=== PATIENT | male | born 1935 | race Caucasian/White ===

== ENCOUNTER → 2017-02-02 | Day surgery (SDC) | payer OTHER ==
[2017-01-12 09:24] VITALS: Ht 167.6 cm; Wt 84.1 kg
[~2017-02-02] VITALS: Ht 167.6 cm; Wt 84.1 kg
[~2017-02-02] MED LIST: 500ML BSS 0.3ML EPI 1:1000PF IRRIG ONE; ACETAMINOPHEN 325 MG TAB PO PRN; AMVISC PLUS 0.8ML SYRINGE INT OCU ONE; ARTISOL8 OP; ATROPINE SULFATE 0.1 MG/ML 5ML SYR IV PRN; ATV1 PO; BROM0.07 OPL; BSS FLUSH ONE; CARV3.122 PO; CHOL1TAB PO; CLB100 PO; CRS/10 PO; DULO-24 PO; EpHEDrine SULFATE INJ 50 MG/ML AMP IV PRN; EpINEphrine INJ 1MG/ML AMP 1 MG/ML AMP ONE; FOLI800T PO; HYDR-5688 PO; HYT/2 PO; LACTATED RINGER'S 1000ML 500 ML IV SCH; LIDOCAINE 3.5% OPH GEL PER APPLICATION CHARGE ONE; LIDOCAINE HCL 1% MPF 2 ML VIAL ONE; MIDAZOLAM HCL 1 MG/ML 2ML VIAL ONE; OCUCOAT 1 ML SOLN IO ONE; ONDANSETRON INJ 2 MG/ML 2 ML VIAL IV PRN; PHENYLEPHRINE HCL 10% OP SOLN PER DROP CHARGE OPL SCH; POVIDONE-IODINE OP SOLN 30 ML BTL ONE; PRED-301 PO; PRED1SUS3 OPL; PROPARACAINE 0.5% OP SOLN PER DROP CHARGE OPL SCH; SENN-104 PO; THIA50CA PO; TOBRAMYCIN/DEXAMETHASONE OPH OINT PER APPLN CHARGE ONE
[2017-02-02] MEDS: PHENYLEPHRINE HCL 2.5% OP SOLN PER DROP CHARGE OPL SCH ×2 (07:57→08:03)
[2017-02-02] MEDS: TROPICAMIDE 1% OP SOLN PER DROP CHARGE OPL SCH ×2 (07:58→08:04)
[2017-02-02] MEDS: CYCLOPENTOLATE HCL 1% OP SOLN PER DROP CHARGE OPL SCH ×2 (07:59→08:05)
[2017-02-02] MEDS: KETOROLAC 0.5% OP SOLN PER DROP CHARGE OPL SCH ×2 (08:00→08:06)
[2017-02-02] MEDS: GATIFLOXACIN OP SOLN PER DROP CHARGE OPL SCH ×2 (08:01→08:10)
--- NOTE | 2017-02-02 08:33 | History & Physical Bridge - [place] ---
H&P Re-Evaluation Bridge Note: I have examined the patient, reviewed the History & Physical and in the interval since the performance of the History & Physical I have noted the following changes of clinical significance: No changes noted
[2017-02-02 09:26] VITALS: TEMP 36.4
--- NOTE | 2017-02-02 09:26 | Discharge Instructions-SurgCtr ---
Discharge Instructions Date of Service Feb 02, 2017. Visit Reason for Visit: Cataract Left Eye Discharge Discharge Diagnosis / Problem: cataract Discharge Goals Goal(s): Improve function Activity Recommendations Activity Limitations: per Instructions/Follow-up section Anesthesia . Post Anesthesia Instructions: If you have had General Anesthesia or IV Sedation: * Do not drive today. * Resume driving when surgeon permits. * Do not make important decisions or sign legal documents today. * Call surgeon for: 1. Temperature elevations greater than 101 degrees F. 2. Uncontrollable pain. 3. Excessive bleeding. 4. Persistent nausea and vomiting. 5. Medication intolerance (nausea, vomiting or rash). * For nausea and vomiting use only clear liquids such as: tea, soda, bouillon until nausea subsides, then gradually increase diet as tolerated. * If you have any concerns or questions, call your surgeon's office. If physician is unavailable and it is an emergency, call 911 or go to the nearest emergency room. . Instructions / Follow-Up Instructions / Follow-Up ACTIVITY RECOMMENDATIONS: * No strenuous lifting, jogging or running for 4 days * No swimming or yard work for 1 week. * Limited bending is permitted, such as putting on shoes. RETURN TO SCHOOL/WORK: No work until seen by physician in office. MEDICATIONS: Resume previous medications unless instructed otherwise by your surgeon. This includes eye drops for glaucoma. Zymaxid/Gatifloxacin (rudolph cap) - one drop every 2 hours until bedtime Nevanac/Ilevro/Prolensa/Ketorolac (mera cap) - one drop every 4 hours until bedtime Prednisolone (white/pink cap, SHAKE WELL) - one drop every 2 hours until bedtime Starting tomorrow - all 3 drops every 4 hours until seen in the office Optive drops - as needed for discomfort SPECIAL CARE INSTRUCTIONS: * Wear eyeshield when sleeping, for four nights. * You may wear your own glasses or sunglasses while awake. * You may read or watch TV * You may shower and wash your face, but be gentle around the eye and pat dry. * Blurry vision and mild irritation are normal. * Call office if pain is more severe or vision becomes dark at . FOLLOW UP VISIT: Follow-up with Dr Giang tomorrow. Diet Recommendations Home Diet: resume previous diet Procedures Procedures Performed: Left Cataract Phacoemulsification With Intraocular Lens Implant Pending Studies Studies pending at discharge: no Medical Emergencies . Who to Call and When: Medical Emergencies: If at any time you feel your situation is an emergency, please call 911 immediately. . Non-Emergent Contact Non-Emergency issues call your: Acquisitions Analyst . . "Provider Documentation" section prepared by Tomasz Giang.
--- NOTE | 2017-02-02 09:27 | [facility] Operative Report ---
Operative Report Date of Service Feb 02, 2017. Operative Report 1. PREOPERATIVE DIAGNOSIS: Cataract of the left eye. 2. POSTOPERATIVE DIAGNOSIS: Same. 3. PROCEDURE: Phacoemulsification with intraocular lens implantation of the left eye. SURGEON: Dr. Tomasz Giang. ANESTHESIA: Topical Lidocaine gel, 1% Non- Preserved intracameral Lidocaine, and monitored intravenous sedation. INDICATIONS FOR THE PROCEDURE: The patient is a 81 - year-old male with a history of cataract of the left eye causing significant visual impairment. The details of the proposed procedure were explained to the patient who asked appropriate questions and following discussion of all risks, benefits and alternatives agreed to have the procedure done. 4. OPERATION AND FINDINGS: DESCRIPTION OF PROCEDURE: After informed consent was obtained, the patient was brought to the Operating Room at the [facility]. The patient was placed in a supine position and then the left eye was prepped and draped in the usual sterile fashion for intraocular surgery. A drop of topical Lidocaine gel was placed in the operative eye. A wire lid speculum was then placed in the fornices. A corneal paracentesis was then created temporally. The Non-Preserved Lidocaine was then instilled into the anterior chamber. The anterior chamber was then pressurized with viscoelastic. A 2.0 mm clear corneal incision was then created temporally. A cystotome was inserted into the anterior chamber and used to create a tear in the anterior lens capsule. This capsular tear was then used to create a small flap and the flap was dragged in a counterclockwise direction in order to create a continuous curvilinear capsulorrhexis. Hydrodissection was accomplished with balanced salt solution. Phacoemulsification of the lens nucleus was then performed in a standard [id number] technique. The phaco time was 23 seconds with an average power of 10 %. The remaining cortical material was removed using irrigation aspiration. The capsular bag was then filled with viscoelastic. A Bausch & Lomb MI60L +22.5 diopters lens was then loaded into the injector and injected into the capsular bag. The remaining viscoelastic was removed with the irrigation aspiration handpiece. The wound was hydrated and then checked and found to be watertight. The intraocular pressure was checked and found to be adequate. The wire lid speculum was removed and the patient's face was cleaned and dried. TobraDex ointment was placed in the inferior fornix. The patient was discharged to the Recovery Room having tolerated the procedure well. There were no complications. The patient will be seen tomorrow in the office for follow-up. I attest to the content of the Intraoperative Record and any orders documented therein. Any exceptions are noted below.
[2017-02-02 09:53] VITALS: BP 167/66; PULSE 66; O2SAT 94
--- NOTE | 2017-02-02 10:28 | Anesthesia Progress Nt - [facility] ---
Anesthesia Post Op Note Date & Time Feb 02, 2017 at 10:27 Vital Signs Pain Intensity: 0 Vital Signs Past 12 Hours Date Time Temp Pulse Resp B/P Pulse Ox O2 Delivery O2 Flow Rate FiO2 02/02/17 09:53 66 16 167/66 94 Room Air 02/02/17 09:26 36.4 61 14 152/86 94 Room Air 02/02/17 07:55 36.5 65 18 164/99 95 Room Air Notes Mental Status: alert / awake / arousable, participated in evaluation Pt Amnestic to Procedure: Yes Nausea / Vomiting: adequately controlled Pain: adequately controlled Airway Patency, RR, SpO2: stable & adequate BP & HR: stable & adequate Hydration State: stable & adequate Anesthetic Complications: no major complications apparent
== END | disposition home or self-care (01) ==
LOC: X.SURG 07:34
PROVIDERS: ATTEND Ophthalmology
DX: H26.9 Unspecified cataract (principal); I10 Essential (primary) hypertension; Z68.30 Body mass index [BMI] 30.0-30.9, adult; Z96.653 Presence of artificial knee joint, bilateral; Z90.89 Acquired absence of other organs

== ENCOUNTER → 2017-02-23 | Day surgery (SDC) | payer OTHER ==
[2017-02-16 09:05] VITALS: Ht 167.6 cm; Wt 84.1 kg
[~2017-02-23] VITALS: Ht 167.6 cm; Wt 84.1 kg
[~2017-02-23] MED LIST changes: -ONDANSETRON INJ 2 MG/ML 2 ML VIAL IV PRN; -PHENYLEPHRINE HCL 10% OP SOLN PER DROP CHARGE OPL SCH; +PHENYLEPHRINE HCL 10% OP SOLN PER DROP CHARGE OPR SCH; -PROPARACAINE 0.5% OP SOLN PER DROP CHARGE OPL SCH; +PROPARACAINE 0.5% OP SOLN PER DROP CHARGE OPR SCH
[2017-02-23] MEDS: PHENYLEPHRINE HCL 2.5% OP SOLN PER DROP CHARGE OPR SCH ×2 (09:51→09:56)
[2017-02-23] MEDS: TROPICAMIDE 1% OP SOLN PER DROP CHARGE OPR SCH ×2 (09:52→09:57)
[2017-02-23] MEDS: CYCLOPENTOLATE HCL 1% OP SOLN PER DROP CHARGE OPR SCH ×2 (09:53→09:58)
[2017-02-23] MEDS: KETOROLAC 0.5% OP SOLN PER DROP CHARGE OPR SCH ×2 (09:54→09:59)
[2017-02-23] MEDS: GATIFLOXACIN OP SOLN PER DROP CHARGE OPR SCH ×2 (09:55→10:02)
[2017-02-23 11:14] VITALS: TEMP 36.5
--- NOTE | 2017-02-23 11:14 | Discharge Instructions-SurgCtr ---
Discharge Instructions Date of Service February 23, 2017. Visit Reason for Visit: Cataract Right Eye Discharge Discharge Diagnosis / Problem: cataract Discharge Goals Goal(s): Improve function Activity Recommendations Activity Limitations: per Instructions/Follow-up section Anesthesia . Post Anesthesia Instructions: If you have had General Anesthesia or IV Sedation: * Do not drive today. * Resume driving when surgeon permits. * Do not make important decisions or sign legal documents today. * Call surgeon for: 1. Temperature elevations greater than 101 degrees F. 2. Uncontrollable pain. 3. Excessive bleeding. 4. Persistent nausea and vomiting. 5. Medication intolerance (nausea, vomiting or rash). * For nausea and vomiting use only clear liquids such as: tea, soda, bouillon until nausea subsides, then gradually increase diet as tolerated. * If you have any concerns or questions, call your surgeon's office. If physician is unavailable and it is an emergency, call 911 or go to the nearest emergency room. . Instructions / Follow-Up Instructions / Follow-Up ACTIVITY RECOMMENDATIONS: * No strenuous lifting, jogging or running for 4 days * No swimming or yard work for 1 week. * Limited bending is permitted, such as putting on shoes. RETURN TO SCHOOL/WORK: No work until seen by physician in office. MEDICATIONS: Resume previous medications unless instructed otherwise by your surgeon. This includes eye drops for glaucoma. Zymaxid/Gatifloxacin (rudolph cap) - one drop every 2 hours until bedtime Nevanac/Ilevro/Prolensa/Ketorolac (mera cap) - one drop every 4 hours until bedtime Prednisolone (white/pink cap, SHAKE WELL) - one drop every 2 hours until bedtime Starting tomorrow - all 3 drops every 4 hours until seen in the office Optive drops - as needed for discomfort SPECIAL CARE INSTRUCTIONS: * Wear eyeshield when sleeping, for four nights. * You may wear your own glasses or sunglasses while awake. * You may read or watch TV * You may shower and wash your face, but be gentle around the eye and pat dry. * Blurry vision and mild irritation are normal. * Call office if pain is more severe or vision becomes dark at . FOLLOW UP VISIT: Follow-up with Dr Giang tomorrow. Diet Recommendations Home Diet: resume previous diet Procedures Procedures Performed: Right Eye Cataract Phacoemuslification With Intraocular Lens Implant Pending Studies Studies pending at discharge: no Medical Emergencies . Who to Call and When: Medical Emergencies: If at any time you feel your situation is an emergency, please call 911 immediately. . Non-Emergent Contact Non-Emergency issues call your: Sponge Buffer . . "Provider Documentation" section prepared by Tomasz Giang. .
--- NOTE | 2017-02-23 11:15 | [facility] Operative Report ---
Operative Report Date of Service February 23, 2017. Operative Report 1. PREOPERATIVE DIAGNOSIS: Cataract of the right eye. 2. POSTOPERATIVE DIAGNOSIS: Same. 3. PROCEDURE: Phacoemulsification with intraocular lens implantation of the right eye. SURGEON: Dr. Tomasz Giang. ANESTHESIA: Topical Lidocaine gel, 1% Non- Preserved intracameral Lidocaine, and monitored intravenous sedation. INDICATIONS FOR THE PROCEDURE: The patient is a 81 - year-old male with a history of cataract of the right eye causing significant visual impairment. The details of the proposed procedure were explained to the patient who asked appropriate questions and following discussion of all risks, benefits and alternatives agreed to have the procedure done. 4. OPERATION AND FINDINGS: DESCRIPTION OF PROCEDURE: After informed consent was obtained, the patient was brought to the Operating Room at the [facility]. The patient was placed in a supine position and then the right eye was prepped and draped in the usual sterile fashion for intraocular surgery. A drop of topical Lidocaine gel was placed in the operative eye. A wire lid speculum was then placed in the fornices. A corneal paracentesis was then created temporally. The Non-Preserved Lidocaine was then instilled into the anterior chamber. The anterior chamber was then pressurized with viscoelastic. A 2.0 mm clear corneal incision was then created temporally. A cystotome was inserted into the anterior chamber and used to create a tear in the anterior lens capsule. This capsular tear was then used to create a small flap and the flap was dragged in a counterclockwise direction in order to create a continuous curvilinear capsulorrhexis. Hydrodissection was accomplished with balanced salt solution. Phacoemulsification of the lens nucleus was then performed in a standard [id number]-[id number] technique. The phaco time was 25 seconds with an average power of 10 %. The remaining cortical material was removed using irrigation aspiration. The capsular bag was then filled with viscoelastic. A Bausch & Lomb MI60L +22.5 diopters lens was then loaded into the injector and injected into the capsular bag. The remaining viscoelastic was removed with the irrigation aspiration handpiece. The wound was hydrated and then checked and found to be watertight. The intraocular pressure was checked and found to be adequate. The wire lid speculum was removed and the patient's face was cleaned and dried. TobraDex ointment was placed in the inferior fornix. The patient was discharged to the Recovery Room having tolerated the procedure well. There were no complications. The patient will be seen tomorrow in the office for follow-up. I attest to the content of the Intraoperative Record and any orders documented therein. Any exceptions are noted below.
[2017-02-23 11:37] VITALS: BP 134/82; PULSE 59; O2SAT 95
--- NOTE | 2017-02-23 11:39 | Anesthesia Progress Nt - [facility] ---
Anesthesia Post Op Note Date & Time February 23, 2017 at 11:38 Vital Signs Pain Intensity: 0 Vital Signs Past 12 Hours Date Time Temp Pulse Resp B/P Pulse Ox O2 Delivery O2 Flow Rate FiO2 02/23/17 11:14 36.5 64 16 125/82 95 Room Air 02/23/17 09:50 36.6 66 20 167/100 95 Room Air Notes Mental Status: alert / awake / arousable, participated in evaluation Pt Amnestic to Procedure: Yes Nausea / Vomiting: adequately controlled Pain: adequately controlled Airway Patency, RR, SpO2: stable & adequate BP & HR: stable & adequate Hydration State: stable & adequate Anesthetic Complications: no major complications apparent
== END | disposition home or self-care (01) ==
LOC: X.SURG 09:21
PROVIDERS: ATTEND Ophthalmology
DX: H26.9 Unspecified cataract (principal)

== ENCOUNTER 2018-01-04 11:50 | Emergency (ER) | payer OTHER ==
[~2018-01-04] VITALS: Ht 170.2 cm; Wt 88.2 kg
[~2018-01-04 11:50] MED LIST changes: -500ML BSS 0.3ML EPI 1:1000PF IRRIG ONE; -ACETAMINOPHEN 325 MG TAB PO PRN; -AMVISC PLUS 0.8ML SYRINGE INT OCU ONE; -ATROPINE SULFATE 0.1 MG/ML 5ML SYR IV PRN; -BSS FLUSH ONE; -EpHEDrine SULFATE INJ 50 MG/ML AMP IV PRN; -EpINEphrine INJ 1MG/ML AMP 1 MG/ML AMP ONE; -LACTATED RINGER'S 1000ML 500 ML IV SCH; -LIDOCAINE 3.5% OPH GEL PER APPLICATION CHARGE ONE; -LIDOCAINE HCL 1% MPF 2 ML VIAL ONE; -MIDAZOLAM HCL 1 MG/ML 2ML VIAL ONE; -OCUCOAT 1 ML SOLN IO ONE; -PHENYLEPHRINE HCL 10% OP SOLN PER DROP CHARGE OPR SCH; -POVIDONE-IODINE OP SOLN 30 ML BTL ONE; -PROPARACAINE 0.5% OP SOLN PER DROP CHARGE OPR SCH; -TOBRAMYCIN/DEXAMETHASONE OPH OINT PER APPLN CHARGE ONE
[2018-01-04 12:01] VITALS: TEMP 36.3; Ht 170.2 cm; Wt 88.2 kg
--- NOTE | 2018-01-04 13:01 | EMERGENCY ROOM VISIT NOTE ---
ED Visit Note First contact with patient: 12:25 I have seen and examined this patient with Janice Mcgee and generally agree with the treatment plan as discussed. Problem List Medical Problems: (1) Aortic stenosis Status: Chronic (2) Chronic back pain Status: Chronic (3) CKD (chronic kidney disease), stage III Status: Chronic (4) History of steroid therapy Status: Chronic (5) Hyperlipidemia Status: Chronic (6) Hypertension Status: Chronic (7) Osteoarthritis Status: Chronic (8) Pericarditis Status: Resolved (9) Systemic lupus erythematosus Status: Chronic Surgical Problems: (1) History of back surgery Status: Chronic (2) S/P appendectomy Status: Chronic (3) S/p total knee replacement, bilateral Status: Chronic Current/Historical Medications Scheduled Bromfenac Sodium (Ophth) (Prolensa), 1 DROP OPL DAILY Carvedilol (Coreg), 3.125 MG PO BID Cholecalciferol (Vitamin D-3), 400 MG PO QAM Duloxetine HCl (Cymbalta), 1 CAP PO HS Folic Acid (Folic Acid), 400 MCG PO QAM Prednisolone Acetate (Ophth) (Pred Forte 1% Oph), 1 DROPS OPL TID Prednisone (Prednisone), 2 TAB PO QAM Rosuvastatin Calcium (Crestor), 20 MG PO HS Sennosides-Docusate Sodium (Senna-S), 3 TABS PO QPM Terazosin Hcl (Hytrin), 2 MG PO HS Scheduled PRN Artificial Tears (Artificial Tears), 1 DROPS OP QID PRN Celecoxib (Celebrex), 1 CAP PO QAM PRN for Pain Hydrocodone/Acetaminophen 5MG/325MG ([place] 5MG/325MG), 1-2 TAB PO Q4 PRN for Pain Lorazepam (Lorazepam), 1 MG PO Q6H PRN for Anxiety Thiamine Hcl (Vitamin B-1), 50 MG PO QAM PRN for PRN Allergies Coded Allergies: Oxycodone (Verified Allergy, Unknown, ITCHY, Per pt-can take Vicodin, ) Piroxicam (Verified Adverse Reaction, Intermediate, CAUSED ULCER, 02/23/17) Vital Signs Date Time Temp Pulse Resp B/P (MAP) Pulse Ox O2 Delivery O2 Flow Rate FiO2 01/04/18 12:01 36.3 80 20 128/71 93 Room Air Departure Information Referrals No Doctor, Assigned (PCP) Patient Instructions [facility]
--- NOTE | 2018-01-04 14:20 | DIAGNOSTIC IMAGING REPORT ---
L-SPINE MIN 4 VIEWS ROUTINE, THORACIC SPINE 3 VIEWS ROUTINE HISTORY: 82 years-old Male fall, eval hardware acute back pain status post fall. History of prior thoracic and lumbar spine fusion COMPARISON: Lumbar spine radiographs 06/20/2015 TECHNIQUE: 5 views of the lumbar spine and 3 views of the thoracic spine FINDINGS: THORACIC: 12 thoracic type rib-bearing vertebral segments are present. Fusion hardware extends from T11-L5. Severe intervertebral disc space narrowing at T8-T9. Multilevel intervertebral disc space narrowing and endplate spurring throughout the imaged cervical and thoracic spine. No acute fracture or subluxation. The imaged hardware appears intact. Heart appears enlarged. Mild right hemidiaphragm elevation. Atherosclerosis of the aorta. LUMBAR: Posterior saman screw fusion hardware extends from T11-L5. Discectomy changes are noted at L2-L3, L3-L4 and L5-S1. There is 8 mm anterolisthesis L5 on S1 which appears unchanged from fluoroscopic images 06/20/2015. Alignment is otherwise satisfactory. No acute fracture or subluxation is identified. The fusion hardware appears intact. Multilevel endplate spurring and facet arthrosis. Indeterminate round 10 mm calcification projects over the left upper abdomen. Moderate stool volume throughout the colon. Atherosclerosis and tortuosity of the aorta. IMPRESSION: 1. No acute fracture or subluxation of the thoracic or lumbar spine. 2. Posterior saman and screw fusion hardware of the thoracolumbar spine with unchanged alignment. No evidence of hardware complication. The above report was generated using voice recognition software. It may contain grammatical, syntax or spelling errors. Electronically signed by: Scooby Askew M.D. 01/04/2018 2:19 PM Dictated Date/Time: 01/04/2018 2:13 PM
[2018-01-04 14:30] VITALS: BP 121/88; PULSE 77; O2SAT 99
[2018-01-04] MEDS ORDERED: MTH25 PO (15:09)
--- NOTE | 2018-01-04 15:09 | EMERGENCY ROOM VISIT NOTE ---
ED Visit Note First contact with patient: 12:25 CHIEF COMPLAINT: Low back pain HISTORY OF PRESENT ILLNESS: This 82-year-old male patient presents to the emergency department by private vehicle complaining of pain in the low back which began approximately 10 days ago after a fall. The patient states that he slipped on some ice and fell straight back onto his lower back. He denies hitting his head and did not have loss of consciousness, denies any other injuries associated with the fall. The pain has been gradual in onset, is now constant and worse with movement. The patient states his pain became more severe last night, stating he woke up in the middle of the night having bad muscle spasms causing his pain. The patient notes the pain as throbbing and spasm-like and a 5/10 currently. The patient has taken Rolla with good relief of the pain, he states he has this for chronic pain. The patient denies any loss of control of their bowel or bladder functions. There has been no leg numbness or weakness, and no change in sensation. No nausea or vomiting or abdominal pain. No chest pain or shortness of breath. The patient has had multiple prior back surgeries, with lumbar and thoracic fusions. No dysuria or increased urinary frequency. REVIEW OF SYSTEMS: A review of systems was performed with positives and pertinent negatives listed in the history of present illness. All other systems were reviewed and are negative. ALLERGIES: Reviewed in chart MEDICATIONS: Reviewed in chart PMH: Reviewed in chart SOCIAL HISTORY: Lives at home. Denies tobacco use, alcohol or recreational drug use. PHYSICAL EXAM: VITALS: Vitals are noted on the nurse's note and reviewed by myself. Vital signs stable. GENERAL: Pleasant and cooperative, in no acute distress but does appear in some pain, non-diaphoretic, well-developed well-nourished. SKIN: The skin was without rashes, erythema, edema, or bruising. Capillary refill less than 2 seconds. NECK: Supple without nuchal rigidity. No cervical spine tenderness. No paraspinous muscle tenderness. HEART: Regular rate and rhythm without murmurs gallops or rubs. LUNGS: Clear to auscultation bilaterally without wheezes, rales or rhonchi. ABDOMEN: Positive bowel sounds x 4. Normal tympanic percussion. Soft, nontender, without masses or organomegaly. Ricks sign negative. MUSCULOSKELETAL: No muscle atrophy, erythema, or edema noted of the back. There is no tenderness over the lumbar spinous processes. There is mild tenderness over the paraspinous muscles bilaterally. There is no tenderness over the thoracic spine, but mild tenderness of the drastic paraspinous muscles. There are some muscle spasms present. The patient is slow to move around with maximum tenderness with bending and twisting the back. Negative straight leg raise test Bilaterally. NEURO: Patient was alert and oriented to person place and time. Normal sensation to light and sharp touch. Deep tendon reflexes 2+ in the lower extremities. Dorsalis pedis pulse 2+ bilaterally. Strength 5/5 and equal in the bilateral lower extremities. EMERGENCY DEPARTMENT COURSE: I examined the patient. Differential diagnosis includes lumbar sprain/strain, contusion, vertebral fracture, subluxation, disruption of surgical hardware, among others. X-rays of the thoracic and lumbar spine were obtained, these were reviewed by myself and radiologist and show no acute abnormalities and intact surgical hardware. The patient declined anything for pain, stating he will continue taking his Rolla at home as needed. He was encouraged to follow-up with his orthopedic spine surgeon for further management of his back pain. He was also given strict return precautions should his symptoms worsen, he verbalized understanding. Patient was discharged home in stable condition and ambulatory. Patient was discussed with Dr. Carter, who also evaluated the patient and agrees with my assessment and plan. Problem List Medical Problems: (1) Aortic stenosis Status: Chronic (2) Chronic back pain Status: Chronic (3) CKD (chronic kidney disease), stage III Status: Chronic (4) History of steroid therapy Status: Chronic (5) Hyperlipidemia Status: Chronic (6) Hypertension Status: Chronic (7) Osteoarthritis Status: Chronic (8) Pericarditis Status: Resolved (9) Systemic lupus erythematosus Status: Chronic Surgical Problems: (1) History of back surgery Status: Chronic (2) S/P appendectomy Status: Chronic (3) S/p total knee replacement, bilateral Status: Chronic Current/Historical Medications Scheduled Carvedilol (Coreg), 3.125 MG PO BID Cholecalciferol (Vitamin D-3), 400 MG PO QAM Duloxetine HCl (Cymbalta), 20 MG PO HS Folic Acid (Folic Acid), 400 MCG PO QAM Methotrexate (Methotrexate), 7.5 MG PO WK Prednisolone Acetate (Ophth) (Pred Forte 1% Oph), 1 DROPS OPL TID Prednisone (Prednisone), 5 MG PO QAM Rosuvastatin Calcium (Crestor), 20 MG PO HS Sennosides-Docusate Sodium (Senna-S), 3 TABS PO QPM Terazosin Hcl (Hytrin), 2 MG PO HS Scheduled PRN Lorazepam (Lorazepam), 1 MG PO Q6H PRN for Anxiety Thiamine Hcl (Vitamin B-1), 50 MG PO QAM PRN for PRN Allergies Coded Allergies: Oxycodone (Verified Allergy, Unknown, ITCHY, Per pt-can take Vicodin, 01/04) Piroxicam (Verified Adverse Reaction, Intermediate, CAUSED ULCER, 01/04/18) Vital Signs Date Time Temp Pulse Resp B/P (MAP) Pulse Ox O2 Delivery O2 Flow Rate FiO2 01/04/18 14:30 77 18 121/88 99 Room Air 01/04/18 12:01 36.3 80 20 128/71 93 Room Air Departure Information Impression Primary Impression: Back injury Dispostion Home / Self-Care Condition GOOD Referrals No Doctor, Assigned (PCP) Patient Instructions ED Back Care Tips, ED Low Back Pain Injury, [facility] Additional Instructions Take it easy for the next few days, no strenuous activity, heavy lifting, or bending/twisting motions, to allow your back to rest. Alternate heat and ice for comfort. After heat, you may do gentle stretching and massage to the low back. Take your own prescribed pain medication as directed as needed for pain. You may also take extra strength Tylenol (500 mg tablets) 1-2 tablets every 8 hours as needed for pain, not more than 6 tablets in 24 hours. Follow up with your orthopedic spine surgeon in the next few days for further management. Please return to the ER if any problems with bowel or bladder function, numbness in your groin, high fevers, severe abdominal pain or worsening back pain, or if loss of feeling/movement of legs. Problem Qualifiers Primary Impression: Back injury Encounter type: initial encounter Qualified Codes: S39.92XA - Unspecified injury of lower back, initial encounter
== END 2018-01-04 15:31 | disposition home or self-care (01) ==
LOC: C.EDB 11:51 → C.EDD 15:31
DX: S39.92XA Unspecified injury of lower back, initial encounter (principal); W00.0XXA Fall on same level due to ice and snow, initial encounter; Y92.9 Unspecified place or not applicable; I35.0 Nonrheumatic aortic (valve) stenosis; G89.29 Other chronic pain; N18.3 Chronic kidney disease, stage 3 (moderate); E78.5 Hyperlipidemia, unspecified; I12.9 Hypertensive chronic kidney disease with stage 1 through stage 4 chronic kidney disease, or unspecified chronic kidney disease; M19.90 Unspecified osteoarthritis, unspecified site; M32.9 Systemic lupus erythematosus, unspecified; Z96.653 Presence of artificial knee joint, bilateral; Z79.52 Long term (current) use of systemic steroids; Z79.899 Other long term (current) drug therapy; Z88.5 Allergy status to narcotic agent; Z88.8 Allergy status to other drugs, medicaments and biological substances

== ENCOUNTER 2020-02-02 06:40 | Inpatient (IN) ==
[2020-02-02] MEDS ORDERED: STAT IV Infusion **Titration per Protocol STA ×3 (06:49→20:51)
[2020-02-02] MEDS ORDERED: dilTIAZem HCl 5 MG/ML 5 ML VIAL IV STA (06:49)
[2020-02-02] MEDS ORDERED: dilTIAZem HCL 125 MG in DEXTROSE 5% 100 ML IV SCH (07:00)
--- NOTE | 2020-02-02 07:13 | Emergency Department Note ---
Impression & Plan Acute hypoxemic respiratory failure, Non-ST elevation ND (NSTEMI), Acute dyspnea, Anaplasmosis ED Provider Note Provider: Isaac Mills MD DATE OF SERVICE: 02/02/2020 CHIEF COMPLAINT: Shortness of breath HISTORY OF PRESENT ILLNESS: Patient is a 84-year-old gentleman with a past medical history including aortic stenosis, lupus, hypertension, hyperlipidemia, chronic kidney disease presenting today via ambulance due to respiratory distress. EMS states that the patient called and was found to be hypoxic 80% on room air. Increased work of breathing. Patient denied for them any pain. Mi nimal improvement with albuterol and DuoNeb prior to arrival as well as supplemental oxygen and was placed on CPAP. Difficulty tolerating this and received 1 mg of IV Versed. Patient then became somewhat somnolent but tolerated BiPAP with improved oxygenation. Reports last several days the patien t's had nonspecific flulike symptoms and a fever several days ago. Patient noted to be tachycardic and irregular heart rate prior to arrival. Patient taken to b8 interval precautions upon arrival. Patient states his name but his eyes are closed and will not answer significant questions upon evalu ation. Did call and discuss with the patient's friend who he lives with via the telephone, she states that again he is been on the way last several days. 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 Took additional prednisone 50 mg yesterday. No real cough but fever yesterday of 100.9 Fahrenheit. Significantly declined and short of breath this morning prompting EMS evaluation and transport to the hospital. She states that the patient's been isolated for approximately the last month but has not had contact with anyone but her and her sister who are asymptomatic. REVIEW OF SYSTEMS: Limited secondary to mental status PAST MEDICAL HISTORY: As noted above MEDICATIONS: Per review of the medical record appears the patient is maintained on Coreg, aspirin, and methotrexate. SOCIAL HISTORY: lives at home with friend. Former smoker. PHYSICAL EXAM: GENERAL: With noninvasive mask in place eyes closed, alert to painful and loud verbal stimuli Head: normocephalic and atraumatic EYES: No injection, discharge or icterus. PERRL NECK: Trachea midline. Supple. ENT: Mucous membranes pink and moist. LUNGS: Airway patent. Increased work of breathing. Breath sounds diffusely wheezy with rhonchi at the bases HEART: Tachycardic and irregular rate and rhythm. No chest wall tenderness ABDOMEN: Soft and non-tender, without guarding or rebound. SKIN: Acyanotic, warm, dry, without rashes EXTREMITIES: Without swelling, tenderness or deformity NEUROLOGICAL: Withdraws to pain in all 4 extremities. Will state his name. EKG: Sinus tachycardia of 133 bpm. CONTINUOUS CARDIAC MONITORING: was ordered and showed a heart rate of 108 bpm in sinus tachycardia Patient's hypertension was referred to the hospitalist HOSPITAL COURSE: 0640 Patient was first seen and H&P performed. 0758 Patient reassessed and updated. Patient was more awake. Taken off BiPAP for 20 minutes. With some wheeze and mild increased work of breathing but oxygenating 100% on 4 L nasal cannula. [address] Dotson who will discussion and evaluate which team the patient should be admitted to. 1000 Dr. Dotson will admit. 1101 Dr. Dotson aware of troponin of 2.9 Patient's laboratory studies and imaging reviewed. Differential includes Reactive airway disease, pneumonia, pneumothorax, COPD, CHF, infections, cardiac ischemia, pulmonary embolism, musculoskeletal, gastrointestinal, as well as other pathologies. IMPRESSION/MEDICAL DECISION MAKING: Patient presents with several days of flulike symptoms fever several days ago no reported travel found to be in respiratory distress requiring noninvasive positive pressure ventilation prior to arrival by EMS. Patient received Versed prior to arrival and is somnolent upon arrival here. Patient's tachycardic initially seemed to be likely in A. fib based on monitor but a twelve-lead EKG reviewed normal sinus rhythm. Patient did not receive any rate control medications although they were initially ordered. Broad differential was entertained chest x-ray, ABG, lactate, blood cultures, flu study, and basic labs were obtained. EKG shows sinus tachycardia. No significant evidence of fluid overload on exam. Not febrile here. ABG shows no significant hypercarbia. pH of 7.34. Discussio n with friends, reports patient is been self isolated for a month without symptomatic exposure for novel coronavirus. Patient without significant leukocytosis or anemia. Patient is noted to have worsened renal function and an elevated lactate of 2.8. Given IV fluids. Troponin is elevated although I do not see acute ischemic change in the EKG will anticoagulate at this time. Given his poor renal function not a candidate for CT of the chest to exclude PE, but will heparinize in any event. Again I have a lower suspicion at this time this represents a bacterial infection. Chest x-ray without evidence of lobar pneumonia. No evidence pneumothorax. No large effusion. Question reactive air way disease versus viral bronchiolitis versus may be mild congestive changes. Patient's proBNP is significantly elevated. Given this constellation have concerns this could represent again acute PE. Patient is being anticoagulated. Given a DuoNeb to see if this would help with his respiratory symptoms. Will gently hydrate at this time. Influenza testing was negative. Patient was reassessed and having improvement. On pressured questioning, he does admit to maybe some slight chest pain. Again denies any leg swelling edema or tenderness. Has been fairly active. Given his wheezing discussed with respiratory utilizing and nebulized treatment via the BiPAP. Discussed with the labs the CBC differential was still pending, they are reviewing the slides but raise possible concern for anaplasmosis. Discussed with the hospitalist for admission. Given the possible findings of the anaplasmosis will treat with doxycycline empirically at this time. Biofire test ordered and does not show any significant positives. D dimer grossly elevated. Repeat lactate and BMp without real change. Lymphopenia noted. Patient later stated he felt a bit anxious and wheezy and requested something to help with this. As he got fairly sedate with IV Versed given a small amount of oral Ativan now. Still without signifigant chest pain. An additional DuoNeb was ordered. Patient still satting okay on nasal cannula without significant work of breathing. Dr. Dotson discussed with pulm and he recommended sending lyme and COVID testing at this time. Keeping the patient on airborne isolation at this time. Will admit. DIAGNOSIS: Hypoxemic respiratory failure, NSTEMI, SOB, Anaplasmosis DISPOSITION: Admission Critical Care I have personally spent 75 minutes of critical care time in the direct management of this patient. This includes bedside care, interpretation of manuelito gnostic studies, and testing, discussion with consultants, patient, and family members, and other required patient management activities. These 75 minutes is in excess of all separately billable procedures. Past Med/Surg History Medical History Aortic stenosis (Chronic) CKD (chronic kidney disease), stage III (Chronic) History of steroid therapy (Chronic) HTN (hypertension) Hyperlipidemia Hypertension (Chronic) Lumbar stenosis with neurogenic claudication (Acute) Pericarditis (Resolved) Systemic lupus erythematosus (Chronic) Surgical History History of back surgery (Chronic) S/P appendectomy (Chronic) S/p total knee replacement, bilateral (Chronic) Family History Unknown No problems noted. Other Family history non-contributory Social History Preferred Language: Georgian Communication Ability: Effective Prepleater Required: No Beliefs That Will Affect Care: None Current Living Situation: Significant Other Other Information That Helps Us Care for You: No Feels Safe at Home: Yes Safety Concerns: Feels Safe At This Time Smoking Status: Former smoker Tobacco Type: cigarettes ; Do You Dip or Chew Tobacco: No ; Second Hand Exposure: No ; Tobacco Cessation Education Requested by Patient: No Hx Alcohol Use: No Hx Substance Use: No Allergies Allergies Allergy/AdvReac Type Severity Reaction Status Date / Time oxycodone Allergy Unknown ITCHY, Per Verified 02/02/20 07:38 pt-can take Vicodin piroxicam AdvReac Intermediate CAUSED Verified 02/02/20 07:38 ULCER Home Meds Home Medications Medication Instructions Recorded Confirmed aspirin [Aspir-81] 81 mg PO Q OTHER DAY 08/01/19 02/02/20 cyanocobalamin (vitamin B-12) 500 mcg PO DAILY 08/01/19 02/02/20 duloxetine 30 mg PO DAILY 08/01/19 02/02/20 folic acid 1 mg PO DAILY 08/01/19 02/02/20 hydroxychloroquine [Plaquenil] 400 mg PO HS 08/01/19 02/02/20 methotrexate sodium 7.5 mg PO FR 08/01/19 02/02/20 multivitamin 1 tab PO DAILY 08/01/19 02/02/20 prednisone 5 mg PO DAILY 08/01/19 02/02/20 vitamin B complex 1 tab PO DAILY 08/01/19 02/02/20 vitamins A,C,[id number] 1 tab PO BID 08/01/19 02/02/20 [PreserVision AREDS] carvedilol [Coreg] 3.125 mg PO BID 02/02/20 02/02/20 hydrocodone-acetaminophen 1 tab PO Q8H PRN 02/02/20 02/02/20 prednisone 10 mg PO UD 02/02/20 02/02/20 Results & Data (ED) Vital Signs Vital Signs - 24 hr 02/02/20 06:47 02/02/20 06:59 02/02/20 07:00 Temperature 37.4 C Temperature Source Axillary Pulse Rate 132 H 130 H 130 H Pulse Rate [Right Apical] Pulse Rate from SpO2 Sensor 131 H 130 H 129 H Respiratory Rate 29 H 33 H 26 H Respiratory Effort / Characteristics Accessory Muscle Use Labored Respiratory Depth Respiratory Pattern Blood Pressure 139/99 130/90 Blood Pressure Mean 107 105 Pulse Oximetry 95 95 96 Oxygen Delivery Method BiPAP BiPAP BiPAP Oxygen Flow Rate Fraction of Inspired Oxygen Sepsis Recent Fever Within 48 Hours Yes Sepsis Action Taken by Nursing Physician Notified 02/02/20 07:01 02/02/20 07:09 02/02/20 07:10 Temperature Temperature Source Pulse Rate 128 H 119 H 123 H Pulse Rate [Right Apical] Pulse Rate from SpO2 Sensor 128 H 122 H Respiratory Rate 28 H 28 H 30 H Respiratory Effort / Characteristics Spontaneous Accessory Muscle Use Respiratory Depth Normal Respiratory Pattern Regular Blood Pressure 122/78 Blood Pressure Mean 88 Pulse Oximetry 96 96 97 Oxygen Delivery Method BiPAP BiPAP Oxygen Flow Rate Fraction of Inspired Oxygen 50 Sepsis Recent Fever Within 48 Hours Sepsis Action Taken by Nursing 02/02/20 07:15 02/02/20 07:16 02/02/20 07:18 Temperature Temperature Source Pulse Rate 118 H 118 H Pulse Rate [Right Apical] Pulse Rate from SpO2 Sensor 118 H Respiratory Rate 25 H 29 H Respiratory Effort / Characteristics Respiratory Depth Respiratory Pattern Blood Pressure 120/80 Blood Pressure Mean 89 Pulse Oximetry 95 95 Oxygen Delivery Method BiPAP BiPAP Oxygen Flow Rate Fraction of Inspired Oxygen Sepsis Recent Fever Within 48 Hours Sepsis Action Taken by Nursing 02/02/20 07:30 02/02/20 07:31 02/02/20 07:45 Temperature Temperature Source Pulse Rate 110 H 108 H 102 H Pulse Rate [Right Apical] Pulse Rate from SpO2 Sensor 110 H 107 H 104 H Respiratory Rate 28 H 26 H 28 H Respiratory Effort / Characteristics Respiratory Depth Respiratory Pattern Blood Pressure 114/70 114/69 Blood Pressure Mean 75 74 Pulse Oximetry 96 96 95 Oxygen Delivery Method BiPAP BiPAP BiPAP Oxygen Flow Rate Fraction of Inspired Oxygen Sepsis Recent Fever Within 48 Hours Sepsis Action Taken by Nursing 02/02/20 07:46 02/02/20 08:00 02/02/20 08:01 Temperature Temperature Source Pulse Rate 103 H 108 H 108 H Pulse Rate [Right Apical] Pulse Rate from SpO2 Sensor 103 H 103 H 108 H Respiratory Rate 28 H 31 H 20 Respiratory Effort / Characteristics Respiratory Depth Respiratory Pattern Blood Pressure 120/69 Blood Pressure Mean 91 Pulse Oximetry 95 95 98 Oxygen Delivery Method BiPAP BiPAP BiPAP Oxygen Flow Rate Fraction of Inspired Oxygen Sepsis Recent Fever Within 48 Hours Sepsis Action Taken by Nursing 02/02/20 08:04 02/02/20 08:15 02/02/20 08:16 Temperature Temperature Source Pulse Rate 108 H 110 H 109 H Pulse Rate [Right Apical] Pulse Rate from SpO2 Sensor 108 H 106 H 110 H Respiratory Rate 39 H 34 H 39 H Respiratory Effort / Characteristics Respiratory Depth Respiratory Pattern Blood Pressure 121/77 141/85 H Blood Pressure Mean 88 97 Pulse Oximetry 92 100 100 Oxygen Delivery Method BiPAP Nasal Cannula Nasal Cannula Oxygen Flow Rate 4 4 Fraction of Inspired Oxygen Sepsis Recent Fever Within 48 Hours Sepsis Action Taken by Nursing 02/02/20 08:30 02/02/20 08:31 02/02/20 08:45 Temperature Temperature Source Pulse Rate 113 H 116 H 109 H Pulse Rate [Right Apical] 115 H Pulse Rate from SpO2 Sensor 115 H 110 H Respiratory Rate 35 H 36 H 36 H Respiratory Effort / Characteristics Spontaneous Respiratory Depth Respiratory Pattern Blood Pressure 146/88 H Blood Pressure Mean 100 Pulse Oximetry 93 95 90 Oxygen Delivery Method BiPAP BiPAP Nasal Cannula Oxygen Flow Rate 4 Fraction of Inspired Oxygen 50 Sepsis Recent Fever Within 48 Hours Sepsis Action Taken by Nursing 02/02/20 08:47 02/02/20 09:00 02/02/20 09:01 Temperature Temperature Source Pulse Rate 110 H 104 H 104 H Pulse Rate [Right Apical] Pulse Rate from SpO2 Sensor 111 H 104 H 104 H Respiratory Rate 38 H 37 H 35 H Respiratory Effort / Characteristics Respiratory Depth Respiratory Pattern Blood Pressure 110/82 105/73 Blood Pressure Mean 89 87 Pulse Oximetry 93 93 94 Oxygen Delivery Method Nasal Cannula Nasal Cannula Nasal Cannula Oxygen Flow Rate 4 4 4 Fraction of Inspired Oxygen Sepsis Recent Fever Within 48 Hours Sepsis Action Taken by Nursing 02/02/20 09:15 02/02/20 09:16 02/02/20 09:30 Temperature Temperature Source Pulse Rate 104 H 103 H 103 H Pulse Rate [Right Apical] Pulse Rate from SpO2 Sensor 104 H 103 H 103 H Respiratory Rate 33 H 33 H 35 H Respiratory Effort / Characteristics Respiratory Depth Respiratory Pattern Blood Pressure 96/62 L 108/68 Blood Pressure Mean 75 74 Pulse Oximetry 93 93 93 Oxygen Delivery Method Nasal Cannula Nasal Cannula Nasal Cannula Oxygen Flow Rate 4 4 4 Fraction of Inspired Oxygen Sepsis Recent Fever Within 48 Hours Sepsis Action Taken by Nursing 02/02/20 09:45 02/02/20 09:46 02/02/20 10:00 Temperature Temperature Source Pulse Rate 105 H 104 H 107 H Pulse Rate [Right Apical] Pulse Rate from SpO2 Sensor 105 H 104 H 107 H Respiratory Rate 38 H 34 H 36 H Respiratory Effort / Characteristics Respiratory Depth Respiratory Pattern Blood Pressure 112/68 106/75 Blood Pressure Mean 74 80 Pulse Oximetry 94 95 94 Oxygen Delivery Method Nasal Cannula Nasal Cannula Nasal Cannula Oxygen Flow Rate 4 4 4 Fraction of Inspired Oxygen Sepsis Recent Fever Within 48 Hours Sepsis Action Taken by Nursing 02/02/20 10:01 02/02/20 10:15 02/02/20 10:16 Temperature Temperature Source Pulse Rate 106 H 107 H 108 H Pulse Rate [Right Apical] Pulse Rate from SpO2 Sensor 106 H 107 H 109 H Respiratory Rate 36 H 36 H 33 H Respiratory Effort / Characteristics Respiratory Depth Respiratory Pattern Blood Pressure 100/77 Blood Pressure Mean 80 Pulse Oximetry 94 94 94 Oxygen Delivery Method Nasal Cannula Nasal Cannula Nasal Cannula Oxygen Flow Rate 4 4 4 Fraction of Inspired Oxygen Sepsis Recent Fever Within 48 Hours Sepsis Action Taken by Nursing 02/02/20 10:17 02/02/20 10:29 02/02/20 10:30 Temperature Temperature Source Pulse Rate 107 H 106 H Pulse Rate [Right Apical] 107 H Pulse Rate from SpO2 Sensor 107 H 106 H Respiratory Rate 29 H 18 37 H Respiratory Effort / Characteristics Non-Labored Spontaneous Respiratory Depth Respiratory Pattern Blood Pressure 114/76 Blood Pressure Mean 91 Pulse Oximetry 95 95 99 Oxygen Delivery Method Nasal Cannula BiPAP Nasal Cannula Oxygen Flow Rate 4 4 Fraction of Inspired Oxygen 50 Sepsis Recent Fever Within 48 Hours Sepsis Action Taken by Nursing 02/02/20 10:31 02/02/20 10:45 02/02/20 10:46 Temperature Temperature Source Pulse Rate 105 H 111 H 110 H Pulse Rate [Right Apical] Pulse Rate from SpO2 Sensor 105 H 110 H 110 H Respiratory Rate 37 H 38 H 38 H Respiratory Effort / Characteristics Respiratory Depth Respiratory Pattern Blood Pressure 118/72 Blood Pressure Mean 80 Pulse Oximetry 100 90 95 Oxygen Delivery Method Nasal Cannula Nasal Cannula Nasal Cannula Oxygen Flow Rate 4 4 4 Fraction of Inspired Oxygen Sepsis Recent Fever Within 48 Hours Sepsis Action Taken by Nursing 02/02/20 11:00 02/02/20 11:01 02/02/20 11:02 Temperature Temperature Source Pulse Rate 112 H 110 H 110 H Pulse Rate [Right Apical] Pulse Rate from SpO2 Sensor 110 H 110 H 110 H Respiratory Rate 41 H 39 H 39 H Respiratory Effort / Characteristics Respiratory Depth Respiratory Pattern Blood Pressure 114/74 Blood Pressure Mean 83 Pulse Oximetry 95 97 96 Oxygen Delivery Method Nasal Cannula Nasal Cannula Nasal Cannula Oxygen Flow Rate 4 4 4 Fraction of Inspired Oxygen Sepsis Recent Fever Within 48 Hours Sepsis Action Taken by Nursing 02/02/20 11:15 02/02/20 11:16 Temperature Temperature Source Pulse Rate 107 H 106 H Pulse Rate [Right Apical] Pulse Rate from SpO2 Sensor 107 H 108 H Respiratory Rate 39 H 39 H Respiratory Effort / Characteristics Respiratory Depth Respiratory Pattern Blood Pressure 101/70 Blood Pressure Mean 75 Pulse Oximetry 96 97 Oxygen Delivery Method Nasal Cannula Nasal Cannula Oxygen Flow Rate 4 4 Fraction of Inspired Oxygen Sepsis Recent Fever Within 48 Hours Sepsis Action Taken by Nursing Laboratory Data Result diagrams: 02/02/20 07:07 02/02/20 09:58 Lab Results 02/02/20 02/02/20 02/02/20 Range/Units 07:07 07:07 07:07 WBC 7.56 (4.8-10.8) K/uL RBC 4.67 L (4.7-6.1) M/uL Hgb 16.3 (14.0-18.0) g/dL POC Hgb (14.0-18.0) g/dl Hct 48.2 (42-52) % POC Hct (42-52) % MCV 103.2 H (80-100) fL MCH 34.9 H (25-34) pg MCHC 33.8 (32-36) g/dL RDW Std Deviation 53.1 H (36.4-46.3) fL RDW Coeff of Patti 14.1 (11.5-14.5) % Plt Count 104 L (130-400) K/uL MPV 11.8 H (7.4-10.4) fL Immature Gran % (Auto) 0.3 % Neut % (Auto) 92.3 % Lymph % (Auto) 3.6 % [place] % (Auto) 3.8 % Eos % (Auto) 0.0 % Baso % (Auto) 0.0 % Immature Gran # (Auto) 0.02 (0.00-0.02) K/uL Neut # (Auto) 6.98 H (1.4-6.5) K/uL Lymph # (Auto) 0.27 L (1.2-3.4) K/uL [place] # (Auto) 0.29 (0.11-0.59) K/uL Eos # (Auto) 0.00 (0-0.5) K/uL Baso # (Auto) 0.00 (0-0.2) K/uL Peripher Smr Path Cons PT 11.4 (9.0-12.0) Seconds INR 1.1 (0.9-1.1) APTT 23.8 (21.0-31.0) Seconds PTT Ratio 0.9 D-Dimer (0-500) ug/L FEU POC pH (7.35-7.45) POC pCO2 (35-46) mmHg POC pO2 (80-95) mmHg POC HCO3 (19-24) ishmael/L POC Total CO2 (24-31) mmol/L POC Base Excess (-9-1.8) ishmael/L POC ABG O2 Sat (90-95) % POC Sodium (135-144) mmol/L Sodium 134 L (136-145) mmol/L POC Potassium (3.3-5.0) mmol/L Potassium 4.1 (3.5-5.1) mmol/L Chloride 102 (98-107) mmol/L Carbon Dioxide 19 L (21-32) mmol/L Anion Gap 13.0 H (3-11) BUN 30 H (7-18) mg/dl Creatinine 2.02 H (0.6-1.4) mg/dl Est Cr Clr Drug Dosing 28.2 ml/min Est GFR ( Amer) 34.6 Est GFR (Non-Af Amer) 29.8 BUN/Creatinine Ratio 14.8 (10-20) Glucose 207 H (70-99) mg/dl Lactate (0.4-2.0) mmol/L Calcium 9.1 (8.5-10.1) mg/dl Magnesium 2.2 (1.8-2.4) mg/dl Total Bilirubin 0.7 (0.2-1) mg/dl AST 82 H (15-37) U/L ALT 53 (12-78) U/L Alkaline Phosphatase 56 (45-117) U/L Troponin I 0.991 H* (0-0.045) ng/ml NT-Pro-B Natriuret Pep 17675 H (0-1800) pg/ml Total Protein 8.2 (6.4-8.2) gm/dl Albumin 3.7 (3.4-5.0) gm/dl Globulin 4.5 H (2.5-4.0) gm/dl Albumin/Globulin Ratio 0.8 L (0.9-2) Urine Color Urine Appearance (Clear) Urine pH (4.5-7.5) Ur Specific [place] (1.000-1.030) Urine Protein (Negative) Urine Glucose (UA) (Negative) Urine Ketones (Negative) Urine Blood (Negative) Urine Nitrite (Negative) Urine Bilirubin (Negative) Urine Urobilinogen (Negative) Ur Leukocyte Esterase (Negative) Urine WBC (Auto) (0-5) /hpf Urine RBC (Auto) (0-4) /hpf U Hyaline Cast (Auto) (0-5) /lpf U Epithel Cells (Auto) (0-5) /lpf Urine Bacteria (Auto) (Negative) Amorphous Sediment (None Prsent) Granular Casts (0) /lpf Urine Mucus (None Prsent) Urine Yeast Adenovirus (PCR) (NotDetected) Anaplasma Smear See Comment A A. phagocytophilum DNA Anaplasma Comment Pos for Anaplasma B. pertussis DNA (PCR) (NotDetected) B.parapertussis DNA PCR (NotDetected) Lyme Disease IgG Ab (Negative) Lyme Disease IgM Ab (Negative) C. pneumoniae DNA (PCR) (NotDetected) Coronavirus OC43 (PCR) (NotDetected) Coronavirus HKU1 (PCR) (NotDetected) Coronavirus 229E (PCR) (NotDetected) Coronavirus NL63 (PCR) (NotDetected) Human Metapneumovir PCR (NotDetected) Influenza Type A (PCR) (Neg) Influenza Type B (PCR) (Neg) M. pneumoniae (PCR) (NotDetected) Parainfluenza 1 (PCR) (NotDetected) Parainfluenza 2 (PCR) (NotDetected) Parainfluenza 3 (PCR) (NotDetected) Parainfluenza 4 (PCR) (NotDetected) RSV (PCR) (NotDetected) Entero/Rhino (PCR) (NotDetected) 02/02/20 02/02/20 02/02/20 Range/Units 07:07 07:07 07:07 WBC (4.8-10.8) K/uL RBC (4.7-6.1) M/uL Hgb (14.0-18.0) g/dL POC Hgb (14.0-18.0) g/dl Hct (42-52) % POC Hct (42-52) % MCV (80-100) fL MCH (25-34) pg MCHC (32-36) g/dL RDW Std Deviation (36.4-46.3) fL RDW Coeff of Patti (11.5-14.5) % Plt Count (130-400) K/uL MPV (7.4-10.4) fL Immature Gran % (Auto) % Neut % (Auto) % Lymph % (Auto) % [place] % (Auto) % Eos % (Auto) % Baso % (Auto) % Immature Gran # (Auto) (0.00-0.02) K/uL Neut # (Auto) (1.4-6.5) K/uL Lymph # (Auto) (1.2-3.4) K/uL [place] # (Auto) (0.11-0.59) K/uL Eos # (Auto) (0-0.5) K/uL Baso # (Auto) (0-0.2) K/uL Peripher Smr Path Cons PT (9.0-12.0) Seconds INR (0.9-1.1) APTT (21.0-31.0) Seconds PTT Ratio D-Dimer 69777 H* (0-500) ug/L FEU POC pH (7.35-7.45) POC pCO2 (35-46) mmHg POC pO2 (80-95) mmHg POC HCO3 (19-24) ishmael/L POC Total CO2 (24-31) mmol/L POC Base Excess (-9-1.8) ishmael/L POC ABG O2 Sat (90-95) % POC Sodium (135-144) mmol/L Sodium (136-145) mmol/L POC Potassium (3.3-5.0) mmol/L Potassium (3.5-5.1) mmol/L Chloride (98-107) mmol/L Carbon Dioxide (21-32) mmol/L Anion Gap (3-11) BUN (7-18) mg/dl Creatinine (0.6-1.4) mg/dl Est Cr Clr Drug Dosing ml/min Est GFR ( Amer) Est GFR (Non-Af Amer) BUN/Creatinine Ratio (10-20) Glucose (70-99) mg/dl Lactate 2.8 H* (0.4-2.0) mmol/L Calcium (8.5-10.1) mg/dl Magnesium (1.8-2.4) mg/dl Total Bilirubin (0.2-1) mg/dl AST (15-37) U/L ALT (12-78) U/L Alkaline Phosphatase (45-117) U/L Troponin I (0-0.045) ng/ml NT-Pro-B Natriuret Pep (0-1800) pg/ml Total Protein (6.4-8.2) gm/dl Albumin (3.4-5.0) gm/dl Globulin (2.5-4.0) gm/dl Albumin/Globulin Ratio (0.9-2) Urine Color Urine Appearance (Clear) Urine pH (4.5-7.5) Ur Specific [place] (1.000-1.030) Urine Protein (Negative) Urine Glucose (UA) (Negative) Urine Ketones (Negative) Urine Blood (Negative) Urine Nitrite (Negative) Urine Bilirubin (Negative) Urine Urobilinogen (Negative) Ur Leukocyte Esterase (Negative) Urine WBC (Auto) (0-5) /hpf Urine RBC (Auto) (0-4) /hpf U Hyaline Cast (Auto) (0-5) /lpf U Epithel Cells (Auto) (0-5) /lpf Urine Bacteria (Auto) (Negative) Amorphous Sediment (None Prsent) Granular Casts (0) /lpf Urine Mucus (None Prsent) Urine Yeast Adenovirus (PCR) (NotDetected) Anaplasma Smear A. phagocytophilum DNA Anaplasma Comment B. pertussis DNA (PCR) (NotDetected) B.parapertussis DNA PCR (NotDetected) Lyme Disease IgG Ab Negative (Negative) Lyme Disease IgM Ab Negative (Negative) C. pneumoniae DNA (PCR) (NotDetected) Coronavirus OC43 (PCR) (NotDetected) Coronavirus HKU1 (PCR) (NotDetected) Coronavirus 229E (PCR) (NotDetected) Coronavirus NL63 (PCR) (NotDetected) Human Metapneumovir PCR (NotDetected) Influenza Type A (PCR) (Neg) Influenza Type B (PCR) (Neg) M. pneumoniae (PCR) (NotDetected) Parainfluenza 1 (PCR) (NotDetected) Parainfluenza 2 (PCR) (NotDetected) Parainfluenza 3 (PCR) (NotDetected) Parainfluenza 4 (PCR) (NotDetected) RSV (PCR) (NotDetected) Entero/Rhino (PCR) (NotDetected) 02/02/20 02/02/20 02/02/20 Range/Units 07:07 07:10 07:10 WBC (4.8-10.8) K/uL RBC (4.7-6.1) M/uL Hgb (14.0-18.0) g/dL POC Hgb (14.0-18.0) g/dl Hct (42-52) % POC Hct (42-52) % MCV (80-100) fL MCH (25-34) pg MCHC (32-36) g/dL RDW Std Deviation (36.4-46.3) fL RDW Coeff of Patti (11.5-14.5) % Plt Count (130-400) K/uL MPV (7.4-10.4) fL Immature Gran % (Auto) % Neut % (Auto) % Lymph % (Auto) % [place] % (Auto) % Eos % (Auto) % Baso % (Auto) % Immature Gran # (Auto) (0.00-0.02) K/uL Neut # (Auto) (1.4-6.5) K/uL Lymph # (Auto) (1.2-3.4) K/uL [place] # (Auto) (0.11-0.59) K/uL Eos # (Auto) (0-0.5) K/uL Baso # (Auto) (0-0.2) K/uL Peripher Smr Path Cons PT (9.0-12.0) Seconds INR (0.9-1.1) APTT (21.0-31.0) Seconds PTT Ratio D-Dimer (0-500) ug/L FEU POC pH (7.35-7.45) POC pCO2 (35-46) mmHg POC pO2 (80-95) mmHg POC HCO3 (19-24) ishmael/L POC Total CO2 (24-31) mmol/L POC Base Excess (-9-1.8) ishmael/L POC ABG O2 Sat (90-95) % POC Sodium (135-144) mmol/L Sodium (136-145) mmol/L POC Potassium (3.3-5.0) mmol/L Potassium (3.5-5.1) mmol/L Chloride (98-107) mmol/L Carbon Dioxide (21-32) mmol/L Anion Gap (3-11) BUN (7-18) mg/dl Creatinine (0.6-1.4) mg/dl Est Cr Clr Drug Dosing ml/min Est GFR ( Amer) Est GFR (Non-Af Amer) BUN/Creatinine Ratio (10-20) Glucose (70-99) mg/dl Lactate (0.4-2.0) mmol/L Calcium (8.5-10.1) mg/dl Magnesium (1.8-2.4) mg/dl Total Bilirubin (0.2-1) mg/dl AST (15-37) U/L ALT (12-78) U/L Alkaline Phosphatase (45-117) U/L Troponin I (0-0.045) ng/ml NT-Pro-B Natriuret Pep (0-1800) pg/ml Total Protein (6.4-8.2) gm/dl Albumin (3.4-5.0) gm/dl Globulin (2.5-4.0) gm/dl Albumin/Globulin Ratio (0.9-2) Urine Color Urine Appearance (Clear) Urine pH (4.5-7.5) Ur Specific [place] (1.000-1.030) Urine Protein (Negative) Urine Glucose (UA) (Negative) Urine Ketones (Negative) Urine Blood (Negative) Urine Nitrite (Negative) Urine Bilirubin (Negative) Urine Urobilinogen (Negative) Ur Leukocyte Esterase (Negative) Urine WBC (Auto) (0-5) /hpf Urine RBC (Auto) (0-4) /hpf U Hyaline Cast (Auto) (0-5) /lpf U Epithel Cells (Auto) (0-5) /lpf Urine Bacteria (Auto) (Negative) Amorphous Sediment (None Prsent) Granular Casts (0) /lpf Urine Mucus (None Prsent) Urine Yeast Adenovirus (PCR) Not Detected (NotDetected) Anaplasma Smear A. phagocytophilum DNA Cancelled Anaplasma Comment B. pertussis DNA (PCR) Not Detected (NotDetected) B.parapertussis DNA PCR Not Detected (NotDetected) Lyme Disease IgG Ab (Negative) Lyme Disease IgM Ab (Negative) C. pneumoniae DNA (PCR) Not Detected (NotDetected) Coronavirus OC43 (PCR) Not Detected (NotDetected) Coronavirus HKU1 (PCR) Not Detected (NotDetected) Coronavirus 229E (PCR) Not Detected (NotDetected) Coronavirus NL63 (PCR) Not Detected (NotDetected) Human Metapneumovir PCR Not Detected (NotDetected) Influenza Type A (PCR) Neg for Influ A Not Detected (Neg) Influenza Type B (PCR) Neg for Influ B Not Detected (Neg) M. pneumoniae (PCR) Not Detected (NotDetected) Parainfluenza 1 (PCR) Not Detected (NotDetected) Parainfluenza 2 (PCR) Not Detected (NotDetected) Parainfluenza 3 (PCR) Not Detected (NotDetected) Parainfluenza 4 (PCR) Not Detected (NotDetected) RSV (PCR) Not Detected (NotDetected) Entero/Rhino (PCR) Not Detected (NotDetected) 02/02/20 02/02/20 02/02/20 Range/Units 07:16 09:21 09:58 WBC (4.8-10.8) K/uL RBC (4.7-6.1) M/uL Hgb (14.0-18.0) g/dL POC Hgb 16.3 (14.0-18.0) g/dl Hct (42-52) % POC Hct 48 (42-52) % MCV (80-100) fL MCH (25-34) pg MCHC (32-36) g/dL RDW Std Deviation (36.4-46.3) fL RDW Coeff of Patti (11.5-14.5) % Plt Count (130-400) K/uL MPV (7.4-10.4) fL Immature Gran % (Auto) % Neut % (Auto) % Lymph % (Auto) % [place] % (Auto) % Eos % (Auto) % Baso % (Auto) % Immature Gran # (Auto) (0.00-0.02) K/uL Neut # (Auto) (1.4-6.5) K/uL Lymph # (Auto) (1.2-3.4) K/uL [place] # (Auto) (0.11-0.59) K/uL Eos # (Auto) (0-0.5) K/uL Baso # (Auto) (0-0.2) K/uL Peripher Smr Path Cons PT (9.0-12.0) Seconds INR (0.9-1.1) APTT (21.0-31.0) Seconds PTT Ratio D-Dimer (0-500) ug/L FEU POC pH 7.34 L (7.35-7.45) POC pCO2 33 L (35-46) mmHg POC pO2 86 (80-95) mmHg POC HCO3 18 L (19-24) ishmael/L POC Total CO2 19 L (24-31) mmol/L POC Base Excess -8.0 (-9-1.8) ishmael/L POC ABG O2 Sat 96.0 H (90-95) % POC Sodium 133 L (135-144) mmol/L Sodium 135 L (136-145) mmol/L POC Potassium 4.2 (3.3-5.0) mmol/L Potassium 3.7 (3.5-5.1) mmol/L Chloride 105 (98-107) mmol/L Carbon Dioxide 23 (21-32) mmol/L Anion Gap 7.0 (3-11) BUN 31 H (7-18) mg/dl Creatinine 1.98 H (0.6-1.4) mg/dl Est Cr Clr Drug Dosing 28.8 ml/min Est GFR ( Amer) 35.4 Est GFR (Non-Af Amer) 30.6 BUN/Creatinine Ratio 15.5 (10-20) Glucose 131 H (70-99) mg/dl Lactate 2.7 H* (0.4-2.0) mmol/L Calcium 8.7 (8.5-10.1) mg/dl Magnesium (1.8-2.4) mg/dl Total Bilirubin (0.2-1) mg/dl AST (15-37) U/L ALT (12-78) U/L Alkaline Phosphatase (45-117) U/L Troponin I 2.980 H* (0-0.045) ng/ml NT-Pro-B Natriuret Pep (0-1800) pg/ml Total Protein (6.4-8.2) gm/dl Albumin (3.4-5.0) gm/dl Globulin (2.5-4.0) gm/dl Albumin/Globulin Ratio (0.9-2) Urine Color Urine Appearance (Clear) Urine pH (4.5-7.5) Ur Specific [place] (1.000-1.030) Urine Protein (Negative) Urine Glucose (UA) (Negative) Urine Ketones (Negative) Urine Blood (Negative) Urine Nitrite (Negative) Urine Bilirubin (Negative) Urine Urobilinogen (Negative) Ur Leukocyte Esterase (Negative) Urine WBC (Auto) (0-5) /hpf Urine RBC (Auto) (0-4) /hpf U Hyaline Cast (Auto) (0-5) /lpf U Epithel Cells (Auto) (0-5) /lpf Urine Bacteria (Auto) (Negative) Amorphous Sediment (None Prsent) Granular Casts (0) /lpf Urine Mucus (None Prsent) Urine Yeast Adenovirus (PCR) (NotDetected) Anaplasma Smear A. phagocytophilum DNA Anaplasma Comment B. pertussis DNA (PCR) (NotDetected) B.parapertussis DNA PCR (NotDetected) Lyme Disease IgG Ab (Negative) Lyme Disease IgM Ab (Negative) C. pneumoniae DNA (PCR) (NotDetected) Coronavirus OC43 (PCR) (NotDetected) Coronavirus HKU1 (PCR) (NotDetected) Coronavirus 229E (PCR) (NotDetected) Coronavirus NL63 (PCR) (NotDetected) Human Metapneumovir PCR (NotDetected) Influenza Type A (PCR) (Neg) Influenza Type B (PCR) (Neg) M. pneumoniae (PCR) (NotDetected) Parainfluenza 1 (PCR) (NotDetected) Parainfluenza 2 (PCR) (NotDetected) Parainfluenza 3 (PCR) (NotDetected) Parainfluenza 4 (PCR) (NotDetected) RSV (PCR) (NotDetected) Entero/Rhino (PCR) (NotDetected) 02/02/20 Range/Units 11:01 WBC (4.8-10.8) K/uL RBC (4.7-6.1) M/uL Hgb (14.0-18.0) g/dL POC Hgb (14.0-18.0) g/dl Hct (42-52) % POC Hct (42-52) % MCV (80-100) fL MCH (25-34) pg MCHC (32-36) g/dL RDW Std Deviation (36.4-46.3) fL RDW Coeff of Patti (11.5-14.5) % Plt Count (130-400) K/uL MPV (7.4-10.4) fL Immature Gran % (Auto) % Neut % (Auto) % Lymph % (Auto) % [place] % (Auto) % Eos % (Auto) % Baso % (Auto) % Immature Gran # (Auto) (0.00-0.02) K/uL Neut # (Auto) (1.4-6.5) K/uL Lymph # (Auto) (1.2-3.4) K/uL [place] # (Auto) (0.11-0.59) K/uL Eos # (Auto) (0-0.5) K/uL Baso # (Auto) (0-0.2) K/uL Peripher Smr Path Cons PT (9.0-12.0) Seconds INR (0.9-1.1) APTT (21.0-31.0) Seconds PTT Ratio D-Dimer (0-500) ug/L FEU POC pH (7.35-7.45) POC pCO2 (35-46) mmHg POC pO2 (80-95) mmHg POC HCO3 (19-24) ishmael/L POC Total CO2 (24-31) mmol/L POC Base Excess (-9-1.8) ishmael/L POC ABG O2 Sat (90-95) % POC Sodium (135-144) mmol/L Sodium (136-145) mmol/L POC Potassium (3.3-5.0) mmol/L Potassium (3.5-5.1) mmol/L Chloride (98-107) mmol/L Carbon Dioxide (21-32) mmol/L Anion Gap (3-11) BUN (7-18) mg/dl Creatinine (0.6-1.4) mg/dl Est Cr Clr Drug Dosing ml/min Est GFR ( Amer) Est GFR (Non-Af Amer) BUN/Creatinine Ratio (10-20) Glucose (70-99) mg/dl Lactate (0.4-2.0) mmol/L Calcium (8.5-10.1) mg/dl Magnesium (1.8-2.4) mg/dl Total Bilirubin (0.2-1) mg/dl AST (15-37) U/L ALT (12-78) U/L Alkaline Phosphatase (45-117) U/L Troponin I (0-0.045) ng/ml NT-Pro-B Natriuret Pep (0-1800) pg/ml Total Protein (6.4-8.2) gm/dl Albumin (3.4-5.0) gm/dl Globulin (2.5-4.0) gm/dl Albumin/Globulin Ratio (0.9-2) Urine Color Dark Yellow Urine Appearance Cloudy A (Clear) Urine pH 5.0 (4.5-7.5) Ur Specific [place] 1.024 (1.000-1.030) Urine Protein 2+ H (Negative) Urine Glucose (UA) Negative (Negative) Urine Ketones Trace H (Negative) Urine Blood Trace H (Negative) Urine Nitrite Negative (Negative) Urine Bilirubin Negative (Negative) Urine Urobilinogen Negative (Negative) Ur Leukocyte Esterase Negative (Negative) Urine WBC (Auto) 1-5 (0-5) /hpf Urine RBC (Auto) 0-4 (0-4) /hpf U Hyaline Cast (Auto) 1-5 (0-5) /lpf U Epithel Cells (Auto) 20-30 H (0-5) /lpf Urine Bacteria (Auto) 1+ H (Negative) Amorphous Sediment Present A (None Prsent) Granular Casts 10-20 H (0) /lpf Urine Mucus Present A (None Prsent) Urine Yeast Not Reportable Adenovirus (PCR) (NotDetected) Anaplasma Smear A. phagocytophilum DNA Anaplasma Comment B. pertussis DNA (PCR) (NotDetected) B.parapertussis DNA PCR (NotDetected) Lyme Disease IgG Ab (Negative) Lyme Disease IgM Ab (Negative) C. pneumoniae DNA (PCR) (NotDetected) Coronavirus OC43 (PCR) (NotDetected) Coronavirus HKU1 (PCR) (NotDetected) Coronavirus 229E (PCR) (NotDetected) Coronavirus NL63 (PCR) (NotDetected) Human Metapneumovir PCR (NotDetected) Influenza Type A (PCR) (Neg) Influenza Type B (PCR) (Neg) M. pneumoniae (PCR) (NotDetected) Parainfluenza 1 (PCR) (NotDetected) Parainfluenza 2 (PCR) (NotDetected) Parainfluenza 3 (PCR) (NotDetected) Parainfluenza 4 (PCR) (NotDetected) RSV (PCR) (NotDetected) Entero/Rhino (PCR) (NotDetected) Administered Medications Heparin Sodium/Dextrose (Heparin Sodium/Dextrose) 25,000 units in 500 mls @ 27 mls/hr IV .[id number] [facility]; Protocol Stop: 03/03/20 07:59 Last Titration: 02/02/20 12:10 Dose: 1,350 units/hr, 27 mls/hr Documented by: [id number] Cosigned by: [id number] Admin: 02/02/20 08:15 Dose: 1,350 units/hr, 27 mls/hr Documented by: [id number] Cosigned by: [id number] Discontinued Medications Albuterol (Duoneb) 3 ml NEB NOW STA Stop: 02/02/20 08:16 Last Admin: 02/02/20 08:27 Dose: 3 ml Documented by: [id number] Albuterol (Duoneb) 3 ml NEB NOW STA Stop: 02/02/20 10:14 Last Admin: 02/02/20 10:27 Dose: 3 ml Documented by: [id number] Diltiazem HCl (Cardizem) 10 mg IV NOW STA Stop: 02/02/20 06:50 Last Admin: 02/02/20 07:24 Dose: Not Given Documented by: [id number] Doxycycline Hyclate (Vibramycin) 100 mg PO NOW STA Stop: 02/02/20 08:39 Last Admin: 02/02/20 09:20 Dose: 100 mg Documented by: [id number] Heparin Sodium (Porcine) (Heparin Iv Bolus) Confirm Administered Dose 10,000 units .ROUTE .STK-MED ONE Stop: 02/02/20 08:01 Last Admin: 02/02/20 08:15 Dose: 4,000 units Documented by: [id number] Cosigned by: [id number] Heparin Sodium/Dextrose () 1 ea IV NOW STA; Protocol Stop: 02/02/20 07:56 Last Admin: 02/02/20 08:09 Dose: Not Given Documented by: [id number] Diltiazem HCl 125 mg/ Dextrose 125 mls @ 5 mls/hr IV .Q24H [facility]; Protocol Stop: 03/03/20 06:59 Last Admin: 02/02/20 07:24 Dose: Not Given Documented by: [id number] Lactated Ringer's (Lr) 1,000 mls @ 999 mls/hr IV .Q1H1M ONE Stop: 02/02/20 08:53 Last Infusion: 02/02/20 09:10 Dose: 0 mls/hr Documented by: [id number] Admin: 02/02/20 08:09 Dose: 999 mls/hr Documented by: [id number] Furosemide 40 mg/ Syringe 4 mls @ 4 mls/min IV ONE ONE Stop: 02/02/20 14:46 Last Admin: 02/02/20 14:48 Dose: 4 mls/min Documented by: [id number] Lorazepam (Ativan) 0.5 mg PO NOW STA Stop: 02/02/20 10:13 Last Admin: 02/02/20 10:15 Dose: 0.5 mg Documented by: [id number] Miscellaneous () 1 ea N/A NOW STA Stop: 02/02/20 06:50 Last Admin: 02/02/20 07:23 Dose: Not Given Documented by: [id number] Perflutren Lipid Microsphere (Definity) 2 ml IV ONCE ONE Stop: 02/02/20 14:10 Last Admin: 02/02/20 14:10 Dose: 2 ml Documented by: [id number] Discharge Plan Visit Data *Final* Discharge Date/Time: 02/02/20 11:44 Chief Complaint: Shortness of Breath/Dyspnea Stated Complaint: SHORT OF BREATH ED Provider: [place] Discharge Problem: Acute hypoxemic respiratory failure, Non-ST elevation ND (NSTEMI), Acute dyspnea, Anaplasmosis Patient Disposition: Being Evaluated by Hospitalist Discharge Instructions Interventions: ED Discharge Assessment Last Done: 02/02/20 11:44
[2020-02-02 07:33] LABS: iSTAT Arterial Blood Gas HCO3 18 meg/L (19-24); iSTAT Arterial Blood Gas pCO2 33 mmHg (35-46); iSTAT Arterial Blood Gas pH 7.34 (7.35-7.45); iSTAT Arterial Blood Gas pO2 86 mmHg (80-95); iSTAT Carbon Dioxide 19 mmol/L (24-31); iSTAT Hematocrit 48 % (42-52); iSTAT Hemoglobin 16.3 g/dl (14.0-18.0); iSTAT Potassium 4.2 mmol/L (3.3-5.0); iSTAT Sodium 133 mmol/L (135-144)
[2020-02-02 07:41] LABS: Hematocrit (blood only) 48.2 % (42-52); Hemoglobin 16.3 g/dL (14.0-18.0); Mean Corpuscular Hemoglobin 34.9 pg (25-34); Mean Corpuscular Hgb Conc 33.8 g/dL (32-36); Mean Corpuscular Volume 103.2 fL (80-100); Mean Platelet Volume 11.8 fL (7.4-10.4); Platelet Count 104 K/uL (130-400); RDW Coefficient of Variation 14.1 % (11.5-14.5); RDW Standard Deviation 53.1 fL (36.4-46.3); Red Blood Count 4.67 M/uL (4.7-6.1); White Blood Count 7.56 K/uL (4.8-10.8)
[2020-02-02 07:45] LABS: INR 1.1 (0.9-1.1); Partial Thromboplastin Ratio 0.9; Partial Thromboplastin Time 23.8 Seconds (21.0-31.0); Prothrombin Time 11.4 Seconds (9.0-12.0)
[2020-02-02 07:48] LABS: Albumin Level 3.7 gm/dl (3.4-5.0); BUN Creatinine Ratio 14.8 (10-20); Calcium 9.1 mg/dl (8.5-10.1); Creatinine Clr Calc Pharmacy 28.2 ml/min; Est GFR (African American) 34.6; Est GFR (Non-African American) 29.8; Magnesium 2.2 mg/dl (1.8-2.4); Potassium 4.1 mmol/L (3.5-5.1)
[2020-02-02] MEDS ORDERED: LACTATED RINGER'S 1,000 ML IV ONE (07:53)
[2020-02-02 07:54] LABS: Albumin Globulin Ratio 0.8 (0.9-2); Bilirubin,Total 0.7 mg/dl (0.2-1); Globulin 4.5 gm/dl (2.5-4.0); Total Protein 8.2 gm/dl (6.4-8.2); Troponin I 0.991 ng/ml (0-0.045)
[2020-02-02] MEDS ORDERED: HEPARIN SOD (PORCINE) 1000 UNIT/ML 10 ML VIAL ONE (08:00)
--- NOTE | 2020-02-02 08:01 | XRay Report ---
XR chest 1V portable CLINICAL HISTORY: 84 years-old Male presenting with shortness of breath. TECHNIQUE: Portable upright AP view of the chest was obtained. COMPARISON: 10/13/2008. FINDINGS: Atherosclerosis of the aortic arch. Cardiac silhouette normal in size. Bilateral hilar prominence wit h perihilar added density. Interstitial prominence. Irregular linear opacities at the lung bases to a mild degree. No large effusion or pneumothorax. No focal opacity. No large effusion or pneumothorax. Thoracolumbar fusion hardware. Degenerative changes of the glenohumeral joints. Osseous structures n ormal. Upper abdomen normal. IMPRESSION: Findings could suggest developing venolymphatic congestive change, reactive airways disease or viral bronchiolitis. Given the severity, follow-up is advised. ACT 112: Negative or not required by law. Electronically signed by: Jose Enrique Esposito M.D. 02/02/2020 8:00 AM
[2020-02-02 08:08] LABS: Influenza A virus by PCR Neg for Influ A (Neg); Influenza B virus by PCR Neg for Influ B (Neg)
[2020-02-02] MEDS ORDERED: ALBUT/IPRATROP 3MG/0.5MG NEB 3 ML VIAL NEB STA ×2 (08:15→10:13)
[2020-02-02] MEDS: HEPARIN SODIUM/DEXTROSE 25,000 UNITS/500 ML BAG IV SCH (08:15)
[2020-02-02] MEDS ORDERED: DOXYCYCLINE HYCLATE 100 MG CAP PO STA (08:38)
[2020-02-02 08:42] LABS: Immature Granulocytes # (auto) 0.02 K/uL (0.00-0.02); Immature Granulocytes % (auto) 0.3 %; Lymphocytes # (auto) 0.27 K/uL (1.2-3.4); Lymphocytes % (auto) 3.6 %; Monocytes # (auto) 0.29 K/uL (0.11-0.59); Monocytes % (auto) 3.8 %; Neutrophils # (auto) 6.98 K/uL (1.4-6.5); Neutrophils % (auto) 92.3 %
[2020-02-02 09:01] LABS: Anaplasmosis Smear(Rpt to DOH) Pos for Anaplasma
[2020-02-02 09:02] LABS: D Dimer 22480 ug/L FEU (0-500)
[2020-02-02 10:01] LABS: Adenovirus PCR Not Detected (NotDetected); Bordetella parapertussis PCR Not Detected (NotDetected); Bordetella pertussis PCR Not Detected (NotDetected); Chlamydia pneumoniae PCR Not Detected (NotDetected); Coronavirus 229E PCR Not Detected (NotDetected); Coronavirus HKU1 PCR Not Detected (NotDetected); Coronavirus NL63 PCR Not Detected (NotDetected); Coronavirus OC43PCR Not Detected (NotDetected); Human Metapneumovirus PCR Not Detected (NotDetected); Influenza A PCR Not Detected (NotDetected); Influenza B PCR Not Detected (NotDetected); Mycoplasma pneumoniae PCR Not Detected (NotDetected); Parainfluenza Virus 1 PCR Not Detected (NotDetected); Parainfluenza Virus 2 PCR Not Detected (NotDetected); Parainfluenza Virus 3 PCR Not Detected (NotDetected); Parainfluenza Virus 4 PCR Not Detected (NotDetected); Rhinovirus/Enterovirus PCR Not Detected (NotDetected)
[2020-02-02] MEDS ORDERED: LORazepam 0.5 MG TAB PO STA (10:12)
[2020-02-02 10:40] LABS: BUN Creatinine Ratio 15.5 (10-20); Calcium 8.7 mg/dl (8.5-10.1); Creatinine Clr Calc Pharmacy 28.8 ml/min; Est GFR (African American) 35.4; Est GFR (Non-African American) 30.6; Potassium 3.7 mmol/L (3.5-5.1)
[2020-02-02 10:49] LABS: Troponin I 2.98 ng/ml (0-0.045)
[2020-02-02 11:14] LABS: Appearance Urine Cloudy (Clear); Blood Urine Trace (Negative); Color Urine Dark Yellow; Epithelial Cell Urine Auto 20-30 /lpf (0-5); Glucose Urine UA Negative (Negative); Ketones Urine Trace (Negative); Leukocyte Esterase Urine Negative (Negative); Nitrite Urine Negative (Negative); Protein Urine 2+ (Negative); RBC Urine Automated 0-4 /hpf (0-4); Specific Gravity Urine 1.024 (1.000-1.030); Urobilinogen Urine Negative (Negative)
[2020-02-02 11:15] LABS: Respiratory Syncytial VirusPCR Not Detected (NotDetected)
[2020-02-02 11:23] LABS: Lyme Ab IgG w/WB Rflx Negative (Negative); Lyme Ab IgM w/WB Rflx Negative (Negative)
[2020-02-02 11:29] LABS: Bilirubin Urine Negative (Negative); Ictotest Urine Negative (Negative)
[2020-02-02 11:31] LABS: Mucus Urine Present (None Prsent)
[2020-02-02 11:32] LABS: Amorphous Sediment Urine Present (None Prsent)
[2020-02-02 11:33] LABS: Bacteria Urine Automated 1+ (Negative)
--- NOTE | 2020-02-02 11:34 | History & Physical Report ---
Date of Service February 02, 2020 Assessment & Plan (1) Acute hypoxemic respiratory failure: Acute respiratory failure with hypoxia Unclear Etiology: DD: Acute PE/STACEY Exacerbation/Myocarditis/NSTEMI/SLE flare/R/O COVID No known history of COPD/CHF Possible Sepsis: Meets SIRS criteria CXR:Findings could suggest developing venolymphatic congestive change, reactive airways disease or viral bronchiolitis. Given the severity, follow-up is advised. Could not obtain CTA to R/O PE due to renal Insufficiency Influenza, Biofire Negative Elevated BNP SARS-CoV-2:Pending Procalcitonin:pending Received IV fluids,Nebs in ED blood/Urine Cx:pending Started on IV heparin ECHO requested Trend Troponin, Lactate levels Respiratory Support with BiPAP as needed Cardiology/Pulmonology Consulted Will give a dose of lasix given congestive chest Continue Aspirin as able Continue Isolation precautions Elevated D-dimer CTA could not be obtained due to renal insufficiency No significant leg swelling Consider Venous doppler as able Obtain V/Q scan once COVID testing negative Anaplasmosis H/O Tick Bite 2 weeks ago Peripheral smear showed neutrophilic inclusions consistent with anaplasmosis Started on Rocephin and Doxycycline ID consulted Abnormal UA R/O UTI Urine Cx:pending On Rocephin empirically Acute Kidney Injury on CKD III Baseline Cr:1.3 Cr:2.0 Monitor renal function Avoid Nephrotoxic agents as able Thrombocytopenia Monitor Platelets while on IV Heparin No acute bleeding issues SLE On Methotrexate, Plaquenil, Prednisone Follows with Rheumatology Hold Methotrexate Continue Plaquenil recommends to continue prednisone 5mg daily DVT Px: On IV Heparin Code Status Full Code Disposition: Monitor in PCU History of Present Illness Chief Complaint: Shortness of Breath Primary Care Provider: NO PCP Patient is an 84-year-old male with history of SLE, CKD III, lumbar stenosis, pericarditis, hypertension, aortic stenosis as per records and other medical problems presents with history of worsening shortness of breath. Patient reported worsening joint pains associated with back pain since 2 days duration. 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 House who recommended to start on a prednisone taper. Patient also states having fever 100.9 F yesterday, generalized weakness, poor appetite and wheezing on exertion since yesterday. This morning patient noticed to develop significant shortness of breath which prompted him to come to ED. He admits to having tick bite 2 weeks ago but was not treated for the same. He denies any history of travel, sick contact/COVID exposure. He took 50 mg of prednisone yesterday which improved his joint pain. He also states having mild headache for 2 days duration which improved. Denies any history of chest pain, orthopnea, PND, dizziness, pedal edema, cough, hemoptysis, fall, change in vision, nausea, vomiting, abdominal pain, diarrhea, dysuria, recent change in medications. He was found to be hypoxic while in ED and was placed on BiPAP. He is also noted to be tachycardic, Tachypneic, has elevated d-dimer, ALEXIS, lactate elevated 2.8, BNP 24,192, elevated troponin and blood smear suggestive of anaplasmosis. Patient could not get CTA due to ALEXIS. He started o IV heparin while in ED. Allergies Allergy/AdvReac Type Severity Reaction Status Date / Time oxycodone Allergy Unknown ITCHY, Per Verified 02/02/20 07:38 pt-can take Vicodin piroxicam AdvReac Intermediate CAUSED Verified 02/02/20 07:38 ULCER Home Medications Home Medications Medication Instructions Recorded Confirmed Type aspirin [Aspir-81] 81 mg PO Q OTHER DAY 08/01/19 02/02/20 History cyanocobalamin (vitamin B-12) 500 mcg PO DAILY 08/01/19 02/02/20 History duloxetine 30 mg PO DAILY 08/01/19 02/02/20 History folic acid 1 mg PO DAILY 08/01/19 02/02/20 History hydroxychloroquine [Plaquenil] 400 mg PO HS 08/01/19 02/02/20 History methotrexate sodium 7.5 mg PO FR 08/01/19 02/02/20 History multivitamin 1 tab PO DAILY 08/01/19 02/02/20 History prednisone 5 mg PO DAILY 08/01/19 02/02/20 History vitamin B complex 1 tab PO DAILY 08/01/19 02/02/20 History vitamins A,C,Q-[id number]-[id number] 1 tab PO BID 08/01/19 02/02/20 History [PreserVision AREDS] carvedilol [Coreg] 3.125 mg PO BID 02/02/20 02/02/20 History hydrocodone-acetaminophen 1 tab PO Q8H PRN 02/02/20 02/02/20 History prednisone 10 mg PO UD 02/02/20 02/02/20 History Past Med/Surg History Medical History Aortic stenosis (Chronic) CKD (chronic kidney disease), stage III (Chronic) History of steroid therapy (Chronic) HTN (hypertension) Hyperlipidemia Hypertension (Chronic) Lumbar stenosis with neurogenic claudication (Acute) Pericarditis (Resolved) Systemic lupus erythematosus (Chronic) Surgical History History of back surgery (Chronic) S/P appendectomy (Chronic) S/p total knee replacement, bilateral (Chronic) Family History Unknown No problems noted. Other Family history non-contributory Social History Preferred Language: Niuean Communication Ability: Effective Neighborhood Aide Required: No Beliefs That Will Affect Care: None Current Living Situation: Significant Other Other Information That Helps Us Care for You: No Feels Safe at Home: Yes Safety Concerns: Feels Safe At This Time Smoking Status: Former smoker Tobacco Type: cigarettes ; Do You Dip or Chew Tobacco: No ; Second Hand Exposure: No ; Tobacco Cessation Education Requested by Patient: No Hx Alcohol Use: No Hx Substance Use: No Review of Systems Review of Systems: All systems reviewed & are unremarkable except as noted in HPI & below Physical Exam Physical Exam: Physical Exam: Vitals signs as noted above General Appearance:Moderately built and nourished, mild respiratory distress Head: normocephalic, Atraumatic Eyes: normal inspection, EOMI Neck: supple, Trachea midline Respiratory/Chest: Decreased breath sounds, basal crackles, + accessory muscle use Cardiovascular: S1, S2, Tachycardia, No murmur Abdomen/GI:Soft, Non tender, Bowel sounds present Extremities/Musculoskelatal:normal inspection, no edema Neurologic/Psych:AAOX3, grossly no focal neurological deficits Skin: normal color, warm Results & Data Results & Data ([facility]) Vital Signs (Past 12 Hours) Vital Signs Temp Pulse Pulse Resp BP Pulse Ox 02/02/20 11:01 110 H 39 H 114/74 97 02/02/20 11:00 112 H 41 H 95 02/02/20 10:46 110 H 38 H 95 02/02/20 10:45 111 H 38 H 118/72 90 02/02/20 10:31 105 H 37 H 100 02/02/20 10:30 106 H 37 H 114/76 99 02/02/20 10:29 107 H 18 95 02/02/20 10:17 107 H 29 H 95 02/02/20 10:16 108 H 33 H 100/77 94 02/02/20 10:15 107 H 36 H 94 02/02/20 10:01 106 H 36 H 94 02/02/20 10:00 107 H 36 H 106/75 94 02/02/20 09:46 104 H 34 H 95 02/02/20 09:45 105 H 38 H 112/68 94 02/02/20 09:30 103 H 35 H 108/68 93 02/02/20 09:16 103 H 33 H 93 02/02/20 09:15 104 H 33 H 96/62 L 93 02/02/20 09:01 104 H 35 H 94 02/02/20 09:00 104 H 37 H 105/73 93 02/02/20 08:47 110 H 38 H 110/82 93 02/02/20 08:45 109 H 36 H 90 02/02/20 08:31 116 H 115 H 36 H 02/02/20 08:30 113 H 35 H 146/88 H 93 02/02/20 08:16 109 H 39 H 100 02/02/20 08:15 110 H 34 H 141/85 H 100 02/02/20 08:04 108 H 39 H 121/77 92 02/02/20 08:01 108 H 20 98 02/02/20 08:00 108 H 31 H 120/69 95 02/02/20 07:46 103 H 28 H 95 02/02/20 07:45 102 H 28 H 114/69 95 02/02/20 07:31 108 H 26 H 96 02/02/20 07:30 110 H 28 H 114/70 96 02/02/20 07:18 95 02/02/20 07:16 118 H 29 H 95 02/02/20 07:15 118 H 25 H 120/80 02/02/20 07:10 123 H 30 H 122/78 97 02/02/20 07:09 119 H 28 H 96 02/02/20 07:01 128 H 28 H 96 02/02/20 07:00 130 H 26 H 130/90 96 02/02/20 06:59 130 H 33 H 95 02/02/20 06:47 37.4 C 132 H 29 H 139/99 95 Laboratory Results Short CBC 02/02/20 Range/Units 07:07 WBC 7.56 (4.8-10.8) K/uL Hgb 16.3 (14.0-18.0) g/dL Hct 48.2 (42-52) % Plt Count 104 L (130-400) K/uL BMP 02/02/20 02/02/20 07:07 09:58 Sodium 134 L 135 L Potassium 4.1 3.7 Chloride 102 105 Carbon Dioxide 19 L 23 BUN 30 H 31 H Creatinine 2.02 H 1.98 H Glucose 207 H 131 H Calcium 9.1 8.7 Cardiac Enzymes 02/02/20 02/02/20 Range/Units 07:07 09:58 Troponin I 0.991 H* 2.980 H* (0-0.045) ng/ml Liver Function 02/02/20 Range/Units 07:07 Total Bilirubin 0.7 (0.2-1) mg/dl AST 82 H (15-37) U/L ALT 53 (12-78) U/L Alkaline Phosphatase 56 (45-117) U/L Albumin 3.7 (3.4-5.0) gm/dl Urine 02/02/20 Range/Units 11:01 Urine Color Dark Yellow Urine Appearance Cloudy A (Clear) Urine pH 5.0 (4.5-7.5) Ur Specific [place] 1.024 (1.000-1.030) Urine Protein 2+ H (Negative) Urine Glucose (UA) Negative (Negative) Diagnostic Findings CXR: Findings could suggest developing venolymphatic congestive change, reactive airways disease or viral bronchiolitis. Given the severity, follow-up is advised . ECG Additional Comments: EKG: Sinus Tachycardia, LAD, T wave inversion in lateral leads (Also noted on prior EKG) Code Status & VTE Plan VTE Prophylaxis Plan VTE Prophylaxis will be ordered: Yes
[2020-02-02] MEDS ORDERED: ASPIRIN 81 MG ECTAB PO SCH (11:50)
[2020-02-02] MEDS ORDERED: HYDROCODONE/ACETAMINOPHEN 7.5/325MG TAB PO PRN (12:23)
[2020-02-02] MEDS ORDERED: NITROGLYCERIN SL 0.4 MG/TAB TAB SL PRN (13:48)
[2020-02-02] MEDS ORDERED: POLYETHYLENE (MIRALAX) 17 GM PACK PO PRN (13:48)
[2020-02-02] MEDS ORDERED: Heparin IV Standard *NO* Bolus IV ONE (13:48)
[2020-02-02] MEDS ORDERED: ACETAMINOPHEN 325 MG TAB PO PRN ×2 (13:48→18:14)
[2020-02-02] MEDS ORDERED: HEPARIN SODIUM/DEXTROSE 25,000 UNITS/500 ML BAG IV SCH (13:48)
[2020-02-02] MEDS ORDERED: PERFLUTREN LIPID MICROSPHERE (DEFINITY) IV ONE (14:09)
[2020-02-02] MEDS ORDERED: FUROSEMIDE 40 MG in SYRINGE 0 ML IV ONE (14:45)
[2020-02-02] MEDS ORDERED: PNEUMOCOCCAL Polysaccharide Vaccine 25mcg/0.5mL vial/Syr IM ONE (14:45)
[2020-02-02] MEDS: predniSONE 5 MG TAB PO SCH (15:15)
[2020-02-02] MEDS: FOLIC ACID 1 MG TAB PO SCH (15:15)
[2020-02-02] MEDS: ASPIRIN 81 MG ECTAB PO SCH (15:15)
[2020-02-02 15:25] LABS: Base Excess ABG -4.5 mEq/L (-9-1.8); HCO3 ABG 19 mmol/L (19-24); PCO2 ABG 29 mmHg (35-46); PO2 ABG 71 mmHg (80-95); pH ABG 7.42 (7.35-7.45)
--- NOTE | 2020-02-02 15:26 | Infectious Disease Consult ---
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 continue supportive care History of Present Illness Attending Physician: Keith Dotson MD pt admitted due to weakness, joint pain and sob. has lupus, on steroids, no improvement. had tick removed 2 weeks ago. wbc normal, perph smear done, + for Anaplasma, lyme negative. afebrile, temp 100.9 at home yesterday. on doxy and rocephin. CXR negative, UA negative, urine and blood cultures pending. creat 1.9 d dimer and tropinin +. [facility]. ID consulted for anasplasma Allergies Allergy/AdvReac Type Severity Reaction Status Date / Time oxycodone Allergy Unknown ITCHY, Per Verified 02/02/20 07:38 pt-can take Vicodin piroxicam AdvReac Intermediate CAUSED Verified 02/02/20 07:38 ULCER Home Medications Home Medications Medication Instructions Recorded Confirmed Type aspirin [Aspir-81] 81 mg PO Q OTHER DAY 08/01/19 02/02/20 History cyanocobalamin (vitamin B-12) 500 mcg PO DAILY 08/01/19 02/02/20 History duloxetine 30 mg PO DAILY 08/01/19 02/02/20 History folic acid 1 mg PO DAILY 08/01/19 02/02/20 History hydroxychloroquine [Plaquenil] 400 mg PO HS 08/01/19 02/02/20 History methotrexate sodium 7.5 mg PO FR 08/01/19 02/02/20 History multivitamin 1 tab PO DAILY 08/01/19 02/02/20 History prednisone 5 mg PO DAILY 08/01/19 02/02/20 History vitamin B complex 1 tab PO DAILY 08/01/19 02/02/20 History vitamins A,C,P-ufke-oylgfm 1 tab PO BID 08/01/19 02/02/20 History [PreserVision AREDS] carvedilol [Coreg] 3.125 mg PO BID 02/02/20 02/02/20 History hydrocodone-acetaminophen 1 tab PO Q8H PRN 02/02/20 02/02/20 History prednisone 10 mg PO UD 02/02/20 02/02/20 History Patient History Medical History Acute hypoxemic respiratory failure (Acute) Aortic stenosis (Chronic) CKD (chronic kidney disease), stage III (Chronic) History of steroid therapy (Chronic) HTN (hypertension) Hyperlipidemia Hypertension (Chronic) Lumbar stenosis with neurogenic claudication (Acute) Pericarditis (Resolved) Systemic lupus erythematosus (Chronic) Surgical History History of back surgery (Chronic) S/P appendectomy (Chronic) S/p total knee replacement, bilateral (Chronic) Family History Unknown No problems noted. 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 Required: No Beliefs That Will Affect Care: None Current Living Situation: Significant Other Other Information That Helps Us Care for You: No Feels Safe at Home: Yes Safety Concerns: Feels Safe At This Time Smoking Status: Former smoker Tobacco Type: cigarettes ; Do You Dip or Chew Tobacco: No ; Second Hand Exposure: No ; Tobacco Cessation Education Requested by Patient: No Hx Alcohol Use: No Hx Substance Use: No Review of Systems Review of Systems: per H&P Results & Data ([facility]) Vital Signs (Past 12 Hours) Vital Signs Temp Pulse Pulse Resp BP BP Pulse Ox 02/02/20 13:00 118 H 38 H 97 02/02/20 12:30 36.7 C 115 H 34 H 125/86 98 02/02/20 11:46 103 H 38 H 96 02/02/20 11:45 104 H 38 H 100/69 95 02/02/20 11:31 104 H 38 H 95 02/02/20 11:30 105 H 38 H 107/70 96 02/02/20 11:16 106 H 39 H 97 02/02/20 11:15 107 H 39 H 101/70 96 02/02/20 11:02 110 H 39 H 96 02/02/20 11:01 110 H 39 H 114/74 97 02/02/20 11:00 112 H 41 H 95 02/02/20 10:46 110 H 38 H 95 02/02/20 10:45 111 H 38 H 118/72 90 02/02/20 10:31 105 H 37 H 100 02/02/20 10:30 106 H 37 H 114/76 99 02/02/20 10:29 107 H 18 95 02/02/20 10:17 107 H 29 H 95 02/02/20 10:16 108 H 33 H 100/77 94 02/02/20 10:15 107 H 36 H 94 02/02/20 10:01 106 H 36 H 94 02/02/20 10:00 107 H 36 H 106/75 94 02/02/20 09:46 104 H 34 H 95 02/02/20 09:45 105 H 38 H 112/68 94 02/02/20 09:30 103 H 35 H 108/68 93 02/02/20 09:16 103 H 33 H 93 02/02/20 09:15 104 H 33 H 96/62 L 93 02/02/20 09:01 104 H 35 H 94 02/02/20 09:00 104 H 37 H 105/73 93 02/02/20 08:47 110 H 38 H 110/82 93 02/02/20 08:45 109 H 36 H 90 02/02/20 08:31 116 H 115 H 36 H 95 02/02/20 08:30 113 H 35 H 146/88 H 93 02/02/20 08:16 109 H 39 H 100 02/02/20 08:15 110 H 34 H 141/85 H 100 02/02/20 08:04 108 H 39 H 121/77 92 02/02/20 08:01 108 H 20 98 02/02/20 08:00 108 H 31 H 120/69 95 02/02/20 07:46 103 H 28 H 95 02/02/20 07:45 102 H 28 H 114/69 95 02/02/20 07:31 108 H 26 H 96 02/02/20 07:30 110 H 28 H 114/70 96 02/02/20 07:18 95 02/02/20 07:16 118 H 29 H 95 02/02/20 07:15 118 H 25 H 120/80 02/02/20 07:10 123 H 30 H 122/78 97 02/02/20 07:09 119 H 28 H 96 04/10/20 07:01 128 H 28 H 96 04/10/20 07:00 130 H 26 H 130/90 96 02/02/20 06:59 130 H 33 H 95 02/02/20 06:47 37.4 C 132 H 29 H 139/99 95 PG Care Time/CCT Total # of Minutes Spent Total Time Spent with Patient: Total time spent is greater than 50% in coordination of care (as documented) at patient's floor/unit and/or counseling patient: Coding Level of Care Code 54301 Inpt Consult Level 2 Diagnoses Anaplasmosis A77.49
[2020-02-02 15:27] LABS: Allen Test POS (Pos)
--- NOTE | 2020-02-02 15:44 | Electrocardiogram Report ---
Test Reason : Blood Pressure : / mmHG Vent. Rate : 133 BPM Atrial Rate : 133 BPM P-R Int : 132 ms QRS Dur : 118 ms QT Int : 350 ms P-R-T Axes : 051 -40 092 degrees QTc Int : 520 ms Sinus tachycardia Possible Left atrial enlargement Left axis deviation Septal infarct , age undetermined Abnormal ECG When compared with ECG of 01-AUG-2019 15:30, HR has increased QRS duration has increased Left atrial enlargement is now Present Confirmed by Quincy Mata ([id number]) on 02/02/2020 3:44:47 PM Referred By: REFERRED SELF Confirmed By:Quincy Mata
[2020-02-02] MEDS: cefTRIAXone SODIUM 2,000 MG in DEXTROSE 5% 50 ML IV SCH (15:51)
[2020-02-02] MEDS ORDERED: ACETAMINOPHEN 1,000 MG/100 ML VIAL IV STA (16:16)
--- NOTE | 2020-02-02 16:53 | Cardiology Consultation ---
Date of Consultation February 02, 2020 Assessment & Plan (1) Acute hypoxemic respiratory failure: Does not examine as significantly volume overloaded. Chest x-ray personally reviewed again, does not appear to be significantly volume overloaded. Currently on BiPAP. Suspicious for possible COVID-19 infection, been ruled out To be transferred to the intensive care unit at this time. I discussed with the patient his CODE STATUS and if you would wish to be intubated and placed on a ventilator. He states that he is not sure and there is never thought about it before. He does not have a medical POA but states that he would like his long-term girlfriend Jasmyn to make any medical decisions for him should he not be able to. I attempted to call her at the number listed in the chart no answer and no voicemail set up (2) Non-ST elevation AR (NSTEMI): I do not believe this represents acute ischemia. His EKG does not show any significant ischemia. His renal function is significantly elevated which likely could contribute to the elevated troponin level. Given the clinical presentation this may represent myocardial strain in the setting of acute hypoxic respiratory failure with underlying severe aortic stenosis and cardiomyopathy. IV heparin has been started and would continue at this time. Would start low-dose oral metoprolol tartrate if his blood pressure would allow. Obviously, there is no indication for emergent cardiac catheterization at this time. (3) Aortic stenosis, severe: Echocardiogram from 2014 showed likely severe aortic stenosis now with low flow aortic stenosis given severely reduced LV systolic function (4) Cardiomyopathy: Newly discovered. Severe global hypokinesis which I suspect at this time is likely due to his aortic stenosis. Again, no indication for emergent cardiac catheterization. He does not examine his volume overloaded and given his aortic stenosis, severely reduced LV systolic function and reduced RV systolic function I would expect to see some volume overload on exam so I suspect that he is volume depleted at this time. He received IV Lasix in the ED but I will give him 500 mL's of normal saline at this time and his volume status should be followed closely (5) Anaplasmosis: On antibiotics (6) Acute on chronic renal failure: Will follow History of Present Illness Reason for Consultation: NSTEMI Requesting Physician: Dr. Dotson Attending Physician: Keith Dotson MD History of Present Illness It was my pleasure to see Mr. Parsons in consultation today February 02, 2020. He is a very pleasant 84-year-old gentleman who was last seen by her cardiology clinic approximately 5 years ago. He presents to [facility] emergency department on 02/02/2020 with complaints of shortness of breath and fever. He states that his shortness of breath started approximately 3 days ago. He states he woke up that day and noticed that he is having difficulty breathing. Around the same time he came down with a fever but denies any cough. He has been weak overall with a decreasing appetite and reported wheezing. He also had some chest discomfort which he described as a substernal pressure sensation that is waxed and waned over the last several days. He states he was having some chest discomfort upon presentation the emergency room but it is now resolved. Upon presentation emergency department he was found to be hypoxic and with a fever. He was placed on BiPAP. He was also found to meet Sirs criteria and to be in acute renal failure. Initial troponin came back unremarkable however second troponin was elevated. EKG without acute ischemia. He is also being treated for anaplasmosis that occurred recently after tick bite approximately 2 weeks ago. He is currently on a prednisone taper as well as recommended by his white sugar syrup operator for possible SLE flare. He was previously on chronic methotrexate but I cannot tell through review of records if he is on it currently. He is also on chronic steroids. He denies any sick contacts or cough. His last echocardiogram was performed in 2014 and showed likely severe aortic stenosis with preserved LV systolic function, unfortunately, he has not followed up since that time. Allergies Allergy/AdvReac Type Severity Reaction Status Date / Time oxycodone Allergy Unknown ITCHY, Per Verified 02/02/20 07:38 pt-can take Vicodin piroxicam AdvReac Intermediate CAUSED Verified 02/02/20 07:38 ULCER Home Medications Home Medications Medication Instructions Recorded Confirmed Type aspirin [Aspir-81] 81 mg PO Q OTHER DAY 08/01/19 02/02/20 History cyanocobalamin (vitamin B-12) 500 mcg PO DAILY 08/01/19 02/02/20 History duloxetine 30 mg PO DAILY 08/01/19 02/02/20 History folic acid 1 mg PO DAILY 08/01/19 02/02/20 History hydroxychloroquine [Plaquenil] 400 mg PO HS 08/01/19 02/02/20 History methotrexate sodium 7.5 mg PO FR 08/01/19 02/02/20 History multivitamin 1 tab PO DAILY 08/01/19 02/02/20 History prednisone 5 mg PO DAILY 08/01/19 02/02/20 History vitamin B complex 1 tab PO DAILY 08/01/19 02/02/20 History vitamins A,C,F-ddok-mcfnky 1 tab PO BID 08/01/19 02/02/20 History [PreserVision AREDS] carvedilol [Coreg] 3.125 mg PO BID 02/02/20 02/02/20 History hydrocodone-acetaminophen 1 tab PO Q8H PRN 02/02/20 02/02/20 History prednisone 10 mg PO UD 02/02/20 02/02/20 History Patient History Medical History Acute hypoxemic respiratory failure (Acute) Aortic stenosis (Chronic) CKD (chronic kidney disease), stage III (Chronic) History of steroid therapy (Chronic) HTN (hypertension) Hyperlipidemia Hypertension (Chronic) Lumbar stenosis with neurogenic claudication (Acute) Pericarditis (Resolved) Systemic lupus erythematosus (Chronic) Surgical History History of back surgery (Chronic) S/P appendectomy (Chronic) S/p total knee replacement, bilateral (Chronic) Family History Unknown No problems noted. Other Family history non-contributory Social History Preferred Language: Tamazight Communication Ability: Effective Visual Merchandising Director Required: No Beliefs That Will Affect Care: None Current Living Situation: Significant Other Other Information That Helps Us Care for You: No Feels Safe at Home: Yes Safety Concerns: Feels Safe At This Time Smoking Status: Former smoker Tobacco Type: cigarettes ; Do You Dip or Chew To bacco: No ; Second Hand Exposure: No ; Tobacco Cessation Education Requested by Patient: No Hx Alcohol Use: No Hx Substance Use: No Physical Exam Physical Exam: General: Awake, alert and oriented x 3. Mild respiratory distress while on BiPAP. Ashen in appearance HEENT: Normocephalic, atraumatic. Pupils equal, round and reactive to light and accommodation. Extraocular muscles are intact. Anicteric sclera. Moist mucous membranes. Neck: No JVD. No bruit. Cardiovascular: Regular. Positive S-4. Normal S-1. S-2 is not present.. No S-3. 3/6 mid to late systolic ejection murmur, greatest at the right sternal border, second intercostal space with radiation to the bilateral carotids. No rubs. Pulmonary: Poor air movement diffusely with scattered wheezing and rhonchi. No rales Abdomen: Bowel sounds x 4, soft. No rebound, guarding or tenderness. No organomegaly. Extremities: No clubbing, cyanosis or edema. +2 pedal pulses bilaterally. Skin: Warm and dry. Results & Data ([facility]) Vital Signs (Past 12 Hours) Vital Signs Temp Pulse Pulse Resp BP BP Pulse Ox 02/02/20 15:58 38.6 C H 106 H 36 H 111/76 100 02/02/20 15:48 105 H 34 H 98 02/02/20 13:00 118 H 38 H 97 02/02/20 12:30 36.7 C 115 H 34 H 125/86 98 02/02/20 11:46 103 H 38 H 96 02/02/20 11:45 104 H 38 H 100/69 95 02/02/20 11:31 104 H 38 H 95 02/02/20 11:30 105 H 38 H 107/70 96 02/02/20 11:16 106 H 39 H 97 02/02/20 11:15 107 H 39 H 101/70 96 02/02/20 11:02 110 H 39 H 96 02/02/20 11:01 110 H 39 H 114/74 97 02/02/20 11:00 112 H 41 H 95 02/02/20 10:46 110 H 38 H 95 02/02/20 10:45 111 H 38 H 118/72 90 02/02/20 10:31 105 H 37 H 100 02/02/20 10:30 106 H 37 H 114/76 99 02/02/20 10:29 107 H 18 95 02/02/20 10:17 107 H 29 H 95 02/02/20 10:16 108 H 33 H 100/77 94 02/02/20 10:15 107 H 36 H 94 02/02/20 10:01 106 H 36 H 94 02/02/20 10:00 107 H 36 H 106/75 94 02/02/20 09:46 104 H 34 H 95 02/02/20 09:45 105 H 38 H 112/68 94 02/02/20 09:30 103 H 35 H 108/68 93 02/02/20 09:16 103 H 33 H 93 02/02/20 09:15 104 H 33 H 96/62 L 93 02/02/20 09:01 104 H 35 H 94 02/02/20 09:00 104 H 37 H 105/73 93 02/02/20 08:47 110 H 38 H 110/82 93 02/02/20 08:45 109 H 36 H 90 02/02/20 08:31 116 H 115 H 36 H 95 02/02/20 08:30 113 H 35 H 146/88 H 93 02/02/20 08:16 109 H 39 H 100 02/02/20 08:15 110 H 34 H 141/85 H 100 02/02/20 08:04 108 H 39 H 121/77 92 02/02/20 08:01 108 H 20 98 02/02/20 08:00 108 H 31 H 120/69 95 02/02/20 07:46 103 H 28 H 95 02/02/20 07:45 102 H 28 H 114/69 95 02/02/20 07:31 108 H 26 H 96 02/02/20 07:30 110 H 28 H 114/70 96 02/02/20 07:18 95 02/02/20 07:16 118 H 29 H 95 02/02/20 07:15 118 H 25 H 120/80 02/02/20 07:10 123 H 30 H 122/78 97 02/02/20 07:09 119 H 28 H 96 02/02/20 07:01 128 H 28 H 96 02/02/20 07:00 130 H 26 H 130/90 96 02/02/20 06:59 130 H 33 H 95 02/02/20 06:47 37.4 C 132 H 29 H 139/99 95
[2020-02-02] MEDS: SODIUM CHLORIDE 0.9% 500 ML IV SCH ×2 (17:32→20:10)
--- NOTE | 2020-02-02 17:45 | Critical Care Consultation ---
Date of Consultation February 02, 2020 Assessment & Plan (1) Acute hypoxemic respiratory failure: (2) Acute on chronic renal failure: --VDRF secondary to Acute hypoxic respiratory failure with Fever etiology unclear could be secondary to PE given elevated D-Dimer. CTA cannot be done as patient in ALEXIS. Would continue with Heparin drip for the time being. F/u doppler b/l LE new onset CHF, BNP: 35164, EKG doesn't show any ST-T wave changes. Start Inotropes with pressors. Will get mixed venous gas prior to it. strict in's and out's Infectious etiology in an immunocompromised patient present. ESR: 15, CRP: 12.1, PCT: 2.73, LDH: 468 Peripheral smear showing Inclusion bodies in neutrophils with Anaplasma bodies positive. -- > treat with Doxycycline. 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 C/w rocephin as well Patient was admitted with PUI to rule out Covid: Lymphopenia, Elevated D-Dimer, Elevated CRP, Fever, Elevated AST. Given that now we have anaplasma antibodies bodies. The likely alvarez of Covid-19 is low. Yuan wait for test to come back. Patient takes Plaquenal at home Chest x-ray personally reviewed: Portable film. Increased hilar markings. BNP greater than 22,000 Echo 02/02/2020: Ejection fraction < 15% EKG: Sinus tachycardia left axis deviation no ST-T wave changes appreciated. QTC: 520 -- ALEXIS on CKD likely sec to sepsis. f/u Urine lytes Monitor BUN/Cr -- NSTEMI demand ischemia possibility with New onset systolic CHF cardiology on board -- Lymphopenia with Thrombocytopenia could be from Anaplasmosis c/w Doxycycline PE could be thrombocytopenia --> C/w Heparin drip MTX can give pancytopenia -- Hx of SLE on MTX, HCQ and Prednisone Hold MTX. would continue with HCQ and monitor QTc Will get Methotrexate level as well given patient has ALEXIS -- Lactic acidosis likely from sepsis monitor -- Prophylaxis Protonix, Heparin drip Lines: Right IJ 02/02/20, Left radial 02/02/20, OGT (3) Anaplasmosis: (4) Non-ST elevation NV (NSTEMI): (5) CKD (chronic kidney disease), stage III: History of Present Illness Attending Physician: Keith Dotson MD History of Present Illness 84-year-old male with past medical history of lupus, CKD 3, aortic stenosis, hypertension came to the hospital with complaints of worsening shortness of breath and subjective fever along with generalized malaise and joint pains. Patient believed that he had a flare from his lupus and he was recommended to start a prednisone taper. Had a fever of 100.9 Fahrenheit yesterday. Patient was febrile in the ED. He denies any travel history sick contact or Covid-19 exposure. He did take 50 mg of prednisone yesterday. In the ED patient was found to be hypoxic and started on BiPAP. Covid-19 test was sent from the ED. ICU was consulted patient was tachycardic and tachypneic even on BiPAP. I recommended patient to be intubated given RR in the high 30s and tachycardia in the 120s. And put in a negative pressure room till we have ruled out Covid-19. Patient's blood smear showed anaplasmosis. Patient does have elevated d-dimer, lymphopenia, shortness of breath. This could be symptoms of anaplasmosis in an immunocompromised patient. History obtained from previous chart. Allergies Allergy/AdvReac Type Severity Reaction Status Date / Time oxycodone Allergy Unknown ITCHY, Per Verified 02/02/20 07:38 pt-can take Vicodin piroxicam AdvReac Intermediate CAUSED Verified 02/02/20 07:38 ULCER Home Medications Home Medications Medication Instructions Recorded Confirmed Type aspirin [Aspir-81] 81 mg PO Q OTHER DAY 08/01/19 02/02/20 History cyanocobalamin (vitamin B-12) 500 mcg PO DAILY 08/01/19 02/02/20 History duloxetine 30 mg PO DAILY 08/01/19 02/02/20 History folic acid 1 mg PO DAILY 08/01/19 02/02/20 History hydroxychloroquine [Plaquenil] 400 mg PO HS 08/01/19 02/02/20 History methotrexate sodium 7.5 mg PO FR 08/01/19 02/02/20 History multivitamin 1 tab PO DAILY 08/01/19 02/02/20 History prednisone 5 mg PO DAILY 08/01/19 02/02/20 History vitamin B complex 1 tab PO DAILY 08/01/19 02/02/20 History vitamins A,C,E-scyf-guohvv 1 tab PO BID 08/01/19 02/02/20 History [PreserVision AREDS] carvedilol [Coreg] 3.125 mg PO BID 02/02/20 02/02/20 History hydrocodone-acetaminophen 1 tab PO Q8H PRN 02/02/20 02/02/20 History prednisone 10 mg PO UD 02/02/20 02/02/20 History Patient History Medical History Acute hypoxemic respiratory failure (Acute) Aortic stenosis (Chronic) CKD (chronic kidney disease), stage III (Chronic) History of steroid therapy (Chronic) HTN (hypertension) Hyperlipidemia Hypertension (Chronic) Lumbar stenosis with neurogenic claudication (Acute) Pericarditis (Resolved) Systemic lupus erythematosus (Chronic) Surgical History History of back surgery (Chronic) S/P appendectomy (Chronic) S/p total knee replacement, bilateral (Chronic) Family History Unknown No problems noted. Other Family history non-contributory Social History Preferred Language: Khmer Communication Ability: Effective Golf Cart Repairer Required: No Beliefs That Will Affect Care: None Current Living Situation: Significant Other Feels Safe at Home: Yes Smoking Status: Former smoker Tobacco Type: cigarettes ; Second Hand Exposure: No ; Hx Alcohol Use: No Hx Substance Use: No Review of Systems Review of Systems: Unobtainable due to cognitive status and Unobtainable due to endotracheal tube Physical Exam Physical Exam: Constitutional: No acute distress HEENT: PERRLA, Malar rash appreciated on the face Respiratory system: Decreased air entry bilaterally, No wheeze, no rhonchi, + crackles b/l CVS: S1-S2 positive, no murmurs or gallops Abdomen: Soft, nontender, nondistended, positive bowel sounds x4 Extremities: +2 pulses bilaterally radialis/ dorsalis pedis, no cyanosis, no edema Neuro: Paralysed at the time of examination Psych: Unable to assess G/U: Positive Lopez Skin: no rashes, warm and dry Lymphatic: no cervical or axillary lymphadenopathy Results & Data Results & Data ([facility]) Vital Signs (Past 12 Hours) Vital Signs Temp Pulse Pulse Resp BP BP Pulse Ox 02/02/20 17:12 115 H 02/02/20 15:58 38.6 C H 106 H 36 H 111/76 100 02/02/20 15:48 105 H 34 H 98 02/02/20 13:00 118 H 38 H 97 02/02/20 12:30 36.7 C 115 H 34 H 125/86 98 02/02/20 11:46 103 H 38 H 96 02/02/20 11:45 104 H 38 H 100/69 95 02/02/20 11:31 104 H 38 H 95 02/02/20 11:30 105 H 38 H 107/70 96 02/02/20 11:16 106 H 39 H 97 02/02/20 11:15 107 H 39 H 101/70 96 02/02/20 11:02 110 H 39 H 96 02/02/20 11:01 110 H 39 H 114/74 97 02/02/20 11:00 112 H 41 H 95 02/02/20 10:46 110 H 38 H 95 02/02/20 10:45 111 H 38 H 118/72 90 02/02/20 10:31 105 H 37 H 100 02/02/20 10:30 106 H 37 H 114/76 99 02/02/20 10:29 107 H 18 95 02/02/20 10:17 107 H 29 H 95 02/02/20 10:16 108 H 33 H 100/77 94 02/02/20 10:15 107 H 36 H 94 02/02/20 10:01 106 H 36 H 94 02/02/20 10:00 107 H 36 H 106/75 94 02/02/20 09:46 104 H 34 H 95 02/02/20 09:45 105 H 38 H 112/68 94 02/02/20 09:30 103 H 35 H 108/68 93 02/02/20 09:16 103 H 33 H 93 02/02/20 09:15 104 H 33 H 96/62 L 93 02/02/20 09:01 104 H 35 H 94 02/02/20 09:00 104 H 37 H 105/73 93 02/02/20 08:47 110 H 38 H 110/82 93 02/02/20 08:45 109 H 36 H 90 02/02/20 08:31 116 H 115 H 36 H 95 02/02/20 08:30 113 H 35 H 146/88 H 93 02/02/20 08:16 109 H 39 H 100 02/02/20 08:15 110 H 34 H 141/85 H 100 02/02/20 08:04 108 H 39 H 121/77 92 02/02/20 08:01 108 H 20 98 02/02/20 08:00 108 H 31 H 120/69 95 02/02/20 07:46 103 H 28 H 95 02/02/20 07:45 102 H 28 H 114/69 95 02/02/20 07:31 108 H 26 H 96 02/02/20 07:30 110 H 28 H 114/70 96 02/02/20 07:18 95 02/02/20 07:16 118 H 29 H 95 02/02/20 07:15 118 H 25 H 120/80 02/02/20 07:10 123 H 30 H 122/78 97 02/02/20 07:09 119 H 28 H 96 02/02/20 07:01 128 H 28 H 96 02/02/20 07:00 130 H 26 H 130/90 96 02/02/20 06:59 130 H 33 H 95 02/02/20 06:47 37.4 C 132 H 29 H 139/99 95 02/02/20 07:07 02/02/20 09:58 02/02/20 15:07 ABG pH 7.42 ABG pCO2 29 L ABG pO2 71 L ABG HCO3 19 ABG O2 Saturation 95.0 ABG Base Excess -4.5 Laboratory Tests 02/02/20 02/02/20 02/02/20 07:07 07:07 07:07 Lymph # (Auto) 0.27 L ESR D-Dimer 86990 H* AST 82 H C-Reactive Protein NT-Pro-B Natriuret Pep 87850 H Procalcitonin Amorphous Sediment 02/02/20 02/02/20 02/02/20 07:07 11:01 15:07 Lymph # (Auto) ESR 15 H D-Dimer AST C-Reactive Protein NT-Pro-B Natriuret Pep Procalcitonin 2.73 H Amorphous Sediment Present A 02/02/20 15:07 Lymph # (Auto) ESR D-Dimer AST C-Reactive Protein 12.10 H NT-Pro-B Natriuret Pep Procalcitonin Amorphous Sediment Coding Level of Care Code Critical Care 1st 30-74 mins Diagnoses Acute hypoxemic respiratory failure J96.01 Acute on chronic renal failure N17.9; N18.9 Anaplasmosis A77.49 Non-ST elevation NV (NSTEMI) I21.4 CKD (chronic kidney disease), stage III N18.3 Time Spent (min) 71
[2020-02-02] MEDS ORDERED: PROPOFOL BOLUS FROM BAG IV PRN (18:14)
[2020-02-02] MEDS ORDERED: FENTANYL BOLUS FROM BAG IV PRN (18:14)
[2020-02-02] MEDS: propofoL 1,000 MG/100 ML VIAL IV SCH (18:15)
[2020-02-02] MEDS ORDERED: PROPOFOL IV EMULSION 10 MG/ML 100 ML VIAL IV ONE (18:16)
[2020-02-02] MEDS ORDERED: PROPOFOL IV EMULSION 10 MG/ML 20 ML VIAL IV ONE (19:28)
[2020-02-02] MEDS ORDERED: MIDAZOLAM HCL 1 MG/ML 2ML VIAL ONE (19:28)
[2020-02-02] MEDS ORDERED: ETOMIDATE 2 MG/ML 20 ML VIAL IV ONE (19:32)
[2020-02-02] MEDS ORDERED: ROCURONIUM BROMID 50MG/5ML SYR ONE (19:32)
[2020-02-02] MEDS ORDERED: ePHEDrine sulfate 50 MG/ML SYR ONE (19:33)
[2020-02-02] MEDS ORDERED: PHENYLEPHRINE 100MCG/ML 5ML SYR ONE (19:33)
[2020-02-02] MEDS ORDERED: SUCCINYLCHOLINE 100MG/5ML SYR ONE (19:33)
[2020-02-02] MEDS ORDERED: ACETAMINOPHEN 1,000 MG/100 ML VIAL IV PRN (19:49)
[2020-02-02] MEDS: DOXYCYCLINE HYCLATE 100 MG in DEXTROSE 5% 100 ML IV SCH (20:07)
--- NOTE | 2020-02-02 20:34 | Anesthesia Procedure Note ---
Anesthesia Procedure Note Intubation Note Vital Signs: Patient medical history, medication, allergies and vitals reviewed. verbal consent was obtained for intubation, amor and central line witnessed by félix simon crna. pt presently on bipap Date of procedure: 02/02/20 Indication for intubation: Respiratory distress Consent: Risk / Benefits Reviewed With: PT / POA / Parent / Guardian, Accepts Plan, Informed Consent Obtained (verbal) and All Questions Answered Monitors attached: Blood Pressure, CO2, EKG and Pulse Oximetry Time out completed: Yes Premedication: Midazolam (mg) (2) and Etomidate (mg) (10) Paralytic medication: Succinylcholine (mg) (100) Intubation technique: Adequate preoxygenation and RSI Equipment: Glidescope (4) View: Grade 1 Endotracheal tube: Oral (8.0 tube and22 cm at lips) Attempts: 1 (atraumatic) Tube placement confirmation: auscultation and Positive CO2 detection Post-procedure: Pt hemodynamically stable, Pt tolerates well, No complication and Post placement CXR ordered
--- NOTE | 2020-02-02 20:34 | Anesthesia Procedure Note ---
Anesthesia Procedure Note Arterial Line Note Patient medical history, medications, allergies and vitals reviewed. Consent: Risk / Benefits Reviewed With: PT / POA / Parent / Guardian, Accepts Plan, Informed Consent Obtained and All Questions Answered Monitors attached: Blood Pressure, CO2, EKG and Pulse Oximetry Time out completed: Yes Hand hygeine: Soap and water and Alcohol based hand rub Equipment/Supplies: Cap, Mask, Sterile gown, Sterile gloves, Sterile drapes and Sterile procedures used Procedure Summary: 20 gauge angiocath advanced until return of bright red blood. Catheter threaded using seldinger technique with return of pulsatile, bright red blood. Catheter secured with tape and covered with occlusive dressing. Waveform consistent with correct arterial placement. After placement, normal perfusion was observed distal to the site of catheter placement. Post-Procedure: Pt hemodynamically stable, Pt tolerates well and No complication
--- NOTE | 2020-02-02 20:36 | Anesthesia Procedure Note ---
Anesthesia Procedure Note Central Line Note Last set of vitals: Patient medical history, medications, allergies and vitals reviewed. Indication: Central intravenous access Consent: Risk / Benefits Reviewed With: PT / POA / Parent / Guardian, Accepts Plan, Informed Consent Obtained and All Questions Answered Monitors attached: Blood Pressure, CO2, EKG and Pulse Oximetry Time out completed: Yes Premedication: Midazolam (mg) (4) and Propofol (mg) (80) Laterality: Right Location: Internal Jugular Surgical Prep: Hand hygeine: Soap and water and Alcohol based hand rub Equipment/Supplies: Cap, Mask, Sterile gown, Sterile gloves, Sterile drapes and Sterile procedures used Skin prep: Chloraprep Ultrasound Guidance: Ultrasound used: Yes US equipment and supplies: Sterile Gel and Sterile Probe Cover Central line lumen: Triple Catheter sutured at: CM Attempts: 1 Procedure Summary: Patient was positioned with cannulated vein in dependent position. Good return of dark, nonpulsatile blood after needle placement. Guidewire threaded easily and was verified in the vein by ultrasound. Accessed vessel was transduced prior to dilation. After dilation, the catheter advanced easily over the guide wire. Guide wire was removed and the catheter was sutured in place. Antibiotic disc placed and site covered with occlusive dressing. All ports aspirated and flushed Post-Procedure: Pt hemodynamically stable, Pt tolerates well, No complication and Post placement CXR ordered
--- NOTE | 2020-02-02 20:38 | XRay Report ---
SINGLE VIEW CHEST CLINICAL HISTORY: Central venous catheter placement. FINDINGS: An AP, portable, upright chest radiograph is compared to study performed earlier the same d ay 02/02/2020. The examination is degraded by portable technique and patient rotation. An endotracheal tube has been placed. The tip projects approximately 6 cm above the lorenzo. An enteric tube has been placed. This extends below the diaphragm the tip is not visualized. A right internal jugular central venous catheter is in place. The tip projects over the SVC. The heart is enlarged noting atheroscler otic calcification of the thoracic aorta. There is pulmonary vascular congestion. There are small ple ural effusions with bibasilar consolidation. No pneumothorax is seen. The skeletal structures are ost eopenic. The bony thorax is grossly intact. Fusion hardware is noted at the thoracolumbar junction. A dvanced degenerative change is noted in the shoulders with large calcified joint bodies on the left IMPRESSION: 1. And endotracheal tube, an enteric tube, and a central venous catheter have been placed as above. 2. No pneumothorax is seen post procedure. 3. Cardiomegaly with evidence of congestive failure. 4. There are small pleural effusions with bibasilar consolidation. This likely represents atelectasis . Clinical correlation will be required. ACT 112: Negative or not required by law. Electronically signed by: Lavon De León M.D. 02/02/2020 8:36 PM
[2020-02-02] MEDS ORDERED: carvediloL 3.125 MG TAB PO SCH (21:00)
[2020-02-02] MEDS ORDERED: DOXYCYCLINE HYCLATE 100 MG CAP PO SCH (21:00)
[2020-02-02 21:02] LABS: iSTAT Art Bld Gas pCO2 Correct 55 mmHg (35-46); iSTAT Art Bld Gas pH Corrected 7.227 (7.35-7.45); iSTAT Arterial Blood Gas HCO3 23 meg/L (19-24); iSTAT Arterial Blood Gas pCO2 54 mmHg (35-46); iSTAT Arterial Blood Gas pH 7.24 (7.35-7.45); iSTAT Arterial Blood Gas pO2 335 mmHg (80-95); iSTAT Arterial Blood Gas pO2 C 338; iSTAT Carbon Dioxide 24 mmol/L (24-31); iSTAT FiO2 100 %; iSTAT Hematocrit 42 % (42-52); iSTAT Hemoglobin 14.3 g/dl (14.0-18.0); iSTAT Potassium 4.4 mmol/L (3.3-5.0); iSTAT Site L Radial; iSTAT Sodium 134 mmol/L (135-144)
[2020-02-02] MEDS: NOREPINEPHRINE BIT INJ 8 MG in DEXTROSE 5% 500 ML IV SCH (21:37)
[2020-02-02 21:51] LABS: BUN Creatinine Ratio 16.1 (10-20); Calcium 7.7 mg/dl (8.5-10.1); Creatinine Clr Calc Pharmacy 21.9 ml/min; Est GFR (African American) 26.5; Est GFR (Non-African American) 22.8; Magnesium 2.2 mg/dl (1.8-2.4); Phosphorus 5.9 mg/dl (2.5-4.9); Potassium 4.5 mmol/L (3.5-5.1)
[2020-02-02 21:52] LABS: Appearance Urine Cloudy (Clear); Bilirubin Urine Negative (Negative); Blood Urine 3+ (Negative); Color Urine Yellow; Epithelial Cell Urine Auto >30 /lpf (0-5); Glucose Urine UA Negative (Negative); Ketones Urine Negative (Negative); Leukocyte Esterase Urine Negative (Negative); Nitrite Urine Negative (Negative); Protein Urine 1+ (Negative); Specific Gravity Urine 1.014 (1.000-1.030); Urobilinogen Urine Negative (Negative)
[2020-02-02 21:58] LABS: Troponin I 9.57 ng/ml (0-0.045)
[2020-02-02 22:01] LABS: Bacteria Urine Automated 1+ (Negative)
[2020-02-02 22:14] LABS: Creatinine Urine Random 46.1 mg/dl; Potassium Random Urine 38.6 mmol/L
[2020-02-03] MEDS: propofoL 1,000 MG/100 ML VIAL IV SCH ×3 (00:43→17:08)
[2020-02-03] MEDS: HEPARIN SODIUM/DEXTROSE 25,000 UNITS/500 ML BAG IV SCH ×2 (00:43→14:10)
[2020-02-03 01:43] LABS: Hematocrit (blood only) 40.5 % (42-52); Hemoglobin 13.9 g/dL (14.0-18.0); Mean Corpuscular Hemoglobin 34.8 pg (25-34); Mean Corpuscular Hgb Conc 34.3 g/dL (32-36); Mean Corpuscular Volume 101.3 fL (80-100); RDW Standard Deviation 51.9 fL (36.4-46.3); White Blood Count 6.51 K/uL (4.8-10.8)
[2020-02-03 02:03] LABS: Alanine Aminotransferase 85 U/L (12-78); Albumin Level 2.6 gm/dl (3.4-5.0); Aspartate Aminotransferase 139 U/L (15-37); BUN Creatinine Ratio 16.5 (10-20); Blood Urea Nitrogen 43 mg/dl (7-18); Calcium 7.9 mg/dl (8.5-10.1); Carbon Dioxide 18 mmol/L (21-32); Chloride 106 mmol/L (98-107); Creatinine Clr Calc Pharmacy 21.4 ml/min; Est GFR (African American) 25.7; Est GFR (Non-African American) 22.2; Glucose 137 mg/dl (70-99); Magnesium 2.2 mg/dl (1.8-2.4); Sodium 134 mmol/L (136-145)
[2020-02-03 02:07] LABS: Partial Thromboplastin Ratio > 5.0
[2020-02-03 02:11] LABS: Albumin Globulin Ratio 0.7 (0.9-2); Alkaline Phosphatase 40 U/L (45-117); Bilirubin,Total 0.7 mg/dl (0.2-1); Globulin 3.6 gm/dl (2.5-4.0); Mean Platelet Volume 11.3 fL (7.4-10.4); NT Pro B Type Natriuretic Pept > 35000 pg/ml (0-1800); Platelet Count 77 K/uL (130-400); Platelet Estimate Decreased (Normal); Total Protein 6.2 gm/dl (6.4-8.2)
[2020-02-03 02:34] LABS: Partial Thromboplastin Time > 139.0 Seconds (21.0-31.0)
[2020-02-03 03:27] LABS: Hematocrit (blood only) 40.1 % (42-52); Hemoglobin 13.9 g/dL (14.0-18.0); Mean Corpuscular Hgb Conc 34.7 g/dL (32-36); RDW Standard Deviation 51.6 fL (36.4-46.3); Red Blood Count 3.97 M/uL (4.7-6.1); White Blood Count 6.49 K/uL (4.8-10.8)
[2020-02-03 03:39] LABS: Mean Platelet Volume 11.7 fL (7.4-10.4); Platelet Count 78 K/uL (130-400)
[2020-02-03 03:46] LABS: Partial Thromboplastin Ratio 4.6
[2020-02-03 03:55] LABS: Basophils # (auto) 0.01 K/uL (0-0.2); Basophils % (auto) 0.2 %; Eosinophils # (auto) 0.01 K/uL (0-0.5); Eosinophils % (auto) 0.2 %; Immature Granulocytes # (auto) 0.02 K/uL (0.00-0.02); Immature Granulocytes % (auto) 0.3 %; Lymphocytes # (auto) 0.29 K/uL (1.2-3.4); Lymphocytes % (auto) 4.5 %; Monocytes # (auto) 0.56 K/uL (0.11-0.59); Monocytes % (auto) 8.6 %; Neutrophils % (auto) 86.2 %; Toxic Vacuolation 1+
[2020-02-03 04:05] LABS: INR 1.2 (0.9-1.1); Prothrombin Time 12.2 Seconds (9.0-12.0)
[2020-02-03 04:07] LABS: iSTAT Art Bld Gas pCO2 Correct 29 mmHg (35-46); iSTAT Art Bld Gas pH Corrected 7.407 (7.35-7.45); iSTAT Arterial Blood Gas HCO3 18 meg/L (19-24); iSTAT Arterial Blood Gas pCO2 27 mmHg (35-46); iSTAT Arterial Blood Gas pH 7.43 (7.35-7.45); iSTAT Arterial Blood Gas pO2 188 mmHg (80-95); iSTAT Arterial Blood Gas pO2 C 195; iSTAT Carbon Dioxide 19 mmol/L (24-31); iSTAT FiO2 60 %; iSTAT Hematocrit 39 % (42-52); iSTAT Hemoglobin 13.3 g/dl (14.0-18.0); iSTAT Potassium 3.6 mmol/L (3.3-5.0); iSTAT Site Art Line; iSTAT Sodium 133 mmol/L (135-144)
[2020-02-03 04:14] LABS: Troponin I 9.4 ng/ml (0-0.045)
[2020-02-03 04:14] LABS: COVID-19 Patient Symptomatic? YES; PAN-SARS Coronavirus RNA NEGATIVE (NEGATIVE); SARS CoV2 RNA (COVID-19) NEGATIVE (NEGATIVE); SARS Coronavirus RNA Source NASOPHARYNGEAL
[2020-02-03 06:20] LABS: Partial Thromboplastin Ratio 2.3
[2020-02-03 06:21] LABS: Partial Thromboplastin Time 64.6 Seconds (21.0-31.0)
[2020-02-03] MEDS: DOXYCYCLINE HYCLATE 100 MG in DEXTROSE 5% 100 ML IV SCH ×2 (08:52→20:56)
[2020-02-03] MEDS: FOLIC ACID 1 MG TAB PO SCH (08:53)
[2020-02-03] MEDS: DULOXETINE HCL 30 MG CAP PO SCH (08:53)
[2020-02-03] MEDS: PANTOprazole 40 MG in SYRINGE 0 ML IV SCH (08:53)
[2020-02-03] MEDS: CYANOCOBALAMIN 500 MCG TABLET (VITAMIN B-12) PO SCH (08:53)
[2020-02-03] MEDS: ASPIRIN 81 MG ECTAB PO SCH (08:53)
[2020-02-03] MEDS: predniSONE 5 MG TAB PO SCH (08:53)
--- NOTE | 2020-02-03 09:29 | Cardiology Progress Note ---
Date of Service February 03, 2020 Assessment & Plan (1) Aortic stenosis, severe: (2) Cardiomyopathy: (3) Anaplasmosis: (4) Non-ST elevation [place] (NSTEMI): (5) Acute hypoxemic respiratory failure: This patient's respiratory failure is probably multifactorial including anaplasmosis infection and a history of severe aortic stenosis along with a non- STEMI and a cardiomyopathy with severe LV dysfunction. The patient is most likely in heart failure however, his CVP pressure is 5 and he is most likely intravascular volume depleted. Currently is comfortable on the ventilator. He is on inotropic support including norepinephrine. A mixed venous saturation is pending with consideration of starting dobutamine if it is low. Currently agree with management. Subjective The patient is sedated and on a ventilator. Review of Systems Review of Systems: Unobtainable due to endotracheal tube Physical Exam Physical Exam: General: no acute distress and stated age Head: normocephalic, no masses, lesions, tenderness or abnormalities Eyes: conjunctiva are pink and non-injected, sclera clear Neck: supple, no adenopathy, no bruits, normal jugular venous pulse, no hepatojugular reflux Chest: normal shape and normal respiratory effort Lungs: clear to auscultation and percussion Cardiac Exam: - regular rate & rhythm, no murmurs gallops or rubs - normal S1, normal S2 Pulses: 2(+) throughout Abdomen: abdomen soft, non-tender, no abnormal masses and no hepatosplenomegaly Musculoskeletal: no gait disturbance, no joint inflammation, no deforming arthritis Extremities: no edema and no cyanosis Neuro: grossly normal exam Results & Data Vital Signs (Past 12 Hours) Vital Signs Temp Pulse Pulse Resp BP BP BP 02/03/20 07:00 76 22 02/03/20 06:13 79 87/59 L 02/03/20 05:43 78 94/63 L 02/03/20 05:13 79 95/62 L 02/03/20 04:43 79 95/68 L 02/03/20 04:13 78 92/59 L 02/03/20 03:55 80 24 02/03/20 03:43 77 111/70 02/03/20 03:13 78 95/60 L 02/03/20 02:43 76 80/59 L 02/03/20 02:13 78 89/63 L 02/03/20 01:43 76 92/62 L 02/03/20 01:13 74 96/71 L 02/03/20 00:43 72 95/59 L 02/03/20 00:13 73 115/82 02/02/20 23:55 89 24 02/02/20 23:48 72 102/69 02/02/20 23:15 71 20 117/76 97/69 L 02/02/20 23:00 70 20 118/70 97/66 L 02/02/20 22:15 73 20 122/79 103/73 02/02/20 22:00 37.3 C 74 20 123/79 104/75 02/02/20 21:45 37.3 C 76 20 128/75 105/78 Pulse Ox 02/03/20 07:00 100 02/03/20 06:13 100 02/03/20 05:43 100 02/03/20 05:13 100 02/03/20 04:43 100 02/03/20 04:13 99 02/03/20 03:55 100 02/03/20 03:43 100 02/03/20 03:13 100 02/03/20 02:43 100 02/03/20 02:13 100 02/03/20 01:43 100 02/03/20 01:13 100 02/03/20 00:43 100 02/03/20 00:13 100 02/02/20 23:55 100 02/02/20 23:48 100 02/02/20 23:15 100 02/02/20 23:00 100 02/02/20 22:15 100 02/02/20 22:00 100 02/02/20 21:45 100 Laboratory Results Laboratory Results - last 24 hr 02/02/20 02/02/20 02/02/20 07:07 07:07 07:07 WBC RBC Hgb POC Hgb Hct POC Hct MCV MCH MCHC RDW Std Deviation RDW Coeff of Patti Plt Count MPV Immature Gran % (Auto) Neut % (Auto) Lymph % (Auto) [place] % (Auto) Eos % (Auto) Baso % (Auto) Immature Gran # (Auto) Neut # (Auto) Lymph # (Auto) [place] # (Auto) Eos # (Auto) Baso # (Auto) Toxic Vacuolation Platelet Estimate ESR PT INR APTT PTT Ratio Sample Site POC pH POC pCO2 POC pO2 POC HCO3 POC Total CO2 POC Base Excess ABG pH ABG pH (Temp Correct) ABG pCO2 ABG pCO2 (Temp Corrct ABG pO2 POC ABG pO2 at Pt Temp ABG HCO3 POC ABG O2 Sat ABG O2 Saturation ABG Base Excess Stevie Test Barometric Pressure Oxygen Given O2 Delivery Device POC O2 Rate Minute Ventilation POC FiO2 Tidal Volume PEEP POC Sodium Sodium POC Potassium Potassium Chloride Carbon Dioxide Anion Gap BUN Creatinine Est Cr Clr Drug Dosing Est GFR ( Amer) Est GFR (Non-Af Amer) BUN/Creatinine Ratio Glucose POC Glucose (other) Lactate Calcium Phosphorus Magnesium Total Bilirubin AST ALT Alkaline Phosphatase Lactate Dehydrogenase Troponin I C-Reactive Protein NT-Pro-B Natriuret Pep Total Protein Albumin Globulin Albumin/Globulin Ratio Procalcitonin 2.73 H Urine Color Urine Appearance Urine pH Ur Specific [place] Urine Protein Urine Glucose (UA) Urine Ketones Urine Blood Urine Nitrite Urine Bilirubin Urine Urobilinogen Ur Leukocyte Esterase Urine WBC (Auto) Urine RBC (Auto) U Hyaline Cast (Auto) U Epithel Cells (Auto) Urine Bacteria (Auto) Amorphous Sediment Granular Casts Urine Mucus Urine Yeast Urine Osmolality Ur Random Creatinine Ur Random Sodium Ur Random Potassium Ur Random Chloride Ur Random Uric Acid Adenovirus (PCR) A. phagocytophilum DNA Cancelled B. pertussis DNA (PCR) B.parapertussis DNA PCR Lyme Disease IgG Ab Negative Lyme Disease IgM Ab Negative Tick Lyme Diseas (PCR) C. pneumoniae DNA (PCR) Coronavirus (PCR) Coronavirus OC43 (PCR) Coronavirus HKU1 (PCR) Coronavirus 229E (PCR) COVID-19 Pt Symptomatic COVID-19 Source Coronavirus NL63 (PCR) E. chaffeensis IgG Ab E. chaffeensis IgM Ab E. chaffeensis Interp E. chaffeensis Comment Human Metapneumovir PCR Influenza Type A (PCR) Influenza Type B (PCR) M. pneumoniae (PCR) Parainfluenza 1 (PCR) Parainfluenza 2 (PCR) Parainfluenza 3 (PCR) Parainfluenza 4 (PCR) RSV (PCR) Entero/Rhino (PCR) SARS Virus RNA (PCR) SARS-CoV-2 RNA (RT-PCR) Miscellaneous Test 02/02/20 02/02/20 02/02/20 07:10 07:10 09:21 WBC RBC Hgb POC Hgb Hct POC Hct MCV MCH MCHC RDW Std Deviation RDW Coeff of Patti Plt Count MPV Immature Gran % (Auto) Neut % (Auto) Lymph % (Auto) [place] % (Auto) Eos % (Auto) Baso % (Auto) Immature Gran # (Auto) Neut # (Auto) Lymph # (Auto) [place] # (Auto) Eos # (Auto) Baso # (Auto) Toxic Vacuolation Platelet Estimate ESR PT INR APTT PTT Ratio Sample Site POC pH POC pCO2 POC pO2 POC HCO3 POC Total CO2 POC Base Excess ABG pH ABG pH (Temp Correct) ABG pCO2 ABG pCO2 (Temp Corrct ABG pO2 POC ABG pO2 at Pt Temp ABG HCO3 POC ABG O2 Sat ABG O2 Saturation ABG Base Excess Stevie Test Barometric Pressure Oxygen Given O2 Delivery Device POC O2 Rate Minute Ventilation POC FiO2 Tidal Volume PEEP POC Sodium Sodium POC Potassium Potassium Chloride Carbon Dioxide Anion Gap BUN Creatinine Est Cr Clr Drug Dosing Est GFR ( Amer) Est GFR (Non-Af Amer) BUN/Creatinine Ratio Glucose POC Glucose (other) Lactate 2.7 H* Calcium Phosphorus Magnesium Total Bilirubin AST ALT Alkaline Phosphatase Lactate Dehydrogenase Troponin I C-Reactive Protein NT-Pro-B Natriuret Pep Total Protein Albumin Globulin Albumin/Globulin Ratio Procalcitonin Urine Color Urine Appearance Urine pH Ur Specific [place] Urine Protein Urine Glucose (UA) Urine Ketones Urine Blood Urine Nitrite Urine Bilirubin Urine Urobilinogen Ur Leukocyte Esterase Urine WBC (Auto) Urine RBC (Auto) U Hyaline Cast (Auto) U Epithel Cells (Auto) Urine Bacteria (Auto) Amorphous Sediment Granular Casts Urine Mucus Urine Yeast Urine Osmolality Ur Random Creatinine Ur Random Sodium Ur Random Potassium Ur Random Chloride Ur Random Uric Acid Adenovirus (PCR) Not Detected A. phagocytophilum DNA B. pertussis DNA (PCR) Not Detected B.parapertussis DNA PCR Not Detected Lyme Disease IgG Ab Lyme Disease IgM Ab Tick Lyme Diseas (PCR) C. pneumoniae DNA (PCR) Not Detected Coronavirus (PCR) NOT DETECTED Coronavirus OC43 (PCR) Not Detected Coronavirus HKU1 (PCR) Not Detected Coronavirus 229E (PCR) Not Detected COVID-19 Pt Symptomatic YES COVID-19 Source NASOPHARYNGEAL Coronavirus NL63 (PCR) Not Detected E. chaffeensis IgG Ab E. chaffeensis IgM Ab E. chaffeensis Interp E. chaffeensis Comment Human Metapneumovir PCR Not Detected Influenza Type A (PCR) Not Detected Influenza Type B (PCR) Not Detected M. pneumoniae (PCR) Not Detected Parainfluenza 1 (PCR) Not Detected Parainfluenza 2 (PCR) Not Detected Parainfluenza 3 (PCR) Not Detected Parainfluenza 4 (PCR) Not Detected RSV (PCR) Not Detected Entero/Rhino (PCR) Not Detected SARS Virus RNA (PCR) NEGATIVE SARS-CoV-2 RNA (RT-PCR) NEGATIVE Miscellaneous Test 02/02/20 02/02/20 02/02/20 09:58 11:01 15:07 WBC RBC Hgb POC Hgb Hct POC Hct MCV MCH MCHC RDW Std Deviation RDW Coeff of Patti Plt Count MPV Immature Gran % (Auto) Neut % (Auto) Lymph % (Auto) [place] % (Auto) Eos % (Auto) Baso % (Auto) Immature Gran # (Auto) Neut # (Auto) Lymph # (Auto) [place] # (Auto) Eos # (Auto) Baso # (Auto) Toxic Vacuolation Platelet Estimate ESR PT INR APTT PTT Ratio Sample Site POC pH POC pCO2 POC pO2 POC HCO3 POC Total CO2 POC Base Excess ABG pH ABG pH (Temp Correct) ABG pCO2 ABG pCO2 (Temp Corrct ABG pO2 POC ABG pO2 at Pt Temp ABG HCO3 POC ABG O2 Sat ABG O2 Saturation ABG Base Excess Stevie Test Barometric Pressure Oxygen Given O2 Delivery Device POC O2 Rate Minute Ventilation POC FiO2 Tidal Volume PEEP POC Sodium Sodium 135 L POC Potassium Potassium 3.7 Chloride 105 Carbon Dioxide 23 Anion Gap 7.0 BUN 31 H Creatinine 1.98 H Est Cr Clr Drug Dosing 28.8 Est GFR ( Amer) 35.4 Est GFR (Non-Af Amer) 30.6 BUN/Creatinine Ratio 15.5 Glucose 131 H POC Glucose (other) Lactate 3.7 H* Calcium 8.7 Phosphorus Magnesium Total Bilirubin AST ALT Alkaline Phosphatase Lactate Dehydrogenase Troponin I 2.980 H* C-Reactive Protein NT-Pro-B Natriuret Pep Total Protein Albumin Globulin Albumin/Globulin Ratio Procalcitonin Urine Color Dark Yellow Urine Appearance Cloudy A Urine pH 5.0 Ur Specific [place] 1.024 Urine Protein 2+ H Urine Glucose (UA) Negative Urine Ketones Trace H Urine Blood Trace H Urine Nitrite Negative Urine Bilirubin Negative Urine Urobilinogen Negative Ur Leukocyte Esterase Negative Urine WBC (Auto) 1-5 Urine RBC (Auto) 0-4 U Hyaline Cast (Auto) 1-5 U Epithel Cells (Auto) 20-30 H Urine Bacteria (Auto) 1+ H Amorphous Sediment Present A Granular Casts 10-20 H Urine Mucus Present A Urine Yeast Not Reportable Urine Osmolality Ur Random Creatinine Ur Random Sodium Ur Random Potassium Ur Random Chloride Ur Random Uric Acid Adenovirus (PCR) A. phagocytophilum DNA B. pertussis DNA (PCR) B.parapertussis DNA PCR Lyme Disease IgG Ab Lyme Disease IgM Ab Tick Lyme Diseas (PCR) C. pneumoniae DNA (PCR) Coronavirus (PCR) Coronavirus OC43 (PCR) Coronavirus HKU1 (PCR) Coronavirus 229E (PCR) COVID-19 Pt Symptomatic COVID-19 Source Coronavirus NL63 (PCR) E. chaffeensis IgG Ab E. chaffeensis IgM Ab E. chaffeensis Interp E. chaffeensis Comment Human Metapneumovir PCR Influenza Type A (PCR) Influenza Type B (PCR) M. pneumoniae (PCR) Parainfluenza 1 (PCR) Parainfluenza 2 (PCR) Parainfluenza 3 (PCR) Parainfluenza 4 (PCR) RSV (PCR) Entero/Rhino (PCR) SARS Virus RNA (PCR) SARS-CoV-2 RNA (RT-PCR) Miscellaneous Test 02/02/20 02/02/20 02/02/20 15:07 15:07 15:07 WBC RBC Hgb POC Hgb Hct POC Hct MCV MCH MCHC RDW Std Deviation RDW Coeff of Patti Plt Count MPV Immature Gran % (Auto) Neut % (Auto) Lymph % (Auto) [place] % (Auto) Eos % (Auto) Baso % (Auto) Immature Gran # (Auto) Neut # (Auto) Lymph # (Auto) [place] # (Auto) Eos # (Auto) Baso # (Auto) Toxic Vacuolation Platelet Estimate ESR 15 H PT INR APTT PTT Ratio Sample Site POC pH POC pCO2 POC pO2 POC HCO3 POC Total CO2 POC Base Excess ABG pH ABG pH (Temp Correct) ABG pCO2 ABG pCO2 (Temp Corrct ABG pO2 POC ABG pO2 at Pt Temp ABG HCO3 POC ABG O2 Sat ABG O2 Saturation ABG Base Excess Stevie Test Barometric Pressure Oxygen Given O2 Delivery Device POC O2 Rate Minute Ventilation POC FiO2 Tidal Volume PEEP POC Sodium Sodium POC Potassium Potassium Chloride Carbon Dioxide Anion Gap BUN Creatinine Est Cr Clr Drug Dosing Est GFR ( Amer) Est GFR (Non-Af Amer) BUN/Creatinine Ratio Glucose POC Glucose (other) Lactate Calcium Phosphorus Magnesium Total Bilirubin AST ALT Alkaline Phosphatase Lactate Dehydrogenase Troponin I C-Reactive Protein 12.10 H NT-Pro-B Natriuret Pep Total Protein Albumin Globulin Albumin/Globulin Ratio Procalcitonin Urine Color Urine Appearance Urine pH Ur Specific [place] Urine Protein Urine Glucose (UA) Urine Ketones Urine Blood Urine Nitrite Urine Bilirubin Urine Urobilinogen Ur Leukocyte Esterase Urine WBC (Auto) Urine RBC (Auto) U Hyaline Cast (Auto) U Epithel Cells (Auto) Urine Bacteria (Auto) Amorphous Sediment Granular Casts Urine Mucus Urine Yeast Urine Osmolality Ur Random Creatinine Ur Random Sodium Ur Random Potassium Ur Random Chloride Ur Random Uric Acid Adenovirus (PCR) A. phagocytophilum DNA B. pertussis DNA (PCR) B.parapertussis DNA PCR Lyme Disease IgG Ab Lyme Disease IgM Ab Tick Lyme Diseas (PCR) Cancelled C. pneumoniae DNA (PCR) Coronavirus (PCR) Coronavirus OC43 (PCR) Coronavirus HKU1 (PCR) Coronavirus 229E (PCR) COVID-19 Pt Symptomatic COVID-19 Source Coronavirus NL63 (PCR) E. chaffeensis IgG Ab Pending E. chaffeensis IgM Ab Pending E. chaffeensis Interp Pending E. chaffeensis Comment Pending Human Metapneumovir PCR Influenza Type A (PCR) Influenza Type B (PCR) M. pneumoniae (PCR) Parainfluenza 1 (PCR) Parainfluenza 2 (PCR) Parainfluenza 3 (PCR) Parainfluenza 4 (PCR) RSV (PCR) Entero/Rhino (PCR) SARS Virus RNA (PCR) SARS-CoV-2 RNA (RT-PCR) Miscellaneous Test 02/02/20 02/02/20 02/02/20 15:07 15:07 15:07 WBC RBC Hgb POC Hgb Hct POC Hct MCV MCH MCHC RDW Std Deviation RDW Coeff of Patti Plt Count MPV Immature Gran % (Auto) Neut % (Auto) Lymph % (Auto) [place] % (Auto) Eos % (Auto) Baso % (Auto) Immature Gran # (Auto) Neut # (Auto) Lymph # (Auto) [place] # (Auto) Eos # (Auto) Baso # (Auto) Toxic Vacuolation Platelet Estimate ESR PT INR APTT PTT Ratio Sample Site POC pH POC pCO2 POC pO2 POC HCO3 POC Total CO2 POC Base Excess ABG pH 7.42 ABG pH (Temp Correct) ABG pCO2 29 L ABG pCO2 (Temp Corrct ABG pO2 71 L POC ABG pO2 at Pt Temp ABG HCO3 19 POC ABG O2 Sat ABG O2 Saturation 95.0 ABG Base Excess -4.5 Stevie Test POS Barometric Pressure 724.2 Oxygen Given 8 O2 Delivery Device POC O2 Rate Minute Ventilation POC FiO2 Tidal Volume PEEP POC Sodium Sodium POC Potassium Potassium Chloride Carbon Dioxide Anion Gap BUN Creatinine Est Cr Clr Drug Dosing Est GFR ( Amer) Est GFR (Non-Af Amer) BUN/Creatinine Ratio Glucose POC Glucose (other) Lactate Calcium Phosphorus Magnesium Total Bilirubin AST ALT Alkaline Phosphatase Lactate Dehydrogenase 468 H Troponin I 6.130 H* C-Reactive Protein NT-Pro-B Natriuret Pep Total Protein Albumin Globulin Albumin/Globulin Ratio Procalcitonin Urine Color Urine Appearance Urine pH Ur Specific [place] Urine Protein Urine Glucose (UA) Urine Ketones Urine Blood Urine Nitrite Urine Bilirubin Urine Urobilinogen Ur Leukocyte Esterase Urine WBC (Auto) Urine RBC (Auto) U Hyaline Cast (Auto) U Epithel Cells (Auto) Urine Bacteria (Auto) Amorphous Sediment Granular Casts Urine Mucus Urine Yeast Urine Osmolality Ur Random Creatinine Ur Random Sodium Ur Random Potassium Ur Random Chloride Ur Random Uric Acid Adenovirus (PCR) A. phagocytophilum DNA B. pertussis DNA (PCR) B.parapertussis DNA PCR Lyme Disease IgG Ab Lyme Disease IgM Ab Tick Lyme Diseas (PCR) C. pneumoniae DNA (PCR) Coronavirus (PCR) Coronavirus OC43 (PCR) Coronavirus HKU1 (PCR) Coronavirus 229E (PCR) COVID-19 Pt Symptomatic COVID-19 Source Coronavirus NL63 (PCR) E. chaffeensis IgG Ab E. chaffeensis IgM Ab E. chaffeensis Interp E. chaffeensis Comment Human Metapneumovir PCR Influenza Type A (PCR) Influenza Type B (PCR) M. pneumoniae (PCR) Parainfluenza 1 (PCR) Parainfluenza 2 (PCR) Parainfluenza 3 (PCR) Parainfluenza 4 (PCR) RSV (PCR) Entero/Rhino (PCR) SARS Virus RNA (PCR) SARS-CoV-2 RNA (RT-PCR) Miscellaneous Test 02/02/20 02/02/20 02/02/20 16:58 20:31 21:03 WBC RBC Hgb POC Hgb 14.3 Hct POC Hct 42 MCV MCH MCHC RDW Std Deviation RDW Coeff of Patti Plt Count MPV Immature Gran % (Auto) Neut % (Auto) Lymph % (Auto) [place] % (Auto) Eos % (Auto) Baso % (Auto) Immature Gran # (Auto) Neut # (Auto) Lymph # (Auto) [place] # (Auto) Eos # (Auto) Baso # (Auto) Toxic Vacuolation Platelet Estimate ESR PT INR APTT PTT Ratio Sample Site L Radial POC pH 7.24 L POC pCO2 54 H POC pO2 335 H POC HCO3 23 POC Total CO2 24 POC Base Excess -5.0 ABG pH ABG pH (Temp Correct) 7.227 L ABG pCO2 ABG pCO2 (Temp Corrct 55 H ABG pO2 POC ABG pO2 at Pt Temp 338 ABG HCO3 POC ABG O2 Sat 100.0 H ABG O2 Saturation ABG Base Excess Stevie Test NA Barometric Pressure Oxygen Given O2 Delivery Device Ventilator POC O2 Rate 20 Minute Ventilation POC FiO2 100 Tidal Volume 480 PEEP 10 POC Sodium 134 L Sodium POC Potassium 4.4 Potassium Chloride Carbon Dioxide Anion Gap BUN Creatinine Est Cr Clr Drug Dosing Est GFR ( Amer) Est GFR (Non-Af Amer) BUN/Creatinine Ratio Glucose POC Glucose (other) Lactate 2.2 H* Calcium Phosphorus Magnesium Total Bilirubin AST ALT Alkaline Phosphatase Lactate Dehydrogenase Troponin I C-Reactive Protein NT-Pro-B Natriuret Pep Total Protein Albumin Globulin Albumin/Globulin Ratio Procalcitonin Urine Color Urine Appearance Urine pH Ur Specific [place] Urine Protein Urine Glucose (UA) Urine Ketones Urine Blood Urine Nitrite Urine Bilirubin Urine Urobilinogen Ur Leukocyte Esterase Urine WBC (Auto) Urine RBC (Auto) U Hyaline Cast (Auto) U Epithel Cells (Auto) Urine Bacteria (Auto) Amorphous Sediment Granular Casts Urine Mucus Urine Yeast Urine Osmolality 340 L Ur Random Creatinine Ur Random Sodium Ur Random Potassium Ur Random Chloride Ur Random Uric Acid Adenovirus (PCR) A. phagocytophilum DNA B. pertussis DNA (PCR) B.parapertussis DNA PCR Lyme Disease IgG Ab Lyme Disease IgM Ab Tick Lyme Diseas (PCR) C. pneumoniae DNA (PCR) Coronavirus (PCR) Coronavirus OC43 (PCR) Coronavirus HKU1 (PCR) Coronavirus 229E (PCR) COVID-19 Pt Symptomatic COVID-19 Source Coronavirus NL63 (PCR) E. chaffeensis IgG Ab E. chaffeensis IgM Ab E. chaffeensis Interp E. chaffeensis Comment Human Metapneumovir PCR Influenza Type A (PCR) Influenza Type B (PCR) M. pneumoniae (PCR) Parainfluenza 1 (PCR) Parainfluenza 2 (PCR) Parainfluenza 3 (PCR) Parainfluenza 4 (PCR) RSV (PCR) Entero/Rhino (PCR) SARS Virus RNA (PCR) SARS-CoV-2 RNA (RT-PCR) Miscellaneous Test 02/02/20 02/02/20 02/02/20 21:03 21:03 21:03 WBC RBC Hgb POC Hgb Hct POC Hct MCV MCH MCHC RDW Std Deviation RDW Coeff of Patti Plt Count MPV Immature Gran % (Auto) Neut % (Auto) Lymph % (Auto) [place] % (Auto) Eos % (Auto) Baso % (Auto) Immature Gran # (Auto) Neut # (Auto) Lymph # (Auto) [place] # (Auto) Eos # (Auto) Baso # (Auto) Toxic Vacuolation Platelet Estimate ESR PT INR APTT PTT Ratio Sample Site POC pH POC pCO2 POC pO2 POC HCO3 POC Total CO2 POC Base Excess ABG pH ABG pH (Temp Correct) ABG pCO2 ABG pCO2 (Temp Corrct ABG pO2 POC ABG pO2 at Pt Temp ABG HCO3 POC ABG O2 Sat ABG O2 Saturation ABG Base Excess Stevie Test Barometric Pressure Oxygen Given O2 Delivery Device POC O2 Rate Minute Ventilation POC FiO2 Tidal Volume PEEP POC Sodium Sodium POC Potassium Potassium Chloride Carbon Dioxide Anion Gap BUN Creatinine Est Cr Clr Drug Dosing Est GFR ( Amer) Est GFR (Non-Af Amer) BUN/Creatinine Ratio Glucose POC Glucose (other) Lactate Calcium Phosphorus Magnesium Total Bilirubin AST ALT Alkaline Phosphatase Lactate Dehydrogenase Troponin I C-Reactive Protein NT-Pro-B Natriuret Pep Total Protein Albumin Globulin Albumin/Globulin Ratio Procalcitonin Urine Color Yellow Urine Appearance Cloudy A Urine pH 5.0 Ur Specific [place] 1.014 Urine Protein 1+ H Urine Glucose (UA) Negative Urine Ketones Negative Urine Blood 3+ H Urine Nitrite Negative Urine Bilirubin Negative Urine Urobilinogen Negative Ur Leukocyte Esterase Negative Urine WBC (Auto) 1-5 Urine RBC (Auto) 5-10 H U Hyaline Cast (Auto) U Epithel Cells (Auto) >30 H Urine Bacteria (Auto) 1+ H Amorphous Sediment Granular Casts 10-20 H Urine Mucus Urine Yeast Not Reportable Urine Osmolality Ur Random Creatinine Cancelled Ur Random Sodium Ur Random Potassium Cancelled Ur Random Chloride Cancelled Ur Random Uric Acid Adenovirus (PCR) A. phagocytophilum DNA B. pertussis DNA (PCR) B.parapertussis DNA PCR Lyme Disease IgG Ab Lyme Disease IgM Ab Tick Lyme Diseas (PCR) C. pneumoniae DNA (PCR) Coronavirus (PCR) Coronavirus OC43 (PCR) Coronavirus HKU1 (PCR) Coronavirus 229E (PCR) COVID-19 Pt Symptomatic COVID-19 Source Coronavirus NL63 (PCR) E. chaffeensis IgG Ab E. chaffeensis IgM Ab E. chaffeensis Interp E. chaffeensis Comment Human Metapneumovir PCR Influenza Type A (PCR) Influenza Type B (PCR) M. pneumoniae (PCR) Parainfluenza 1 (PCR) Parainfluenza 2 (PCR) Parainfluenza 3 (PCR) Parainfluenza 4 (PCR) RSV (PCR) Entero/Rhino (PCR) SARS Virus RNA (PCR) SARS-CoV-2 RNA (RT-PCR) Miscellaneous Test 02/02/20 02/02/20 02/02/20 21:03 21:15 21:15 WBC RBC Hgb POC Hgb Hct POC Hct MCV MCH MCHC RDW Std Deviation RDW Coeff of Patti Plt Count MPV Immature Gran % (Auto) Neut % (Auto) Lymph % (Auto) [place] % (Auto) Eos % (Auto) Baso % (Auto) Immature Gran # (Auto) Neut # (Auto) Lymph # (Auto) [place] # (Auto) Eos # (Auto) Baso # (Auto) Toxic Vacuolation Platelet Estimate ESR PT INR APTT PTT Ratio Sample Site POC pH POC pCO2 POC pO2 POC HCO3 POC Total CO2 POC Base Excess ABG pH ABG pH (Temp Correct) ABG pCO2 ABG pCO2 (Temp Corrct ABG pO2 POC ABG pO2 at Pt Temp ABG HCO3 POC ABG O2 Sat ABG O2 Saturation ABG Base Excess Stevie Test Barometric Pressure Oxygen Given O2 Delivery Device POC O2 Rate Minute Ventilation POC FiO2 Tidal Volume PEEP POC Sodium Sodium 135 L POC Potassium Potassium 4.5 D Chloride 105 Carbon Dioxide 20 L Anion Gap 10.0 BUN 41 H Creatinine 2.52 H D Est Cr Clr Drug Dosing 21.9 Est GFR ( Amer) 26.5 Est GFR (Non-Af Amer) 22.8 BUN/Creatinine Ratio 16.1 Glucose 159 H POC Glucose (other) Lactate 1.3 Calcium 7.7 L Phosphorus 5.9 H Magnesium 2.2 Total Bilirubin AST ALT Alkaline Phosphatase Lactate Dehydrogenase Troponin I 9.570 H* C-Reactive Protein NT-Pro-B Natriuret Pep Total Protein Albumin Globulin Albumin/Globulin Ratio Procalcitonin Urine Color Urine Appearance Urine pH Ur Specific [place] Urine Protein Urine Glucose (UA) Urine Ketones Urine Blood Urine Nitrite Urine Bilirubin Urine Urobilinogen Ur Leukocyte Esterase Urine WBC (Auto) Urine RBC (Auto) U Hyaline Cast (Auto) U Epithel Cells (Auto) Urine Bacteria (Auto) Amorphous Sediment Granular Casts Urine Mucus Urine Yeast Urine Osmolality Ur Random Creatinine 46.1 Ur Random Sodium 98 Ur Random Potassium 38.6 Ur Random Chloride 119 Ur Random Uric Acid 11.0 Adenovirus (PCR) A. phagocytophilum DNA B. pertussis DNA (PCR) B.parapertussis DNA PCR Lyme Disease IgG Ab Lyme Disease IgM Ab Tick Lyme Diseas (PCR) C. pneumoniae DNA (PCR) Coronavirus (PCR) Coronavirus OC43 (PCR) Coronavirus HKU1 (PCR) Coronavirus 229E (PCR) COVID-19 Pt Symptomatic COVID-19 Source Coronavirus NL63 (PCR) E. chaffeensis IgG Ab E. chaffeensis IgM Ab E. chaffeensis Interp E. chaffeensis Comment Human Metapneumovir PCR Influenza Type A (PCR) Influenza Type B (PCR) M. pneumoniae (PCR) Parainfluenza 1 (PCR) Parainfluenza 2 (PCR) Parainfluenza 3 (PCR) Parainfluenza 4 (PCR) RSV (PCR) Entero/Rhino (PCR) SARS Virus RNA (PCR) SARS-CoV-2 RNA (RT-PCR) Miscellaneous Test 02/03/20 02/03/20 02/03/20 01:33 01:33 01:33 WBC 6.51 RBC 4.00 L Hgb 13.9 L POC Hgb Hct 40.5 L POC Hct MCV 101.3 H MCH 34.8 H MCHC 34.3 RDW Std Deviation 51.9 H RDW Coeff of Patti 14.0 Plt Count 77 L MPV 11.3 H Immature Gran % (Auto) Neut % (Auto) Lymph % (Auto) [place] % (Auto) Eos % (Auto) Baso % (Auto) Immature Gran # (Auto) Neut # (Auto) Lymph # (Auto) [place] # (Auto) Eos # (Auto) Baso # (Auto) Toxic Vacuolation Platelet Estimate Decreased L ESR PT INR APTT PTT Ratio Sample Site POC pH POC pCO2 POC pO2 POC HCO3 POC Total CO2 POC Base Excess ABG pH ABG pH (Temp Correct) ABG pCO2 ABG pCO2 (Temp Corrct ABG pO2 POC ABG pO2 at Pt Temp ABG HCO3 POC ABG O2 Sat ABG O2 Saturation ABG Base Excess Stevie Test Barometric Pressure Oxygen Given O2 Delivery Device POC O2 Rate Minute Ventilation POC FiO2 Tidal Volume PEEP POC Sodium Sodium 134 L POC Potassium Potassium 4.0 Chloride 106 Carbon Dioxide 18 L Anion Gap 10.0 BUN 43 H Creatinine 2.58 H Est Cr Clr Drug Dosing 21.4 Est GFR ( Amer) 25.7 Est GFR (Non-Af Amer) 22.2 BUN/Creatinine Ratio 16.5 Glucose 137 H POC Glucose (other) Lactate Calcium 7.9 L Phosphorus Magnesium 2.2 Total Bilirubin 0.7 AST 139 H ALT 85 H Alkaline Phosphatase 40 L Lactate Dehydrogenase Troponin I C-Reactive Protein 15.80 H NT-Pro-B Natriuret Pep > 17868 H Total Protein 6.2 L D Albumin 2.6 L Globulin 3.6 Albumin/Globulin Ratio 0.7 L Procalcitonin Urine Color Urine Appearance Urine pH Ur Specific [place] Urine Protein Urine Glucose (UA) Urine Ketones Urine Blood Urine Nitrite Urine Bilirubin Urine Urobilinogen Ur Leukocyte Esterase Urine WBC (Auto) Urine RBC (Auto) U Hyaline Cast (Auto) U Epithel Cells (Auto) Urine Bacteria (Auto) Amorphous Sediment Granular Casts Urine Mucus Urine Yeast Urine Osmolality Ur Random Creatinine Ur Random Sodium Ur Random Potassium Ur Random Chloride Ur Random Uric Acid Adenovirus (PCR) A. phagocytophilum DNA B. pertussis DNA (PCR) B.parapertussis DNA PCR Lyme Disease IgG Ab Lyme Disease IgM Ab Tick Lyme Diseas (PCR) C. pneumoniae DNA (PCR) Coronavirus (PCR) Coronavirus OC43 (PCR) Coronavirus HKU1 (PCR) Coronavirus 229E (PCR) COVID-19 Pt Symptomatic COVID-19 Source Coronavirus NL63 (PCR) E. chaffeensis IgG Ab E. chaffeensis IgM Ab E. chaffeensis Interp E. chaffeensis Comment Human Metapneumovir PCR Influenza Type A (PCR) Influenza Type B (PCR) M. pneumoniae (PCR) Parainfluenza 1 (PCR) Parainfluenza 2 (PCR) Parainfluenza 3 (PCR) Parainfluenza 4 (PCR) RSV (PCR) Entero/Rhino (PCR) SARS Virus RNA (PCR) SARS-CoV-2 RNA (RT-PCR) Miscellaneous Test Pending 02/03/20 02/03/20 02/03/20 01:33 01:33 01:33 WBC RBC Hgb POC Hgb Hct POC Hct MCV MCH MCHC RDW Std Deviation RDW Coeff of Patti Plt Count MPV Immature Gran % (Auto) Neut % (Auto) Lymph % (Auto) [place] % (Auto) Eos % (Auto) Baso % (Auto) Immature Gran # (Auto) Neut # (Auto) Lymph # (Auto) [place] # (Auto) Eos # (Auto) Baso # (Auto) Toxic Vacuolation Platelet Estimate ESR PT INR APTT > 139.0 H* PTT Ratio > 5.0 Sample Site POC pH POC pCO2 POC pO2 POC HCO3 POC Total CO2 POC Base Excess ABG pH ABG pH (Temp Correct) ABG pCO2 ABG pCO2 (Temp Corrct ABG pO2 POC ABG pO2 at Pt Temp ABG HCO3 POC ABG O2 Sat ABG O2 Saturation ABG Base Excess Stevie Test Barometric Pressure Oxygen Given O2 Delivery Device POC O2 Rate Minute Ventilation POC FiO2 Tidal Volume PEEP POC Sodium Sodium POC Potassium Potassium Chloride Carbon Dioxide Anion Gap BUN Creatinine Est Cr Clr Drug Dosing Est GFR ( Amer) Est GFR (Non-Af Amer) BUN/Creatinine Ratio Glucose POC Glucose (other) Lactate Calcium Phosphorus Magnesium Total Bilirubin AST ALT Alkaline Phosphatase Lactate Dehydrogenase 443 H Troponin I C-Reactive Protein NT-Pro-B Natriuret Pep Total Protein Albumin Globulin Albumin/Globulin Ratio Procalcitonin 70.75 H Urine Color Urine Appearance Urine pH Ur Specific [place] Urine Protein Urine Glucose (UA) Urine Ketones Urine Blood Urine Nitrite Urine Bilirubin Urine Urobilinogen Ur Leukocyte Esterase Urine WBC (Auto) Urine RBC (Auto) U Hyaline Cast (Auto) U Epithel Cells (Auto) Urine Bacteria (Auto) Amorphous Sediment Granular Casts Urine Mucus Urine Yeast Urine Osmolality Ur Random Creatinine Ur Random Sodium Ur Random Potassium Ur Random Chloride Ur Random Uric Acid Adenovirus (PCR) A. phagocytophilum DNA B. pertussis DNA (PCR) B.parapertussis DNA PCR Lyme Disease IgG Ab Lyme Disease IgM Ab Tick Lyme Diseas (PCR) C. pneumoniae DNA (PCR) Coronavirus (PCR) Coronavirus OC43 (PCR) Coronavirus HKU1 (PCR) Coronavirus 229E (PCR) COVID-19 Pt Symptomatic COVID-19 Source Coronavirus NL63 (PCR) E. chaffeensis IgG Ab E. chaffeensis IgM Ab E. chaffeensis Interp E. chaffeensis Comment Human Metapneumovir PCR Influenza Type A (PCR) Influenza Type B (PCR) M. pneumoniae (PCR) Parainfluenza 1 (PCR) Parainfluenza 2 (PCR) Parainfluenza 3 (PCR) Parainfluenza 4 (PCR) RSV (PCR) Entero/Rhino (PCR) SARS Virus RNA (PCR) SARS-CoV-2 RNA (RT-PCR) Miscellaneous Test 02/03/20 02/03/20 02/03/20 01:39 03:14 03:14 WBC 6.49 RBC 3.97 L Hgb 13.9 L POC Hgb Hct 40.1 L POC Hct MCV 101.0 H MCH 35.0 H MCHC 34.7 RDW Std Deviation 51.6 H RDW Coeff of Patti 14.0 Plt Count 78 L MPV 11.7 H Immature Gran % (Auto) 0.3 Neut % (Auto) 86.2 Lymph % (Auto) 4.5 [place] % (Auto) 8.6 Eos % (Auto) 0.2 Baso % (Auto) 0.2 Immature Gran # (Auto) 0.02 Neut # (Auto) 5.60 Lymph # (Auto) 0.29 L [place] # (Auto) 0.56 Eos # (Auto) 0.01 Baso # (Auto) 0.01 Toxic Vacuolation 1+ Platelet Estimate ESR PT 12.2 H INR 1.2 H APTT PTT Ratio Sample Site POC pH POC pCO2 POC pO2 POC HCO3 POC Total CO2 POC Base Excess ABG pH ABG pH (Temp Correct) ABG pCO2 ABG pCO2 (Temp Corrct ABG pO2 POC ABG pO2 at Pt Temp ABG HCO3 POC ABG O2 Sat ABG O2 Saturation ABG Base Excess Stevie Test Barometric Pressure Oxygen Given O2 Delivery Device POC O2 Rate Minute Ventilation POC FiO2 Tidal Volume PEEP POC Sodium Sodium POC Potassium Potassium Chloride Carbon Dioxide Anion Gap BUN Creatinine Est Cr Clr Drug Dosing Est GFR ( Amer) Est GFR (Non-Af Amer) BUN/Creatinine Ratio Glucose POC Glucose (other) 133 H Lactate Calcium Phosphorus Magnesium Total Bilirubin AST ALT Alkaline Phosphatase Lactate Dehydrogenase Troponin I C-Reactive Protein NT-Pro-B Natriuret Pep Total Protein Albumin Globulin Albumin/Globulin Ratio Procalcitonin Urine Color Urine Appearance Urine pH Ur Specific [place] Urine Protein Urine Glucose (UA) Urine Ketones Urine Blood Urine Nitrite Urine Bilirubin Urine Urobilinogen Ur Leukocyte Esterase Urine WBC (Auto) Urine RBC (Auto) U Hyaline Cast (Auto) U Epithel Cells (Auto) Urine Bacteria (Auto) Amorphous Sediment Granular Casts Urine Mucus Urine Yeast Urine Osmolality Ur Random Creatinine Ur Random Sodium Ur Random Potassium Ur Random Chloride Ur Random Uric Acid Adenovirus (PCR) A. phagocytophilum DNA B. pertussis DNA (PCR) B.parapertussis DNA PCR Lyme Disease IgG Ab Lyme Disease IgM Ab Tick Lyme Diseas (PCR) C. pneumoniae DNA (PCR) Coronavirus (PCR) Coronavirus OC43 (PCR) Coronavirus HKU1 (PCR) Coronavirus 229E (PCR) COVID-19 Pt Symptomatic COVID-19 Source Coronavirus NL63 (PCR) E. chaffeensis IgG Ab E. chaffeensis IgM Ab E. chaffeensis Interp E. chaffeensis Comment Human Metapneumovir PCR Influenza Type A (PCR) Influenza Type B (PCR) M. pneumoniae (PCR) Parainfluenza 1 (PCR) Parainfluenza 2 (PCR) Parainfluenza 3 (PCR) Parainfluenza 4 (PCR) RSV (PCR) Entero/Rhino (PCR) SARS Virus RNA (PCR) SARS-CoV-2 RNA (RT-PCR) Miscellaneous Test 02/03/20 02/03/20 02/03/20 03:14 03:14 03:51 WBC RBC Hgb POC Hgb 13.3 L Hct POC Hct 39 L MCV MCH MCHC RDW Std Deviation RDW Coeff of Patti Plt Count MPV Immature Gran % (Auto) Neut % (Auto) Lymph % (Auto) [place] % (Auto) Eos % (Auto) Baso % (Auto) Immature Gran # (Auto) Neut # (Auto) Lymph # (Auto) [place] # (Auto) Eos # (Auto) Baso # (Auto) Toxic Vacuolation Platelet Estimate ESR PT INR APTT 128.0 H* PTT Ratio 4.6 Sample Site Art Line POC pH 7.43 POC pCO2 27 L POC pO2 188 H POC HCO3 18 L POC Total CO2 19 L POC Base Excess -7.0 ABG pH ABG pH (Temp Correct) 7.407 ABG pCO2 ABG pCO2 (Temp Corrct 29 L ABG pO2 POC ABG pO2 at Pt Temp 195 ABG HCO3 POC ABG O2 Sat 100.0 H ABG O2 Saturation ABG Base Excess Stevie Test NA Barometric Pressure Oxygen Given O2 Delivery Device Ventilator POC O2 Rate 24 Minute Ventilation 13 POC FiO2 60 Tidal Volume 480 PEEP 8 POC Sodium 133 L Sodium POC Potassium 3.6 Potassium Chloride Carbon Dioxide Anion Gap BUN Creatinine Est Cr Clr Drug Dosing Est GFR ( Amer) Est GFR (Non-Af Amer) BUN/Creatinine Ratio Glucose POC Glucose (other) Lactate Calcium Phosphorus 5.0 H Magnesium Total Bilirubin AST ALT Alkaline Phosphatase Lactate Dehydrogenase Troponin I 9.400 H* C-Reactive Protein NT-Pro-B Natriuret Pep Total Protein Albumin Globulin Albumin/Globulin Ratio Procalcitonin Urine Color Urine Appearance Urine pH Ur Specific [place] Urine Protein Urine Glucose (UA) Urine Ketones Urine Blood Urine Nitrite Urine Bilirubin Urine Urobilinogen Ur Leukocyte Esterase Urine WBC (Auto) Urine RBC (Auto) U Hyaline Cast (Auto) U Epithel Cells (Auto) Urine Bacteria (Auto) Amorphous Sediment Granular Casts Urine Mucus Urine Yeast Urine Osmolality Ur Random Creatinine Ur Random Sodium Ur Random Potassium Ur Random Chloride Ur Random Uric Acid Adenovirus (PCR) A. phagocytophilum DNA B. pertussis DNA (PCR) B.parapertussis DNA PCR Lyme Disease IgG Ab Lyme Disease IgM Ab Tick Lyme Diseas (PCR) C. pneumoniae DNA (PCR) Coronavirus (PCR) Coronavirus OC43 (PCR) Coronavirus HKU1 (PCR) Coronavirus 229E (PCR) COVID-19 Pt Symptomatic COVID-19 Source Coronavirus NL63 (PCR) E. chaffeensis IgG Ab E. chaffeensis IgM Ab E. chaffeensis Interp E. chaffeensis Comment Human Metapneumovir PCR Influenza Type A (PCR) Influenza Type B (PCR) M. pneumoniae (PCR) Parainfluenza 1 (PCR) Parainfluenza 2 (PCR) Parainfluenza 3 (PCR) Parainfluenza 4 (PCR) RSV (PCR) Entero/Rhino (PCR) SARS Virus RNA (PCR) SARS-CoV-2 RNA (RT-PCR) Miscellaneous Test 02/03/20 02/03/20 05:32 05:37 WBC RBC Hgb POC Hgb Hct POC Hct MCV MCH MCHC RDW Std Deviation RDW Coeff of Patti Plt Count MPV Immature Gran % (Auto) Neut % (Auto) Lymph % (Auto) [place] % (Auto) Eos % (Auto) Baso % (Auto) Immature Gran # (Auto) Neut # (Auto) Lymph # (Auto) [place] # (Auto) Eos # (Auto) Baso # (Auto) Toxic Vacuolation Platelet Estimate ESR PT INR APTT 64.6 H* PTT Ratio 2.3 Sample Site POC pH POC pCO2 POC pO2 POC HCO3 POC Total CO2 POC Base Excess ABG pH ABG pH (Temp Correct) ABG pCO2 ABG pCO2 (Temp Corrct ABG pO2 POC ABG pO2 at Pt Temp ABG HCO3 POC ABG O2 Sat ABG O2 Saturation ABG Base Excess Stevie Test Barometric Pressure Oxygen Given O2 Delivery Device POC O2 Rate Minute Ventilation POC FiO2 Tidal Volume PEEP POC Sodium Sodium POC Potassium Potassium Chloride Carbon Dioxide Anion Gap BUN Creatinine Est Cr Clr Drug Dosing Est GFR ( Amer) Est GFR (Non-Af Amer) BUN/Creatinine Ratio Glucose POC Glucose (other) 108 H Lactate Calcium Phosphorus Magnesium Total Bilirubin AST ALT Alkaline Phosphatase Lactate Dehydrogenase Troponin I C-Reactive Protein NT-Pro-B Natriuret Pep Total Protein Albumin Globulin Albumin/Globulin Ratio Procalcitonin Urine Color Urine Appearance Urine pH Ur Specific [place] Urine Protein Urine Glucose (UA) Urine Ketones Urine Blood Urine Nitrite Urine Bilirubin Urine Urobilinogen Ur Leukocyte Esterase Urine WBC (Auto) Urine RBC (Auto) U Hyaline Cast (Auto) U Epithel Cells (Auto) Urine Bacteria (Auto) Amorphous Sediment Granular Casts Urine Mucus Urine Yeast Urine Osmolality Ur Random Creatinine Ur Random Sodium Ur Random Potassium Ur Random Chloride Ur Random Uric Acid Adenovirus (PCR) A. phagocytophilum DNA B. pertussis DNA (PCR) B.parapertussis DNA PCR Lyme Disease IgG Ab Lyme Disease IgM Ab Tick Lyme Diseas (PCR) C. pneumoniae DNA (PCR) Coronavirus (PCR) Coronavirus OC43 (PCR) Coronavirus HKU1 (PCR) Coronavirus 229E (PCR) COVID-19 Pt Symptomatic COVID-19 Source Coronavirus NL63 (PCR) E. chaffeensis IgG Ab E. chaffeensis IgM Ab E. chaffeensis Interp E. chaffeensis Comment Human Metapneumovir PCR Influenza Type A (PCR) Influenza Type B (PCR) M. pneumoniae (PCR) Parainfluenza 1 (PCR) Parainfluenza 2 (PCR) Parainfluenza 3 (PCR) Parainfluenza 4 (PCR) RSV (PCR) Entero/Rhino (PCR) SARS Virus RNA (PCR) SARS-CoV-2 RNA (RT-PCR) Miscellaneous Test Medications Administered Current Inpatient Medications Acetaminophen (Tylenol) 650 mg PO Q4H PRN PRN Reason: Fever/Mild Pain (Pain 1,2,3) Stop: 03/03/20 18:13 Hydrocodone Bitart/Acetaminophen ([place] 7.5/325mg) 1 tab PO BID PRN PRN Reason: Pain Stop: 02/16/20 12:22 Aspirin (Ecotrin Ectab) 81 mg PO DAILY [facility] Stop: 03/03/20 12:14 Last Admin: 02/03/20 08:53 Dose: 81 mg Documented by: Carvedilol (Coreg) 3.125 mg PO BID [facility] Stop: 03/03/20 20:59 Last Admin: 02/02/20 21:53 Dose: Not Given Documented by: Cyanocobalamin (Vitamin B-12) 500 mcg PO DAILY [facility] [place] Stop: 03/04/20 08:59 Last Admin: 02/03/20 08:53 Dose: 500 mcg Documented by: Duloxetine HCl (Cymbalta) 30 mg PO DAILY [facility] Stop: 03/04/20 08:59 Last Admin: 02/03/20 08:53 Dose: 30 mg Documented by: Fentanyl Citrate (Fentanyl Bolus From Bag) 50 mcg IV Q60M PRN PRN Reason: Pain or Agitation Stop: 02/16/20 18:13 Folic Acid (Folvite) 1 mg PO DAILY [facility] [place] Stop: 03/03/20 11:59 Last Admin: 02/03/20 08:53 Dose: 1 mg Documented by: Heparin Sodium (Beef Lung) (Heparin Sod 10 Unit/Ml Flush) 5 ml FLUSH PRN PRN PRN Reason: Flush Stop: 03/04/20 00:09 Heparin Sodium/Dextrose (Heparin Sodium/Dextrose) 25,000 units in 500 mls @ 22 mls/hr IV .[id number] THOR; Protocol Stop: 03/03/20 07:59 Last Titration: 02/03/20 06:57 Dose: 1,100 units/hr, 22 mls/hr Documented by: Ceftriaxone Sodium 2,000 mg/ (Dextrose) 70 mls @ 100 mls/hr IV Q24H THOR; Protocol Stop: 02/16/20 14:59 Last Infusion: 02/02/20 16:51 Dose: Infused Documented by: Fentanyl Citrate (Fentanyl Drip) 1,250 mcg in 250 mls @ 5 mls/hr IV .Q24H THOR; Protocol Stop: 02/16/20 18:14 Propofol (Diprivan) 1,000 mg in 100 mls @ 14.207 mls/hr IV .Q7H3M THOR; Protocol Stop: 02/05/20 18:14 Last Admin: 02/03/20 08:53 Dose: 30 mcg/kg/min, 14.2 mls/hr Documented by: Doxycycline Hyclate 100 mg/ (Dextrose) 110 mls @ 55 mls/hr IV Q12@0800,2000 [facility] Stop: 02/15/20 21:59 Last Admin: 02/03/20 08:52 Dose: 55 mls/hr Documented by: Acetaminophen (Ofirmev) 1,000 mg in 100 mls @ 400 mls/hr IV Q8H PRN PRN Reason: Fever Stop: 02/05/20 19:48 Norepinephrine Bitartrate 8 mg (/ Dextrose) 508 mls @ 15.035 mls/hr IV .Q24H THOR; Protocol Stop: 03/03/20 20:59 Last Titration: 02/03/20 08:54 Dose: 0.05 mcg/kg/min, 15 mls/hr Documented by: Dobutamine HCl/Dextrose (Dobutamine / D5w) 500 mg in 250 mls @ 5.919 mls/hr IV .Q24H [facility]; Protocol Stop: 03/03/20 20:59 Pantoprazole Sodium 40 mg/ (Syringe) 10 mls @ 5 mls/min IV DAILY [facility] Stop: 03/04/20 08:59 Last Admin: 02/03/20 08:53 Dose: 5 mls/min Documented by: Miscellaneous (Order Awaiting Action) 1 ea N/A QS [facility] Stop: 03/03/20 21:14 Last Admin: 02/03/20 02:59 Dose: Not Given Documented by: Nitroglycerin (Nitrostat) 0.4 mg SL UD PRN PRN Reason: Chest Pain Stop: 03/03/20 13:47 Polyethylene Glycol (Miralax Powder Packet) 17 gm PO DAILY PRN PRN Reason: Constipation Stop: 03/03/20 13:47 Prednisone (Prednisone) 5 mg PO DAILY [facility] [place] Stop: 03/03/20 13:47 Last Admin: 02/03/20 08:53 Dose: 5 mg Documented by: Propofol (Diprivan Bolus From Bag) 20 mg IV Q5M PRN PRN Reason: Sedation Stop: 02/05/20 18:13
[2020-02-03 10:07] LABS: Mixed Venous Blood Gas Base Excess -3.8 mEq/L (-7.7-1.9); Mixed Venous Blood Gas O2 Sat 69.6 % (68); Mixed Venous Blood Gas pH 7.39 (7.35-7.45)
--- NOTE | 2020-02-03 10:22 | Critical Care Progress Note ---
Date of Service February 03, 2020 Assessment & Plan (1) Acute hypoxemic respiratory failure: (2) Acute on chronic renal failure: --VDRF secondary to Acute hypoxic respiratory failure with Fever etiology unclear could be secondary to PE given elevated D-Dimer. CTA cannot be done as patient in ALEXIS. Would continue with Heparin drip for the time being. F/u doppler b/l LE new onset CHF, BNP: 16565, EKG doesn't show any ST-T wave changes. strict in's and out's Infectious etiology in an immunocompromised patient ESR: 15, CRP: 12.1 --> 15.8, PCT: 2.73 --> 70.75, LDH: 468 Peripheral smear showing Inclusion bodies in neutrophils with Anaplasma bodies positive. -- > treat with Doxycycline. 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 C/w rocephin as well Lymphopenia, Elevated D-Dimer, Elevated CRP, Fever, Elevated AST. All likely secondary to anaplasmosis Patient takes Plaquenal at home Covid-19 tests: Negative BNP greater than 22,000 Echo 02/02/2020: Ejection fraction < 15% --Shock Likely cardiogenic given ejection fraction less than 15% on top of sepsis with anaplasmosis Continue with treatment -- ALEXIS on CKD likely sec to sepsis. FeNa: 4%. Going to was intrinsic kidney disease Patient has underlying SLE as well. Monitor BUN/Cr -- NSTEMI demand ischemia possibility with New onset systolic CHF cardiology on board, follow recommendations --Prolonged QTC Avoid QT prolonging medication Keep potassium greater than 4, magnesium greater than 2, phosphorus greater than 3 -- Lymphopenia with Thrombocytopenia could be from Anaplasmosis c/w Doxycycline PE could be thrombocytopenia --> C/w Heparin drip MTX can give pancytopenia --Elevated LFTs Could be secondary to hypotension on top of anaplasmosis which can affect liver as well Monitor -- Hx of SLE on MTX, HCQ and Prednisone Hold MTX. would continue with HCQ and monitor QTc Will get Methotrexate level as well given patient has ALEXIS --Status post lactic acidosis likely from sepsis monitor -- Prophylaxis Protonix, Heparin drip Lines: Right IJ 02/02/20, Left radial 02/02/20, OGT Plan: AB. 7 on PEEP of 8 and 60% FiO2. Went down to PEEP 5, down to 50% FiO2. Decrease respiratory to 18 Get mixed venous to see if the patient will benefit from inotrope. Given the patient has cold extremities this goes with cardiogenic shock on top of anaplasmosis. Turn down sedation to see if the patient is responding. Cortisol level will be low as the patient took prednisone prior to coming to the hospital. We will start the patient on 60 mg of Solu-Medrol as patient is in stress right now. I have personally spent 51 minutes of critical care time in the direct ma nagement of this patient. This is a life/limb threatening event. This includes time spent evaluating patient, direct bedside care, chart review, placing orders, interpretation of diagnostic studies, discussion with consultants, patient, and family members, as well as other required patient management activities. This time is exclusive of all separately billable procedures, and teaching time and separate from and in addition to any other critical care service time. Please note the above document was generated using voice recognition software. It may contain grammatical, syntax or spelling errors. (3) Anaplasmosis: (4) Non-ST elevation UT (NSTEMI): (5) CKD (chronic kidney disease), stage III: Admission and Anticipated Discharge Date Admission Date: February 02, 2020 Subjective Patient seen and examined at bedside. No acute distress, no adverse events overnight. Patient is on propofol 30 and Levophed 0.05 Patient was not breathing over the vent. RASS -2. Will gradually titrate down sedation. Review of Systems Review of Systems: Unobtainable due to cognitive status and Unobtainable due to endotracheal tube Physical Exam Physical Exam: Constitutional: No acute distress HEENT: PERRLA, Malar rash appreciated on the face Respiratory system: Decreased air entry bilaterally, No wheeze, no rhonchi, + minimal crackles b/l CVS: S1-S2 positive, distant heart sounds, positive 2 out of 6 murmur appreciated at the aorta Abdomen: Soft, nontender, nondistended, positive bowel sounds x4 Extremities: + 1 pulses bilaterally radialis/ dorsalis pedis, no cyanosis, no edema, cold extremities bilaterally Neuro: Positive corneal, positive gag, not breathing over the vent. Psych: Unable to assess G/U: Positive Lopez Skin: no rashes, warm and dry Lymphatic: no cervical or axillary lymphadenopathy Results & Data Results & Data ([facility]) Vital Signs (Past 12 Hours) Vital Signs Pulse Pulse Resp BP BP BP Pulse Ox 02/03/20 08:00 69 98/54 L 02/03/20 07:00 76 22 100 02/03/20 06:13 79 87/59 L 100 02/03/20 05:43 78 94/63 L 100 02/03/20 05:13 79 95/62 L 100 02/03/20 04:43 79 95/68 L 100 02/03/20 04:13 78 92/59 L 99 02/03/20 03:55 80 24 100 02/03/20 03:43 77 111/70 100 02/03/20 03:13 78 95/60 L 100 02/03/20 02:43 76 80/59 L 100 02/03/20 02:13 78 89/63 L 100 02/03/20 01:43 76 92/62 L 100 02/03/20 01:13 74 96/71 L 100 02/03/20 00:43 72 95/59 L 100 02/03/20 00:13 73 115/82 100 02/02/20 23:55 89 24 100 02/02/20 23:48 72 102/69 100 02/02/20 23:15 71 20 117/76 97/69 L 100 02/02/20 23:00 70 20 118/70 97/66 L 100 02/02/20 22:15 73 20 122/79 103/73 100 Laboratory Tests 02/02/20 02/02/20 02/02/20 07:07 07:07 07:07 Lymph # (Auto) 0.27 L ESR D-Dimer 36174 H* AST 82 H C-Reactive Protein NT-Pro-B Natriuret Pep 33158 H Procalcitonin Amorphous Sediment 02/02/20 02/02/20 02/02/20 07:07 11:01 15:07 Lymph # (Auto) ESR 15 H D-Dimer AST C-Reactive Protein NT-Pro-B Natriuret Pep Procalcitonin 2.73 H Amorphous Sediment Present A 02/02/20 15:07 Lymph # (Auto) ESR D-Dimer AST C-Reactive Protein 12.10 H NT-Pro-B Natriuret Pep Procalcitonin Amorphous Sediment 02/03/20 03:14 02/03/20 01:33 Coding Level of Care Code Critical Care 1st 30-74 mins Diagnoses Acute hypoxemic respiratory failure J96.01 Acute on chronic renal failure N17.9; N18.9 Anaplasmosis A77.49 Non-ST elevation UT (NSTEMI) I21.4 CKD (chronic kidney disease), stage III N18.3 Time Spent (min) 51
[2020-02-03] MEDS: methylPREDNISolone 60 MG in SYRINGE 0 ML IV SCH (10:31)
[2020-02-03] MEDS: DOBUTamine / D5W 500 MG/250 ML BAG IV SCH ×2 (10:36→12:16)
[2020-02-03] MEDS: fentaNYL DRIP 1,250 MCG/250 ML BAG IV SCH ×2 (10:36→17:09)
--- NOTE | 2020-02-03 11:43 | Ultrasound Report ---
BILATERAL LOWER EXTREMITY VENOUS DOPPLER HISTORY: Acute pain and swelling of the bilateral lower extremities r/o DVT, B/l COMPARISON STUDY: None. FINDINGS: There is normal compressibility, flow, and augmentation within the bilateral lower extremit y deep venous systems. IMPRESSION: No DVT within the right or left lower extremity. ACT 112: Negative or not required by law. Electronically signed by: Scooby Askew M.D. 02/03/2020 11:42 AM
[2020-02-03 12:51] LABS: Partial Thromboplastin Ratio 3.3
--- NOTE | 2020-02-03 12:52 | Hospitalist Progress Note ---
Date of Service February 03, 2020 Assessment & Plan (1) Acute hypoxemic respiratory failure: Acute respiratory failure with hypoxia Unclear Etiology: DD: Acute PE/Cardiogenic Shock/NSTEMI/Anaplasmosis Shock: Cardiogenic/Septic ? Ischemic Cardiomyopathy Lactic acidosis --CXR:Findings could suggest developing venolymphatic congestive change, reactive airways disease or viral bronchiolitis. Given the severity, follow-up is advised. --ECHO: Mildly dilated LV chamber size with normal wall thickness. Severely reduced LV systolic function with severe global hypokinesis, EF less than 15%. The right ventricular cavity size is normal. Reduced right ventricle systolic function. There is severe calcific aortic valve stenosis. Gradients likely falsely lowered due to low output state. Moderate mitral regurgitation. Moderate left atrial enlargement. --Venous Doppler:No DVT within the right or left lower extremity. --Could not obtain CTA to R/O PE due to renal Insufficiency --Influenza, Biofire Negative --Elevated BNP --Elevated Procalcitonin --SARS-CoV-2:Negative --Intubated on 02/02/20 --Blood/Urine Cx:Negative to date --Continue IV heparin for now --Respiratory Support--On Vent --Appreciate Critical Care/Cardiology Input --Continue Rocephin and Doxycycline Day #2 Elevated D-dimer CTA could not be obtained due to renal insufficiency Venous Doppler:No DVT within the right or left lower extremity. 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 Serological testing pending Thrombocytopenia, mild elevated LFTs Continue Rocephin and Doxycycline Day #2 ID on board Acute Kidney Injury on CKD III Could be ATN Baseline Cr:1.3 Cr:2.5 Monitor renal function Avoid Nephrotoxic agents as able Thrombocytopenia Monitor Platelets while on IV Heparin No acute bleeding issues SLE On Methotrexate, Plaquenil, Prednisone Follows with Rheumatology Hold Methotrexate Continue Plaquenil recommends to continue prednisone 5mg daily On IV Solumedrol 60mg daily DVT Px: On IV Heparin Code Status Full Code Disposition: Monitor in ICU Admission and Anticipated Discharge Date Admission Date: February 02, 2020 Subjective Patient is seen and examined at bedside Currently he is sedated and Intubated On Levophed, Propofol Also on IV heparin Venous Doppler negative for DVT No distress on exam COVID-19 screen is negative Review of Systems Review of Systems: Unobtainable due to endotracheal tube Physical Exam Physical Exam: Physical Exam: Vitals signs as noted above General Appearance:Moderately built and nourished, No distress, Intubated Head: normocephalic, Atraumatic Eyes: normal inspection Neck: supple, Trachea midline Respiratory/Chest: Decreased breath sounds, basal crackles Cardiovascular: S1, S2, + murmur Abdomen/GI:Soft, Non tender, Bowel sounds present Extremities/Musculoskelatal:normal inspection, no edema Neurologic/Psych:, grossly no focal neurological deficits Skin: normal color, warm Results & Data Results & Data ([facility]) Vital Signs (Past 12 Hours) Vital Signs Pulse Resp BP Pulse Ox 02/03/20 12:00 72 88/54 L 02/03/20 08:00 69 98/54 L 02/03/20 07:00 76 22 100 02/03/20 06:13 79 87/59 L 100 02/03/20 05:43 78 94/63 L 100 02/03/20 05:13 79 95/62 L 100 02/03/20 04:43 79 95/68 L 100 02/03/20 04:13 78 92/59 L 99 02/03/20 03:55 80 24 100 02/03/20 03:43 77 111/70 100 02/03/20 03:13 78 95/60 L 100 02/03/20 02:43 76 80/59 L 100 02/03/20 02:13 78 89/63 L 100 02/03/20 01:43 76 92/62 L 100 02/03/20 01:13 74 96/71 L 100 Laboratory Results Short CBC 02/03/20 02/03/20 Range/Units 01:33 03:14 WBC 6.51 6.49 (4.8-10.8) K/uL Hgb 13.9 L 13.9 L (14.0-18.0) g/dL Hct 40.5 L 40.1 L (42-52) % Plt Count 77 L 78 L (130-400) K/uL BMP 02/02/20 02/03/20 21:15 01:33 Sodium 135 L 134 L Potassium 4.5 D 4.0 Chloride 105 106 Carbon Dioxide 20 L 18 L BUN 41 H 43 H Creatinine 2.52 H D 2.58 H Glucose 159 H 137 H Calcium 7.7 L 7.9 L Cardiac Enzymes 02/02/20 02/02/20 02/03/20 Range/Units 15:07 21:15 03:14 Troponin I 6.130 H* 9.570 H* 9.400 H* (0-0.045) ng/ml 02/03/20 Range/Units 09:50 Troponin I 7.390 H* (0-0.045) ng/ml Liver Function 02/03/20 Range/Units 01:33 Total Bilirubin 0.7 (0.2-1) mg/dl AST 139 H (15-37) U/L ALT 85 H (12-78) U/L Alkaline Phosphatase 40 L (45-117) U/L Albumin 2.6 L (3.4-5.0) gm/dl Urine 02/02/20 Range/Units 21:03 Urine Color Yellow Urine Appearance Cloudy A (Clear) Urine pH 5.0 (4.5-7.5) Ur Specific [place] 1.014 (1.000-1.030) Urine Protein 1+ H (Negative) Urine Glucose (UA) Negative (Negative)
[2020-02-03 12:54] LABS: Partial Thromboplastin Time 92.1 Seconds (21.0-31.0)
--- NOTE | 2020-02-03 13:47 | Electrocardiogram Report ---
Test Reason : Blood Pressure : / mmHG Vent. Rate : 068 BPM Atrial Rate : 068 BPM P-R Int : 190 ms QRS Dur : 114 ms QT Int : 468 ms P-R-T Axes : 032 -29 -39 degrees QTc Int : 497 ms Sinus rhythm with Premature supraventricular complexes and with occasional Premature ventricular comp lexes Possible Septal infarct , age undetermined T-wave inversion in Anterior leads , consider ischemia Abnormal ECG When compared with ECG of 02-FEB-2020 06:53, Premature ventricular complexes are now Present Premature supraventricular complexes are now Present Vent. rate has decreased BY 65 BPM T-wave inversion in Anterior leads now present Confirmed by Robert Marcos ([id number]) on 02/03/2020 1:46:59 PM Referred By: REFERRED SELF Confirmed By:Robert Marcos
[2020-02-03] MEDS: cefTRIAXone SODIUM 2,000 MG in DEXTROSE 5% 50 ML IV SCH (14:10)
[2020-02-03 19:48] LABS: Partial Thromboplastin Ratio 3.5
[2020-02-03 20:14] LABS: Partial Thromboplastin Time 97.5 Seconds (21.0-31.0)
[2020-02-03] MEDS: NOREPINEPHRINE BIT INJ 8 MG in DEXTROSE 5% 500 ML IV SCH (20:56)
[2020-02-03 21:15] LABS: BUN Creatinine Ratio 17.8 (10-20); Calcium 8.3 mg/dl (8.5-10.1); Creatinine Clr Calc Pharmacy 20.1 ml/min; Est GFR (African American) 23.9; Est GFR (Non-African American) 20.6
[2020-02-03] MEDS ORDERED: SODIUM CHLORIDE 0.9% 1000ML 250 ML IV ONE (22:24)
[2020-02-04] MEDS: propofoL 1,000 MG/100 ML VIAL IV SCH ×3 (00:57→09:26)
[2020-02-04 03:46] LABS: Hematocrit (blood only) 36.9 % (42-52); Hemoglobin 12.8 g/dL (14.0-18.0); Mean Corpuscular Hemoglobin 34.4 pg (25-34); Mean Corpuscular Hgb Conc 34.7 g/dL (32-36); Mean Corpuscular Volume 99.2 fL (80-100); Red Blood Count 3.72 M/uL (4.7-6.1); White Blood Count 6.74 K/uL (4.8-10.8)
[2020-02-04 03:51] LABS: Mean Platelet Volume 11.8 fL (7.4-10.4); Platelet Count 81 K/uL (130-400)
[2020-02-04 04:04] LABS: Albumin Level 2.4 gm/dl (3.4-5.0); BUN Creatinine Ratio 19.2 (10-20); Calcium 8.1 mg/dl (8.5-10.1); Creatinine Clr Calc Pharmacy 21.3 ml/min; Est GFR (African American) 25.6; Est GFR (Non-African American) 22.1; Potassium 3.7 mmol/L (3.5-5.1)
[2020-02-04 04:07] LABS: Partial Thromboplastin Ratio 2.5
[2020-02-04 04:13] LABS: Albumin Globulin Ratio 0.7 (0.9-2); Bilirubin,Total 0.7 mg/dl (0.2-1); Globulin 3.4 gm/dl (2.5-4.0); Total Protein 5.8 gm/dl (6.4-8.2)
[2020-02-04 04:14] LABS: Partial Thromboplastin Time 70.1 Seconds (21.0-31.0)
[2020-02-04 05:34] LABS: iSTAT Allen Test Pass; iSTAT Arterial Blood Gas HCO3 20 meg/L (19-24); iSTAT Arterial Blood Gas pCO2 32 mmHg (35-46); iSTAT Arterial Blood Gas pH 7.39 (7.35-7.45); iSTAT Arterial Blood Gas pO2 98 mmHg (80-95); iSTAT Carbon Dioxide 20 mmol/L (24-31); iSTAT FiO2 30 %; iSTAT Site R Radial
[2020-02-04] MEDS: DOXYCYCLINE HYCLATE 100 MG in DEXTROSE 5% 100 ML IV SCH ×2 (07:23→20:22)
[2020-02-04] MEDS: predniSONE 5 MG TAB PO SCH (07:23)
[2020-02-04] MEDS: FOLIC ACID 1 MG TAB PO SCH (07:23)
[2020-02-04] MEDS: CYANOCOBALAMIN 500 MCG TABLET (VITAMIN B-12) PO SCH (07:23)
[2020-02-04] MEDS: ASPIRIN 81 MG ECTAB PO SCH (07:23)
[2020-02-04] MEDS: PANTOprazole 40 MG in SYRINGE 0 ML IV SCH (07:49)
[2020-02-04] MEDS: methylPREDNISolone 60 MG in SYRINGE 0 ML IV SCH (07:49)
--- NOTE | 2020-02-04 08:14 | Critical Care Progress Note ---
Date of Service February 04, 2020 Assessment & Plan (1) Acute hypoxemic respiratory failure: (2) Acute on chronic renal failure: --VDRF secondary to Acute hypoxic respiratory failure with Fever etiology unclear could be secondary to PE given elevated D-Dimer. CTA cannot be done as patient in ALEXIS. Would continue with Heparin drip for the time being. Doppler lower extreme negative for DVT new onset CHF, BNP: 45931, EKG doesn't show any ST-T wave changes. strict in's and out's Infectious etiology in an immunocompromised patient ESR: 15, CRP: 12.1 --> 15.8, PCT: 2.73 --> 70.75 --> 39.34, LDH: 468 Peripheral smear showing Inclusion bodies in neutrophils with Anaplasma bodies positive. -- > treat with Doxycycline. 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 Lymphopenia, Elevated D-Dimer, Elevated CRP, Fever, Elevated AST. All likely secondary to anaplasmosis Patient takes Plaquenal at home Covid-19 tests: Negative BNP greater than 22,000 Echo 02/02/2020: Ejection fraction < 15% --Status post shock I think this is cardiogenic shock secondary to anaplasmosis in an immunosuppressed patient Likely cardiogenic given ejection fraction less than 15% on top of sepsis with anaplasmosis Continue with treatment -- ALEXIS on CKD likely sec to sepsis. Nonoliguric FeNa: 4%. Going to was intrinsic kidney disease Patient has underlying SLE as well. Monitor BUN/Cr -- NSTEMI demand ischemia possibility with New onset systolic CHF cardiology on board, follow recommendations --Prolonged QTC Avoid QT prolonging medication Keep potassium greater than 4, magnesium greater than 2, phosphorus greater than 3 -- Lymphopenia with Thrombocytopenia could be from Anaplasmosis c/w Doxycycline PE could be thrombocytopenia --> C/w Heparin drip MTX can give pancytopenia --Elevated LFTs Could be secondary to hypotension on top of anaplasmosis which can affect liver as well Monitor -- Hx of SLE on MTX, HCQ and Prednisone Hold MTX. would continue with HCQ and monitor QTc Will get Methotrexate level as well given patient has ALEXIS -- Prophylaxis Protonix, Heparin drip Lines: Right IJ 02/02/20, OGT Plan: Patient doing good on pressure support. We will extubate the patient to nasal cannula. With BiPAP bedside. We will discontinue Rocephin as Lyme antibody is negative. Procalcitonin trending down. Continue with doxycycline for total of 10 days. Continue with heparin drip for the time being. If the patient is hemodynamically stable could consider VQ scan tomorrow to rule out PE. The lik elihood of PE is low given that DVT is negative. I have personally spent 53 minutes of critical care time in the direct management of this patient. This is a life/limb threatening event. This includes time spent evaluating patient, direct bedside care, chart review, placing orders, interpretation of diagnostic studies, discussion with consultants, patient, and family members, as well as other required patient management activities. This time is exclusive of all separately billable procedures, and teaching time and separate from and in addition to any other critical care service time. Please note the above document was generated using voice recognition software. It may contain grammatical, syntax or spelling errors. (3) Anaplasmosis: (4) Non-ST elevation [place] (NSTEMI): (5) CKD (chronic kidney disease), stage III: Admission and Anticipated Discharge Date Admission Date: February 02, 2020 Subjective Patient seen and examined at bedside. No acute distress. Off vasopressors. Overnight patient did have 1 run of arrhythmia likely a flutter while he was on dobutamine. Dobutamine was discontinued after that. Patient is making good amount of urine. Made 1500 mL of urine in the last 24 hours. RASS -1. Patient following commands. Denies any chest pain, no headache. Maximum inspiratory pressure -29 Review of Systems Review of Systems: All systems reviewed & are unremarkable except as noted in HPI & below Physical Exam Physical Exam: Constitutional: No acute distress HEENT: PERRLA, Malar rash appreciated on the face Respiratory system: Decreased air entry bilaterally, No wheeze, no rhonchi, + minimal crackles b/l CVS: S1-S2 positive, distant heart sounds, positive 2 out of 6 murmur appreciated at the aorta Abdomen: Soft, nontender, nondistended, positive bowel sounds x4 Extremities: + 1 pulses bilaterally radialis/ dorsalis pedis, no cyanosis, no edema, cold extremities bilaterally Neuro: RASS -1, positive corneal, positive gag, following commands Psych: Unable to assess G/U: Positive Lopez Skin: no rashes, warm and dry Lymphatic: no cervical or axillary lymphadenopathy Results & Data Results & Data ([facility]) Vital Signs (Past 12 Hours) Vital Signs Pulse Resp BP Pulse Ox 02/04/20 07:55 66 139/86 02/04/20 05:26 62 16 99 02/04/20 03:48 62 98/60 L 99 02/04/20 03:45 61 99 02/04/20 03:33 63 108/65 99 02/04/20 03:30 64 100 02/04/20 03:18 66 105/65 99 02/04/20 03:15 60 99 02/04/20 03:03 64 106/63 99 02/04/20 03:00 62 99 02/04/20 02:48 60 106/62 99 02/04/20 02:45 61 99 02/04/20 02:33 61 108/59 L 99 02/04/20 02:30 61 99 02/04/20 02:18 61 108/65 99 02/04/20 02:15 61 99 02/04/20 02:03 62 115/65 100 02/04/20 02:00 64 100 02/04/20 01:48 59 L 104/63 99 02/04/20 01:45 60 99 02/04/20 01:44 59 L 16 98 02/04/20 01:33 61 100/63 99 02/04/20 01:30 60 99 02/04/20 01:18 58 L 110/64 99 02/04/20 01:15 61 98 02/04/20 01:03 59 L 121/74 100 02/04/20 01:00 61 99 02/04/20 00:48 61 103/64 99 02/04/20 00:45 60 98 02/04/20 00:33 62 102/61 99 02/04/20 00:30 62 99 02/04/20 00:18 61 104/63 99 02/04/20 00:15 62 99 02/04/20 00:03 61 108/63 99 02/04/20 00:00 60 99 02/03/20 23:48 61 110/61 99 02/03/20 23:45 62 99 02/03/20 23:33 62 100/62 99 02/03/20 23:30 60 99 02/03/20 23:18 63 98/61 L 99 02/03/20 23:15 63 99 04/11/20 23:03 63 100/61 99 02/03/20 23:00 62 99 02/03/20 22:48 64 93/63 L 98 02/03/20 22:45 63 99 02/03/20 22:33 65 99/59 L 98 02/03/20 22:30 66 98 02/03/20 22:18 64 95/59 L 98 02/03/20 22:15 65 98 02/03/20 22:03 66 16 99/61 L 98 02/03/20 22:00 66 98 02/03/20 21:48 67 101/62 98 02/03/20 21:45 67 99 02/03/20 21:33 71 117/60 99 02/03/20 21:30 67 100 02/03/20 21:18 72 118/74 100 02/03/20 21:15 70 100 02/03/20 21:03 82 120/89 100 02/03/20 21:00 73 100 02/03/20 20:48 71 85/58 L 100 02/03/20 20:45 69 100 02/03/20 20:33 71 98/63 L 100 02/03/20 20:30 70 100 02/03/20 20:18 70 86/55 L 100 02/03/20 20:15 70 100 02/04/20 03:35 02/04/20 03:35 Coding Level of Care Code Critical Care 1st 30-74 mins Diagnoses Acute hypoxemic respiratory failure J96.01 Acute on chronic renal failure N17.9; N18.9 Anaplasmosis A77.49 Non-ST elevation [place] (NSTEMI) I21.4 CKD (chronic kidney disease), stage III N18.3 Time Spent (min) 53
--- NOTE | 2020-02-04 08:54 | Cardiology Progress Note ---
Date of Service February 04, 2020 Assessment & Plan (1) Acute on chronic renal failure: (2) Cardiomyopathy: (3) Aortic stenosis, severe: (4) Anaplasmosis: (5) Acute hypoxemic respiratory failure: The patient was extubated this morning and remained stable. He is off of pressors. He is being treated for sepsis from anaplasmosis. The patient informs me today that approximately 2 to 3 weeks ago he had a tick bite on his left forearm. We will allow the patient to recover today since he is stable. If things continue to go well we will increase his carvedilol and add perhaps an DIANDRA inhibitor for his cardiomyopathy. The hope is that at least some of his myocardial function will improve once his sepsis has been treated. Subjective The patient was extubated this morning. He is lethargic but alert and oriented. Review of Systems Review of Systems: Unobtainable due to cognitive status Physical Exam Physical Exam: General: no acute distress and stated age Head: normocephalic, no masses, lesions, tenderness or abnormalities Eyes: conjunctiva are pink and non-injected, sclera clear Neck: supple, no adenopathy, no bruits, normal jugular venous pulse, no hepatojugular reflux Chest: normal shape and normal respiratory effort Lungs: clear to auscultation and percussion Cardiac Exam: - regular rate & rhythm, no murmurs gallops or rubs - normal S1, normal S2 Pulses: 2(+) throughout Abdomen: abdomen soft, non-tender, no abnormal masses and no hepatosplenomegaly Musculoskeletal: no gait disturbance, no joint inflammation, no deforming arthritis Extremities: no edema and no cyanosis Neuro: grossly normal exam Results & Data Vital Signs (Past 12 Hours) Vital Signs Pulse Resp BP Pulse Ox 02/04/20 08:45 73 14 99 02/04/20 08:34 77 128/72 98 02/04/20 08:30 74 97 02/04/20 08:19 71 141/90 H 100 02/04/20 08:15 70 100 02/04/20 08:03 72 139/86 100 02/04/20 08:00 69 100 02/04/20 07:55 66 139/86 02/04/20 07:48 64 139/86 100 02/04/20 07:45 64 99 02/04/20 07:33 61 116/79 100 02/04/20 07:30 68 100 02/04/20 07:18 59 L 130/72 100 02/04/20 07:15 69 100 02/04/20 07:03 61 124/77 100 02/04/20 07:00 61 100 02/04/20 06:48 63 117/72 99 02/04/20 06:45 59 L 99 02/04/20 05:26 62 16 99 02/04/20 03:48 62 98/60 L 99 02/04/20 03:45 61 99 02/04/20 03:33 63 108/65 99 02/04/20 03:30 64 100 02/04/20 03:18 66 105/65 99 02/04/20 03:15 60 99 02/04/20 03:03 64 106/63 99 02/04/20 03:00 62 99 02/04/20 02:48 60 106/62 99 02/04/20 02:45 61 99 02/04/20 02:33 61 108/59 L 99 02/04/20 02:30 61 99 02/04/20 02:18 61 108/65 99 02/04/20 02:15 61 99 02/04/20 02:03 62 115/65 100 02/04/20 02:00 64 100 02/04/20 01:48 59 L 104/63 99 02/04/20 01:45 60 99 02/04/20 01:44 59 L 16 98 02/04/20 01:33 61 100/63 99 02/04/20 01:30 60 99 02/04/20 01:18 58 L 110/64 99 02/04/20 01:15 61 98 02/04/20 01:03 59 L 121/74 100 02/04/20 01:00 61 99 02/04/20 00:48 61 103/64 99 02/04/20 00:45 60 98 02/04/20 00:33 62 102/61 99 02/04/20 00:30 62 99 02/04/20 00:18 61 104/63 99 02/04/20 00:15 62 99 02/04/20 00:03 61 108/63 99 02/04/20 00:00 60 99 02/03/20 23:48 61 110/61 99 02/03/20 23:45 62 99 02/03/20 23:33 62 100/62 99 02/03/20 23:30 60 99 02/03/20 23:18 63 98/61 L 99 02/03/20 23:15 63 99 02/03/20 23:03 63 100/61 99 02/03/20 23:00 62 99 02/03/20 22:48 64 93/63 L 98 02/03/20 22:45 63 99 02/03/20 22:33 65 99/59 L 98 02/03/20 22:30 66 98 02/03/20 22:18 64 95/59 L 98 02/03/20 22:15 65 98 02/03/20 22:03 66 16 99/61 L 98 02/03/20 22:00 66 98 02/03/20 21:48 67 101/62 98 02/03/20 21:45 67 99 02/03/20 21:33 71 117/60 99 02/03/20 21:30 67 100 02/03/20 21:18 72 118/74 100 02/03/20 21:15 70 100 02/03/20 21:03 82 120/89 100 02/03/20 21:00 73 100 Laboratory Results Laboratory Results - last 24 hr 02/03/20 02/03/20 02/03/20 09:50 09:50 12:02 WBC RBC Hgb Hct MCV MCH MCHC RDW Std Deviation RDW Coeff of Patti Plt Count MPV APTT 92.1 H* PTT Ratio 3.3 Sample Site POC pH POC pCO2 POC pO2 POC HCO3 POC Total CO2 POC Base Excess POC ABG O2 Sat Stevie Test Mixed VBG pH 7.39 Mixed VBG pCO2 34 L Mixed VBG pO2 38 L Mixed VBG HCO3 20 Mixed VBG Base Excess -3.8 Mixed VBG O2 Saturation 69.6 H Barometric Pressure 731.1 O2 Delivery Device POC O2 Rate Minute Ventilation POC FiO2 Tidal Volume PEEP Sodium Potassium Chloride Carbon Dioxide Anion Gap BUN Creatinine Est Cr Clr Drug Dosing Est GFR ( Amer) Est GFR (Non-Af Amer) BUN/Creatinine Ratio Glucose Calcium Phosphorus Total Bilirubin AST ALT Alkaline Phosphatase Lactate Dehydrogenase Troponin I 7.390 H* Total Protein Albumin Globulin Albumin/Globulin Ratio Procalcitonin Specimen Hemolysis 02/03/20 02/03/20 02/03/20 19:14 20:46 21:23 WBC RBC Hgb Hct MCV MCH MCHC RDW Std Deviation RDW Coeff of Patti Plt Count MPV APTT 97.5 H* PTT Ratio 3.5 Sample Site POC pH POC pCO2 POC pO2 POC HCO3 POC Total CO2 POC Base Excess POC ABG O2 Sat Stevie Test Mixed VBG pH Mixed VBG pCO2 Mixed VBG pO2 Mixed VBG HCO3 Mixed VBG Base Excess Mixed VBG O2 Saturation Barometric Pressure O2 Delivery Device POC O2 Rate Minute Ventilation POC FiO2 Tidal Volume PEEP Sodium 135 L Potassium 3.7 Chloride 104 Carbon Dioxide 23 Anion Gap 8.0 BUN 49 H Creatinine 2.74 H Est Cr Clr Drug Dosing 20.1 Est GFR ( Amer) 23.9 Est GFR (Non-Af Amer) 20.6 BUN/Creatinine Ratio 17.8 Glucose 144 H Calcium 8.3 L Phosphorus Total Bilirubin AST ALT Alkaline Phosphatase Lactate Dehydrogenase Troponin I Total Protein Albumin Globulin Albumin/Globulin Ratio Procalcitonin Specimen Hemolysis 02/04/20 02/04/20 02/04/20 03:35 03:35 03:35 WBC 6.74 RBC 3.72 L Hgb 12.8 L Hct 36.9 L MCV 99.2 MCH 34.4 H MCHC 34.7 RDW Std Deviation 50.0 H RDW Coeff of Patti 14.0 Plt Count 81 L MPV 11.8 H APTT 70.1 H* PTT Ratio 2.5 Sample Site POC pH POC pCO2 POC pO2 POC HCO3 POC Total CO2 POC Base Excess POC ABG O2 Sat Stevie Test Mixed VBG pH Mixed VBG pCO2 Mixed VBG pO2 Mixed VBG HCO3 Mixed VBG Base Excess Mixed VBG O2 Saturation Barometric Pressure O2 Delivery Device POC O2 Rate Minute Ventilation POC FiO2 Tidal Volume PEEP Sodium 133 L Potassium 3.7 Chloride 105 Carbon Dioxide 22 Anion Gap 6.0 BUN 50 H Creatinine 2.59 H Est Cr Clr Drug Dosing 21.3 Est GFR ( Amer) 25.6 Est GFR (Non-Af Amer) 22.1 BUN/Creatinine Ratio 19.2 Glucose 148 H Calcium 8.1 L Phosphorus 5.0 H Total Bilirubin 0.7 AST 144 H ALT 153 H Alkaline Phosphatase 39 L Lactate Dehydrogenase Troponin I Total Protein 5.8 L Albumin 2.4 L Globulin 3.4 Albumin/Globulin Ratio 0.7 L Procalcitonin Specimen Hemolysis 02/04/20 02/04/20 02/04/20 03:35 03:35 04:30 WBC RBC Hgb Hct MCV MCH MCHC RDW Std Deviation RDW Coeff of Patti Plt Count MPV APTT PTT Ratio Sample Site POC pH POC pCO2 POC pO2 POC HCO3 POC Total CO2 POC Base Excess POC ABG O2 Sat Stevie Test Mixed VBG pH Mixed VBG pCO2 Mixed VBG pO2 Mixed VBG HCO3 Mixed VBG Base Excess Mixed VBG O2 Saturation Barometric Pressure O2 Delivery Device POC O2 Rate Minute Ventilation POC FiO2 Tidal Volume PEEP Sodium Potassium Chloride Carbon Dioxide Anion Gap BUN Creatinine Est Cr Clr Drug Dosing Est GFR ( Amer) Est GFR (Non-Af Amer) BUN/Creatinine Ratio Glucose Calcium Phosphorus Total Bilirubin AST ALT Alkaline Phosphatase Lactate Dehydrogenase Cancelled 386 H Troponin I Total Protein Albumin Globulin Albumin/Globulin Ratio Procalcitonin 39.34 H Specimen Hemolysis 02/04/20 05:18 WBC RBC Hgb Hct MCV MCH MCHC RDW Std Deviation RDW Coeff of Patti Plt Count MPV APTT PTT Ratio Sample Site R Radial POC pH 7.39 POC pCO2 32 L POC pO2 98 H POC HCO3 20 POC Total CO2 20 L POC Base Excess -5.0 POC ABG O2 Sat 98.0 H Stevie Test Pass Mixed VBG pH Mixed VBG pCO2 Mixed VBG pO2 Mixed VBG HCO3 Mixed VBG Base Excess Mixed VBG O2 Saturation Barometric Pressure O2 Delivery Device Ventilator POC O2 Rate 16 Minute Ventilation 8.5 POC FiO2 30 Tidal Volume 480 PEEP 5 Sodium Potassium Chloride Carbon Dioxide Anion Gap BUN Creatinine Est Cr Clr Drug Dosing Est GFR ( Amer) Est GFR (Non-Af Amer) BUN/Creatinine Ratio Glucose Calcium Phosphorus Total Bilirubin AST ALT Alkaline Phosphatase Lactate Dehydrogenase Troponin I Total Protein Albumin Globulin Albumin/Globulin Ratio Procalcitonin Specimen Hemolysis Medications Administered Current Inpatient Medications Acetaminophen (Tylenol) 650 mg PO Q4H PRN PRN Reason: Fever/Mild Pain (Pain 1,2,3) Stop: 03/03/20 18:13 Hydrocodone Bitart/Acetaminophen ([place] 7.5/325mg) 1 tab PO BID PRN PRN Reason: Pain Stop: 02/16/20 12:22 Aspirin (Ecotrin Ectab) 81 mg PO DAILY [facility] Stop: 03/03/20 12:14 Last Admin: 02/04/20 07:23 Dose: 81 mg Documented by: Carvedilol (Coreg) 3.125 mg PO BID [facility] Stop: 03/03/20 20:59 Last Admin: 02/02/20 21:53 Dose: Not Given Documented by: Cyanocobalamin (Vitamin B-12) 500 mcg PO DAILY [facility] Stop: 03/04/20 08:59 Last Admin: 02/04/20 07:23 Dose: 500 mcg Documented by: Duloxetine HCl (Cymbalta) 30 mg PO DAILY [facility] Stop: 03/04/20 08:59 Last Admin: 02/03/20 08:53 Dose: 30 mg Documented by: Fentanyl Citrate (Fentanyl Bolus From Bag) 50 mcg IV Q60M PRN PRN Reason: Pain or Agitation Stop: 02/16/20 18:13 Folic Acid (Folvite) 1 mg PO DAILY [facility] Stop: 03/03/20 11:59 Last Admin: 02/04/20 07:23 Dose: 1 mg Documented by: Heparin Sodium (Beef Lung) (Heparin Sod 10 Unit/Ml Flush) 5 ml FLUSH PRN PRN PRN Reason: Flush Stop: 03/04/20 00:09 Heparin Sodium/Dextrose (Heparin Sodium/Dextrose) 25,000 units in 500 mls @ 14 mls/hr IV .Q24H [facility]; Protocol Stop: 03/03/20 07:59 Last Titration: 02/04/20 07:05 Dose: 700 units/hr, 14 mls/hr Documented by: Ceftriaxone Sodium 2,000 mg/ (Dextrose) 70 mls @ 100 mls/hr IV Q24H [facility]; Protocol Stop: 02/16/20 14:59 Last Infusion: 02/03/20 15:43 Dose: Infused Documented by: Fentanyl Citrate (Fentanyl Drip) 1,250 mcg in 250 mls @ 5 mls/hr IV .Q24H [facility]; Protocol Stop: 02/16/20 18:14 Last Admin: 02/03/20 17:09 Dose: Not Given Documented by: Propofol (Diprivan) 1,000 mg in 100 mls @ 16.574 mls/hr IV .Q6H3M [facility]; Protocol Stop: 02/05/20 18:14 Last Titration: 02/04/20 08:44 Dose: Infused Documented by: Doxycycline Hyclate 100 mg/ (Dextrose) 110 mls @ 55 mls/hr IV Q12@0800,2000 [facility] Stop: 02/15/20 21:59 Last Admin: 02/04/20 07:23 Dose: 55 mls/hr Documented by: Acetaminophen (Ofirmev) 1,000 mg in 100 mls @ 400 mls/hr IV Q8H PRN PRN Reason: Fever Stop: 02/05/20 19:48 Pantoprazole Sodium 40 mg/ (Syringe) 10 mls @ 5 mls/min IV DAILY [facility] Stop: 03/04/20 08:59 Last Admin: 02/04/20 07:49 Dose: 5 mls/min Documented by: Methylprednisolone 40 mg/ (Syringe) 0.64 mls @ 1.5 mls/min IV DAILY [facility] Stop: 03/05/20 08:59 Miscellaneous (Order Awaiting Action) 1 ea N/A QS [facility] Stop: 03/03/20 21:14 Last Admin: 02/04/20 07:23 Dose: Not Given Documented by: Nitroglycerin (Nitrostat) 0.4 mg SL UD PRN PRN Reason: Chest Pain Stop: 03/03/20 13:47 Polyethylene Glycol (Miralax Powder Packet) 17 gm PO DAILY PRN PRN Reason: Constipation Stop: 03/03/20 13:47 Prednisone (Prednisone) 5 mg PO DAILY [facility] Stop: 03/03/20 13:47 Last Admin: 02/04/20 07:23 Dose: 5 mg Documented by: Propofol (Diprivan Bolus From Bag) 20 mg IV Q5M PRN PRN Reason: Sedation Stop: 02/05/20 18:13 Last Admin: 02/03/20 14:11 Dose: 20 mg Documented by:
[2020-02-04] MEDS: HEPARIN SODIUM/DEXTROSE 25,000 UNITS/500 ML BAG IV SCH (09:26)
--- NOTE | 2020-02-04 10:01 | Hospitalist Progress Note ---
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 ? Ischemic/Myocarditis Lactic acidosis --CXR:Findings could suggest developing venolymphatic congestive change, reactive airways disease or viral bronchiolitis. Given the severity, follow-up is advised. --ECHO: Mildly dilated LV chamber size with normal wall thickness. Severely reduced LV systolic function with severe global hypokinesis, EF less than 15%. The right ventricular cavity size is normal. Reduced right ventricle systolic function. There is severe calcific aortic valve stenosis. Gradients likely falsely lowered due to low output state. Moderate mitral regurgitation. Moderate left atrial enlargement. --Venous Doppler:No DVT within the right or left lower extremity. --Could not obtain CTA to R/O PE due to renal Insufficiency --Influenza, Biofire Negative --Elevated BNP --Elevated Procalcitonin --SARS-CoV-2:Negative --Intubated on 02/02/20; Extubated on 02/04/20 --Blood/Urine Cx:Negative to date --Continue IV heparin --Respiratory Support--with supplemental oxygen as needed --Appreciate Critical Care/Cardiology Input --IV Rocephin to be discontinued --Continue Doxycycline Day #3 --Plan to resume beta cara and add DIANDRA when BP more stable Elevated D-dimer CTA could not be obtained due to renal insufficiency Venous Doppler:No DVT within the right or left lower extremity. 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 Serological tests: pending Lymphopenia, Thrombocytopenia, mild elevated LFTs Continue Doxycycline Day #3 ID on board Acute Kidney Injury on CKD III Could be ATN Baseline Cr:1.3 Cr:2.5 Monitor renal function Avoid Nephrotoxic agents as able Thrombocytopenia Monitor Platelets while on IV Heparin No acute bleeding issues SLE On Methotrexate, Plaquenil, Prednisone Follows with Rheumatology Hold Methotrexate Continue Plaquenil recommends to continue prednisone 5mg daily On IV Solumedrol 60mg daily DVT Px: On IV Heparin Code Status Full Code Disposition: PT/OT prior to discharge Admission and Anticipated Discharge Date Admission Date: February 02, 2020 Subjective Patient is seen and examined at bedside Extubated today Off pressors Patient had a brief episode of arrhythmia and dobutamine was discontinued On IV heparin-- No bleeding issues Patient denies any chest pain, SOB, dizziness, nausea, abd pain. Still slightly lethargic this morning Review of Systems Review of Systems: All systems reviewed & are unremarkable except as noted in HPI & below Physical Exam Physical Exam: Physical Exam: Vitals signs as noted above General Appearance:Moderately built and nourished, No distress Head: normocephalic, Atraumatic Eyes: normal inspection Neck: supple, Trachea midline Respiratory/Chest: Decreased breath sounds, CTA Cardiovascular: S1, S2, + murmur Abdomen/GI:Soft, Non tender, Bowel sounds present Extremities/Musculoskelatal:normal inspection, no edema Neurologic/Psych:, grossly no focal neurological deficits Skin: normal color, warm Results & Data Results & Data ([facility]) Vital Signs (Past 12 Hours) Vital Signs Pulse Resp BP Pulse Ox 02/04/20 09:32 68 12 104/66 99 02/04/20 09:30 72 20 98 02/04/20 09:17 75 20 101/69 99 02/04/20 09:15 74 17 97 02/04/20 09:02 71 22 112/63 97 02/04/20 09:00 72 6 L 98 02/04/20 08:45 73 14 99 02/04/20 08:34 77 128/72 98 02/04/20 08:30 74 97 02/04/20 08:19 71 141/90 H 100 02/04/20 08:15 70 100 02/04/20 08:03 72 139/86 100 02/04/20 08:00 69 100 02/04/20 07:55 66 139/86 02/04/20 07:48 64 139/86 100 02/04/20 07:45 64 99 02/04/20 07:33 61 116/79 100 02/04/20 07:30 68 100 02/04/20 07:18 59 L 130/72 100 02/04/20 07:15 69 100 02/04/20 07:03 61 124/77 100 02/04/20 07:00 61 100 02/04/20 06:48 63 117/72 99 02/04/20 06:45 59 L 99 02/04/20 05:26 62 16 99 02/04/20 03:48 62 98/60 L 99 02/04/20 03:45 61 99 02/04/20 03:33 63 108/65 99 02/04/20 03:30 64 100 02/04/20 03:18 66 105/65 99 02/04/20 03:15 60 99 02/04/20 03:03 64 106/63 99 02/04/20 03:00 62 99 02/04/20 02:48 60 106/62 99 02/04/20 02:45 61 99 02/04/20 02:33 61 108/59 L 99 02/04/20 02:30 61 99 02/04/20 02:18 61 108/65 99 02/04/20 02:15 61 99 02/04/20 02:03 62 115/65 100 02/04/20 02:00 64 100 02/04/20 01:48 59 L 104/63 99 02/04/20 01:45 60 99 02/04/20 01:44 59 L 16 98 02/04/20 01:33 61 100/63 99 02/04/20 01:30 60 99 02/04/20 01:18 58 L 110/64 99 02/04/20 01:15 61 98 02/04/20 01:03 59 L 121/74 100 02/04/20 01:00 61 99 02/04/20 00:48 61 103/64 99 02/04/20 00:45 60 98 02/04/20 00:33 62 102/61 99 02/04/20 00:30 62 99 02/04/20 00:18 61 104/63 99 02/04/20 00:15 62 99 02/04/20 00:03 61 108/63 99 02/04/20 00:00 60 99 02/03/20 23:48 61 110/61 99 02/03/20 23:45 62 99 02/03/20 23:33 62 100/62 99 02/03/20 23:30 60 99 02/03/20 23:18 63 98/61 L 99 02/03/20 23:15 63 99 02/03/20 23:03 63 100/61 99 02/03/20 23:00 62 99 02/03/20 22:48 64 93/63 L 98 04/11/20 22:45 63 99 02/03/20 22:33 65 99/59 L 98 02/03/20 22:30 66 98 02/03/20 22:18 64 95/59 L 98 02/03/20 22:15 65 98 02/03/20 22:03 66 16 99/61 L 98 02/03/20 22:00 66 98 Laboratory Results Short CBC 02/04/20 Range/Units 03:35 WBC 6.74 (4.8-10.8) K/uL Hgb 12.8 L (14.0-18.0) g/dL Hct 36.9 L (42-52) % Plt Count 81 L (130-400) K/uL BMP 02/03/20 02/03/20 02/04/20 20:46 21:23 03:35 Sodium 135 L 133 L Potassium 3.7 3.7 Chloride 104 105 Carbon Dioxide 23 22 BUN 49 H 50 H Creatinine 2.74 H 2.59 H Glucose 144 H 148 H Calcium 8.3 L 8.1 L Cardiac Enzymes 02/03/20 Range/Units 09:50 Troponin I 7.390 H* (0-0.045) ng/ml Liver Function 02/04/20 Range/Units 03:35 Total Bilirubin 0.7 (0.2-1) mg/dl AST 144 H (15-37) U/L ALT 153 H (12-78) U/L Alkaline Phosphatase 39 L (45-117) U/L Albumin 2.4 L (3.4-5.0) gm/dl
[2020-02-04 11:05] LABS: Partial Thromboplastin Time 55.5 Seconds (21.0-31.0)
[2020-02-05] MEDS: HEPARIN SODIUM/DEXTROSE 25,000 UNITS/500 ML BAG IV SCH (00:39)
[2020-02-05 04:38] LABS: Hemoglobin 12.4 g/dL (14.0-18.0); Mean Corpuscular Hgb Conc 34.4 g/dL (32-36); Mean Corpuscular Volume 98.6 fL (80-100); Mean Platelet Volume 12.1 fL (7.4-10.4); Platelet Count 92 K/uL (130-400); RDW Standard Deviation 49.9 fL (36.4-46.3); Red Blood Count 3.65 M/uL (4.7-6.1); White Blood Count 9.72 K/uL (4.8-10.8)
[2020-02-05 04:39] LABS: Albumin Level 2.6 gm/dl (3.4-5.0); Calcium 8.8 mg/dl (8.5-10.1); Creatinine Clr Calc Pharmacy 24.4 ml/min; Est GFR (African American) 30.2; Magnesium 2.4 mg/dl (1.8-2.4); Potassium 3.6 mmol/L (3.5-5.1)
[2020-02-05 04:45] LABS: Albumin Globulin Ratio 0.8 (0.9-2); Bilirubin,Total 0.6 mg/dl (0.2-1); Globulin 3.4 gm/dl (2.5-4.0); Phosphorus 3.8 mg/dl (2.5-4.9)
[2020-02-05] MEDS ORDERED: POTASSIUM CHLORIDE 20 MEQ TABCR PO STA (05:38)
[2020-02-05 07:28] LABS: Partial Thromboplastin Ratio 1.4; Partial Thromboplastin Time 39.3 Seconds (21.0-31.0)
[2020-02-05] MEDS: PANTOprazole 40 MG in SYRINGE 0 ML IV SCH (08:01)
[2020-02-05] MEDS: predniSONE 5 MG TAB PO SCH (08:01)
[2020-02-05] MEDS: CYANOCOBALAMIN 500 MCG TABLET (VITAMIN B-12) PO SCH (08:01)
[2020-02-05] MEDS: ASPIRIN 81 MG ECTAB PO SCH (08:01)
[2020-02-05] MEDS: DOXYCYCLINE HYCLATE 100 MG in DEXTROSE 5% 100 ML IV SCH (08:01)
[2020-02-05] MEDS: FOLIC ACID 1 MG TAB PO SCH (08:01)
[2020-02-05] MEDS: methylPREDNISolone 40 MG in SYRINGE 0 ML IV SCH (08:01)
[2020-02-05] MEDS ORDERED: HEPARIN IV BOLUS 6,000 UNITS in SYRINGE 0 ML IV ONE (08:15)
--- NOTE | 2020-02-05 08:56 | Nuclear Medicine Report ---
NM pul perfusion HISTORY: 84 years-old Male Elevated D dimer, R/O PE elevated d-dimer COMPARISON: Venous Doppler study 02/03/2020, chest radiograph 02/02/2020 TECHNIQUE: Perfusion scan was obtained in anterior, posterior, lateral and oblique positions utilizin g 5.0 mCi technetium 99 MAA. Ventilation portion of the study was not conducted secondary to droplet precautions. FINDINGS: No segmental perfusion defects. Radiograph obtained on 02/02/2020 demonstrated cardiomegaly with small pleural effusions and bibasilar consolidation. IMPRESSION: Low probability for pulmonary embolus. ACT 112: Negative or not required by law. The above report was generated using voice recognition software. It may contain grammatical, syntax o r spelling errors. Electronically signed by: Scooby Askew M.D. 02/05/2020 8:54 AM
--- NOTE | 2020-02-05 09:39 | Hospitalist Progress Note ---
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 ? Ischemic/Myocarditis Lactic acidosis --CXR:Findings could suggest developing venolymphatic congestive change, reactive airways disease or viral bronchiolitis. Given the severity, follow-up is advised. --ECHO: Mildly dilated LV chamber size with normal wall thickness. Severely reduced LV systolic function with severe global hypokinesis, EF less than 15%. The right ventricular cavity size is normal. Reduced right ventricle systolic function. There is severe calcific aortic valve stenosis. Gradients likely falsely lowered due to low output state. Moderate mitral regurgitation. Moderate left atrial enlargement. --Venous Doppler:No DVT within the right or left lower extremity. --Could not obtain CTA to R/O PE due to renal Insufficiency --NM Pulmonary Perfusion Scan:Low probability for pulmonary embolus. --Influenza, Biofire, SARS-CoV-2:Negative --Elevated BNP --Elevated Procalcitonin--trending down --Intubated on 02/02/20; Extubated on 02/04/20 --Blood/Urine Cx:Negative to date --Continue IV heparin --Respiratory Support--with supplemental oxygen as needed --Appreciate Critical Care/Cardiology Input --IV Rocephin to be discontinued --Continue Doxycycline Day #4 --Plan to resume beta cara and add DIANDRA when BP more stable --Consider PT/OT eval as able Elevated D-dimer CTA could not be obtained due to renal insufficiency Venous Doppler:No DVT within the right or left lower extremity. NM Pulmonary Perfusion Scan:Low probability for pulmonary embolus. 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 Serological tests: pending Lymphopenia, Thrombocytopenia, mild elevated LFTs Continue Doxycycline Day #4 ID on board Thrombocytopenia, transaminitis improving Acute Kidney Injury on CKD III Could be ATN Baseline Cr:1.3 Cr:2.5>>2.2 Monitor renal function Avoid Nephrotoxic agents as able Thrombocytopenia Monitor Platelets while on IV Heparin No acute bleeding issues SLE On Methotrexate, Plaquenil, Prednisone Follows with Rheumatology Hold Methotrexate Continue Plaquenil recommends to continue prednisone 5mg daily On IV Solumedrol 40mg daily DVT Px: On IV Heparin Code Status Full Code Disposition: PT/OT prior to discharge Admission and Anticipated Discharge Date Admission Date: February 02, 2020 Subjective Patient is seen and examined at bedside Sitting in chair comfortably this morning Had cough with minimal expectoration this morning Denies any chest pain, SOB, dizziness, nausea, Joint pain Platelet count, renal function improving On IV heparin Perfusion Scan--Low probability for PE Review of Systems Review of Systems: All systems reviewed & are unremarkable except as noted in HPI & below Physical Exam Physical Exam: Physical Exam: Vitals signs as noted above General Appearance:Moderately built and nourished, No distress Head: normocephalic, Atraumatic Eyes: normal inspection Neck: supple, Trachea midline Respiratory/Chest: Decreased breath sounds, CTA Cardiovascular: S1, S2, + murmur Abdomen/GI:Soft, Non tender, Bowel sounds present Extremities/Musculoskelatal:normal inspection, no edema Neurologic/Psych:, grossly no focal neurological deficits Skin: normal color, warm Results & Data Results & Data ([facility]) Vital Signs (Past 12 Hours) Vital Signs Temp Pulse Resp BP Pulse Ox 02/05/20 09:15 67 98 02/05/20 09:00 60 98 02/05/20 08:51 36.8 C 62 107/59 L 97 02/05/20 08:49 98 02/05/20 08:00 36.6 C 75 24 96 02/05/20 07:54 71 21 112/66 95 02/05/20 07:45 74 23 95 02/05/20 07:39 72 25 H 115/70 100 02/05/20 07:30 67 22 97 02/05/20 07:24 63 22 114/64 96 02/05/20 07:15 65 21 97 02/05/20 07:09 65 23 113/70 97 02/05/20 07:00 62 21 96 02/05/20 06:54 63 18 122/73 96 02/05/20 06:45 61 21 96 02/05/20 06:39 64 21 130/56 L 96 02/05/20 06:24 66 24 126/72 96 02/05/20 06:09 64 24 112/68 94 04/13/20 06:00 67 23 94 02/05/20 05:54 68 19 119/72 90 02/05/20 05:39 65 20 111/66 93 02/05/20 05:24 65 23 123/69 96 02/05/20 05:09 68 18 115/69 95 02/05/20 05:00 67 18 92 02/05/20 04:54 62 20 115/65 94 02/05/20 04:40 69 21 116/58 L 97 02/05/20 04:24 65 16 112/72 94 02/05/20 04:09 65 20 123/72 95 02/05/20 04:00 36.4 C L 67 22 95 02/05/20 03:54 63 20 119/68 96 02/05/20 03:39 64 21 115/70 94 02/05/20 03:24 66 22 113/67 95 02/05/20 03:09 67 21 115/64 94 02/05/20 03:00 68 18 90 02/05/20 02:54 65 21 116/69 95 02/05/20 02:39 65 21 118/71 95 02/05/20 02:24 67 21 123/70 94 02/05/20 02:09 67 20 122/68 96 02/05/20 02:00 66 21 96 02/05/20 01:54 64 19 116/73 97 02/05/20 01:39 66 21 124/73 96 02/05/20 01:24 67 19 121/69 94 02/05/20 01:09 65 21 123/69 96 02/05/20 01:00 71 17 91 02/05/20 00:54 65 20 115/66 96 02/05/20 00:39 65 18 111/69 96 02/05/20 00:24 71 24 112/69 96 02/05/20 00:09 70 19 114/69 97 02/05/20 00:00 36.6 C 64 20 96 02/04/20 23:54 68 22 118/73 96 02/04/20 23:39 67 21 124/73 96 02/04/20 23:24 69 22 121/73 96 02/04/20 23:09 67 17 108/65 95 02/04/20 23:00 73 21 95 02/04/20 22:54 71 21 114/71 97 02/04/20 22:39 72 21 117/73 96 02/04/20 22:24 72 21 129/66 95 02/04/20 22:08 69 22 122/71 94 02/04/20 22:00 71 20 93 02/04/20 21:54 71 20 107/71 94 02/04/20 21:38 73 21 119/72 93 Laboratory Results Short CBC 02/05/20 Range/Units 04:05 WBC 9.72 (4.8-10.8) K/uL Hgb 12.4 L (14.0-18.0) g/dL Hct 36.0 L (42-52) % Plt Count 92 L (130-400) K/uL BMP 02/05/20 04:05 Sodium 139 Potassium 3.6 Chloride 107 Carbon Dioxide 24 BUN 54 H Creatinine 2.26 H D Glucose 124 H Calcium 8.8 Liver Function 02/05/20 Range/Units 04:05 Total Bilirubin 0.6 (0.2-1) mg/dl AST 89 H (15-37) U/L ALT 132 H (12-78) U/L Alkaline Phosphatase 41 L (45-117) U/L Albumin 2.6 L (3.4-5.0) gm/dl
[2020-02-05] MEDS ORDERED: POTASSIUM CHLORIDE 10 MEQ TABCR PO STA (10:30)
--- NOTE | 2020-02-05 11:15 | Cardiology Progress Note ---
Date of Service February 05, 2020 Assessment & Plan (1) Acute on chronic renal failure: (2) Cardiomyopathy: (3) Aortic stenosis, severe: (4) Anaplasmosis: The patient has improved dramatically in 24 hours. I agree with a transfer to the stepdown unit. Subjective The patient is comfortably sitting in a chair. He feels tired but in general he feels much improved. Review of Systems Review of Systems: All systems reviewed & are unremarkable except as noted in HPI & below Nothing additional to add. Physical Exam Physical Exam: General: no acute distress and stated age Head: normocephalic, no masses, lesions, tenderness or abnormalities Eyes: conjunctiva are pink and non-injected, sclera clear Neck: supple, no adenopathy, no bruits, normal jugular venous pulse, no hepatojugular reflux Chest: normal shape and normal respiratory effort Lungs: clear to auscultation and percussion Cardiac Exam: - regular rate & rhythm, systolic murmur left sternal border.- normal S1, normal S2 Pulses: 2(+) throughout Abdomen: abdomen soft, non-tender, no abnormal masses and no hepatosplenomegaly Musculoskeletal: no gait disturbance, no joint inflammation, no deforming arthritis Extremities: no edema and no cyanosis Neuro: grossly normal exam Results & Data Vital Signs (Past 12 Hours) Vital Signs Temp Pulse Resp BP Pulse Ox 02/05/20 11:00 98 02/05/20 10:51 59 L 112/71 99 02/05/20 10:45 56 L 100 02/05/20 10:30 99 02/05/20 10:15 60 14 99 02/05/20 10:00 58 L 22 99 02/05/20 09:51 36.5 C 55 L 106/66 99 02/05/20 09:45 100 02/05/20 09:30 100 02/05/20 09:15 67 98 02/05/20 09:00 60 98 02/05/20 08:51 36.8 C 62 107/59 L 97 02/05/20 08:49 98 02/05/20 08:00 36.6 C 75 24 96 02/05/20 07:54 71 21 112/66 95 02/05/20 07:45 74 23 95 02/05/20 07:39 72 25 H 115/70 100 02/05/20 07:30 67 22 97 02/05/20 07:24 63 22 114/64 96 02/05/20 07:15 65 21 97 02/05/20 07:09 65 23 113/70 97 02/05/20 07:00 62 21 96 02/05/20 06:54 63 18 122/73 96 02/05/20 06:45 61 21 96 02/05/20 06:39 64 21 130/56 L 96 02/05/20 06:24 66 24 126/72 96 02/05/20 06:09 64 24 112/68 94 02/05/20 06:00 67 23 94 02/05/20 05:54 68 19 119/72 90 02/05/20 05:39 65 20 111/66 93 02/05/20 05:24 65 23 123/69 96 02/05/20 05:09 68 18 115/69 95 02/05/20 05:00 67 18 92 02/05/20 04:54 62 20 115/65 94 02/05/20 04:40 69 21 116/58 L 97 02/05/20 04:24 65 16 112/72 94 02/05/20 04:09 65 20 123/72 95 02/05/20 04:00 36.4 C L 67 22 95 02/05/20 03:54 63 20 119/68 96 02/05/20 03:39 64 21 115/70 94 02/05/20 03:24 66 22 113/67 95 02/05/20 03:09 67 21 115/64 94 02/05/20 03:00 68 18 90 02/05/20 02:54 65 21 116/69 95 02/05/20 02:39 65 21 118/71 95 02/05/20 02:24 67 21 123/70 94 02/05/20 02:09 67 20 122/68 96 02/05/20 02:00 66 21 96 02/05/20 01:54 64 19 116/73 97 02/05/20 01:39 66 21 124/73 96 02/05/20 01:24 67 19 121/69 94 02/05/20 01:09 65 21 123/69 96 02/05/20 01:00 71 17 91 02/05/20 00:54 65 20 115/66 96 02/05/20 00:39 65 18 111/69 96 02/05/20 00:24 71 24 112/69 96 02/05/20 00:09 70 19 114/69 97 02/05/20 00:00 36.6 C 64 20 96 02/04/20 23:54 68 22 118/73 96 02/04/20 23:39 67 21 124/73 96 02/04/20 23:24 69 22 121/73 96 Laboratory Results Laboratory Results - last 24 hr 02/03/20 02/05/20 02/05/20 01:33 04:05 04:05 WBC 9.72 RBC 3.65 L Hgb 12.4 L Hct 36.0 L MCV 98.6 MCH 34.0 MCHC 34.4 RDW Std Deviation 49.9 H RDW Coeff of Patti 14.0 Plt Count 92 L MPV 12.1 H APTT PTT Ratio Sodium 139 Potassium 3.6 Chloride 107 Carbon Dioxide 24 Anion Gap 8.0 BUN 54 H Creatinine 2.26 H D Est Cr Clr Drug Dosing 24.4 Est GFR ( Amer) 30.2 Est GFR (Non-Af Amer) 26.0 BUN/Creatinine Ratio 24.0 H Glucose 124 H Calcium 8.8 Phosphorus 3.8 D Magnesium 2.4 Total Bilirubin 0.6 AST 89 H ALT 132 H Alkaline Phosphatase 41 L Lactate Dehydrogenase Total Protein 6.0 L Albumin 2.6 L Globulin 3.4 Albumin/Globulin Ratio 0.8 L Miscellaneous Test REPORT 02/05/20 02/05/20 04:05 07:08 WBC RBC Hgb Hct MCV MCH MCHC RDW Std Deviation RDW Coeff of Patti Plt Count MPV APTT 39.3 H PTT Ratio 1.4 Sodium Potassium Chloride Carbon Dioxide Anion Gap BUN Creatinine Est Cr Clr Drug Dosing Est GFR ( Amer) Est GFR (Non-Af Amer) BUN/Creatinine Ratio Glucose Calcium Phosphorus Magnesium Total Bilirubin AST ALT Alkaline Phosphatase Lactate Dehydrogenase 342 H Total Protein Albumin Globulin Albumin/Globulin Ratio Miscellaneous Test Medications Administered Current Inpatient Medications Acetaminophen (Tylenol) 650 mg PO Q4H PRN PRN Reason: Fever/Mild Pain (Pain 1,2,3) Stop: 03/03/20 18:13 Hydrocodone Bitart/Acetaminophen ([place] 7.5/325mg) 1 tab PO BID PRN PRN Reason: Pain Stop: 02/16/20 12:22 Aspirin (Ecotrin Ectab) 81 mg PO DAILY [facility] Stop: 03/03/20 12:14 Last Admin: 02/05/20 08:01 Dose: 81 mg Documented by: Carvedilol (Coreg) 3.125 mg PO BID THOR Stop: 03/03/20 20:59 Last Admin: 02/02/20 21:53 Dose: Not Given Documented by: Cyanocobalamin (Vitamin B-12) 500 mcg PO DAILY [facility] Stop: 03/04/20 08:59 Last Admin: 02/05/20 08:01 Dose: 500 mcg Documented by: Doxycycline Hyclate (Vibramycin) 100 mg PO BID [facility] Stop: 02/15/20 21:59 Duloxetine HCl (Cymbalta) 30 mg PO DAILY [facility] Stop: 03/04/20 08:59 Last Admin: 02/03/20 08:53 Dose: 30 mg Documented by: Folic Acid (Folvite) 1 mg PO DAILY [facility] Stop: 03/03/20 11:59 Last Admin: 02/05/20 08:01 Dose: 1 mg Documented by: Heparin Sodium (Beef Lung) (Heparin Sod 10 Unit/Ml Flush) 5 ml FLUSH PRN PRN PRN Reason: Flush Stop: 03/04/20 00:09 Heparin Sodium/Dextrose (Heparin Sodium/Dextrose) 25,000 units in 500 mls @ 20 mls/hr IV .Q24H [facility]; Protocol Stop: 03/03/20 07:59 Last Titration: 02/05/20 07:52 Dose: 1,000 units/hr, 20 mls/hr Documented by: Acetaminophen (Ofirmev) 1,000 mg in 100 mls @ 400 mls/hr IV Q8H PRN PRN Reason: Fever Stop: 02/05/20 19:48 Methylprednisolone 40 mg/ (Syringe) 0.64 mls @ 1.5 mls/min IV DAILY [facility] Stop: 03/05/20 08:59 Last Admin: 02/05/20 08:01 Dose: 1.5 mls/min Documented by: Nitroglycerin (Nitrostat) 0.4 mg SL UD PRN PRN Reason: Chest Pain Stop: 03/03/20 13:47 Pantoprazole Sodium (Protonix) 40 mg PO QAM [facility] Stop: 03/07/20 08:59 Polyethylene Glycol (Miralax Powder Packet) 17 gm PO DAILY PRN PRN Reason: Constipation Stop: 03/03/20 13:47 Prednisone (Prednisone) 5 mg PO DAILY [facility] Stop: 03/03/20 13:47 Last Admin: 02/05/20 08:01 Dose: 5 mg Documented by:
--- NOTE | 2020-02-05 13:44 | Electrocardiogram Report ---
Test Reason : Blood Pressure : / mmHG Vent. Rate : 064 BPM Atrial Rate : 064 BPM P-R Int : 202 ms QRS Dur : 122 ms QT Int : 504 ms P-R-T Axes : 027 -27 -61 degrees QTc Int : 519 ms Normal sinus rhythm Left ventricular hypertrophy with QRS widening Prolonged QT Abnormal ECG When compared with ECG of 03-FEB-2020 10:17, Premature ventricular complexes are no longer Present Premature supraventricular complexes are no longer Present Criteria for Septal infarct are no longer Present Confirmed by Jarrod Rivero ([id number] on 02/05/2020 1:44:21 PM Referred By: REFERRED SELF Confirmed By:Jarrod Rivero
[2020-02-05 14:35] LABS: Partial Thromboplastin Ratio 4.1
[2020-02-05 14:46] LABS: Partial Thromboplastin Time 113.6 Seconds (21.0-31.0)
[2020-02-05 21:25] LABS: Partial Thromboplastin Ratio 1.5; Partial Thromboplastin Time 41.5 Seconds (21.0-31.0)
[2020-02-05] MEDS: DOXYCYCLINE HYCLATE 100 MG CAP PO SCH (22:34)
[2020-02-06 04:30] LABS: Hematocrit (blood only) 35.9 % (42-52); Hemoglobin 11.9 g/dL (14.0-18.0); Mean Corpuscular Hemoglobin 33.1 pg (25-34); Mean Corpuscular Hgb Conc 33.1 g/dL (32-36); Mean Platelet Volume 12.3 fL (7.4-10.4); Platelet Count 103 K/uL (130-400); RDW Coefficient of Variation 14.1 % (11.5-14.5); RDW Standard Deviation 51.4 fL (36.4-46.3); Red Blood Count 3.59 M/uL (4.7-6.1); White Blood Count 12.04 K/uL (4.8-10.8)
[2020-02-06 04:45] LABS: Albumin Level 2.5 gm/dl (3.4-5.0); BUN Creatinine Ratio 30.2 (10-20); Calcium 8.6 mg/dl (8.5-10.1); Est GFR (African American) 32.6; Est GFR (Non-African American) 28.1; Magnesium 2.3 mg/dl (1.8-2.4); Potassium 4.1 mmol/L (3.5-5.1)
[2020-02-06 04:58] LABS: Albumin Globulin Ratio 0.8 (0.9-2); Bilirubin,Total 0.5 mg/dl (0.2-1); Globulin 3.3 gm/dl (2.5-4.0); Phosphorus 2.7 mg/dl (2.5-4.9); Total Protein 5.8 gm/dl (6.4-8.2)
[2020-02-06 05:09] LABS: Basophils # (auto) 0.03 K/uL (0-0.2); Basophils % (auto) 0.2 %; Giant Platelets 1+; Immature Granulocytes # (auto) 0.05 K/uL (0.00-0.02); Immature Granulocytes % (auto) 0.4 %; Lymphocytes % (auto) 16.6 %; Monocytes # (auto) 1.21 K/uL (0.11-0.59); Neutrophils # (auto) 8.75 K/uL (1.4-6.5); Neutrophils % (auto) 72.8 %
[2020-02-06 07:49] LABS: Partial Thromboplastin Ratio 2.4
[2020-02-06 07:50] LABS: Partial Thromboplastin Time 66.3 Seconds (21.0-31.0)
[2020-02-06] MEDS: HEPARIN SODIUM/DEXTROSE 25,000 UNITS/500 ML BAG IV SCH (08:20)
[2020-02-06] MEDS: PANTOprazole 40 MG TAB PO SCH (08:20)
[2020-02-06] MEDS: predniSONE 5 MG TAB PO SCH (08:20)
[2020-02-06] MEDS: CYANOCOBALAMIN 500 MCG TABLET (VITAMIN B-12) PO SCH (08:20)
[2020-02-06] MEDS: DOXYCYCLINE HYCLATE 100 MG CAP PO SCH ×2 (08:20→21:04)
[2020-02-06] MEDS: FOLIC ACID 1 MG TAB PO SCH (08:20)
[2020-02-06] MEDS: ASPIRIN 81 MG ECTAB PO SCH (08:20)
[2020-02-06] MEDS: methylPREDNISolone 40 MG in SYRINGE 0 ML IV SCH (08:22)
[2020-02-06] MEDS: DULOXETINE HCL 30 MG CAP PO SCH (09:01)
--- NOTE | 2020-02-06 11:17 | Hospitalist Progress Note ---
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 ? Ischemic/Myocarditis Lactic acidosis --CXR:Findings could suggest developing venolymphatic congestive change, reactive airways disease or viral bronchiolitis. Given the severity, follow-up is advised. --ECHO: Mildly dilated LV chamber size with normal wall thickness. Severely reduced LV systolic function with severe global hypokinesis, EF less than 15%. The right ventricular cavity size is normal. Reduced right ventricle systolic function. There is severe calcific aortic valve stenosis. Gradients likely falsely lowered due to low output state. Moderate mitral regurgitation. Moderate left atrial enlargement. --Venous Doppler:No DVT within the right or left lower extremity. --Could not obtain CTA to R/O PE due to renal Insufficiency --NM Pulmonary Perfusion Scan:Low probability for pulmonary embolus. --Influenza, Biofire, SARS-CoV-2:Negative --Elevated BNP --Elevated Procalcitonin--trended down --Intubated on 02/02/20; Extubated on 02/04/20 --Blood/Urine Cx:Negative to date --On IV heparin discontinued 02/06/20 --Respiratory Support--Wean off of supplemental oxygen as able --Appreciate Critical Care/Cardiology Input --IV Rocephin to be discontinued --Continue Doxycycline Day #03/07 --Resume beta cara today--Carvedilol 3.125mg BID --Plan to add DIANDRA if BP remains stable --PT/OT Elevated D-dimer CTA could not be obtained due to renal insufficiency Venous Doppler:No DVT within the right or left lower extremity. NM Pulmonary Perfusion Scan:Low probability for pulmonary embolus. 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 Serological tests: pending Lymphopenia, Thrombocytopenia, mild elevated LFTs Continue Doxycycline Day #5 ID on board Thrombocytopenia, transaminitis improving Acute Kidney Injury on CKD III Could be ATN Baseline Cr:1.3 Cr:2.5>>2.2>>2.12 Monitor renal function Avoid Nephrotoxic agents as able Thrombocytopenia Monitor Platelets No acute bleeding issues SLE On Methotrexate, Plaquenil, Prednisone Follows with Rheumatology Hold Methotrexate Continue Plaquenil recommends to continue prednisone 5mg daily On IV Solu-medrol 40mg daily DVT Px: Heparin Sq Code Status Full Code Disposition: PT/OT prior to discharge May need Rehab Placement Admission and Anticipated Discharge Date Admission Date: February 02, 2020 Subjective Patient is seen and examined at bedside Doing much better this morning States having cough with minimal expectoration this morning Reports generalized weakness Offers no other complaints Noted mild leukocytosis--secondary to steroids Afebrile Plan to wean off of supplemental oxygen as able Denies any chest pain, SOB, dizziness, nausea, Joint pain, abd pain IV Heparin discontinued Review of Systems Review of Systems: All systems reviewed & are unremarkable except as noted in HPI & below Physical Exam Physical Exam: Physical Exam: Vitals signs as noted above General Appearance:Moderately built and nourished, No distress Head: normocephalic, Atraumatic Eyes: normal inspection Neck: supple, Trachea midline Respiratory/Chest: Decreased breath sounds, CTA Cardiovascular: S1, S2, + systolic murmur Abdomen/GI:Soft, Non tender, Bowel sounds present Extremities/Musculoskelatal:normal inspection, no edema Neurologic/Psych:, grossly no focal neurological deficits Skin: normal color, warm Results & Data Results & Data ([facility]) Vital Signs (Past 12 Hours) Vital Signs Temp Pulse Resp BP Pulse Ox 02/06/20 08:00 36.6 C 60 20 128/71 100 02/06/20 04:19 36.5 C 02/06/20 03:00 67 19 92/45 L 96 02/06/20 00:56 36.4 C L Laboratory Results Short CBC 02/06/20 Range/Units 04:05 WBC 12.04 H (4.8-10.8) K/uL Hgb 11.9 L (14.0-18.0) g/dL Hct 35.9 L (42-52) % Plt Count 103 L (130-400) K/uL BMP 02/06/20 04:05 Sodium 139 Potassium 4.1 Chloride 110 H Carbon Dioxide 22 BUN 64 H Creatinine 2.12 H Glucose 147 H Calcium 8.6 Liver Function 02/06/20 Range/Units 04:05 Total Bilirubin 0.5 (0.2-1) mg/dl AST 63 H (15-37) U/L ALT 110 H (12-78) U/L Alkaline Phosphatase 40 L (45-117) U/L Albumin 2.5 L (3.4-5.0) gm/dl
--- NOTE | 2020-02-06 11:42 | Cardiology Progress Note ---
Date of Service February 06, 2020 Assessment & Plan (1) Aortic stenosis, severe: (2) Cardiomyopathy: (3) Non-ST elevation [place] (NSTEMI): (4) Anaplasmosis: (5) Acute on chronic renal failure: The patient is doing well. I will stop his IV heparin today. Restart his home carvedilol. He would benefit from physical therapy and perhaps a rehab center after discharge. Subjective The patient is sitting in the chair enjoying lunch. He feels much improved. Review of Systems Review of Systems: All systems reviewed & are unremarkable except as noted in HPI & below Nothing additional to add. Physical Exam Physical Exam: General: no acute distress and stated age Head: normocephalic, no masses, lesions, tenderness or abnormalities Eyes: conjunctiva are pink and non-injected, sclera clear Neck: supple, no adenopathy, no bruits, normal jugular venous pulse, no hepatojugular reflux Chest: normal shape and normal respiratory effort Lungs: clear to auscultation and percussion Cardiac Exam: - regular rate & rhythm, systolic murmur left sternal border- normal S1, normal S2 Pulses: 2(+) throughout Abdomen: abdomen soft, non-tender, no abnormal masses and no hepatosplenomegaly Musculoskeletal: no gait disturbance, no joint inflammation, no deforming arthritis Extremities: no edema and no cyanosis Neuro: grossly normal exam Results & Data Vital Signs (Past 12 Hours) Vital Signs Temp Pulse Resp BP Pulse Ox 02/06/20 08:00 36.6 C 60 20 128/71 100 02/06/20 04:19 36.5 C 02/06/20 03:00 67 19 92/45 L 96 02/06/20 00:56 36.4 C L Laboratory Results Laboratory Results - last 24 hr 02/05/20 02/05/20 02/06/20 13:40 21:06 00:03 WBC RBC Hgb Hct MCV MCH MCHC RDW Std Deviation RDW Coeff of Patti Plt Count MPV Immature Gran % (Auto) Neut % (Auto) Lymph % (Auto) Hall % (Auto) Eos % (Auto) Baso % (Auto) Immature Gran # (Auto) Neut # (Auto) Lymph # (Auto) Hall # (Auto) Eos # (Auto) Baso # (Auto) Giant Platelets APTT 113.6 H* 41.5 H PTT Ratio 4.1 1.5 Sodium Potassium Chloride Carbon Dioxide Anion Gap BUN Creatinine Est Cr Clr Drug Dosing Est GFR ( Amer) Est GFR (Non-Af Amer) BUN/Creatinine Ratio Glucose POC Glucose 171 H Calcium Phosphorus Magnesium Total Bilirubin AST ALT Alkaline Phosphatase Total Protein Albumin Globulin Albumin/Globulin Ratio 02/06/20 02/06/20 02/06/20 04:05 04:05 07:09 WBC 12.04 H RBC 3.59 L Hgb 11.9 L Hct 35.9 L MCV 100.0 MCH 33.1 MCHC 33.1 RDW Std Deviation 51.4 H RDW Coeff of Patti 14.1 Plt Count 103 L MPV 12.3 H Immature Gran % (Auto) 0.4 Neut % (Auto) 72.8 Lymph % (Auto) 16.6 Hall % (Auto) 10.0 Eos % (Auto) 0.0 Baso % (Auto) 0.2 Immature Gran # (Auto) 0.05 H Neut # (Auto) 8.75 H Lymph # (Auto) 2.00 Hall # (Auto) 1.21 H Eos # (Auto) 0.00 Baso # (Auto) 0.03 Giant Platelets 1+ APTT 66.3 H* PTT Ratio 2.4 Sodium 139 Potassium 4.1 Chloride 110 H Carbon Dioxide 22 Anion Gap 7.0 BUN 64 H Creatinine 2.12 H Est Cr Clr Drug Dosing 26.0 Est GFR ( Amer) 32.6 Est GFR (Non-Af Amer) 28.1 BUN/Creatinine Ratio 30.2 H Glucose 147 H POC Glucose Calcium 8.6 Phosphorus 2.7 D Magnesium 2.3 Total Bilirubin 0.5 AST 63 H ALT 110 H Alkaline Phosphatase 40 L Total Protein 5.8 L Albumin 2.5 L Globulin 3.3 Albumin/Globulin Ratio 0.8 L Medications Administered Current Inpatient Medications Acetaminophen (Tylenol) 650 mg PO Q4H PRN PRN Reason: Fever/Mild Pain (Pain 1,2,3) Stop: 03/03/20 18:13 Hydrocodone Bitart/Acetaminophen ([place] 7.5/325mg) 1 tab PO BID PRN PRN Reason: Pain Stop: 02/16/20 12:22 Aspirin (Ecotrin Ectab) 81 mg PO DAILY THOR Stop: 03/03/20 12:14 Last Admin: 02/06/20 08:20 Dose: 81 mg Documented by: Carvedilol (Coreg) 3.125 mg PO BID [facility] Stop: 03/03/20 20:59 Last Admin: 02/02/20 21:53 Dose: Not Given Documented by: Carvedilol (Coreg) 3.125 mg PO BID [facility] Stop: 03/07/20 11:44 Cyanocobalamin (Vitamin B-12) 500 mcg PO DAILY THOR Stop: 03/04/20 08:59 Last Admin: 02/06/20 08:20 Dose: 500 mcg Documented by: Doxycycline Hyclate (Vibramycin) 100 mg PO BID [facility] Stop: 02/15/20 21:59 Last Admin: 02/06/20 08:20 Dose: 100 mg Documented by: Duloxetine HCl (Cymbalta) 30 mg PO DAILY [facility] Stop: 03/04/20 08:59 Last Admin: 02/06/20 09:01 Dose: 30 mg Documented by: Folic Acid (Folvite) 1 mg PO DAILY [facility] Stop: 03/03/20 11:59 Last Admin: 02/06/20 08:20 Dose: 1 mg Documented by: Methylprednisolone 40 mg/ (Syringe) 0.64 mls @ 1.5 mls/min IV DAILY [facility] Stop: 03/05/20 08:59 Last Admin: 02/06/20 08:22 Dose: 1.5 mls/min Documented by: Heparin Sodium (Porcine) 3,000 (units/ Syringe) 3 mls @ 10 mls/min IV ONE ONE Stop: 02/06/20 12:16 Last Admin: 02/06/20 00:20 Dose: 10 mls/min Documented by: Nitroglycerin (Nitrostat) 0.4 mg SL UD PRN PRN Reason: Chest Pain Stop: 03/03/20 13:47 Pantoprazole Sodium (Protonix) 40 mg PO QAM [facility] Stop: 03/07/20 08:59 Last Admin: 02/06/20 08:20 Dose: 40 mg Documented by: Polyethylene Glycol (Miralax Powder Packet) 17 gm PO DAILY PRN PRN Reason: Constipation Stop: 03/03/20 13:47 Prednisone (Prednisone) 5 mg PO DAILY [facility] Stop: 03/03/20 13:47 Last Admin: 02/06/20 08:20 Dose: 5 mg Documented by:
[2020-02-06] MEDS ORDERED: HEPARIN GTT~STOP ORDER ONE (11:45)
[2020-02-06] MEDS ORDERED: HEPARIN IV BOLUS 3,000 UNITS in SYRINGE 0 ML IV ONE (12:15)
[2020-02-06] MEDS: carvediloL 3.125 MG TAB PO SCH ×2 (12:17→21:02)
[2020-02-06] MEDS ORDERED: WARFARIN SOD 5 MG TAB PO SCH (16:00)
[2020-02-06 17:29] LABS: Ehrlichia chaff IgG Ab <1:64 (<1:64); Ehrlichia chaff IgM Ab <1:20 (<1:20)
[2020-02-06] MEDS: HEPARIN SOD 5,000 UNIT/0.5 ML VIAL SQ SCH (21:03)
[2020-02-07 04:25] LABS: Basophils # (auto) 0.01 K/uL (0-0.2); Basophils % (auto) 0.1 %; Hematocrit (blood only) 35.2 % (42-52); Hemoglobin 11.8 g/dL (14.0-18.0); Immature Granulocytes # (auto) 0.11 K/uL (0.00-0.02); Immature Granulocytes % (auto) 0.9 %; Lymphocytes # (auto) 2.25 K/uL (1.2-3.4); Lymphocytes % (auto) 18.3 %; Mean Corpuscular Hemoglobin 33.9 pg (25-34); Mean Corpuscular Hgb Conc 33.5 g/dL (32-36); Mean Corpuscular Volume 101.1 fL (80-100); Mean Platelet Volume 11.7 fL (7.4-10.4); Monocytes # (auto) 1.18 K/uL (0.11-0.59); Monocytes % (auto) 9.6 %; Neutrophils # (auto) 8.72 K/uL (1.4-6.5); Neutrophils % (auto) 71.1 %; Platelet Count 111 K/uL (130-400); RDW Coefficient of Variation 14.3 % (11.5-14.5); RDW Standard Deviation 52.5 fL (36.4-46.3); Red Blood Count 3.48 M/uL (4.7-6.1); White Blood Count 12.27 K/uL (4.8-10.8)
[2020-02-07 04:41] LABS: Albumin Level 2.5 gm/dl (3.4-5.0); BUN Creatinine Ratio 32.4 (10-20); Calcium 8.5 mg/dl (8.5-10.1); Creatinine Clr Calc Pharmacy 30.8 ml/min; Est GFR (Non-African American) 34.5; Potassium 4.4 mmol/L (3.5-5.1)
[2020-02-07 04:44] LABS: Albumin Globulin Ratio 0.7 (0.9-2); Bilirubin,Total 0.7 mg/dl (0.2-1); Globulin 3.4 gm/dl (2.5-4.0); Total Protein 5.9 gm/dl (6.4-8.2)
[2020-02-07] MEDS: DOXYCYCLINE HYCLATE 100 MG CAP PO SCH ×2 (07:43→20:15)
[2020-02-07] MEDS: DULOXETINE HCL 30 MG CAP PO SCH (07:44)
[2020-02-07] MEDS: CYANOCOBALAMIN 500 MCG TABLET (VITAMIN B-12) PO SCH (07:44)
[2020-02-07] MEDS: carvediloL 3.125 MG TAB PO SCH ×2 (07:44→20:15)
[2020-02-07] MEDS: FOLIC ACID 1 MG TAB PO SCH (07:44)
[2020-02-07] MEDS: predniSONE 5 MG TAB PO SCH (07:44)
[2020-02-07] MEDS: ASPIRIN 81 MG ECTAB PO SCH (07:44)
[2020-02-07] MEDS: PANTOprazole 40 MG TAB PO SCH (07:44)
[2020-02-07] MEDS: HEPARIN SOD 5,000 UNIT/0.5 ML VIAL SQ SCH ×2 (07:44→20:15)
--- NOTE | 2020-02-07 08:49 | Infectious Disease Progress Nt ---
Date of Service February 07, 2020 Assessment & Plan (1) Anaplasmosis: agree with doxy, would give 14 days, continue supportive care Admission and Anticipated Discharge Date Admission Date: February 02, 2020 Subjective pt remains afebrile. wbc 12, LFTs trending down, blood and urine cultures negative. tolerating doxy Results & Data ([facility]) Vital Signs (Past 12 Hours) Vital Signs Temp Pulse Resp BP BP Pulse Ox 02/07/20 04:04 36.3 C L 51 L 19 109/66 92 02/06/20 23:17 36.7 C 60 21 113/64 93 Laboratory Results Microbiology 02/02/20 07:07 Blood Aerobic Blood Culture - Preliminary No growth in Aerobic bottle after 48 hours. 02/02/20 07:07 Blood Anaerobic Blood Culture - Preliminary No growth in Anaerobic bottle after 48 hours. 02/02/20 07:10 Blood Aerobic Blood Culture - Preliminary No growth in Aerobic bottle after 48 hours. 02/02/20 07:10 Blood Anaerobic Blood Culture - Preliminary No growth in Anaerobic bottle after 48 hours. 02/02/20 21:03 Urine,Clean Catch Urine Culture - Final No growth - less than 1,000 colonies/mL. 02/02/20 11:01 Urine,Clean Catch Urine Culture - Final Three types of organisms present, all low counts probable skin saundra. No further identifications or sensitivities to follow. PG Care Time/CCT Total # of Minutes Spent Total Time Spent with Patient: Total time spent is greater than 50% in coordination of care (as documented) at patient's floor/unit and/or counseling patient: Coding Level of Care Code 70316 Subseq Hosp Care Lvl 1 Diagnoses Anaplasmosis A77.49
[2020-02-07] MEDS: methylPREDNISolone 40 MG in SYRINGE 0 ML IV SCH (10:06)
--- NOTE | 2020-02-07 11:04 | Hospitalist Progress Note ---
Date of Service February 07, 2020 Assessment & Plan (1) Acute hypoxemic respiratory failure: Acute respiratory failure with hypoxia Cardiogenic Shock is suspected to be from sepsis due to anaplasmosis Cardiomyopathy may be from anaplasmosis versus ischemic heart disease of unknown duration Lactic acidosis Anaplasmosis with Transaminitis and Thrombocytopenia -initial CXR:Findings could suggest developing venolymphatic congestive change, reactive airways disease or viral bronchiolitis -initial echocardiogram: Mildly dilated LV chamber size with normal wall thickness. Severely reduced LV systolic function with severe global hypokinesis, EF less than 15%. The right ventricular cavity size is normal. Reduced right ventricle systolic function. There is severe calcific aortic valve stenosis. Gradients likely falsely lowered due to low output state. Moderate mitral regurgitation. Moderate left atrial enlargement. -Venous Doppler:No DVT within the right or left lower extremity. -Could not obtain CTA to R/O PE due to renal Insufficiency. NM Pulmonary Perfusion Scan was performed and determined low probability for pulmonary embolus so pulmonary embolism is ruled out as cause fo symptoms -Influenza, Biofire, SARS-CoV-2:Negative -Elevated BNP on admission -Elevated Procalcitonin--trended down -Intubated on 02/02/20; Extubated on 02/04/20 -IV heparin was discontinued 02/06/20 -Blood/Urine Cx:Negative to date. trial of ceftriaxone was stopped -history of Tick Bite 2 weeks prior to admission. 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 Thrombocytopenia, transaminitis improving -as of 02/07/2020, patient is on carvedilol 3.125 mg BID and cardiology Dr. Love plans to repeat echocardiogram Elevated D-dimer on this admission -CTA could not be obtained due to renal insufficiency -Venous Doppler:No DVT within the right or left lower extremity. -NM Pulmonary Perfusion Scan:Low probability for pulmonary embolus. -IV heparin was discontinued 02/06/20 Acute Kidney Injury on Chronic Kidney Disease III -Could be ATN -Baseline Cr:1.3 -admission creatinine is 2.5 -creatinine has improved substantially and creatinine on 02/07/2020 is 1.79 Systemic lupus erythematosus (SLE) -on home medication of Methotrexate, Plaquenil, Prednisone -was given a trial of solumedrol 40 mg IV daily but will plan to not continue high solumedrol as of 02/08/2020 given clinical improvements -Follows with Rheumatology DVT Prophylaxis: Heparin Sq Patient has been working with Physical therapy during hospital stay Code Status: Full Code Admission and Anticipated Discharge Date Admission Date: February 02, 2020 Subjective Patient seen and examined while sitting in the bed. He is on room air. No respiratory distress. He denies shortness of breath. He denies chest pain. No problems of the abdomen. He denies any symptoms. Nursing staff saw him work with physical therapy earlier today. Review of Systems Review of Systems: All systems reviewed & are unremarkable except as noted in HPI & below Physical Exam Constitutional: WD/WN, vitals as above comfortable Eyes: PERRL, conjunctivae normal, anicteric sclerae EOM intact bilaterally ENMT: external ear and nose normal, oropharynx normal Neck: normal visual inspection Respiratory: normal respiratory effort, lungs clear to auscultation normal respiratory effort Cardiovascular: Rate/Rhythm: + bradycardic Gastrointestinal (Abdomen): normal bowel sounds, soft, nontender, no hepatosplenomegaly Musculoskeletal: Head/Neck/Chest: normocephalic and head atraumatic Neurologic: PERRL, EOMI, accommodation nl, no face palsy, no dysarthria CN's II-XI intact bilaterally Psychiatric: A+Ox3, euthymic affect Results & Data Results & Data ([facility]) Vital Signs (Past 12 Hours) Vital Signs Temp Pulse Pulse Pulse Resp BP BP 02/07/20 10:26 36.4 C L 56 L 16 127/70 02/07/20 07:00 58 L 02/07/20 04:04 36.3 C L 51 L 19 109/66 02/06/20 23:17 36.7 C 60 21 113/64 Pulse Ox 02/07/20 10:26 95 02/07/20 07:00 02/07/20 04:04 92 02/06/20 23:17 93
--- NOTE | 2020-02-07 12:26 | Cardiology Progress Note ---
Date of Service February 07, 2020 Assessment & Plan (1) Anaplasmosis: (2) Cardiomyopathy: (3) Acute on chronic renal failure: (4) Aortic stenosis: (5) CKD (chronic kidney disease), stage III: The patient is improving and I agree that he can be transferred to medical surgical floor. I am going to repeat his echocardiogram to reevaluate his LVEF and aortic stenosis. His original echocardiogram completed on admission was when he was septic and sick with presumed anaplasmosis. Once I reviewed that I will have recommendations regarding medication adjustments and follow-up. Subjective Patient sitting in the chair, having lunch, is comfortable. Review of Systems Review of Systems: All systems reviewed & are unremarkable except as noted in HPI & below Nothing additional to add. Physical Exam Physical Exam: General: no acute distress and stated age Head: normocephalic, no masses, lesions, tenderness or abnormalities Eyes: conjunctiva are pink and non-injected, sclera clear Neck: supple, no adenopathy, no bruits, normal jugular venous pulse, no hepatojugular reflux Chest: normal shape and normal respiratory effort Lungs: clear to auscultation and percussion Cardiac Exam: - regular rate & rhythm, systolic murmur- normal S1, normal S2 Pulses: 2(+) throughout Abdomen: abdomen soft, non-tender, no abnormal masses and no hepatosplenomegaly Musculoskeletal: no gait disturbance, no joint inflammation, no deforming arthritis Extremities: no edema and no cyanosis Neuro: grossly normal exam Results & Data Vital Signs (Past 12 Hours) Vital Signs Temp Pulse Pulse Pulse Resp BP BP 02/07/20 11:45 36.4 C L 56 L 19 118/69 02/07/20 10:26 36.4 C L 56 L 16 127/70 02/07/20 07:00 58 L 02/07/20 04:04 36.3 C L 51 L 19 109/66 Pulse Ox 02/07/20 11:45 97 02/07/20 10:26 95 02/07/20 07:00 02/07/20 04:04 92 Laboratory Results Laboratory Results - last 24 hr 02/02/20 02/07/20 02/07/20 15:07 04:03 04:03 WBC 12.27 H RBC 3.48 L Hgb 11.8 L Hct 35.2 L MCV 101.1 H MCH 33.9 MCHC 33.5 RDW Std Deviation 52.5 H RDW Coeff of Patti 14.3 Plt Count 111 L MPV 11.7 H Immature Gran % (Auto) 0.9 Neut % (Auto) 71.1 Lymph % (Auto) 18.3 Frederick % (Auto) 9.6 Eos % (Auto) 0.0 Baso % (Auto) 0.1 Immature Gran # (Auto) 0.11 H Neut # (Auto) 8.72 H Lymph # (Auto) 2.25 Frederick # (Auto) 1.18 H Eos # (Auto) 0.00 Baso # (Auto) 0.01 PT INR Sodium 134 L Potassium 4.4 Chloride 113 H Carbon Dioxide 23 Anion Gap -2.0 L BUN 58 H Creatinine 1.79 H D Est Cr Clr Drug Dosing 30.8 Est GFR ( Amer) 40.0 Est GFR (Non-Af Amer) 34.5 BUN/Creatinine Ratio 32.4 H Glucose 120 H Calcium 8.5 Total Bilirubin 0.7 AST 49 H ALT 112 H Alkaline Phosphatase 38 L Total Protein 5.9 L Albumin 2.5 L Globulin 3.4 Albumin/Globulin Ratio 0.7 L Tick Lyme Diseas (PCR) Cancelled E. chaffeensis IgG Ab <1:64 E. chaffeensis IgM Ab <1:20 E. chaffeensis Interp see note E. chaffeensis Comment see note 02/07/20 04:03 WBC RBC Hgb Hct MCV MCH MCHC RDW Std Deviation RDW Coeff of Patti Plt Count MPV Immature Gran % (Auto) Neut % (Auto) Lymph % (Auto) Frederick % (Auto) Eos % (Auto) Baso % (Auto) Immature Gran # (Auto) Neut # (Auto) Lymph # (Auto) Frederick # (Auto) Eos # (Auto) Baso # (Auto) PT 11.0 INR 1.0 Sodium Potassium Chloride Carbon Dioxide Anion Gap BUN Creatinine Est Cr Clr Drug Dosing Est GFR ( Amer) Est GFR (Non-Af Amer) BUN/Creatinine Ratio Glucose Calcium Total Bilirubin AST ALT Alkaline Phosphatase Total Protein Albumin Globulin Albumin/Globulin Ratio Tick Lyme Diseas (PCR) E. chaffeensis IgG Ab E. chaffeensis IgM Ab E. chaffeensis Interp E. chaffeensis Comment Medications Administered Current Inpatient Medications Acetaminophen (Tylenol) 650 mg PO Q4H PRN PRN Reason: Fever/Mild Pain (Pain 1,2,3) Stop: 03/03/20 18:13 Hydrocodone Bitart/Acetaminophen ([place] 7.5/325mg) 1 tab PO BID PRN PRN Reason: Pain Stop: 02/16/20 12:22 Aspirin (Ecotrin Ectab) 81 mg PO DAILY [facility] Stop: 03/03/20 12:14 Last Admin: 02/07/20 07:44 Dose: 81 mg Documented by: Carvedilol (Coreg) 3.125 mg PO BID [facility] Stop: 03/07/20 11:44 Last Admin: 02/07/20 07:44 Dose: 3.125 mg Documented by: Cyanocobalamin (Vitamin B-12) 500 mcg PO DAILY [facility] Stop: 03/04/20 08:59 Last Admin: 02/07/20 07:44 Dose: 500 mcg Documented by: Doxycycline Hyclate (Vibramycin) 100 mg PO BID [facility] Stop: 02/15/20 21:59 Last Admin: 02/07/20 07:43 Dose: 100 mg Documented by: Duloxetine HCl (Cymbalta) 30 mg PO DAILY [facility] Stop: 03/04/20 08:59 Last Admin: 02/07/20 07:44 Dose: 30 mg Documented by: Folic Acid (Folvite) 1 mg PO DAILY [facility] Stop: 03/03/20 11:59 Last Admin: 02/07/20 07:44 Dose: 1 mg Documented by: Heparin Sodium (Porcine) (Heparin Sodium (Porcine)) 5,000 units SQ Q12 [facility] Stop: 03/07/20 20:59 Last Admin: 02/07/20 07:44 Dose: 5,000 units Documented by: Methylprednisolone 40 mg/ (Syringe) 0.64 mls @ 1.5 mls/min IV DAILY [facility] Stop: 03/05/20 08:59 Last Admin: 02/07/20 10:06 Dose: 1.5 mls/min Documented by: Nitroglycerin (Nitrostat) 0.4 mg SL UD PRN PRN Reason: Chest Pain Stop: 03/03/20 13:47 Pantoprazole Sodium (Protonix) 40 mg PO QAM [facility] Stop: 03/07/20 08:59 Last Admin: 02/07/20 07:44 Dose: 40 mg Documented by: Polyethylene Glycol (Miralax Powder Packet) 17 gm PO DAILY PRN PRN Reason: Constipation Stop: 03/03/20 13:47 Prednisone (Prednisone) 5 mg PO DAILY [facility] Stop: 03/03/20 13:47 Last Admin: 02/07/20 07:44 Dose: 5 mg Documented by:
[2020-02-07] MEDS ORDERED: lisinopriL 5 MG TAB PO STA (16:30)
[2020-02-08 06:12] LABS: Basophils # (auto) 0.02 K/uL (0-0.2); Basophils % (auto) 0.1 %; Eosinophils # (auto) 0.01 K/uL (0-0.5); Eosinophils % (auto) 0.1 %; Hematocrit (blood only) 38.4 % (42-52); Hemoglobin 13.2 g/dL (14.0-18.0); Immature Granulocytes # (auto) 0.21 K/uL (0.00-0.02); Immature Granulocytes % (auto) 1.4 %; Lymphocytes # (auto) 2.51 K/uL (1.2-3.4); Mean Corpuscular Hemoglobin 34.6 pg (25-34); Mean Corpuscular Hgb Conc 34.4 g/dL (32-36); Mean Corpuscular Volume 100.8 fL (80-100); Mean Platelet Volume 12.1 fL (7.4-10.4); Monocytes # (auto) 1.58 K/uL (0.11-0.59); Monocytes % (auto) 10.7 %; Neutrophils % (auto) 70.7 %; Platelet Count 147 K/uL (130-400); RDW Coefficient of Variation 14.2 % (11.5-14.5); RDW Standard Deviation 51.7 fL (36.4-46.3); Red Blood Count 3.81 M/uL (4.7-6.1); White Blood Count 14.73 K/uL (4.8-10.8)
[2020-02-08 06:52] LABS: Albumin Level 2.6 gm/dl (3.4-5.0); BUN Creatinine Ratio 31.6 (10-20); Calcium 8.6 mg/dl (8.5-10.1); Est GFR (African American) 43.5; Est GFR (Non-African American) 37.5; Potassium 4.4 mmol/L (3.5-5.1)
[2020-02-08 06:55] LABS: Albumin Globulin Ratio 0.7 (0.9-2); Bilirubin,Total 0.7 mg/dl (0.2-1); Globulin 3.6 gm/dl (2.5-4.0); Total Protein 6.2 gm/dl (6.4-8.2)
[2020-02-08] MEDS: CYANOCOBALAMIN 500 MCG TABLET (VITAMIN B-12) PO SCH (08:07)
[2020-02-08] MEDS: DOXYCYCLINE HYCLATE 100 MG CAP PO SCH (08:07)
[2020-02-08] MEDS: carvediloL 3.125 MG TAB PO SCH (08:07)
[2020-02-08] MEDS: predniSONE 5 MG TAB PO SCH (08:09)
[2020-02-08] MEDS: FOLIC ACID 1 MG TAB PO SCH (08:09)
[2020-02-08] MEDS: PANTOprazole 40 MG TAB PO SCH (08:09)
[2020-02-08] MEDS: ASPIRIN 81 MG ECTAB PO SCH (08:09)
[2020-02-08] MEDS: DULOXETINE HCL 30 MG CAP PO SCH (08:09)
[2020-02-08] MEDS: HEPARIN SOD 5,000 UNIT/0.5 ML VIAL SQ SCH (08:10)
--- NOTE | 2020-02-08 08:51 | Hospitalist Progress Note ---
Date of Service February 08, 2020 Assessment & Plan (1) Acute hypoxemic respiratory failure: Acute respiratory failure with hypoxia Cardiogenic Shock is suspected to be from sepsis due to anaplasmosis Cardiomyopathy with aortic stenosis Lactic acidosis Anaplasmosis with Transaminitis and Thrombocytopenia -initial CXR:Findings could suggest developing venolymphatic congestive change, reactive airways disease or viral bronchiolitis -initial echocardiogram: Mildly dilated LV chamber size with normal wall thickness. Severely reduced LV systolic function with severe global hypokinesis, EF less than 15%. The right ventricular cavity size is normal. Reduced right ventricle systolic function. There is severe calcific aortic valve stenosis. Gradients likely falsely lowered due to low output state. Moderate mitral regurgitation. Moderate left atrial enlargement. -Venous Doppler:No DVT within the right or left lower extremity. -Could not obtain CTA to R/O PE due to renal Insufficiency. NM Pulmonary Perfusion Scan was performed and determined low probability for pulmonary embolus so pulmonary embolism is ruled out as cause fo symptoms -Influenza, Biofire, SARS-CoV-2:Negative -Elevated BNP on admission -Elevated Procalcitonin--trended down -Intubated on 02/02/20; Extubated on 02/04/20 -IV heparin was discontinued 02/06/20 -Blood/Urine Cx:Negative to date. trial of ceftriaxone was stopped -history of Tick Bite 2 weeks prior to admission. 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 Thrombocytopenia, transaminitis improving -as of 02/07/2020, patient is on carvedilol 3.125 mg BID and cardiology Dr. Love plans repeated echocardiogram which showed ejection fraction improved to 35 to 40% and continues to have aortic stenosis which is classified severe. Lisinopril 5 mg daily started on 02/07/2020 -will need to follow up with cardiology clinic around 2 to 4 weeks [facility] follow up appointment. If patient do not hear from them, please call to make this appointment. [facility] Cardiology office will be calling patient to schedule an appointment.) -new Discharge medications sent electronically to [facility] [address] [place] [address] of carvedilol 3.125 mg twice a day, lisinopril 5 mg daily and also doxycycline as 100 mg twice a day for 7 more days to complete the 14 day total course which was started in the hospital stay Elevated D-dimer on this admission -CTA could not be obtained due to renal insufficiency -Venous Doppler:No DVT within the right or left lower extremity. -NM Pulmonary Perfusion Scan:Low probability for pulmonary embolus. -IV heparin was discontinued 02/06/20 Acute Kidney Injury on Chronic Kidney Disease III -Could be ATN -Baseline Cr:1.3 -admission creatinine is 2.5 -creatinine has improved substantially and creatinine on 02/08/2020 is 1.67 -patient should have follow up renal function lab work as per primary care doctor followup Systemic lupus erythematosus (SLE) -on home medication of Methotrexate, Plaquenil, Prednisone -was given a trial of solumedrol 40 mg IV daily during hospital stay. no further solumedrol needed at this time -05/13/2020 2:20 PM Provider Jose David Loredo MD Department Rheumatology [facility] Code Status: Full Code Disposition: Patient declines going to physical rehabilitation facility and wishes to be discharged to home. [employer] is asked to set up home health services if possible Discharge Diagnosis: Acute respiratory failure with hypoxia Lactic Acidosis Anaplasmosis: Cardiomyopathy with aortic stenosis Acute Kidney Injury on Chronic Kidney Disease III Admission and Anticipated Discharge Date Admission Date: February 02, 2020 Review of Systems Review of Systems: All systems reviewed & are unremarkable except as noted in HPI & below Physical Exam Constitutional: WD/WN, vitals as above comfortable Eyes: PERRL, conjunctivae normal, anicteric sclerae EOM intact bilaterally ENMT: external ear and nose normal, oropharynx normal Neck: normal visual inspection Respiratory: normal respiratory effort, lungs clear to auscultation normal respiratory effort Cardiovascular: Rate/Rhythm: + bradycardic Gastrointestinal (Abdomen): normal bowel sounds, soft, nontender, no hepatosplenomegaly Musculoskeletal: Head/Neck/Chest: normocephalic and head atraumatic Neurologic: PERRL, EOMI, accommodation nl, no face palsy, no dysarthria CN's II-XI intact bilaterally Psychiatric: A+Ox3, euthymic affect Results & Data Results & Data ([place]) Vital Signs (Past 12 Hours) Vital Signs Temp Pulse Pulse Resp BP BP Pulse Ox 02/08/20 07:21 56 L 02/08/20 07:00 36.4 C L 58 L 20 130/72 95 02/08/20 04:00 36.6 C 57 L 20 128/70 91 02/08/20 00:00 53 L 02/07/20 23:00 36.7 C 62 20 131/83 94
[2020-02-08] MEDS ORDERED: lisinopriL 5 MG TAB PO SCH (09:00)
--- NOTE | 2020-02-08 09:03 | Discharge Summary ---
Date of Service February 08, 2020 Admission HPI Per Admitting Provider Patient is an 84-year-old male with history of SLE, CKD III, lumbar stenosis, pericarditis, hypertension, aortic stenosis as per records and other medical problems presents with history of worsening shortness of breath. Patient reported worsening joint pains associated with back pain since 2 days duration. Patient believed that he had a flare from his lupus and discussed with his program rep Dr. House who recommended to start on a prednisone taper. Patient also states having fever 100.9 F yesterday, generalized weakness, poor appetite and wheezing on exertion since yesterday. This morning patient noticed to develop significant shortness of breath which prompted him to come to ED. He admits to having tick bite 2 weeks ago but was not treated for the same. He denies any history of travel, sick contact/COVID exposure. He took 50 mg of prednisone yesterday which improved his joint pain. He also states having mild headache for 2 days duration which improved. Denies any history of chest pain, orthopnea, PND, dizziness, pedal edema, cough, hemoptysis, fall, change in vision, nausea, vomiting, abdominal pain, diarrhea, dysuria, recent change in medications. He was found to be hypoxic while in ED and was placed on BiPAP. He is also noted to be tachycardic, Tachypneic, has elevated d-dimer, ALEXIS, lactate elevated 2.8, BNP 24,192, elevated troponin and blood smear suggestive of anaplasmosis. Patient could not get CTA due to ALEXIS. He started o IV heparin while in ED. Principal Diagnosis Acute respiratory failure with hypoxia Lactic Acidosis Anaplasmosis: Cardiomyopathy with aortic stenosis Acute Kidney Injury on Chronic Kidney Disease III Discharge Exam Constitutional WD/WN, vitals as above comfortable Eyes PERRL, conjunctivae normal, anicteric sclerae EOM intact bilaterally ENMT external ear and nose normal, oropharynx normal Neck normal visual inspection Respiratory normal respiratory effort, lungs clear to auscultation normal respiratory effort Cardiovascular Rate/Rhythm: + bradycardic Gastrointestinal (Abdomen) normal bowel sounds, soft, nontender, no hepatosplenomegaly Musculoskeletal Head/Neck/Chest: normocephalic and head atraumatic Neurologic PERRL, EOMI, accommodation nl, no face palsy, no dysarthria CN's II-XI intact bilaterally Psychiatric A+Ox3, euthymic affect Discharge Data Allergies Allergy/AdvReac Type Severity Reaction Status Date / Time oxycodone Allergy Unknown ITCHY, Per Verified 02/02/20 07:38 pt-can take Vicodin piroxicam AdvReac Intermediate CAUSED Verified 02/02/20 07:38 ULCER Consultations 02/02/20 08:47 ED Decision to Admit Stat 02/02/20 13:48 Consult Cardiology Routine Consult Case Management - Discharge Planning Routine Consult Infectious Diseases Routine 02/02/20 19:49 Consult Well Treatment Offsider Routine 02/08/20 06:59 Burn CD for patient Routine Ordered Studies 02/03/20 17:44 US venous doppler LE BI Routine Hospital Course (1) Acute hypoxemic respiratory failure: Acute respiratory failure with hypoxia Cardiogenic Shock is suspected to be from sepsis due to anaplasmosis Cardiomyopathy with aortic stenosis Lactic acidosis Anaplasmosis with Transaminitis and Thrombocytopenia -initial CXR:Findings could suggest developing venolymphatic congestive change, reactive airways disease or viral bronchiolitis -initial echocardiogram: Mildly dilated LV chamber size with normal wall thickness. Severely reduced LV systolic function with severe global hypokinesis, EF less than 15%. The right ventricular cavity size is normal. Reduced right ventricle systolic function. There is severe calcific aortic valve stenosis. Gradients likely falsely lowered due to low output state. Moderate mitral regurgitation. Moderate left atrial enlargement. -Venous Doppler:No DVT within the right or left lower extremity. -Could not obtain CTA to R/O PE due to renal Insufficiency. NM Pulmonary Perfusion Scan was performed and determined low probability for pulmonary embolus so pulmonary embolism is ruled out as cause fo symptoms -Influenza, Biofire, SARS-CoV-2:Negative -Elevated BNP on admission -Elevated Procalcitonin--trended down -Intubated on 02/02/20; Extubated on 02/04/20 -IV heparin was discontinued 02/06/20 -Blood/Urine Cx:Negative to date. trial of ceftriaxone was stopped -history of Tick Bite 2 weeks prior to admission. 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 Thrombocytopenia, transaminitis improving -as of 02/07/2020, patient is on carvedilol 3.125 mg BID and cardiology Dr. Love plans repeated echocardiogram which showed ejection fraction improved to 35 to 40% and continues to have aortic stenosis which is classified severe. Lisinopril 5 mg daily started on 02/07/2020 -will need to follow up with cardiology clinic around 2 to 4 weeks -([facility] to make a hospital discharge follow up appointment. If patient do not hear from them, please call to make this appointment. [facility] Cardiology office will be calling patient to schedule an appointment.) -new [facility]charge [facility] [address] [place] [id number] of carvedilol 3.125 mg twice a day, lisinopril 5 mg daily and also doxycycline as 100 mg twice a day for 7 more days to complete the 14 day total course which was started in the hospital stay Elevated D-dimer on this admission -CTA could not be obtained due to renal insufficiency -Venous Doppler:No DVT within the right or left lower extremity. -NM Pulmonary Perfusion Scan:Low probability for pulmonary embolus. -IV heparin was discontinued 02/06/20 Acute Kidney Injury on Chronic Kidney Disease III -Could be ATN -Baseline Cr:1.3 -admission creatinine is 2.5 -creatinine has improved substantially and creatinine on 02/08/2020 is 1.67 -patient should have follow up renal function lab work as per primary care doctor followup Systemic lupus erythematosus (SLE) -on home medication of Methotrexate, Plaquenil, Prednisone -was given a trial of solumedrol 40 mg IV daily during hospital stay. no further solumedrol needed at this time -05/13/2020 2:20 PM Provider Jose David Loredo MD Department Rheumatology [facility] Code Status: Full Code Disposition: Patient declines going to physical rehabilitation facility and wishes to be discharged to home. [employer] is asked to set up home health services if possible Discharge Diagnosis: Acute respiratory failure with hypoxia Lactic Acidosis Anaplasmosis: Cardiomyopathy with aortic stenosis Acute Kidney Injury on Chronic Kidney Disease III Total Time Total Time Spent Total Time Spent (In Minutes): 40 minutes Total Time Includes: Examination of the Patient, Discharge Planning, Medication Reconciliation and Communication With Other Providers Discharge Plan Discharge Items Patient Disposition: Home - Home Health Services Reason For Visit: SHORT OF BREATH Discharge Diagnosis: Acute respiratory failure with hypoxia Lactic Acidosis Anaplasmosis: Cardiomyopathy with aortic stenosis Acute Kidney Injury on Chronic Kidney Disease III Condition on Discharge: Good Activity: Resume your previous activity Non-emergency contact: Primary Care Provider Call non-emergency contact if: you have any medication questions Follow-up/Referrals: PCP,NO [Primary Care Provider] - ([facility] will [facility] you to make a hospital discharge follow up appointment. If you do not hear from them, please call to make this appointment. [facility] Cardiology office will be calling you to schedule an appointment.) Diet: Heart Healthy Addtl Attending Provider Instructions: will need to see a primary care doctor in 1 week of hospital discharge. creatinine has improved substantially and creatinine on 02/08/2020 is 1.67. patient should have follow up renal function lab work as per primary care doctor followup will need to follow up with cardiology clinic around 2 to 4 weeks ([facility] patient to make a hospital discharge follow up appointment. If patient do not hear from them, please call to make this appointment. [facility] Cardiology office will be calling patient to schedule an appointment.) 05/13/2020 2:20 PM Provider Jose David Loredo MD Department Rheumatology [facility] new Discharge medications sent electronically to [facility] [address] [place] [address] of carvedilol 3.125 mg twice a day, lisinopril 5 mg daily and also doxycycline as 100 mg twice a day for 7 more days to complete the 14 day total course which was started in the hospital stay Pending Studies at Discharge: No Stand-Alone Forms: My [facility] [employer] [facility], Smoking Cessation Medications and DC Order Prescriptions: New carvedilol 3.125 mg Tablet 3.125 mg PO BID 30 Days Qty: 60 RF: 0 lisinopril [Zestril] 5 mg Tablet 5 mg PO QAM 30 Days Qty: 30 RF: 0 doxycycline hyclate 100 mg Capsule 100 mg PO BID 7 Days Qty: 14 RF: 0 Continued multivitamin Tablet 1 tab PO DAILY RF: 0 prednisone 5 mg tablet 5 mg PO DAILY RF: 0 aspirin [Aspir-81] 81 mg Tablet,Delayed Release (Dr/Ec) 81 mg PO Q OTHER DAY RF: 0 cyanocobalamin (vitamin B-12) 500 mcg Tablet 500 mcg PO DAILY RF: 0 methotrexate sodium 2.5 mg tablet 7.5 mg PO FR RF: 0 vitamin B complex Tablet 1 tab PO DAILY RF: 0 folic acid 1 mg Tablet 1 mg PO DAILY RF: 0 duloxetine 30 mg Capsule,Delayed Release(Dr/Ec) 30 mg PO DAILY RF: 0 PreserVision AREDS [id number] Tablet 1 tab PO BID RF: 0 prednisone 10 mg tablet 10 mg PO UD RF: 0 hydrocodone-acetaminophen 7.5-325 mg tablet 1 tab PO Q8H PRN (Reason: Pain) RF: 0 Discontinued carvedilol [Coreg] 3.125 mg Tablet 3.125 mg PO BID RF: 0 Admission Data Admit Date/Time: 02/02/20 11:22 Attending Provider: Eliazar Churchill Admit Provider: Keith Dotson Primary Care Provider: PCP,NO Other Providers: [facility] ; Keith Dotson ; Erick Salter ; Ashley Correia ; Toby Ritter
--- NOTE | 2020-02-08 11:56 | Cardiology Progress Note ---
Date of Service February 08, 2020 Assessment & Plan (1) Cardiomyopathy: (2) Aortic stenosis, severe: (3) Anaplasmosis: (4) Non-ST elevation [place] (NSTEMI): (5) Acute hypoxemic respiratory failure: (6) Acute on chronic renal failure: The patient is doing well and is ready for discharge. He will need close follow-up with us and I will make arrangements through our clinic. Subjective Patient is resting comfortably. Review of Systems Review of Systems: All systems reviewed & are unremarkable except as noted in HPI & below Nothing additional to add. Physical Exam Physical Exam: General: no acute distress and stated age Head: normocephalic, no masses, lesions, tenderness or abnormalities Eyes: conjunctiva are pink and non-injected, sclera clear Neck: supple, no adenopathy, no bruits, normal jugular venous pulse, no hepatojugular reflux Chest: normal shape and normal respiratory effort Lungs: clear to auscultation and percussion Cardiac Exam: - regular rate & rhythm, no murmurs gallops or rubs - normal S1, normal S2 Pulses: 2(+) throughout Abdomen: abdomen soft, non-tender, no abnormal masses and no hepatosplenomegaly Musculoskeletal: no gait disturbance, no joint inflammation, no deforming arthritis Extremities: no edema and no cyanosis Neuro: grossly normal exam Results & Data Vital Signs (Past 12 Hours) Vital Signs Temp Pulse Pulse Resp BP Pulse Ox 02/08/20 11:18 36.5 C 61 18 110/67 96 02/08/20 07:21 56 L 02/08/20 07:00 36.4 C L 58 L 20 130/72 95 02/08/20 04:00 36.6 C 57 L 20 128/70 91 02/08/20 00:00 53 L Laboratory Results Laboratory Results - last 24 hr 02/08/20 02/08/20 05:33 05:33 WBC 14.73 H RBC 3.81 L Hgb 13.2 L Hct 38.4 L MCV 100.8 H MCH 34.6 H MCHC 34.4 RDW Std Deviation 51.7 H RDW Coeff of Patti 14.2 Plt Count 147 MPV 12.1 H Immature Gran % (Auto) 1.4 Neut % (Auto) 70.7 Lymph % (Auto) 17.0 [place] % (Auto) 10.7 Eos % (Auto) 0.1 Baso % (Auto) 0.1 Immature Gran # (Auto) 0.21 H Neut # (Auto) 10.40 H Lymph # (Auto) 2.51 [place] # (Auto) 1.58 H Eos # (Auto) 0.01 Baso # (Auto) 0.02 Sodium 137 Potassium 4.4 Chloride 111 H Carbon Dioxide 22 Anion Gap 4.0 BUN 53 H Creatinine 1.67 H Est Cr Clr Drug Dosing 33.0 Est GFR ( Amer) 43.5 Est GFR (Non-Af Amer) 37.5 BUN/Creatinine Ratio 31.6 H Glucose 102 H Calcium 8.6 Total Bilirubin 0.7 AST 40 H ALT 96 H Alkaline Phosphatase 43 L Total Protein 6.2 L Albumin 2.6 L Globulin 3.6 Albumin/Globulin Ratio 0.7 L Medications Administered Current Inpatient Medications Acetaminophen (Tylenol) 650 mg PO Q4H PRN PRN Reason: Fever/Mild Pain (Pain 1,2,3) Stop: 03/03/20 18:13 Hydrocodone Bitart/Acetaminophen ([place] 7.5/325mg) 1 tab PO BID PRN PRN Reason: Pain Stop: 02/16/20 12:22 Aspirin (Ecotrin Ectab) 81 mg PO DAILY [facility] Stop: 03/03/20 12:14 Last Admin: 02/08/20 08:09 Dose: 81 mg Documented by: Carvedilol (Coreg) 3.125 mg PO BID [facility] Stop: 03/07/20 11:44 Last Admin: 02/08/20 08:07 Dose: 3.125 mg Documented by: Cyanocobalamin (Vitamin B-12) 500 mcg PO DAILY [facility] Stop: 03/04/20 08:59 Last Admin: 02/08/20 08:07 Dose: 500 mcg Documented by: Doxycycline Hyclate (Vibramycin) 100 mg PO BID [facility] Stop: 02/15/20 21:59 Last Admin: 02/08/20 08:07 Dose: 100 mg Documented by: Duloxetine HCl (Cymbalta) 30 mg PO DAILY [facility] Stop: 03/04/20 08:59 Last Admin: 02/08/20 08:09 Dose: 30 mg Documented by: Folic Acid (Folvite) 1 mg PO DAILY [facility] Stop: 03/03/20 11:59 Last Admin: 04/16/20 08:09 Dose: 1 mg Documented by: Heparin Sodium (Porcine) (Heparin Sodium (Porcine)) 5,000 units SQ Q12 [facility] Stop: 03/07/20 20:59 Last Admin: 02/08/20 08:10 Dose: 5,000 units Documented by: Lisinopril (Zestril) 5 mg PO QAM [facility] Stop: 03/09/20 08:59 Last Admin: 02/08/20 08:07 Dose: 5 mg Documented by: Nitroglycerin (Nitrostat) 0.4 mg SL UD PRN PRN Reason: Chest Pain Stop: 03/03/20 13:47 Pantoprazole Sodium (Protonix) [facility] Stop: 03/07/20 08:59 Last Admin: 02/08/20 08:09 Dose: 40 mg Documented by: Polyethylene Glycol (Miralax Powder Packet) 17 gm PO DAILY PRN PRN Reason: Constipation Stop: 03/03/20 13:47 Prednisone (Prednisone) 5 mg PO DAILY [facility] Stop: 03/03/20 13:47 Last Admin: 02/08/20 08:09 Dose: 5 mg Documented by:
== END 2020-02-08 17:50 | disposition home health service (06) | DRG 208 ==
LOC: ED 06:40 → 2S 11:22 → SUATTDRO 11:22 → 2S 11:44 → PACUINP 18:30 → 1E 23:43 → 2N 02-07 12:55

== ENCOUNTER 2021-01-17 16:29 | Inpatient (IN) ==
[2021-01-17] MEDS ORDERED: SODIUM CHLORIDE 0.9% 1000ML 1,000 ML IV ONE (17:34)
--- NOTE | 2021-01-17 17:34 | Emergency Department Note ---
History of Present Illness General Chief complaint: Weakness Stated complaint: WEAKNESS, UNABLE TO AMBULATE Time Seen by Provider: 01/17/21 17:19 Source: patient Mode of arrival: ambulatory Limitations: no limitations History of Present Illness Maximum Pain Intensity: 3 This patient comes in after feeling ill since this morning. He describes generalized weakness and that his only complaint he was noted to have a temperature in triage but did not notice one at home that he is aware of. He has had no cough or shortness of breath. He had his first Covid vaccine. He denies any nausea vomiting or diarrhea. No dysuria or hematuria. No focal numbness or weakness. No chest pain. No abdominal pain. No headache neck pain or stiffness. Home Medications Medication Instructions Recorded Confirmed Type PreserVision AREDS 1 tab PO BID 08/01/19 01/17/21 History cyanocobalamin (vitamin B-12) 500 mcg PO DAILY 08/01/19 01/17/21 History folic acid 1 mg PO DAILY 08/01/19 01/17/21 History methotrexate sodium 7.5 mg PO FR 08/01/19 01/17/21 History multivitamin 1 tab PO DAILY 08/01/19 01/17/21 History vitamin B complex 1 tab PO DAILY 08/01/19 01/17/21 History hydrocodone-acetaminophen 1 tab PO BID 02/02/20 01/17/21 History acetaminophen [Tylenol Extra 500 mg PO Q6H PRN 08/28/20 01/17/21 History Strength] aspirin 81 mg PO DAILY 08/28/20 01/17/21 History carvedilol 3.125 mg PO BID 01/17/21 01/17/21 History clopidogrel 75 mg PO DAILY 01/17/21 01/17/21 History prednisone 5 mg PO DAILY 01/17/21 01/17/21 History Allergies Allergy/AdvReac Type Severity Reaction Status Date / Time oxycodone Allergy Unknown ITCHY, Per Verified 01/17/21 18:45 pt-can take Vicodin piroxicam AdvReac Intermediate CAUSED Verified 01/17/21 18:45 [facility] Past Med/Surg History Medical History (Updated 01/18/21 @ 00:01 by Jose David Gan MD) Acute hypoxemic respiratory failure Aortic stenosis CKD (chronic kidney disease), stage III History of steroid therapy HTN (hypertension) Hyperlipidemia Hypertension Lumbar stenosis with neurogenic claudication Pericarditis Systemic lupus erythematosus Surgical History History of back surgery S/P appendectomy S/p total knee replacement, bilateral Family History Unknown No problems noted. Other Family history non-contributory Social History Smoking Status: Former smoker Second Hand Exposure: No; Hx Alcohol Use: No Hx Substance Use: No Preferred Language: Ethiopian Communication Ability: Effective Bell Ringer Required: No Beliefs That Will Affect Care: None Current Living Situation: Significant Other Other Information That Helps Us Care for You: No Feels Safe at Home: Yes Safety Concerns: Feels Safe At This Time Assistive Devices: Walker Review of Systems A total of 10 systems reviewed and were otherwise negative Physical Exam Vital Signs Vital Signs - 24 hr 01/17/21 16:36 01/17/21 16:55 01/17/21 17:49 Temperature 38.5 C H Temperature Source Oral Pulse Rate 88 Pulse Rate [Right Finger] Pulse Rate from SpO2 Sensor Respiratory Rate 28 H 22 Respiratory Effort / Characteristics Non-Labored Respiratory Depth Respiratory Pattern Blood Pressure 154/81 H Blood Pressure [Left Arm] Blood Pressure Mean 105 Blood Pressure Mean [Left Arm] Blood Pressure Position [Left Arm] Pulse Oximetry 88 L 96 Oxygen Delivery Method Room Air Nasal Cannula Nasal Cannula Oxygen Flow Rate 2 Sepsis Recent Fever Within 48 Hours Yes Sepsis New/Unexplained Change in Mental Status No Sepsis Action Taken by Nursing No Action Required Oxygen Flow Rate - Titration 2 Pulse Oximetry Post Tiitration 97 01/17/21 17:51 01/17/21 18:01 01/17/21 18:30 Temperature Temperature Source Pulse Rate 85 85 Pulse Rate [Right Finger] Pulse Rate from SpO2 Sensor 83 Respiratory Rate 25 H 24 Respiratory Effort / Characteristics Respiratory Depth Respiratory Pattern Blood Pressure 154/69 H 137/69 Blood Pressure [Left Arm] Blood Pressure Mean 97 91 Blood Pressure Mean [Left Arm] Blood Pressure Position [Left Arm] Pulse Oximetry 96 96 97 Oxygen Delivery Method Nasal Cannula Nasal Cannula Oxygen Flow Rate 2 2 Sepsis Recent Fever Within 48 Hours Sepsis New/Unexplained Change in Mental Status Sepsis Action Taken by Nursing Oxygen Flow Rate - Titration Pulse Oximetry Post Tiitration 01/17/21 19:22 01/17/21 19:30 01/17/21 20:00 Temperature Temperature Source Pulse Rate 75 77 Pulse Rate [Right Finger] 73 Pulse Rate from SpO2 Sensor 75 78 Respiratory Rate 24 24 21 Respiratory Effort / Characteristics Non-Labored Spontaneous Respiratory Depth Normal Respiratory Pattern Regular Blood Pressure 131/74 148/73 H Blood Pressure [Left Arm] 140/83 Blood Pressure Mean 93 98 Blood Pressure Mean [Left Arm] 102 Blood Pressure Position [Left Arm] Lying Pulse Oximetry 96 95 94 Oxygen Delivery Method Nasal Cannula Nasal Cannula Nasal Cannula Oxygen Flow Rate 2 2 2 Sepsis Recent Fever Within 48 Hours Sepsis New/Unexplained Change in Mental Status Sepsis Action Taken by Nursing Oxygen Flow Rate - Titration Pulse Oximetry Post Tiitration General: Well developed well nourished in no acute distress, breathing comfortably on room air. Normal speech HEENT: Normal cephalic atraumatic. Pupils are equal round and reactive to light. Extraocular movements are intact. Oropharynx is pink with moist mucous membranes. No swelling of the mouth lips or tongue. Neck: Supple with a midline trachea. No meningeal signs or stiffness, no JVD or bruits. No Stridor. Chest: Clear to auscultation bilaterally. No wheezes or rhonchi. No increased work of breathing. Heart: Regular rate and rhythm without murmurs or gallops. Abdomen: Soft nontender, nondistended without rebound guarding or rigidity. Extremities: No cyanosis clubbing or edema. No calf tenderness or assymetry Spine/Back. Non tender to palpation. No CVA tenderness Skin: Good turgor without rashes. Neurologic exam: Cranial nerves two through 12 are intact. Motor and sensation are intact and symmetrical throughout. Course Administered Medications Carvedilol (Carvedilol 3.125 Mg Tab) 3.125 mg PO BID [facility] Stop: 02/16/21 21:58 Last Admin: 01/17/21 23:11 Dose: 3.125 mg Documented by: [id number] Sodium Chloride (Nss) 500 mls @ 50 mls/hr IV .Q10H ONE Stop: 01/18/21 07:58 Last Admin: 01/17/21 22:39 Dose: 50 mls/hr Documented by: [id number] Heparin Sodium/Dextrose (Heparin Sodium/Dextrose) 25,000 units in 500 mls @ 25 mls/hr IV .Q20H [facility]; Protocol Stop: 02/16/21 21:58 Last Titration: 01/17/21 23:03 Dose: 1,250 units/hr, 25 mls/hr Documented by: [id number] Cosigned by: [id number] Admin: 01/17/21 22:39 Dose: 1,250 units/hr, 25 mls/hr Documented by: [id number] Cosigned by: [id number] Discontinued Medications Acetaminophen (Acetaminophen 325 Mg Tab) 650 mg PO NOW STA Stop: 01/17/21 18:52 Last Admin: 01/17/21 19:18 Dose: 650 mg Documented by: [id number] Cefepime HCl (Cefepime 2,000 Mg/20 Ml Vial) Confirm Administered Dose 2,000 mg .ROUTE .STK-MED ONE Stop: 01/17/21 19:16 Last Admin: 01/17/21 19:18 Dose: Not Given Documented by: [id number] Heparin Sodium/Dextrose (Heparin Iv Standard *No* Bolus) 1 ea IV Q15M THOR; Protocol Stop: 01/17/21 23:59 Last Admin: 01/17/21 22:28 Dose: Not Given Documented by: [id number] Sodium Chloride (Nss 1000ml) 1,000 mls @ 999 mls/hr IV .Q1H1M ONE Stop: 01/17/21 18:34 Last Infusion: 01/17/21 19:13 Dose: 0 mls/hr Documented by: [id number] Admin: 01/17/21 18:03 Dose: 999 mls/hr Documented by: [id number] Cefepime HCl 2,000 mg/ Syringe 20 mls @ 5 mls/min IV NOW STA; Protocol Stop: 01/17/21 18:57 Last Admin: 01/17/21 19:18 Dose: 5 mls/min Documented by: [id number] Critical Care Time Critical Care Time: Yes Total Critical Care Time: 30 Due to the patient's hypoxemia, concern for sepsis, need for IV fluids and IV antibiotics as well as reassessment, I have personally spent greater than 30 minutes of critical care time in the direct management of this patient. This includes bedside care, interpretation of diagnostic studies, and testing, discussion with consultants, patient, and family members, and other required patient management activities. This 30 minutes is in excess of all separately billable procedures. Medical Decision Making Differential Diagnosis Covid, sepsis, pneumonia, CHF, electrolyte or metabolic abnormalities, tickborne illness Medical Records Attestation: I reviewed the patient's medical records. Home Medications Current Medication List: was personally reviewed by me Laboratory Data Attestation: I reviewed the patient's lab results. Result diagrams: 01/17/21 16:44 01/17/21 16:44 Lab Results 01/17/21 01/17/21 01/17/21 Range/Units 16:44 16:44 16:44 WBC 10.25 (4.8-10.8) K/uL RBC 3.98 L (4.7-6.1) M/uL Hgb 13.7 L (14.0-18.0) g/dL Hct 41.5 L (42-52) % MCV 104.3 H (80-100) fL MCH 34.4 H (25-34) pg MCHC 33.0 (32-36) g/dL RDW Std Deviation 53.8 H (36.4-46.3) fL RDW Coeff of Patti 14.3 (11.5-14.5) % Plt Count 234 (130-400) K/uL MPV 10.0 (7.4-10.4) fL Immature Gran % (Auto) 0.3 % Neut % (Auto) 68.2 % Lymph % (Auto) 7.0 % [place] % (Auto) 13.7 % Eos % (Auto) 10.2 % Baso % (Auto) 0.6 % Neut # (Auto) 6.99 H (1.4-6.5) K/uL Lymph # (Auto) 0.72 L (1.2-3.4) K/uL [place] # (Auto) 1.40 H (0.11-0.59) K/uL Eos # (Auto) 1.05 H (0-0.5) K/uL Baso # (Auto) 0.06 (0-0.2) K/uL Immature Gran # (Auto) 0.03 H (0.00-0.02) K/uL PT 10.2 (9.0-12.0) Seconds INR 1.0 (0.9-1.1) APTT 22.5 (21.0-31.0) Seconds PTT Ratio 0.9 D-Dimer (0-500) ug/L FEU Sodium 138 (136-145) mmol/L Potassium 4.1 (3.5-5.1) mmol/L Chloride 104 (98-107) mmol/L Carbon Dioxide 28 (21-32) mmol/L Anion Gap 6.0 (3-11) BUN 39 H (7-18) mg/dl Creatinine 1.77 H (0.6-1.4) mg/dl Est Cr Clr Drug Dosing 29.6 ml/min Est GFR ( Amer) 40.3 Est GFR (Non-Af Amer) 34.7 BUN/Creatinine Ratio 22.3 H (10-20) Glucose 92 (70-99) mg/dl Lactate (0.4-2.0) mmol/L Calcium 9.8 (8.5-10.1) mg/dl Magnesium 2.2 (1.8-2.4) mg/dl Total Bilirubin 0.6 (0.2-1) mg/dl AST 16 (15-37) U/L ALT 22 (12-78) U/L Alkaline Phosphatase 88 (45-117) U/L Troponin I 0.028 (0-0.045) ng/ml Total Protein 7.9 (6.4-8.2) gm/dl Albumin 3.5 (3.4-5.0) gm/dl Globulin 4.4 H (2.5-4.0) gm/dl Albumin/Globulin Ratio 0.8 L (0.9-2) Procalcitonin (0-0.5) ng/ml TSH (0.300-4.500) uIu/ml Urine Color Urine Appearance (Clear) Urine pH (4.5-7.5) Ur Specific [place] (1.000-1.030) Urine Protein (Negative) Urine Glucose (UA) (Negative) Urine Ketones (Negative) Urine Blood (Negative) Urine Nitrite (Negative) Urine Bilirubin (Negative) Urine Urobilinogen (Negative) Ur Leukocyte Esterase (Negative) Anaplasma Smear See Comment Lyme Disease IgG Ab (Negative) Lyme Disease IgM Ab (Negative) COVID-19 Eval Order SARS-CoV-2 (PCR) (Negative) Influenza Type A (PCR) (Neg) Influenza Type B (PCR) (Neg) RSV (RT-PCR) (Neg) 01/17/21 01/17/21 01/17/21 Range/Units 16:44 16:44 16:44 WBC (4.8-10.8) K/uL RBC (4.7-6.1) M/uL Hgb (14.0-18.0) g/dL Hct (42-52) % MCV (80-100) fL MCH (25-34) pg MCHC (32-36) g/dL RDW Std Deviation (36.4-46.3) fL RDW Coeff of Patti (11.5-14.5) % Plt Count (130-400) K/uL MPV (7.4-10.4) fL Immature Gran % (Auto) % Neut % (Auto) % Lymph % (Auto) % [place] % (Auto) % Eos % (Auto) % Baso % (Auto) % Neut # (Auto) (1.4-6.5) K/uL Lymph # (Auto) (1.2-3.4) K/uL [place] # (Auto) (0.11-0.59) K/uL Eos # (Auto) (0-0.5) K/uL Baso # (Auto) (0-0.2) K/uL Immature Gran # (Auto) (0.00-0.02) K/uL PT (9.0-12.0) Seconds INR (0.9-1.1) APTT (21.0-31.0) Seconds PTT Ratio D-Dimer (0-500) ug/L FEU Sodium (136-145) mmol/L Potassium (3.5-5.1) mmol/L Chloride (98-107) mmol/L Carbon Dioxide (21-32) mmol/L Anion Gap (3-11) BUN (7-18) mg/dl Creatinine (0.6-1.4) mg/dl Est Cr Clr Drug Dosing ml/min Est GFR ( Amer) Est GFR (Non-Af Amer) BUN/Creatinine Ratio (10-20) Glucose (70-99) mg/dl Lactate (0.4-2.0) mmol/L Calcium (8.5-10.1) mg/dl Magnesium (1.8-2.4) mg/dl Total Bilirubin (0.2-1) mg/dl AST (15-37) U/L ALT (12-78) U/L Alkaline Phosphatase (45-117) U/L Troponin I (0-0.045) ng/ml Total Protein (6.4-8.2) gm/dl Albumin (3.4-5.0) gm/dl Globulin (2.5-4.0) gm/dl Albumin/Globulin Ratio (0.9-2) Procalcitonin (0-0.5) ng/ml TSH (0.300-4.500) uIu/ml Urine Color Urine Appearance (Clear) Urine pH (4.5-7.5) Ur Specific [place] (1.000-1.030) Urine Protein (Negative) Urine Glucose (UA) (Negative) Urine Ketones (Negative) Urine Blood (Negative) Urine Nitrite (Negative) Urine Bilirubin (Negative) Urine Urobilinogen (Negative) Ur Leukocyte Esterase (Negative) Anaplasma Smear Lyme Disease IgG Ab Negative (Negative) Lyme Disease IgM Ab Negative (Negative) COVID-19 Eval Order CovFluRsv at [facility] SARS-CoV-2 (PCR) NEGATIVE (Negative) Influenza Type A (PCR) Negative (Neg) Influenza Type B (PCR) Negative (Neg) RSV (RT-PCR) Negative (Neg) 01/17/21 01/17/21 01/17/21 Range/Units 18:03 19:25 20:14 WBC (4.8-10.8) K/uL RBC (4.7-6.1) M/uL Hgb (14.0-18.0) g/dL Hct (42-52) % MCV (80-100) fL MCH (25-34) pg MCHC (32-36) g/dL RDW Std Deviation (36.4-46.3) fL RDW Coeff of Patti (11.5-14.5) % Plt Count (130-400) K/uL MPV (7.4-10.4) fL Immature Gran % (Auto) % Neut % (Auto) % Lymph % (Auto) % [place] % (Auto) % Eos % (Auto) % Baso % (Auto) % Neut # (Auto) (1.4-6.5) K/uL Lymph # (Auto) (1.2-3.4) K/uL [place] # (Auto) (0.11-0.59) K/uL Eos # (Auto) (0-0.5) K/uL Baso # (Auto) (0-0.2) K/uL Immature Gran # (Auto) (0.00-0.02) K/uL PT (9.0-12.0) Seconds INR (0.9-1.1) APTT (21.0-31.0) Seconds PTT Ratio D-Dimer (0-500) ug/L FEU Sodium (136-145) mmol/L Potassium (3.5-5.1) mmol/L Chloride (98-107) mmol/L Carbon Dioxide (21-32) mmol/L Anion Gap (3-11) BUN (7-18) mg/dl Creatinine (0.6-1.4) mg/dl Est Cr Clr Drug Dosing ml/min Est GFR ( Amer) Est GFR (Non-Af Amer) BUN/Creatinine Ratio (10-20) Glucose (70-99) mg/dl Lactate 1.4 (0.4-2.0) mmol/L Calcium (8.5-10.1) mg/dl Magnesium (1.8-2.4) mg/dl Total Bilirubin (0.2-1) mg/dl AST (15-37) U/L ALT (12-78) U/L Alkaline Phosphatase (45-117) U/L Troponin I 0.051 H* (0-0.045) ng/ml Total Protein (6.4-8.2) gm/dl Albumin (3.4-5.0) gm/dl Globulin (2.5-4.0) gm/dl Albumin/Globulin Ratio (0.9-2) Procalcitonin (0-0.5) ng/ml TSH 1.090 (0.300-4.500) uIu/ml Urine Color Yellow Urine Appearance Clear (Clear) Urine pH 5.5 (4.5-7.5) Ur Specific [place] 1.017 (1.000-1.030) Urine Protein Negative (Negative) Urine Glucose (UA) Negative (Negative) Urine Ketones Negative (Negative) Urine Blood Negative (Negative) Urine Nitrite Negative (Negative) Urine Bilirubin Negative (Negative) Urine Urobilinogen Negative (Negative) Ur Leukocyte Esterase Negative (Negative) Anaplasma Smear Lyme Disease IgG Ab (Negative) Lyme Disease IgM Ab (Negative) COVID-19 Eval Order SARS-CoV-2 (PCR) (Negative) Influenza Type A (PCR) (Neg) Influenza Type B (PCR) (Neg) RSV (RT-PCR) (Neg) 01/17/21 01/17/21 Range/Units 20:14 20:14 WBC (4.8-10.8) K/uL RBC (4.7-6.1) M/uL Hgb (14.0-18.0) g/dL Hct (42-52) % MCV (80-100) fL MCH (25-34) pg MCHC (32-36) g/dL RDW Std Deviation (36.4-46.3) fL RDW Coeff of Patti (11.5-14.5) % Plt Count (130-400) K/uL MPV (7.4-10.4) fL Immature Gran % (Auto) % Neut % (Auto) % Lymph % (Auto) % [place] % (Auto) % Eos % (Auto) % Baso % (Auto) % Neut # (Auto) (1.4-6.5) K/uL Lymph # (Auto) (1.2-3.4) K/uL [place] # (Auto) (0.11-0.59) K/uL Eos # (Auto) (0-0.5) K/uL Baso # (Auto) (0-0.2) K/uL Immature Gran # (Auto) (0.00-0.02) K/uL PT (9.0-12.0) Seconds INR (0.9-1.1) APTT (21.0-31.0) Seconds PTT Ratio D-Dimer 1410 H* (0-500) ug/L FEU Sodium (136-145) mmol/L Potassium (3.5-5.1) mmol/L Chloride (98-107) mmol/L Carbon Dioxide (21-32) mmol/L Anion Gap (3-11) BUN (7-18) mg/dl Creatinine (0.6-1.4) mg/dl Est Cr Clr Drug Dosing ml/min Est GFR ( Amer) Est GFR (Non-Af Amer) BUN/Creatinine Ratio (10-20) Glucose (70-99) mg/dl Lactate (0.4-2.0) mmol/L Calcium (8.5-10.1) mg/dl Magnesium (1.8-2.4) mg/dl Total Bilirubin (0.2-1) mg/dl AST (15-37) U/L ALT (12-78) U/L Alkaline Phosphatase (45-117) U/L Troponin I (0-0.045) ng/ml Total Protein (6.4-8.2) gm/dl Albumin (3.4-5.0) gm/dl Globulin (2.5-4.0) gm/dl Albumin/Globulin Ratio (0.9-2) Procalcitonin 0.15 (0-0.5) ng/ml TSH (0.300-4.500) uIu/ml Urine Color Urine Appearance (Clear) Urine pH (4.5-7.5) Ur Specific [place] (1.000-1.030) Urine Protein (Negative) Urine Glucose (UA) (Negative) Urine Ketones (Negative) Urine Blood (Negative) Urine Nitrite (Negative) Urine Bilirubin (Negative) Urine Urobilinogen (Negative) Ur Leukocyte Esterase (Negative) Anaplasma Smear Lyme Disease IgG Ab (Negative) Lyme Disease IgM Ab (Negative) COVID-19 Eval Order SARS-CoV-2 (PCR) (Negative) Influenza Type A (PCR) (Neg) Influenza Type B (PCR) (Neg) RSV (RT-PCR) (Neg) ECG Data Attestation: I personally reviewed and interpreted this ECG as follows: Indication: + weakness Rate (beats per minute): 89 Rhythm: + normal sinus ECG Intervals/blocks: + Normal QRS, + Normal QT and + Normal TN ECG [place]: + Left axis deviation ECG ST segments: + Nonspecific ST abnormalities ECG Findings: no PACs and no PVCs Comparison ECG Date: from (08/28/20) Change: the following changes noted (Lateral T wave inversions have improved) MDM Narrative This patient comes in as described above. He was placed on a conveyor monitor in room A4 he is hypoxemic and febrile. A full sepsis work-up was done. He has a 1 Covid vaccine but could still be Covid so he was Covid tested. He has no focal complaints besides weakness. IV access was established and he was hydrated 1 L IV normal saline bolus. Multiple blood testing was obtained. Chest x-ray does not show any congestive heart failure pneumonia or pneumothorax. EKG does not show any ischemic changes or ectopy. His white count is not significantly elevated and his lactic acid is not elevated. His BUN and creatinine are mildly elevated compared to baseline at 39 and 1.77. Covid testing was negative as well as influenza. Troponin was within normal range and he has no chest pain. His tickborne illness labs are negative thus far. His urinalysis is negative. He was given empiric cefepime 2 g IV. He does have a fever although not sure what the source is at this point. I do think he needs to be admitted for further treatment and evaluation. I have consulted Dr. Pond to see him in ER for these measures Continuous cardiac monitoring: Due to the patient's weakness and hypoxemia, an order was placed in the EMR for continuous cardiac monitoring. The patient was noted to be in normal sinus rhythm with a pulse of 70 upon my interpretation. Impression & Plan Sepsis, Weakness, COVID-19 ruled out by laboratory testing, Hypoxemia Discharge Plan Visit Data Chief Complaint: Weakness Stated Complaint: WEAKNESS, UNABLE TO AMBULATE ED Provider: Jose David Gan Discharge Problem: Sepsis, Weakness, COVID-19 ruled out by laboratory testing, Hypoxemia Patient Disposition: Admitted As Inpatient Discharge Instructions Interventions: ED Discharge Assessment Last Done: 01/17/21 21:13 Discharge Problem: Sepsis Qualifiers: Sepsis type: sepsis due to unspecified organism Sepsis acute organ dysfunction status: unspecified Qualified Code(s): A41.9 - Sepsis, unspecified organism
[2021-01-17 17:53] LABS: Basophils # (auto) 0.06 K/uL (0-0.2); Basophils % (auto) 0.6 %; Eosinophils # (auto) 1.05 K/uL (0-0.5); Eosinophils % (auto) 10.2 %; Hematocrit (blood only) 41.5 % (42-52); Hemoglobin 13.7 g/dL (14.0-18.0); Immature Granulocytes # (auto) 0.03 K/uL (0.00-0.02); Immature Granulocytes % (auto) 0.3 %; Lymphocytes # (auto) 0.72 K/uL (1.2-3.4); Mean Corpuscular Hemoglobin 34.4 pg (25-34); Mean Corpuscular Volume 104.3 fL (80-100); Monocytes % (auto) 13.7 %; Neutrophils # (auto) 6.99 K/uL (1.4-6.5); Neutrophils % (auto) 68.2 %; Platelet Count 234 K/uL (130-400); RDW Coefficient of Variation 14.3 % (11.5-14.5); RDW Standard Deviation 53.8 fL (36.4-46.3); Red Blood Count 3.98 M/uL (4.7-6.1); White Blood Count 10.25 K/uL (4.8-10.8)
[2021-01-17 18:01] LABS: Albumin Level 3.5 gm/dl (3.4-5.0); BUN Creatinine Ratio 22.3 (10-20); Calcium 9.8 mg/dl (8.5-10.1); Creatinine Clr Calc Pharmacy 29.6 ml/min; Est GFR (African American) 40.3; Est GFR (Non-African American) 34.7; Magnesium 2.2 mg/dl (1.8-2.4); Potassium 4.1 mmol/L (3.5-5.1)
[2021-01-17 18:06] LABS: Albumin Globulin Ratio 0.8 (0.9-2); Bilirubin,Total 0.6 mg/dl (0.2-1); Globulin 4.4 gm/dl (2.5-4.0); Partial Thromboplastin Ratio 0.9; Partial Thromboplastin Time 22.5 Seconds (21.0-31.0); Prothrombin Time 10.2 Seconds (9.0-12.0); Total Protein 7.9 gm/dl (6.4-8.2); Troponin I 0.028 ng/ml (0-0.045)
[2021-01-17 18:24] LABS: Influenza A virus by PCR Negative (Neg); Influenza B virus by PCR Negative (Neg); RSV by PCR Negative (Neg); SARS CoV2 RNA(COVID-19) InHosp NEGATIVE (Negative)
[2021-01-17 18:44] LABS: Lyme Ab IgG w/WB Rflx Negative (Negative); Lyme Ab IgM w/WB Rflx Negative (Negative)
[2021-01-17] MEDS ORDERED: ACETAMINOPHEN 325 MG TAB PO STA (18:51)
[2021-01-17] MEDS ORDERED: CEFEPIME 2,000 MG in SYRINGE 0 ML IV STA (18:54)
--- NOTE | 2021-01-17 19:10 | XRay Report ---
XR chest 1V portable HISTORY: 85 years-old Male SEPSIS acute sepsis COMPARISON: Chest radiograph and CTA chest 08/28/2020 TECHNIQUE: Portable AP view the chest FINDINGS: Cardiac silhouette is enlarged. Aortic endograft. Chronic right hemidiaphragmatic elevation. No pneum othorax, pleural effusion, airspace consolidation or overt pulmonary edema. Degenerative changes of t he shoulders and spine. Unchanged periarticular ossifications adjacent to the left shoulder. IMPRESSION: Cardiomegaly without acute process. ACT 112: Negative or not required by law. The above report was generated using voice recognition software. It may contain grammatical, syntax o r spelling errors. Electronically signed by: Scooby Askew M.D. 01/17/2021 7:09 PM
[2021-01-17] MEDS ORDERED: CEFEPIME 2,000 MG/20 ML VIAL ONE (19:15)
[2021-01-17 19:46] LABS: Appearance Urine Clear (Clear); Bilirubin Urine Negative (Negative); Blood Urine Negative (Negative); Color Urine Yellow; Glucose Urine UA Negative (Negative); Ketones Urine Negative (Negative); Leukocyte Esterase Urine Negative (Negative); Nitrite Urine Negative (Negative); Protein Urine Negative (Negative); Specific Gravity Urine 1.017 (1.000-1.030); Urobilinogen Urine Negative (Negative); pH Urine 5.5 (4.5-7.5)
--- NOTE | 2021-01-17 20:07 | History & Physical Report ---
Date of Service January 17, 2021 Assessment & Plan (1) Acute hypoxemic respiratory failure: Rule out pulmonary embolism given abnormal D-dimer Temperature elevation secondary to possible viral illness, ARF on CKD, mild clinical dehydration ; rule out clot Immunocompromised patient, history SLE on immunosuppression Rx No overt sepsis for now. Rule out occult bacterial infection. chronic systolic heart failure secondary to ischemic cardiomyopathy (EF 30 to 34%, TTE 2019), patient on the dry side hx CAD status post stent HTN, stable hx sp AVR chronic anemia, hemoglobin at baseline Medical telemetry Supplemental O2 Baseline ABG VQ scan, LE venous Dopplers for PE work-up (CT angio study precluded by kidney dysfunction) IV heparin until PE ruled out monitor creatinine response to IVF CS, hold off on antibiotics until definite bacterial source found PT OT eval DVT prophylaxis. IV Heparin Full code Text document was generated using [employer] (formerly [employer]) voice recognition software. It may contain grammatical or spelling errors. Kindly contact undersigned for clarification of any documentation item in question. History of Present Illness Femoral Chief Complaint: Weakness Primary Care Provider: [facility] History obtained from patient and records. Medical history significant for chronic systolic heart failure secondary to ischemic cardiomyopathy (EF 30 to 34%, TTE 2019), CAD status post stent, sp AVR, SLE on on immunosuppression (steroid and methotrexate Rx), CRI (baseline creatinine 1.4), chronic anemia (baseline hemoglobin 12-13), history anaplasmosis as per records, past tobacco abuse. Last confinement January 2020 for respiratory failure, possible pulmonary congestion. Patient feeling ill the last 2 days. Generalized weakness with fair appetite. Some shortness of breath on exertion. Patient denies chest pain, cough, abdominal pain, dysuria symptoms. No known recent COVID-19 contacts. O2 sats noted to be 80s upon arrival at the ER. Temperature elevation noted at the ER as well. Patient given Cefepime at the ER for possible infection. 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, lives with Allergies Allergy/AdvReac Type Severity Reaction Status Date / Time oxycodone Allergy Unknown ITCHY, Per Verified 01/17/21 18:45 pt-can take Vicodin piroxicam AdvReac Intermediate CAUSED Verified 01/17/21 18:45 ULCER Home Medications Medication Instructions Recorded Confirmed Type PreserVision AREDS 1 tab PO BID 08/01/19 01/17/21 History cyanocobalamin (vitamin B-12) 500 mcg PO DAILY 08/01/19 01/17/21 History folic acid 1 mg PO DAILY 08/01/19 01/17/21 History methotrexate sodium 7.5 mg PO FR 08/01/19 01/17/21 History multivitamin 1 tab PO DAILY 08/01/19 01/17/21 History vitamin B complex 1 tab PO DAILY 08/01/19 01/17/21 History hydrocodone-acetaminophen 1 tab PO BID 02/02/20 01/17/21 History acetaminophen [Tylenol Extra 500 mg PO Q6H PRN 08/28/20 01/17/21 History Strength] aspirin 81 mg PO DAILY 08/28/20 01/17/21 History carvedilol 3.125 mg PO BID 01/17/21 01/17/21 History clopidogrel 75 mg PO DAILY 01/17/21 01/17/21 History prednisone 5 mg PO DAILY 01/17/21 01/17/21 History Past Med/Surg History Medical History (Updated 01/18/21 @ 05:37 by Mohinder Weathers MD) Acute hypoxemic respiratory failure Aortic stenosis CKD (chronic kidney disease), stage III History of steroid therapy HTN (hypertension) Hyperlipidemia Hypertension Lumbar stenosis with neurogenic claudication Pericarditis Systemic lupus erythematosus Surgical History History of back surgery S/P appendectomy S/p total knee replacement, bilateral Family History Unknown No problems noted. Other Family history non-contributory Social History Smoking Status: Former smoker Second Hand Exposure: No; Hx Alcohol Use: No Hx Substance Use: No Preferred Language: Bangladeshi Communication Ability: Effective Blood Bank Booking Clerk Required: No Beliefs That Will Affect Care: None Current Living Situation: Significant Other Other Information That Helps Us Care for You: No Feels Safe at Home: Yes Safety Concerns: Feels Safe At This Time Assistive Devices: None Review of Systems Review of Systems: As per HPI, all 10 systems reviewed, all other ROS negative Physical Exam Physical Exam: GENERAL: Comfortable, pleasant, wane, no respiratory distress SKIN: Pallor, warm HEENT: Pale palpebral conjunctivae, no ptosis, dry buccal mucosa, nasal cannula in place NECK : Supple, no tenderness CHEST : Decreased breath sounds, no tenderness HEART : RRR, no obvious murmurs ABDOMEN: Some distention, nontender EXTREMITIES : Minimal LE swelling, no LE tenderness, no other conspicuous deformities noted NEUROLOGIC : Coherent, no facial asymmetry, no other gross focality Results & Data Results & Data ([facility]) Vital Signs (Past 12 Hours) Vital Signs Temp Pulse Pulse Resp BP BP Pulse Ox 01/17/21 19:22 73 24 140/83 96 01/17/21 18:30 85 24 137/69 97 01/17/21 18:01 85 25 H 154/69 H 96 01/17/21 17:51 96 01/17/21 17:49 22 96 01/17/21 16:36 38.5 C H 88 28 H 154/81 H 88 L Laboratory Results Laboratory Results WBC 10.25 K/uL (4.8-10.8) 01/17/21 16:44 RBC 3.98 M/uL (4.7-6.1) L 01/17/21 16:44 Hgb 13.7 g/dL (14.0-18.0) L 01/17/21 16:44 Hct 41.5 % (42-52) L 01/17/21 16:44 MCV 104.3 fL (80-100) H 01/17/21 16:44 MCH 34.4 pg (25-34) H 01/17/21 16:44 MCHC 33.0 g/dL (32-36) 01/17/21 16:44 RDW Std Deviation 53.8 fL (36.4-46.3) H 01/17/21 16:44 RDW Coeff of Patti 14.3 % (11.5-14.5) 01/17/21 16:44 Plt Count 234 K/uL (130-400) 01/17/21 16:44 MPV 10.0 fL (7.4-10.4) 01/17/21 16:44 Immature Gran % (Auto) 0.3 % 01/17/21 16:44 Neut % (Auto) 68.2 % 01/17/21 16:44 Lymph % (Auto) 7.0 % 01/17/21 16:44 [place] % (Auto) 13.7 % 01/17/21 16:44 Eos % (Auto) 10.2 % 01/17/21 16:44 Baso % (Auto) 0.6 % 01/17/21 16:44 Neut # (Auto) 6.99 K/uL (1.4-6.5) H 01/17/21 16:44 Lymph # (Auto) 0.72 K/uL (1.2-3.4) L 01/17/21 16:44 Dickenson # (Auto) 1.40 K/uL (0.11-0.59) H 01/17/21 16:44 Eos # (Auto) 1.05 K/uL (0-0.5) H 01/17/21 16:44 Baso # (Auto) 0.06 K/uL (0-0.2) 01/17/21 16:44 Immature Gran # (Auto) 0.03 K/uL (0.00-0.02) H 01/17/21 16:44 PT 10.2 Seconds (9.0-12.0) 01/17/21 16:44 INR 1.0 (0.9-1.1) 01/17/21 16:44 APTT 22.5 Seconds (21.0-31.0) 01/17/21 16:44 PTT Ratio 0.9 01/17/21 16:44 Sodium 138 mmol/L (136-145) 01/17/21 16:44 Potassium 4.1 mmol/L (3.5-5.1) 01/17/21 16:44 Chloride 104 mmol/L (98-107) 01/17/21 16:44 Carbon Dioxide 28 mmol/L (21-32) 01/17/21 16:44 Anion Gap 6.0 (3-11) 01/17/21 16:44 BUN 39 mg/dl (7-18) H 01/17/21 16:44 Creatinine 1.77 mg/dl (0.6-1.4) H 01/17/21 16:44 Est Cr Clr Drug Dosing 29.6 ml/min 01/17/21 16:44 Est GFR ( Amer) 40.3 01/17/21 16:44 Est GFR (Non-Af Amer) 34.7 01/17/21 16:44 BUN/Creatinine Ratio 22.3 (10-20) H 01/17/21 16:44 Glucose 92 mg/dl (70-99) 01/17/21 16:44 Lactate 1.4 mmol/L (0.4-2.0) 01/17/21 18:03 Calcium 9.8 mg/dl (8.5-10.1) 01/17/21 16:44 Magnesium 2.2 mg/dl (1.8-2.4) 01/17/21 16:44 Total Bilirubin 0.6 mg/dl (0.2-1) 01/17/21 16:44 AST 16 U/L (15-37) 01/17/21 16:44 ALT 22 U/L (12-78) 01/17/21 16:44 Alkaline Phosphatase 88 U/L (45-117) 01/17/21 16:44 Troponin I 0.028 ng/ml (0-0.045) 01/17/21 16:44 Total Protein 7.9 gm/dl (6.4-8.2) 01/17/21 16:44 Albumin 3.5 gm/dl (3.4-5.0) 01/17/21 16:44 Globulin 4.4 gm/dl (2.5-4.0) H 01/17/21 16:44 Albumin/Globulin Ratio 0.8 (0.9-2) L 01/17/21 16:44 Urine Color Yellow 01/17/21 19:25 Urine Appearance Clear (Clear) 01/17/21 19:25 Urine pH 5.5 (4.5-7.5) 01/17/21 19:25 Ur Specific [place] 1.017 (1.000-1.030) 01/17/21 19:25 Urine Protein Negative (Negative) 01/17/21 19:25 Urine Glucose (UA) Negative (Negative) 01/17/21 19:25 Urine Ketones Negative (Negative) 01/17/21 19:25 Urine Blood Negative (Negative) 01/17/21 19:25 Urine Nitrite Negative (Negative) 01/17/21 19:25 Urine Bilirubin Negative (Negative) 01/17/21 19:25 Urine Urobilinogen Negative (Negative) 03/26/21 19:25 Ur Leukocyte Esterase Negative (Negative) 01/17/21 19:25 Anaplasma Smear See Comment 01/17/21 16:44 Lyme Disease IgG Ab Negative (Negative) 01/17/21 16:44 Lyme Disease IgM Ab Negative (Negative) 01/17/21 16:44 COVID-19 Eval Order CovFluRsv at [facility] 01/17/21 16:44 SARS-CoV-2 (PCR) NEGATIVE (Negative) 01/17/21 16:44 Influenza Type A (PCR) Negative (Neg) 01/17/21 16:44 Influenza Type B (PCR) Negative (Neg) 01/17/21 16:44 RSV (RT-PCR) Negative (Neg) 01/17/21 16:44 Diagnostic Findings Chest x-ray : Cardiomegaly without acute process. EKG as per my interpretation : Rate 90, NSR, LAD, LAFB, LVH
[2021-01-17 20:42] LABS: Base Excess ABG 0.3 mEq/L (-9-1.8); HCO3 ABG 24 mmol/L (19-24); Oxygen Saturation ABG 95.8 % (90-95); PCO2 ABG 36 mmHg (35-46); PO2 ABG 76 mmHg (80-95); pH ABG 7.45 (7.35-7.45)
[2021-01-17 20:44] LABS: Allen Test POS (Pos)
[2021-01-17 21:14] LABS: D Dimer 1410 ug/L FEU (0-500); Thyroid Stimulating Hormone 1.09 uIu/ml (0.300-4.500); Troponin I 0.051 ng/ml (0-0.045)
[2021-01-17] MEDS ORDERED: SODIUM CHLORIDE 0.9% 500 ML IV ONE (21:59)
[2021-01-17] MEDS ORDERED: HEPARIN SODIUM/DEXTROSE 25,000 UNITS/500 ML BAG IV SCH (21:59)
[2021-01-17] MEDS ORDERED: PROMETHAZINE HCL 6.25 MG in SODIUM CHLORIDE 0.9% 50 ML IV PRN (21:59)
[2021-01-17] MEDS ORDERED: ACETAMINOPHEN 325 MG TAB PO PRN (21:59)
[2021-01-17] MEDS ORDERED: Heparin IV Adult Wt-Based Standard *NO* Bolus Protocol IV SCH (21:59)
[2021-01-17] MEDS ORDERED: carvediloL 3.125 MG TAB PO SCH (21:59)
[2021-01-18 04:53] LABS: Basophils # (auto) 0.03 K/uL (0-0.2); Basophils % (auto) 0.3 %; Eosinophils # (auto) 1.21 K/uL (0-0.5); Hematocrit (blood only) 36.1 % (42-52); Immature Granulocytes # (auto) 0.03 K/uL (0.00-0.02); Immature Granulocytes % (auto) 0.3 %; Lymphocytes # (auto) 0.77 K/uL (1.2-3.4); Mean Corpuscular Hemoglobin 34.2 pg (25-34); Mean Corpuscular Hgb Conc 33.2 g/dL (32-36); Mean Corpuscular Volume 102.8 fL (80-100); Mean Platelet Volume 9.5 fL (7.4-10.4); Monocytes # (auto) 1.34 K/uL (0.11-0.59); Monocytes % (auto) 12.2 %; Neutrophils # (auto) 7.63 K/uL (1.4-6.5); Neutrophils % (auto) 69.2 %; Platelet Count 183 K/uL (130-400); RDW Coefficient of Variation 14.4 % (11.5-14.5); Red Blood Count 3.51 M/uL (4.7-6.1); White Blood Count 11.01 K/uL (4.8-10.8)
[2021-01-18] MEDS ORDERED: carvediloL 3.125 MG TAB PO SCH (05:10)
[2021-01-18 05:11] LABS: BUN Creatinine Ratio 22.9 (10-20); Calcium 8.7 mg/dl (8.5-10.1); Creatinine Clr Calc Pharmacy 33.3 ml/min; Est GFR (African American) 46.6; Est GFR (Non-African American) 40.2; Potassium 3.7 mmol/L (3.5-5.1)
[2021-01-18 05:15] LABS: Troponin I 0.039 ng/ml (0-0.045)
[2021-01-18 05:19] LABS: Partial Thromboplastin Ratio 1.9
[2021-01-18 05:35] LABS: Partial Thromboplastin Time 48.7 Seconds (21.0-31.0)
--- NOTE | 2021-01-18 07:26 | Ultrasound Report ---
BILATERAL LOWER EXTREMITY VENOUS DOPPLER HISTORY: Leg swelling. abn dimer COMPARISON STUDY: None. FINDINGS: There is normal compressibility, flow, and augmentation within the bilateral lower extremit y deep venous systems. IMPRESSION: No DVT within the right or left lower extremity. ACT 112: Negative or not required by law. Electronically signed by: Clint Montgomery M.D. 01/18/2021 7:24 AM
[2021-01-18] MEDS: predniSONE 5 MG TAB PO SCH (09:12)
[2021-01-18] MEDS: CLOPIDOGREL BISULFATE 75 MG TAB PO SCH (09:12)
[2021-01-18] MEDS: FOLIC ACID 1 MG TAB PO SCH (09:12)
[2021-01-18] MEDS: MULTIVITAMIN TAB PO SCH (09:12)
[2021-01-18] MEDS: ASPIRIN 81 MG ECTAB PO SCH (09:12)
[2021-01-18] MEDS: VITAMIN B COMPLEX TAB PO SCH (09:12)
[2021-01-18] MEDS: CYANOCOBALAMIN 500 MCG TABLET (VITAMIN B-12) PO SCH (09:12)
[2021-01-18] MEDS: carvediloL 3.125 MG TAB PO SCH ×2 (09:12→21:06)
--- NOTE | 2021-01-18 10:35 | Nuclear Medicine Report ---
NM pul perfusion CLINICAL HISTORY: Hypoxia. Assess for pulmonary embolus.. COMPARISON STUDY: Chest CT 08/28/2020. Chest x-ray 01/17/2021. TECHNIQUE: Immediately following the intravenous administration of 5.3 mCi of technetium 99 M MAA for the perfusion scan, anterior, oblique, lateral, and posterior views of the chest were obtained. The ventilation scan was not performed due to Covid precautions. FINDINGS: There is again noted elevation of the right hemidiaphragm and prominence of the cardiac komal houette. No perfusion defects identified within the lungs. IMPRESSION: Above findings suggest a very low probability scan. ACT 112: Negative or not required by law. Electronically signed by: Clint Montgomery M.D. 01/18/2021 10:34 AM
--- NOTE | 2021-01-18 13:15 | Electrocardiogram Report ---
Test Reason : Blood Pressure : / mmHG Vent. Rate : 089 BPM Atrial Rate : 089 BPM P-R Int : 178 ms QRS Dur : 104 ms QT Int : 358 ms P-R-T Axes : 022 -34 096 degrees QTc Int : 435 ms Normal sinus rhythm Left axis deviation Left ventricular hypertrophy with repolarization abnormality Abnormal ECG When compared with ECG of 28-AUG-2020 13:37, Vent. rate has increased BY 30 BPM Nonspecific T wave abnormality no longer evident in Inferior leads T wave inversion less evident in Anterolateral leads Confirmed by Domenico Price ([id number]) on 01/18/2021 1:15:14 PM Referred By: REFERRED SELF Confirmed By:Domenico Price
--- NOTE | 2021-01-18 14:24 | Hospitalist Progress Note ---
Date of Service January 18, 2021 Assessment & Plan (1) Acute hypoxemic respiratory failure: Acute hypoxemic respiratory failure Unclear etiology Elevated D-dimer Likely multifactorial: Elevated Right hemidiaphragm, H/O CHF Venous Doppler: No DVT within the right or left lower extremity. V/Q Scan:No perfusion defects identified within the lungs. very low probability scan. COVID Screen: Negative Influenza screen negative RSV: negative IV heparin discontinued Currently saturating well on room Generalized weakness Likely secondary to comorbidities H/O anaplasmosis Anaplasma smear negative Denies any recent tick bite Anaplasma PCR pending Blood Culture:pending PT/OT CKD III Clinically dehydrated Received IV fluids Monitor renal function Immunocompromised patient H/O SLE on immunosuppression Rx Hold methotrexate for now Follows with nurse recruiter as outpatient On chronic prednisone Mild leukocytosis likely secondary to chronic prednisone Chronic systolic heart failure Ischemic cardiomyopathy S/P TAVR EF 30 to 34%, TTE 2019 No overt signs of decompensation Update echo Monitor CAD S/P Stent Continue aspirin, Plavix, carvedilol HTN stable Continue current medication DVT Px Heparin SQ Code Status Full code Admission and Anticipated Discharge Date Admission Date: January 17, 2021 Subjective Patient seen and examined at bedside States feeling better today Reports having generalized weakness Denies chest pain, dyspnea at rest, cough, dizziness, nausea, abdominal pain Offers no other complaints Review of Systems Review of Systems: All systems reviewed & are unremarkable except as noted in HPI & below Physical Exam Physical Exam: Physical Exam: Vitals signs as noted above General Appearance:Moderately built and nourished, no apparent distress Head: normocephalic, Atraumatic Eyes: normal inspection, EOMI Neck: supple, Trachea midline Respiratory/Chest: Decreased breath sounds, CTA, No accessory muscle use Cardiovascular: S1, S2, No murmur Abdomen/GI:Soft, Non tender, Bowel sounds present Extremities/Musculoskelatal:normal inspection, Trace leg edema Neurologic/Psych:AAOX3, grossly no focal neurological deficits Skin: normal color, warm Results & Data Results & Data ([facility]) Vital Signs (Past 12 Hours) Vital Signs Temp Pulse Resp BP Pulse Ox 01/18/21 11:20 37.1 C 75 20 115/69 92 01/18/21 07:56 36.9 C 90 20 115/76 95 01/18/21 05:18 108/58 L 01/18/21 03:30 175/75 H 01/18/21 03:15 37.3 C 87 22 95 Laboratory Results Short CBC 01/17/21 01/18/21 Range/Units 16:44 04:40 WBC 10.25 11.01 H (4.8-10.8) K/uL Hgb 13.7 L 12.0 L (14.0-18.0) g/dL Hct 41.5 L 36.1 L (42-52) % Plt Count 234 183 (130-400) K/uL BMP 01/17/21 01/18/21 16:44 04:40 Sodium 138 140 Potassium 4.1 3.7 Chloride 104 109 H Carbon Dioxide 28 25 BUN 39 H 36 H Creatinine 1.77 H 1.57 H Glucose 92 97 Calcium 9.8 8.7 Cardiac Enzymes 01/17/21 01/17/21 01/18/21 Range/Units 16:44 20:14 04:40 Troponin I 0.028 0.051 H* 0.039 (0-0.045) ng/ml Liver Function 01/17/21 Range/Units 16:44 Total Bilirubin 0.6 (0.2-1) mg/dl AST 16 (15-37) U/L ALT 22 (12-78) U/L Alkaline Phosphatase 88 (45-117) U/L Albumin 3.5 (3.4-5.0) gm/dl Urine 01/17/21 Range/Units 19:25 Urine Color Yellow Urine Appearance Clear (Clear) Urine pH 5.5 (4.5-7.5) Ur Specific [place] 1.017 (1.000-1.030) Urine Protein Negative (Negative) Urine Glucose (UA) Negative (Negative)
[2021-01-18] MEDS: HEPARIN SOD 5,000 UNIT/0.5 ML VIAL SQ SCH (21:07)
[2021-01-19 07:14] LABS: Hematocrit (blood only) 35.5 % (42-52); Hemoglobin 12.7 g/dL (14.0-18.0); Mean Corpuscular Hemoglobin 36.1 pg (25-34); Mean Corpuscular Hgb Conc 35.8 g/dL (32-36); Mean Corpuscular Volume 100.9 fL (80-100); Mean Platelet Volume 9.9 fL (7.4-10.4); Platelet Count 204 K/uL (130-400); RDW Coefficient of Variation 14.3 % (11.5-14.5); RDW Standard Deviation 51.7 fL (36.4-46.3); Red Blood Count 3.52 M/uL (4.7-6.1); White Blood Count 8.61 K/uL (4.8-10.8)
[2021-01-19 07:22] LABS: Partial Thromboplastin Time 25.4 Seconds (21.0-31.0)
[2021-01-19 07:42] LABS: BUN Creatinine Ratio 22.2 (10-20); Calcium 9.2 mg/dl (8.5-10.1); Creatinine Clr Calc Pharmacy 33.3 ml/min; Est GFR (African American) 46.6; Est GFR (Non-African American) 40.2; Magnesium 1.9 mg/dl (1.8-2.4); Potassium 3.7 mmol/L (3.5-5.1)
[2021-01-19] MEDS: HEPARIN SOD 5,000 UNIT/0.5 ML VIAL SQ SCH ×2 (09:09→20:00)
[2021-01-19] MEDS: carvediloL 3.125 MG TAB PO SCH ×2 (09:09→20:00)
[2021-01-19] MEDS: ASPIRIN 81 MG ECTAB PO SCH (09:09)
[2021-01-19] MEDS: CYANOCOBALAMIN 500 MCG TABLET (VITAMIN B-12) PO SCH (09:09)
[2021-01-19] MEDS: VITAMIN B COMPLEX TAB PO SCH (09:09)
[2021-01-19] MEDS: MULTIVITAMIN TAB PO SCH (09:10)
[2021-01-19] MEDS: predniSONE 5 MG TAB PO SCH (09:10)
[2021-01-19] MEDS: CLOPIDOGREL BISULFATE 75 MG TAB PO SCH (09:10)
[2021-01-19] MEDS: FOLIC ACID 1 MG TAB PO SCH (09:10)
[2021-01-19] MEDS: traMADol HCL 50 MG TABLET PO PRN ×2 (09:24→17:01)
--- NOTE | 2021-01-19 18:11 | Hospitalist Progress Note ---
Date of Service January 19, 2021 Assessment & Plan (1) Acute hypoxemic respiratory failure: Acute hypoxemic respiratory failure Unclear etiology Elevated D-dimer Likely multifactorial: Elevated Right hemidiaphragm, H/O CHF, Valvular heart disease Venous Doppler: No DVT within the right or left lower extremity. V/Q Scan:No perfusion defects identified within the lungs. very low probability scan. ECHO reviewed with [employer] Screen Watcher correctional cook--Minimal periprosthetic leak of the prosthetic aortic valve. EF 45 to 50%. The gradient is normal for this prosthetic aortic valve. COVID Screen: Negative Influenza screen negative RSV: negative IV heparin discontinued Currently saturating low 90s on room air Sinus Pause 3.1 sec pause on Monitor Asymptomatic Discussed with [employer] Screen Watcher correctional cook Monitor on Tele Continue Coreg cautiously If becomes symptomatic or has recurrent pauses, will hold Coreg Generalized weakness Likely secondary to comorbidities H/O anaplasmosis Anaplasma smear negative Denies any recent tick bite Anaplasma PCR pending Blood Culture:No growth PT/OT:Recommends Rehab CKD III Clinically dehydrated Received IV fluids Monitor renal function Immunocompromised patient H/O SLE on immunosuppression Rx Hold methotrexate for now Follows with facility service manager as outpatient On chronic prednisone Mild leukocytosis likely secondary to chronic prednisone Chronic systolic heart failure Ischemic cardiomyopathy S/P TAVR EF 30 to 34%, TTE 2019 No overt signs of decompensation Updated echo as above Monitor CAD S/P Stent Continue aspirin, Plavix, carvedilol HTN stable Continue current medication DVT Px Heparin SQ Code Status Full code Disposition Needs Rehab placement Admission and Anticipated Discharge Date Admission Date: January 17, 2021 Subjective Patient seen and examined at bedside Noted 3.1 second pause on Monitor Discussed with Cardiology regarding pause and ECHO Patient asymptomatic during episode Patient states feeling well after chronic arthritic pain is controlled Reports dyspnea with deep breath Denies chest pain, dizziness, nausea, abdominal pain Review of Systems Review of Systems: All systems reviewed & are unremarkable except as noted in HPI & below Physical Exam Physical Exam: Physical Exam: Vitals signs as noted above General Appearance:Moderately built and nourished, no apparent distress Head: normocephalic, Atraumatic Eyes: normal inspection, EOMI Neck: supple, Trachea midline Respiratory/Chest: Decreased breath sounds, CTA, No accessory muscle use Cardiovascular: S1, S2, No murmur Abdomen/GI:Soft, Non tender, Bowel sounds present Extremities/Musculoskelatal:normal inspection, Trace leg edema Neurologic/Psych:AAOX3, grossly no focal neurological deficits Skin: normal color, warm Results & Data Results & Data ([facility]) Vital Signs (Past 12 Hours) Vital Signs Temp Pulse Pulse Resp BP Pulse Ox 01/19/21 16:00 70 01/19/21 14:47 36.6 C 75 20 134/75 90 01/19/21 11:27 37.2 C 69 20 106/56 L 91 01/19/21 10:00 65 01/19/21 07:59 36.8 C 74 20 159/81 H 92 Laboratory Results Short CBC 01/19/21 Range/Units 06:42 WBC 8.61 (4.8-10.8) K/uL Hgb 12.7 L (14.0-18.0) g/dL Hct 35.5 L (42-52) % Plt Count 204 (130-400) K/uL BMP 01/19/21 06:42 Sodium 139 Potassium 3.7 Chloride 108 H Carbon Dioxide 24 BUN 35 H Creatinine 1.57 H Glucose 97 Calcium 9.2
[2021-01-20 06:52] LABS: Hematocrit (blood only) 35.9 % (42-52); Hemoglobin 12.3 g/dL (14.0-18.0); Mean Corpuscular Hemoglobin 34.8 pg (25-34); Mean Corpuscular Hgb Conc 34.3 g/dL (32-36); Mean Corpuscular Volume 101.7 fL (80-100); Mean Platelet Volume 10.2 fL (7.4-10.4); Platelet Count 214 K/uL (130-400); RDW Coefficient of Variation 14.1 % (11.5-14.5); RDW Standard Deviation 52.2 fL (36.4-46.3); Red Blood Count 3.53 M/uL (4.7-6.1)
[2021-01-20 07:19] LABS: BUN Creatinine Ratio 22.5 (10-20); Calcium 9.9 mg/dl (8.5-10.1); Creatinine Clr Calc Pharmacy 31.5 ml/min; Est GFR (African American) 43.5; Est GFR (Non-African American) 37.5; Potassium 3.6 mmol/L (3.5-5.1)
[2021-01-20] MEDS: carvediloL 3.125 MG TAB PO SCH ×2 (08:40→20:39)
[2021-01-20] MEDS: MULTIVITAMIN TAB PO SCH (08:41)
[2021-01-20] MEDS: FOLIC ACID 1 MG TAB PO SCH (08:41)
[2021-01-20] MEDS: ASPIRIN 81 MG ECTAB PO SCH (08:41)
[2021-01-20] MEDS: CLOPIDOGREL BISULFATE 75 MG TAB PO SCH (08:41)
[2021-01-20] MEDS: predniSONE 5 MG TAB PO SCH (08:42)
[2021-01-20] MEDS: CYANOCOBALAMIN 500 MCG TABLET (VITAMIN B-12) PO SCH (08:42)
[2021-01-20] MEDS: VITAMIN B COMPLEX TAB PO SCH (08:42)
[2021-01-20] MEDS: HEPARIN SOD 5,000 UNIT/0.5 ML VIAL SQ SCH ×2 (08:43→20:39)
--- NOTE | 2021-01-20 17:13 | Hospitalist Progress Note ---
Date of Service January 20, 2021 Assessment & Plan (1) Acute hypoxemic respiratory failure: Acute hypoxemic respiratory failure Unclear etiology Elevated D-dimer Likely multifactorial: Elevated Right hemidiaphragm, H/O CHF, Valvular heart disease Venous Doppler: No DVT within the right or left lower extremity. V/Q Scan:No perfusion defects identified within the lungs. very low probability scan. ECHO reviewed with Family Day Care Worker catheterization laboratory technician--Minimal periprosthetic leak of the prosthetic aortic valve. EF 45 to 50%. The gradient is normal for this prosthetic aortic valve. COVID Screen: Negative Influenza screen negative RSV: negative IV heparin discontinued Currently saturating off oxygen Sinus Pause 3.1 sec pause on Monitor Asymptomatic Discussed with Family Day Care Worker catheterization laboratory technician Monitor on Tele Continue Coreg cautiously If becomes symptomatic or has recurrent pauses, will hold Coreg Noted recurrence of pauses on telemetry today Generalized weakness Likely secondary to comorbidities ? Secondary to recent COVID Vaccine H/O anaplasmosis Anaplasma smear negative Denies any recent tick bite Anaplasma PCR pending Blood Culture:No growth PT/OT:Recommends Rehab CKD III Clinically dehydrated Received IV fluids Monitor renal function Immunocompromised patient H/O SLE on immunosuppression Rx Hold methotrexate for now Follows with php mysql web developer as outpatient On chronic prednisone Mild leukocytosis likely secondary to chronic prednisone Chronic systolic heart failure Ischemic cardiomyopathy S/P TAVR EF 30 to 34%, TTE 2019 No overt signs of decompensation Updated echo as above Monitor CAD S/P Stent Continue aspirin, Plavix, carvedilol HTN stable Continue current medication DVT Px Heparin SQ Code Status Full code Disposition Rehab as able Admission and Anticipated Discharge Date Admission Date: January 17, 2021 Subjective Patient seen and examined at bedside No pauses on monitor today Patient states having chronic lower back pain, feeling tired and subjectively feverish Discussed with patient's family at bedside Denies chest pain, dyspnea, dizziness, nausea, abdominal pain Review of Systems Review of Systems: All systems reviewed & are unremarkable except as noted in HPI & below Physical Exam Physical Exam: Physical Exam: Vitals signs as noted above General Appearance:Moderately built and nourished, no apparent distress Head: normocephalic, Atraumatic Eyes: normal inspection, EOMI Neck: supple, Trachea midline Respiratory/Chest: Decreased breath sounds, CTA, No accessory muscle use Cardiovascular: S1, S2, No murmur Abdomen/GI:Soft, Non tender, Bowel sounds present Extremities/Musculoskelatal:normal inspection, Trace leg edema Neurologic/Psych:AAOX3, grossly no focal neurological deficits Skin: normal color, warm Results & Data Results & Data ([facility]) Vital Signs (Past 12 Hours) Vital Signs Temp Pulse Resp BP BP Pulse Ox 01/20/21 16:07 36.7 C 66 20 132/75 91 01/20/21 11:18 37.1 C 71 18 123/64 90 01/20/21 07:48 36.8 C 71 20 144/74 H 90 Laboratory Results Short CBC 01/20/21 Range/Units 06:13 WBC 9.30 (4.8-10.8) K/uL Hgb 12.3 L (14.0-18.0) g/dL Hct 35.9 L (42-52) % Plt Count 214 (130-400) K/uL BMP 01/20/21 06:13 Sodium 136 Potassium 3.6 Chloride 105 Carbon Dioxide 24 BUN 37 H Creatinine 1.66 H Glucose 85 Calcium 9.9
[2021-01-21 07:48] LABS: BUN Creatinine Ratio 24.3 (10-20); Calcium 9.6 mg/dl (8.5-10.1); Creatinine Clr Calc Pharmacy 32.9 ml/min; Est GFR (African American) 45.8; Est GFR (Non-African American) 39.6
[2021-01-21] MEDS: ASPIRIN 81 MG ECTAB PO SCH (08:19)
[2021-01-21] MEDS: VITAMIN B COMPLEX TAB PO SCH (08:19)
[2021-01-21] MEDS: carvediloL 3.125 MG TAB PO SCH (08:19)
[2021-01-21] MEDS: FOLIC ACID 1 MG TAB PO SCH (08:20)
[2021-01-21] MEDS: CYANOCOBALAMIN 500 MCG TABLET (VITAMIN B-12) PO SCH (08:20)
[2021-01-21] MEDS: CLOPIDOGREL BISULFATE 75 MG TAB PO SCH (08:20)
[2021-01-21] MEDS: MULTIVITAMIN TAB PO SCH (08:22)
[2021-01-21] MEDS: predniSONE 5 MG TAB PO SCH (08:22)
[2021-01-21] MEDS: HEPARIN SOD 5,000 UNIT/0.5 ML VIAL SQ SCH (08:24)
--- NOTE | 2021-01-21 12:19 | Hospitalist Progress Note ---
Date of Service January 21, 2021 Assessment & Plan (1) Acute hypoxemic respiratory failure: Acute hypoxemic respiratory failure Unclear etiology Elevated D-dimer Likely multifactorial: Elevated Right hemidiaphragm (chronic), H/O CHF, Valvular heart disease Venous Doppler: No DVT within the right or left lower extremity. V/Q Scan:No perfusion defects identified within the lungs. very low probability scan. ECHO reviewed with [employer] Technician utility person--Minimal periprosthetic leak of the prosthetic aortic valve. EF 45 to 50%. The gradient is normal for this prosthetic aortic valve. COVID Screen: Negative Influenza screen negative RSV: negative IV heparin discontinued Saturating 95% on room air Sinus Pause One Episode of 3.1 sec pause on Monitor Asymptomatic Discussed with [employer] Technician utility person Monitor on Tele Continue Coreg cautiously If becomes symptomatic or has recurrent pauses, will hold Coreg Noted recurrence of pauses on telemetry Generalized weakness Likely secondary to comorbidities ? Secondary to recent COVID Vaccine H/O anaplasmosis Anaplasma smear negative Denies any recent tick bite Anaplasma PCR pending Blood Culture:No growth PT/OT:Recommends Rehab CKD III Clinically dehydrated Received IV fluids Monitor renal function Immunocompromised patient H/O SLE on immunosuppression Rx Hold methotrexate for now Follows with manager enrollment as outpatient On chronic prednisone Chronic systolic heart failure Ischemic cardiomyopathy S/P TAVR EF 30 to 34%, TTE 2019 No overt signs of decompensation Updated echo as above Monitor CAD S/P Stent Continue aspirin, Plavix, carvedilol HTN stable Continue current medication DVT Px Heparin SQ Code Status Full code Disposition Rehab today Admission and Anticipated Discharge Date Admission Date: January 17, 2021 Subjective Patient seen and examined at bedside Reports minimal nonexpectorant cough Has generalized weakness Saturating 95% on room air No recurrence of pauses on threat monitoring analyst Denies chest pain, dyspnea, dizziness, nausea, abdominal pain Review of Systems Review of Systems: All systems reviewed & are unremarkable except as noted in HPI & below Physical Exam Physical Exam: Physical Exam: Vitals signs as noted above General Appearance:Moderately built and nourished, no apparent distress Head: normocephalic, Atraumatic Eyes: normal inspection, EOMI Neck: supple, Trachea midline Respiratory/Chest: Decreased breath sounds, CTA, No accessory muscle use Cardiovascular: S1, S2, No murmur Abdomen/GI:Soft, Non tender, Bowel sounds present Extremities/Musculoskelatal:normal inspection, Trace leg edema Neurologic/Psych:AAOX3, grossly no focal neurological deficits Skin: normal color, warm Results & Data Results & Data ([facility]) Vital Signs (Past 12 Hours) Vital Signs Temp Pulse Pulse Resp BP Pulse Ox 01/21/21 11:23 36.7 C 67 18 131/70 95 01/21/21 07:15 61 01/21/21 07:05 36.4 C L 94 H 20 113/67 94 01/21/21 03:13 70 01/21/21 03:10 36.6 C 92 H 20 131/68 93 Laboratory Results [facility] 01/21/21 06:26 Sodium 138 Potassium 4.0 Chloride 107 Carbon Dioxide 26 BUN 39 H Creatinine 1.59 H Glucose 88 Calcium 9.6
--- NOTE | 2021-01-21 12:24 | Discharge Summary ---
Date of Service January 21, 2021 Admission HPI Per Admitting Provider History obtained from patient and records. Medical history significant for chronic systolic heart failure secondary to ischemic cardiomyopathy (EF 30 to 34%, TTE 2019), CAD status post stent, sp AVR, SLE on on immunosuppression (steroid and methotrexate Rx), CRI (baseline creatinine 1.4), chronic anemia (baseline hemoglobin 12-13), history anaplasmosis as per records, past tobacco abuse. Last confinement January 2020 for respiratory failure, possible pulmonary congestion. Patient feeling ill the last 2 days. Generalized weakness with fair appetite. Some shortness of breath on exertion. Patient denies chest pain, cough, abdominal pain, dysuria symptoms. No known recent COVID-19 contacts. O2 sats noted to be 80s upon arrival at the ER. Temperature elevation noted at the ER as well. Patient given Cefepime at the ER for possible infection. 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, lives with Admission Exam Per Admitting Provider Physical Exam Physical Exam: GENERAL: Comfortable, pleasant, wane, no respiratory distress SKIN: Pallor, warm HEENT: Pale palpebral conjunctivae, no ptosis, dry buccal mucosa, nasal cannula in place NECK : Supple, no tenderness CHEST : Decreased breath sounds, no tenderness HEART : RRR, no obvious murmurs ABDOMEN: Some distention, nontender EXTREMITIES : Minimal LE swelling, no LE tenderness, no other conspicuous deformities noted NEUROLOGIC : Coherent, no facial asymmetry, no other gross focality Principal Diagnosis Hypoxia Generalized weakness Immunocompromised State Discharge Data Allergies Allergy/AdvReac Type Severity Reaction Status Date / Time oxycodone Allergy Unknown ITCHY, Per Verified 01/17/21 18:45 pt-can take Vicodin piroxicam AdvReac Intermediate CAUSED Verified 01/17/21 18:45 [facility] Consultations 01/17/21 19:23 ED Decision to Admit Stat Procedures Performed Venous Doppler: No DVT within the right or left lower extremity. V/Q Scan:No perfusion defects identified within the lungs. very low probability scan. ECHO reviewed with Accounts Payable Coordinator manager transportation planning--Minimal periprosthetic leak of the prosthetic aortic valve. EF 45 to 50%. The gradient is normal for this prosthetic aortic valve. Ordered Studies 01/18/21 00:00 US venous doppler LE BI Urgent Hospital Course (1) Acute hypoxemic respiratory failure: Acute hypoxemic respiratory failure Unclear etiology Elevated D-dimer Likely multifactorial: Elevated Right hemidiaphragm (chronic), H/O CHF, Valvular heart disease Venous Doppler: No DVT within the right or left lower extremity. V/Q Scan:No perfusion defects identified within the lungs. very low probability scan. ECHO reviewed with Accounts Payable Coordinator manager transportation planning--Minimal periprosthetic leak of the prosthetic aortic valve. EF 45 to 50%. The gradient is normal for this prosthetic aortic valve. COVID Screen: Negative Influenza screen negative RSV: negative IV heparin discontinued Saturating 95% on room air Sinus Pause One Episode of 3.1 sec pause on Monitor Asymptomatic Discussed with Accounts Payable Coordinator manager transportation planning Monitor on Tele Continue Coreg cautiously If becomes symptomatic or has recurrent pauses, will hold Coreg Noted recurrence of pauses on telemetry Generalized weakness Likely secondary to comorbidities ? Secondary to recent COVID Vaccine H/O anaplasmosis Anaplasma smear negative Denies any recent tick bite Anaplasma PCR pending Blood Culture:No growth PT/OT:Recommends Rehab CKD III Clinically dehydrated Received IV fluids Monitor renal function Immunocompromised patient H/O SLE on immunosuppression Rx Hold methotrexate for now Follows with vibration engineer as outpatient On chronic prednisone Chronic systolic heart failure Ischemic cardiomyopathy S/P TAVR EF 30 to 34%, TTE 2019 No overt signs of decompensation Updated echo as above Monitor CAD S/P Stent Continue aspirin, Plavix, carvedilol HTN stable Continue current medication DVT Px Heparin SQ Code Status Full code Disposition Rehab today Total Time Total Time Spent Total Time Spent (In Minutes): 38 Minutes Total Time Includes: Examination of the Patient, Discharge Planning, Medication Reconciliation, Communication With Other Providers and Other Discharge Plan Discharge Items Patient Disposition: Transfer Inpatient Rehab Fac Reason For Visit: RESP FAILURE Discharge Diagnosis: Hypoxia Generalized weakness Immunocompromised State Activity: Resume your previous activity Exercise/Sports: Gradually increase as tolerated Non-emergency contact: Primary Care Provider Call non-emergency contact if: you have any medication questions, your symptoms worsen, your pain is not controlled, your pain is concerning for you and you have a fever Follow-up/Referrals: PCP,NO [Primary Care Provider] - Diet: Heart Healthy Addtl Attending Provider Instructions: Follow-up with your primary care physician in 1 week upon discharge from your facility Consider following up with your shop tech for further evaluation of your heart valve in 3 to 4 weeks. Your final blood cultures are pending at the time of discharge. Follow-up with physician for results. Seek immediate medical attention if your symptoms reoccur or worsen Pending Studies at Discharge: Yes Studies:: Blood Culture Stand-Alone Forms: [facility] Skilled Items Patient informed of condition?: Yes DNR: No Discharge Level of Care: Acute rehab Communicable Disease: No Discharge Prognosis: Stable Lines: None Urinary Catheter: No Medications and DC Order Prescriptions: Continued multivitamin Tablet 1 tab PO DAILY RF: 0 cyanocobalamin (vitamin B-12) 500 mcg Tablet 500 mcg PO DAILY RF: 0 methotrexate sodium 2.5 mg tablet 7.5 mg PO FR RF: 0 vitamin B complex Tablet 1 tab PO DAILY RF: 0 folic acid 1 mg Tablet 1 mg PO DAILY RF: 0 PreserVision AREDS [id number] Tablet 1 tab PO BID RF: 0 hydrocodone-acetaminophen 7.5-325 mg tablet 1 tab PO BID RF: 0 aspirin 81 mg Tablet,Delayed Release (Dr/Ec) 81 mg PO DAILY RF: 0 acetaminophen [Tylenol Extra Strength] 500 mg Tablet 500 mg PO Q6H PRN (Reason: Pain) RF: 0 prednisone 5 mg tablet 5 mg PO DAILY RF: 0 clopidogrel 75 mg tablet 75 mg PO DAILY RF: 0 carvedilol 3.125 mg tablet 3.125 mg PO BID RF: 0 Discharge Orders: Discharge Order (Routine); Ordered 01/21/21 Ordered By: Keith Dotson Admission Data Admit Date/Time: 01/17/21 20:16 Attending Provider: Keith Dotson Admit Provider: Mohinder Weathers Primary Care Provider: PCP,NO Other Providers: Mohinder Weathers ; [facility] Other Interventions: Discharge Summary Assessment (RN) Last Done: 01/21/21 13:27
== END 2021-01-21 14:54 | DRG 189 ==
LOC: ED 16:29 → 2N 20:16 → SUATTDRO 20:16 → 2N 21:13

== ENCOUNTER 2021-05-03 18:04 | Inpatient (IN) ==
[2021-05-03 20:10] LABS: Basophils # (auto) 0.03 K/uL (0-0.2); Basophils % (auto) 0.3 %; Eosinophils # (auto) 0.75 K/uL (0-0.5); Eosinophils % (auto) 8.5 %; Hematocrit (blood only) 40.2 % (42-52); Hemoglobin 13.2 g/dL (14.0-18.0); Immature Granulocytes # (auto) 0.01 K/uL (0.00-0.02); Immature Granulocytes % (auto) 0.1 %; Lymphocytes # (auto) 1.48 K/uL (1.2-3.4); Lymphocytes % (auto) 16.8 %; Mean Corpuscular Hemoglobin 34.2 pg (25-34); Mean Corpuscular Hgb Conc 32.8 g/dL (32-36); Mean Corpuscular Volume 104.1 fL (80-100); Mean Platelet Volume 10.2 fL (7.4-10.4); Monocytes # (auto) 1.43 K/uL (0.11-0.59); Monocytes % (auto) 16.2 %; Neutrophils # (auto) 5.11 K/uL (1.4-6.5); Neutrophils % (auto) 58.1 %; Platelet Count 236 K/uL (130-400); RDW Coefficient of Variation 14.1 % (11.5-14.5); RDW Standard Deviation 53.7 fL (36.4-46.3); Red Blood Count 3.86 M/uL (4.7-6.1); White Blood Count 8.81 K/uL (4.8-10.8)
[2021-05-03 20:17] LABS: Partial Thromboplastin Time 25.3 Seconds (21.0-31.0); Prothrombin Time 9.8 Seconds (9.0-12.0)
[2021-05-03 20:24] LABS: Albumin Level 3.4 gm/dl (3.4-5.0); BUN Creatinine Ratio 18.8 (10-20); Calcium 9.5 mg/dl (8.5-10.1); Creatinine Clr Calc Pharmacy 40.9 ml/min; Est GFR (African American) 55.9 ml/min; Est GFR (Non-African American) 48.2 ml/min; Potassium 4.4 mmol/L (3.5-5.1)
[2021-05-03] MEDS: SODIUM CHLORIDE 0.9% 500 ML IV SCH (20:26)
[2021-05-03 20:27] LABS: Albumin Globulin Ratio 0.8 (0.9-2); Bilirubin,Total 0.6 mg/dl (0.2-1); Globulin 4.5 gm/dl (2.5-4.0); Total Protein 7.9 gm/dl (6.4-8.2)
[2021-05-03 20:50] LABS: Magnesium 2.4 mg/dl (1.8-2.4); Phosphorus 3.8 mg/dl (2.5-4.9)
[2021-05-03 21:35] LABS: Lyme Ab IgG w/WB Rflx Negative (Negative); Lyme Ab IgM w/WB Rflx Negative (Negative)
--- NOTE | 2021-05-03 22:01 | Emergency Department Note ---
Impression & Plan Bilateral leg weakness, Lumbar stenosis with neurogenic claudication, Chronic back pain, Ambulatory dysfunction, Edema of both lower extremities ED Provider Note NAME: JESSIE HAWLEY AGE: 85 SEX: M ARRIVES VIA: Walk-In INFORMANT: Patient, Friend/wool scourer ED PROVIDER(S): Nathan Madera MD CHIEF COMPLAINT: Back pain, weakness, ambulatory dysfunction. PLAN: Disposition: Admit MEDICAL DECISION MAKING: The patient is a pleasant 85-year-old gentleman with a past medical history of idiopathic polyneuropathy, lumbar stenosis with neurogenic claudication with associated chronic back pain and ambulatory dysfunction, aortic stenosis, history of hypoxemic respiratory failure, CKD, hypertension, hyperlipidemia, history of anaplasmosis, SLE who presents to the emergency department accompanied by his close friend and caregiver for worsening back pain and lower extremity weakness for the past 2 months. Report a month ago he stopped being able to walk up the steps and has been downstairs only. During this time he also has been unable to even walk with a walker. They report they had a CT scan performed outpatient after [facility] and are waiting to have a neurology appointment in June. They report during this time they were also provided a hospital bed for the home given the patient's declining functional status. He has home nursing care but the patient's caregiver feels that his needs are surpassing what they can provide at home. Otherwise the 90 fevers, chills, cough, congestion, GI or symptoms. The patient denies any loss of bowel control or urinary retention. On arrival patient is chronically ill-appearing but no acute distress, afebrile stable vital signs. He has 2/5 strength in bilateral lower extremities with 3+ pitting edema. He has normal strength in bilateral upper extremities. DTRs wnl. 3+ BLE pitting edema. EKG without overt acute ischemia. Chest x-ray negative for acute cardiopulmonary process per my preliminary review. WBC and platelets within normal limits. H/H similar to prior values. Chemistry without metabolic acidosis. Electrolytes LFTs are unremarkable. Lyme disease screen test was negative. COVID-19 PCR was negative. Per preliminary [facility] r eport CT of the head negative for acute process; CT of the abdomen pelvis also negative for acute process; bilateral lower extremity duplexes was negative for dVT. However, given the patient's worsening functional status at home the patient is in agreement with plan for admission for further evaluation, PT OT and possible placement. [facility]. Triage Nursing notes reviewed and agree them. Prior medical records reviewed Vital Signs: reviewed and remarkable for no significant abnormalities Differential diagnosis: Infection, dehydration, metabolic abnormality, hypo/hyperglycemia, electrolyte disturbance, anemia, hypoxia, cardiac sources, intracerebral event, toxicologic, neurologic, as well as other pathologies. ER treatment provided: See below. Diagnostics interpreted by me: ECG: Normal sinus rhythm, 75 bpm, no ectopy, LVH, no overt ST elevation or depression, QTC 448, QRS 116. Cardiac Monitoring: An order for continuous cardiac monitoring was placed and demonstrated normal sinus rhythm, 75 bpm, no ectopy. Laboratory studies: See below Imaging studies: CXR: No acute cardiopulmonary process per my preliminary review. [facility] Preliminary Findings Only See Final Report For Complete Findings CT ABDOMEN & PELVIS Without Contrast: Respiratory motion degrades imaging quality. Multiple nonobstructing bilateral kidney stones measuring up to approximately 3 mm. Postoperative changes of the aortic valve. Moderate stool burden. Postoperative changes of the thoracolumbar spine. Comparison made with 08/28/2020 CT abdomen/pelvis Radiologist: Lisandro Foreman MD Study ready at 21:27 and initial results transmitted at 21:47 Preliminary Findings Only See Final Report For Complete Findings CT HEAD: No acute intracranial hemorrhage, mass-effect, or midline shift. Age-related involutional white matter changes and parenchymal volume loss. Chronic right maxillary paranasal sinus disease. Comparison made with CT head 02/26/2021 Radiologist: Lisandro Foreman MD Study ready at 21:25 and initial results transmitted at 21:38 Consultation(s): Case was discussed with Dr. Espinoza, [facility] hospitalist, who will evaluate the patient for admission. HPI: The patient is a pleasant 85-year-old gentleman with a past medical history of idiopathic polyneuropathy, lumbar stenosis with neurogenic claudication with associated chronic back pain and ambulatory dysfunction, aortic stenosis, history of hypoxemic respiratory failure, CKD, hypertension, hyperlipidemia, history of anaplasmosis, SLE who presents to the emergency department acco mpanied by his close friend and caregiver for worsening back pain and lower extremity weakness for the past 2 months. Report a month ago he stopped being able to walk up the steps and has been downstairs only. During this time he also has been unable to even walk with a walker. They report they had a CT scan performed outpatient after it was ordered by the [place] provider and are waiting to have a neurology appointment in June. They report during this time they were also provided a hospital bed for the home given the patient's declining functional status. He has home nursing care but the patient's caregiver feels that his needs are surpassing what they can provide at home. Otherwise the 90 fevers, chills, cough, congestion, GI or symptoms. The patient denies any loss of bowel control or urinary retention. ROS: See above HPI for pertinent positives & negatives. A total of 10 systems reviewed and were otherwise negative. PAST MEDICAL HISTORY:See Below PAST SURGICAL HISTORY:See Below FAMILY HISTORY:See Below SOCIAL HISTORY:See Below HOME MEDICATIONS:See Below ALLERGIES:See Below VITALS:See Below PHYSICAL EXAMINATION: GENERAL: Awake, alert, chronically ill-appearing, in no distress HENT: Normocephalic, atraumatic. Oropharynx unremarkable. EYES: Normal conjunctiva. Sclera non-icteric. NECK: Supple. No nuchal rigidity. FROM. No JVD. RESPIRATORY: Diminished at the bases and otherwise clear to auscultation. CARDIAC: Regular rate, normal rhythm. Extremities warm and well perfused. Pulses equal. ABDOMEN: Soft, non-distended. No tenderness to palpation. No rebound or guarding. No masses. RECTAL: Deferred. MUSCULOSKELETAL: Chest examination reveals no tenderness. The back is symmetrical on inspection without obvious abnormality. There is no CVA tenderness to palpation. No joint edema. LOWER EXTREMITIES: Calves are equal size bilaterally and non-tender. 3+ BLE pitting edema. Mild distal lower extremity erythema without warmth or tenderness, which the patient reports is chronic. NEURO: No focal sensory or motor deficits noted. 2/5 strength in bilateral lower extremities. Normal strength in bilateral upper extremities. DTRs wnl. SKIN: No rash or jaundice noted. Nathan Madera MD Past Med/Surg History Medical History (Updated 05/04/21 @ 03:57 by Nathan Madera MD) Acute hypoxemic respiratory failure Aortic stenosis CKD (chronic kidney disease), stage III History of steroid therapy HTN (hypertension) Hyperlipidemia Hypertension Lumbar stenosis with neurogenic claudication Pericarditis Systemic lupus erythematosus Surgical History History of back surgery S/P appendectomy S/p total knee replacement, bilateral Family History Unknown No problems noted. Other Family history non-contributory Social History Smoking Status: Former smoker Second Hand Exposure: No; Do You Dip or Chew Tobacco: No; Hx Alcohol Use: No Hx Substance Use: Yes Preferred Language: Mauritian Communication Ability: Effective Vehicle Insurance Agent Required: No Beliefs That Will Affect Care: None Current Living Situation: Significant Other Other Information That Helps Us Care for You: No Feels Safe at Home: Yes Safety Concerns: Feels Safe At This Time Assistive Devices: Glasses Allergies Allergies Allergy/AdvReac Type Severity Reaction Status Date / Time oxycodone Allergy Unknown ITCHY, Per Verified 05/03/21 20:22 pt-can take Vicodin piroxicam AdvReac Intermediate CAUSED Verified 05/03/21 20:22 ULCER Home Meds Home Medications Medication Instructions Recorded Confirmed PreserVision AREDS 1 tab PO BID 08/01/19 05/03/21 cyanocobalamin (vitamin B-12) 500 mcg PO DAILY 08/01/19 05/03/21 multivitamin 1 tab PO DAILY 08/01/19 05/03/21 vitamin B complex 1 tab PO DAILY 08/01/19 05/03/21 hydrocodone-acetaminophen 1 tab PO BID PRN 02/02/20 05/03/21 aspirin 81 mg PO DAILY 08/28/20 05/03/21 carvedilol 3.125 mg PO BID 01/17/21 05/03/21 clopidogrel 75 mg PO DAILY 01/17/21 05/03/21 prednisone 5 mg PO DAILY 01/17/21 05/03/21 duloxetine 30 mg PO QPM 05/03/21 05/03/21 omega [id number] oil [Fish Oil] 1 cap PO DAILY 05/03/21 05/03/21 vitamin E 1,000 tab PO DAILY 05/03/21 05/03/21 Results & Data (ED) Vital Signs Vital Signs - 24 hr 05/03/21 18:09 05/03/21 19:35 05/03/21 21:16 Temperature 36.7 C Temperature Source Temporal Artery Scan Pulse Rate 73 85 73 Pulse Rate from SpO2 Sensor Respiratory Rate 18 19 20 Respiratory Effort / Characteristics Respiratory Depth Blood Pressure 132/56 L 179/78 H 164/89 H Blood Pressure Mean 81 111 114 Pulse Oximetry 96 Oxygen Delivery Method Room Air Sepsis Recent Fever Within 48 Hours No Sepsis New/Unexplained Change in Mental Status No Sepsis Action Taken by Nursing No Action Required 05/03/21 22:00 05/03/21 22:39 05/03/21 23:00 Temperature Temperature Source Pulse Rate 94 H 80 Pulse Rate from SpO2 Sensor 82 Respiratory Rate 17 21 Respiratory Effort / Characteristics Non-Labored Spontaneous Respiratory Depth Normal Blood Pressure 152/60 H Blood Pressure Mean 90 Pulse Oximetry 98 96 Oxygen Delivery Method Room Air Sepsis Recent Fever Within 48 Hours Sepsis New/Unexplained Change in Mental Status Sepsis Action Taken by Nursing Laboratory Data Attestation: I reviewed the patient's lab results. Result diagrams: 05/03/21 19:56 05/03/21 19:56 Lab Results 05/03/21 05/03/21 05/03/21 Range/Units 19:56 19:56 19:56 WBC 8.81 (4.8-10.8) K/uL RBC 3.86 L (4.7-6.1) M/uL Hgb 13.2 L (14.0-18.0) g/dL Hct 40.2 L (42-52) % MCV 104.1 H (80-100) fL MCH 34.2 H (25-34) pg MCHC 32.8 (32-36) g/dL RDW Std Deviation 53.7 H (36.4-46.3) fL RDW Coeff of Patti 14.1 (11.5-14.5) % Plt Count 236 (130-400) K/uL MPV 10.2 (7.4-10.4) fL Immature Gran % (Auto) 0.1 % Neut % (Auto) 58.1 % Lymph % (Auto) 16.8 % [place] % (Auto) 16.2 % Eos % (Auto) 8.5 % Baso % (Auto) 0.3 % Neut # (Auto) 5.11 (1.4-6.5) K/uL Lymph # (Auto) 1.48 (1.2-3.4) K/uL [place] # (Auto) 1.43 H (0.11-0.59) K/uL Eos # (Auto) 0.75 H (0-0.5) K/uL Baso # (Auto) 0.03 (0-0.2) K/uL Immature Gran # (Auto) 0.01 (0.00-0.02) K/uL PT 9.8 (9.0-12.0) Seconds INR 1.0 (0.9-1.1) APTT 25.3 (21.0-31.0) Seconds PTT Ratio 1.0 Sodium 136 (136-145) mmol/L Potassium 4.4 (3.5-5.1) mmol/L Chloride 105 (98-107) mmol/L Carbon Dioxide 26 (21-32) mmol/L Anion Gap 5.0 (3-11) BUN 25 H (7-18) mg/dl Creatinine 1.35 (0.6-1.4) mg/dl Est Cr Clr Drug Dosing 40.9 ml/min Est GFR ( Amer) 55.9 ml/min Est GFR (Non-Af Amer) 48.2 ml/min BUN/Creatinine Ratio 18.8 (10-20) Glucose 102 H (70-99) mg/dl Calcium 9.5 (8.5-10.1) mg/dl Phosphorus (2.5-4.9) mg/dl Magnesium (1.8-2.4) mg/dl Total Bilirubin 0.6 (0.2-1) mg/dl AST 21 (15-37) U/L ALT 21 (12-78) U/L Alkaline Phosphatase 93 (45-117) U/L Total Creatine Kinase (39-308) U/L Total Protein 7.9 (6.4-8.2) gm/dl Albumin 3.4 (3.4-5.0) gm/dl Globulin 4.5 H (2.5-4.0) gm/dl Albumin/Globulin Ratio 0.8 L (0.9-2) Urine Color Urine Appearance (Clear) Urine pH (4.5-7.5) Ur Specific [place] (1.000-1.030) Urine Protein (Negative) Urine Glucose (UA) (Negative) Urine Ketones (Negative) Urine Blood (Negative) Urine Nitrite (Negative) Urine Bilirubin (Negative) Urine Urobilinogen (Negative) Ur Leukocyte Esterase (Negative) Lyme Disease IgG Ab (Negative) Lyme Disease IgM Ab (Negative) COVID-19 Eval Order SARS-CoV-2 (PCR) (Negative) 05/03/21 05/03/21 05/03/21 Range/Units 19:56 20:26 20:26 WBC (4.8-10.8) K/uL RBC (4.7-6.1) M/uL Hgb (14.0-18.0) g/dL Hct (42-52) % MCV (80-100) fL MCH (25-34) pg MCHC (32-36) g/dL RDW Std Deviation (36.4-46.3) fL RDW Coeff of Patti (11.5-14.5) % Plt Count (130-400) K/uL MPV (7.4-10.4) fL Immature Gran % (Auto) % Neut % (Auto) % Lymph % (Auto) % [place] % (Auto) % Eos % (Auto) % Baso % (Auto) % Neut # (Auto) (1.4-6.5) K/uL Lymph # (Auto) (1.2-3.4) K/uL [place] # (Auto) (0.11-0.59) K/uL Eos # (Auto) (0-0.5) K/uL Baso # (Auto) (0-0.2) K/uL Immature Gran # (Auto) (0.00-0.02) K/uL PT (9.0-12.0) Seconds INR (0.9-1.1) APTT (21.0-31.0) Seconds PTT Ratio Sodium (136-145) mmol/L Potassium (3.5-5.1) mmol/L Chloride (98-107) mmol/L Carbon Dioxide (21-32) mmol/L Anion Gap (3-11) BUN (7-18) mg/dl Creatinine (0.6-1.4) mg/dl Est Cr Clr Drug Dosing ml/min Est GFR ( Amer) ml/min Est GFR (Non-Af Amer) ml/min BUN/Creatinine Ratio (10-20) Glucose (70-99) mg/dl Calcium (8.5-10.1) mg/dl Phosphorus 3.8 (2.5-4.9) mg/dl Magnesium 2.4 (1.8-2.4) mg/dl Total Bilirubin (0.2-1) mg/dl AST (15-37) U/L ALT (12-78) U/L Alkaline Phosphatase (45-117) U/L Total Creatine Kinase 69 (39-308) U/L Total Protein (6.4-8.2) gm/dl Albumin (3.4-5.0) gm/dl Globulin (2.5-4.0) gm/dl Albumin/Globulin Ratio (0.9-2) Urine Color Urine Appearance (Clear) Urine pH (4.5-7.5) Ur Specific [place] (1.000-1.030) Urine Protein (Negative) Urine Glucose (UA) (Negative) Urine Ketones (Negative) Urine Blood (Negative) Urine Nitrite (Negative) Urine Bilirubin (Negative) Urine Urobilinogen (Negative) Ur Leukocyte Esterase (Negative) Lyme Disease IgG Ab Negative (Negative) Lyme Disease IgM Ab Negative (Negative) COVID-19 Eval Order Covid19 at [facility] SARS-CoV-2 (PCR) (Negative) 05/03/21 05/03/21 Range/Units 20:26 21:49 WBC (4.8-10.8) K/uL RBC (4.7-6.1) M/uL Hgb (14.0-18.0) g/dL Hct (42-52) % MCV (80-100) fL MCH (25-34) pg MCHC (32-36) g/dL RDW Std Deviation (36.4-46.3) fL RDW Coeff of Patti (11.5-14.5) % Plt Count (130-400) K/uL MPV (7.4-10.4) fL Immature Gran % (Auto) % Neut % (Auto) % Lymph % (Auto) % [place] % (Auto) % Eos % (Auto) % Baso % (Auto) % Neut # (Auto) (1.4-6.5) K/uL Lymph # (Auto) (1.2-3.4) K/uL [place] # (Auto) (0.11-0.59) K/uL Eos # (Auto) (0-0.5) K/uL Baso # (Auto) (0-0.2) K/uL Immature Gran # (Auto) (0.00-0.02) K/uL PT (9.0-12.0) Seconds INR (0.9-1.1) APTT (21.0-31.0) Seconds PTT Ratio Sodium (136-145) mmol/L Potassium (3.5-5.1) mmol/L Chloride (98-107) mmol/L Carbon Dioxide (21-32) mmol/L Anion Gap (3-11) BUN (7-18) mg/dl Creatinine (0.6-1.4) mg/dl Est Cr Clr Drug Dosing ml/min Est GFR ( Amer) ml/min Est GFR (Non-Af Amer) ml/min BUN/Creatinine Ratio (10-20) Glucose (70-99) mg/dl Calcium (8.5-10.1) mg/dl Phosphorus (2.5-4.9) mg/dl Magnesium (1.8-2.4) mg/dl Total Bilirubin (0.2-1) mg/dl AST (15-37) U/L ALT (12-78) U/L Alkaline Phosphatase (45-117) U/L Total Creatine Kinase (39-308) U/L Total Protein (6.4-8.2) gm/dl Albumin (3.4-5.0) gm/dl Globulin (2.5-4.0) gm/dl Albumin/Globulin Ratio (0.9-2) Urine Color Yellow Urine Appearance Clear (Clear) Urine pH 5.0 (4.5-7.5) Ur Specific [place] 1.008 (1.000-1.030) Urine Protein Negative (Negative) Urine Glucose (UA) Negative (Negative) Urine Ketones Negative (Negative) Urine Blood Negative (Negative) Urine Nitrite Negative (Negative) Urine Bilirubin Negative (Negative) Urine Urobilinogen Negative (Negative) Ur Leukocyte Esterase Negative (Negative) Lyme Disease IgG Ab (Negative) Lyme Disease IgM Ab (Negative) COVID-19 Eval Order SARS-CoV-2 (PCR) NEGATIVE (Negative) Administered Medications Hydromorphone HCl (Hydromorphone Inj 0.5 Mg/0.5 Ml Syr) 0.5 mg IV Q4H PRN PRN Reason: Pain Stop: 05/18/21 01:33 Last Admin: 05/04/21 02:31 Dose: 0.5 mg Documented by: [id number] Discontinued Medications Diphenhydramine HCl (Diphenhydramine Capsule 25 Mg Cap) 25 mg PO NOW ONE Stop: 05/04/21 02:18 Last Admin: 05/04/21 02:30 Dose: 25 mg Documented by: [id number] Sodium Chloride (Nss) 500 mls @ 125 mls/hr IV .Q4H THOR Stop: 06/02/21 20:14 Last Admin: 05/04/21 00:47 Dose: Not Given Documented by: [id number] Infusion: 05/04/21 00:46 Dose: 0 mls/hr Documented by: [id number] Admin: 05/03/21 20:26 Dose: 125 mls/hr Documented by: [id number] Discharge Plan Visit Data Chief Complaint: Leg Weakness, Bilateral Stated Complaint: A LOT OF PAIN IN BACK,LEG WEAKNESS,NUMB ED Provider: Nathan Madera Discharge Problem: Bilateral leg weakness, Lumbar stenosis with neurogenic claudication, Chronic back pain, Ambulatory dysfunction, Edema of both lower extremities Patient Disposition: Admitted As Inpatient Discharge Instructions Interventions: ED Discharge Assessment Last Done: 05/04/21 00:50 Discharge Problem: Chronic back pain Qualifiers: Back pain location: low back pain Back pain laterality: bilateral Sciatica presence: unspecified whether sciatica present Qualified Code(s): M54.5 - Low back pain
[2021-05-03 22:33] LABS: Appearance Urine Clear (Clear); Bilirubin Urine Negative (Negative); Blood Urine Negative (Negative); Color Urine Yellow; Glucose Urine UA Negative (Negative); Ketones Urine Negative (Negative); Leukocyte Esterase Urine Negative (Negative); Nitrite Urine Negative (Negative); Protein Urine Negative (Negative); Specific Gravity Urine 1.008 (1.000-1.030); Urobilinogen Urine Negative (Negative)
[2021-05-04] MEDS: SODIUM CHLORIDE 0.9% 500 ML IV SCH (00:47)
[2021-05-04] MEDS ORDERED: ACETAMINOPHEN 325 MG TAB PO PRN (01:34)
[2021-05-04] MEDS ORDERED: NITROGLYCERIN SL 0.4 MG/TAB TAB SL PRN (01:34)
[2021-05-04] MEDS ORDERED: ONDANSETRON INJ 2 MG/ML 2 ML VIAL IV PRN (01:34)
[2021-05-04] MEDS ORDERED: POLYETHYLENE (MIRALAX) 17 GM PACK PO PRN (01:34)
[2021-05-04] MEDS ORDERED: diphenhydrAMINE Capsule 25 MG CAP PO ONE (02:17)
[2021-05-04] MEDS: HYDROmorphone INJ 0.5 MG/0.5 ML SYR IV PRN ×4 (02:31→22:44)
[2021-05-04 05:52] LABS: Basophils # (auto) 0.03 K/uL (0-0.2); Basophils % (auto) 0.4 %; Eosinophils # (auto) 0.63 K/uL (0-0.5); Eosinophils % (auto) 8.4 %; Hematocrit (blood only) 36.3 % (42-52); Hemoglobin 11.8 g/dL (14.0-18.0); Immature Granulocytes # (auto) 0.02 K/uL (0.00-0.02); Immature Granulocytes % (auto) 0.3 %; Lymphocytes # (auto) 1.33 K/uL (1.2-3.4); Lymphocytes % (auto) 17.8 %; Mean Corpuscular Hemoglobin 33.2 pg (25-34); Mean Corpuscular Hgb Conc 32.5 g/dL (32-36); Mean Corpuscular Volume 102.3 fL (80-100); Mean Platelet Volume 10.2 fL (7.4-10.4); Monocytes % (auto) 18.7 %; Neutrophils # (auto) 4.07 K/uL (1.4-6.5); Neutrophils % (auto) 54.4 %; Platelet Count 224 K/uL (130-400); RDW Coefficient of Variation 14.1 % (11.5-14.5); RDW Standard Deviation 52.9 fL (36.4-46.3); Red Blood Count 3.55 M/uL (4.7-6.1); White Blood Count 7.48 K/uL (4.8-10.8)
[2021-05-04 06:27] LABS: BUN Creatinine Ratio 18.6 (10-20); Calcium 8.9 mg/dl (8.5-10.1); Creatinine Clr Calc Pharmacy 41.7 ml/min; Est GFR (African American) 57.9 ml/min; Magnesium 2.2 mg/dl (1.8-2.4); Potassium 3.8 mmol/L (3.5-5.1)
[2021-05-04] MEDS: HEPARIN SOD 5,000 UNIT/0.5 ML VIAL SQ SCH ×3 (06:30→22:38)
--- NOTE | 2021-05-04 07:12 | CT Scan Report ---
CT head/brain wo con CLINICAL HISTORY: 85 years-old Male with weakness. Acute weakness TECHNIQUE: Multiple axial CT images of the head were obtained without contrast. A dose lowering tech nique was utilized adhering to the principles of ALARA. CT DOSE: 1472.48 mGy.cm COMPARISON: 02/26/2021 FINDINGS: No acute intracranial hemorrhage, midline shift, intracranial mass, hydrocephalus, territorial ischem ia or abnormal extra-axial collection. Age-related involutional changes with ventriculomegaly redemon strated. White matter hypodensities suggestive of chronic microvascular ischemic disease. The calvari um is intact. Moderate mucoperiosteal thickening of the right maxillary sinus with partially calcifi ed secretions. Mastoid air cells and paranasal sinuses are otherwise clear. Prior bilateral lens repa ir. Cerebral vascular calcifications. IMPRESSION: No acute intracranial abnormality. ACT 112: Negative or not required by law. The above report was generated using voice recognition software. It may contain grammatical, syntax o r spelling errors. Electronically signed by: Dane Askew M.D. 05/04/2021 7:11 AM
--- NOTE | 2021-05-04 07:40 | Electrocardiogram Report ---
Test Reason : Blood Pressure : / mmHG Vent. Rate : 075 BPM Atrial Rate : 075 BPM P-R Int : 188 ms QRS Dur : 116 ms QT Int : 402 ms P-R-T Axes : 046 -40 095 degrees QTc Int : 448 ms Normal sinus rhythm Left axis deviation Left ventricular hypertrophy with QRS widening and repolarization abnormality Abnormal ECG When compared with ECG of 17-JAN-2021 16:38, No significant change was found Confirmed by Reggie Cárdenas ([id number]) on 05/04/2021 7:39:41 AM Referred By: REFERRED SELF Confirmed By:Jorge Cárdenas
--- NOTE | 2021-05-04 08:15 | XRay Report ---
XR chest 1V portable CLINICAL HISTORY: weakness COMPARISON STUDY: January 17, 2021 FINDINGS: No pneumothorax. No pleural effusion. Right hemidiaphragm is elevated. Small atelectasis is seen at the left base. Also linear densities ar e seen at the left retrocardiac region and might represent atelectasis or infiltrate. Cardiomediastin al silhouette is prominent. Prosthetic aortic wall is again seen. No significant pulmonary vascular congestion.. Osseous structures: Degenerative changes of the spine and bilateral shoulders. Redemonstration of ballard perior subluxation of the right shoulder which might be seen in rotator cuff tear. IMPRESSION: 1. Small atelectasis at the left base. Also opacity within the retrocardiac region might represent a telectasis or infiltrate ACT 112: Negative or not required by law. The above report was generated using voice recognition software. It may contain grammatical, syntax o r spelling errors. Electronically signed by: Michelle Silva DO 05/04/2021 8:13 AM
--- NOTE | 2021-05-04 08:35 | Ultrasound Report ---
US venous doppler LE BI CLINICAL HISTORY: BLE edema, COMPARISON STUDY: January 18, 2021 FINDINGS: Real-time and color flow Doppler imaging were performed. Flow was seen within the femoral, popliteal and calf veins with no intraluminal thrombus demonstrated. The saphenous vein is patent. IMPRESSION: No evidence of deep venous thrombosis. ACT 112: Negative or not required by law. The above report was generated using voice recognition software. It may contain grammatical, syntax o r spelling errors. Electronically signed by: Michelle Silva DO 05/04/2021 8:34 AM
--- NOTE | 2021-05-04 09:04 | CT Scan Report ---
ABDOMEN AND PELVIS CT WITHOUT CONTRAST HISTORY: Acute generalized abdominal pain with lower extremity weakness pain and leg weakness TECHNIQUE: Multiaxial CT images of the abdomen and pelvis were performed without contrast. A dose lo wering technique was utilized adhering to the principles of ALARA. COMPARISON STUDY: CT abdomen and pelvis 08/28/2020 FINDINGS: Prosthetic aortic valve. Extensive coronary artery calcifications. Mild cardiomegaly. Respiratory mot ion artifact the study. Streak artifact from thoracolumbar spinal fusion hardware. Lung bases are gen erally clear. There is no pneumatosis or pneumoperitoneum. The unenhanced diminutive spleen is unremarkable with a 1.3 cm calcification. Unremarkable pancreas, adrenal glands and gallbladder. There are a few scattered calcifications noted within the liver. Hypo densities of the left hepatic lobe measuring up to 1.9 cm are suggestive of probable cysts. There are least 4 nonobstructing right-sided renal calculi measuring up to 4 mm with at least 2 nonob structing calculi of the left kidney measuring up to 4 mm. No ureteral calculi or hydronephrosis. Pel moust[place] basin calcifications. Mild prostamegaly. Mild urinary bladder wall thickening suggestive of chron ic bladder outlet obstruction. Calcifications of the vas deferens. No abdominal aortic aneurysm. No a denopathy. No bowel obstruction or bowel wall thickening. Mild fecal retention. Colonic diverticulosis. No CT ev idence of acute appendicitis. Tiny fat filled periumbilical hernia. No acute fracture. Posterior inte rbody saman and screw fusion of the thoracolumbar spine with multilevel discectomy changes of the lumba r spine. Grade 1 anterolisthesis L4 on L5 is unchanged. No evidence of hardware fracture or loosening . IMPRESSION: 1. No bowel obstruction or bowel wall thickening. 2. Nonobstructing bilateral nephrolithiasis. No ureteral calculi or hydronephrosis. 3. Additional findings as above. ACT 112: Negative or not required by law. The above report was generated using voice recognition software. It may contain grammatical, syntax o r spelling errors. Electronically signed by: Dane Askew M.D. 05/04/2021 9:02 AM
--- NOTE | 2021-05-04 09:36 | History and Physical Report ---
DATE OF ADMISSION: 05/03/2021. CHIEF COMPLAINT: Bilateral lower extremity weakness and back pain. HISTORY OF PRESENT ILLNESS: This is an 85-year-old male with past medical history significant for chronic systolic CHF with EF of around 30-35% on echo in 2019, CAD status post stent, history of aortic stenosis, status post aortic valve replacement hx of sle,, chronic kidney disease baseline creatinine 1.4, chronic anemia baseline hemoglobin 12.3, history of anaplasmosis, history of ankylosing spondylitis, multiple sites, history of displacement of cervical intervertebral disk, history of chronic back pain and patient is on pain medication at home, he lives alone. The gaming dealer is good friend of his and she helps him and daughter lives close by. Eats regular food. The patient says about a month ago he was able to walk with crutches, but since last 1 month one night he went to sleep and next day morning he was not able to walk. He is bedbound now and he is able to get to the wheelchair and his caregiver helps him go to the bathroom. He says he has control over his bowels, but bladder sometimes incontinence and uses diapers. He is having increasing lower extremity swelling and numbness in lower extremity, not able to ambulate and for the last 1 month he is also having spasms in the lower extremity, right more than left. He also made an appointment with Neurology.But because of his ongoing problems and nonambulatory status he came to the ER today. Currently, resting comfortably, hemodynamically stable, otherwise denies any chest pain or shortness of breath, no cough, no fevers, no headache, no blurred visions, no earache, no runny nose, no sore throat. Appetite is good. He is able to eat and swallow okay. No nausea, no abdominal pain. Denies any blood in stool or black stools. ALLERGIES: OXYCODONE, PIROXICAM. PAST MEDICAL HISTORY: As mentioned above. PAST SURGICAL HISTORY: Right knee arthroplasty, CAD status post coronary angiogram, status post stent placement, back surgery, left total knee replacement, appendectomy, aortic valve replacement, TAVR. MEDICATIONS: Currently, the patient is on aspirin 81 mg p.o. daily, Coreg 3.125 mg p.o. b.i.d., Plavix 75 mg p.o. daily, vitamin B12 500 mcg p.o. daily, duloxetine 30 mg p.o. a.m., hydrocodone/acetaminophen 7.5/325 mg p.o. b.i.d. p.r.n., multivitamin one tablet p.o. daily, omega fish oil 1 capsule p.o. daily, prednisone 5 mg p.o. daily, PreserVision AREDS one tablet p.o. b.i.d., vitamin B complex 1 tablet p.o. daily, vitamin E 1000 units p.o. daily. FAMILY HISTORY: Significant for mother had CHF. Brother is alcoholic. SOCIAL HISTORY: Currently living alone. Quit smoking in 1966. No alcohol use. No drug use. REVIEW OF SYSTEMS: As per HPI. Rest of review of systems is negative. PHYSICAL EXAMINATION: GENERAL: The patient is of moderate build, not in acute distress. VITAL SIGNS: Temperature 36.7, pulse 85, respiratory rate 19, blood pressure 117/78, oxygen 98% on room air. HEENT: Pupils equal, round and reactive to light. Oral mucosa moist. NECK: No JVD, no neck masses. CVS: S1 and S2 heard. Regular rate and rhythm. No murmur, no gallop. RESPIRATORY SYSTEM: Normal AP diameter. No accessory muscle use. No wheezing, no crackles. ABDOMEN: Soft, bowel sounds present, nontender, no distention. CENTRAL NERVOUS SYSTEM: Alert and oriented. Speech is clear. No facial droop seen. Diminished sensation in lower extremities. Power is 5/5 in all upper extremities, 2/5 in right lower extremity edema and 1/5 in left lower extremity. EXTREMITIES: Bilateral lower extremity edema present, right leg is somewhat more erythematous and warm to palpation. LABORATORY DATA: WBC 8.8, hemoglobin 13.2, hematocrit 40.2, platelets 236. PT 9.8, INR 1, APTT 25.3. Sodium 136, potassium 4.4, chloride 105, bicarbonate 26, BUN 25, creatinine 1.3, serum glucose 102, calcium 9.5, phosphorus 3.8, magnesium 2.4, total bilirubin 0.6, AST 21, ALT 21, alkaline phosphatase 93, total creatine kinase 69. Urinalysis negative. Lyme screen negative. SARS-CoV-2 PCR negative. IMAGING DATA: Venous Doppler studies, CT of the head, chest x-ray and abdominal CT is pending. EKG: Normal sinus rhythm, rate of 75, no significant change was found. ASSESSMENT AND PLAN: This 85-year-old male presents with ongoing lower extremity weakness and back pain. 1. Back pain, lower extremity weakness, ambulatory dysfunction. The patient says about a month ago he was able to ambulate with crutches, but since one month he is bedbound, unable to ambulate because of weakness in lower extremities and numbness in lower extremities. He had back surgery in the past. CT abdomen and pelvis in the ER done, preliminary report seems to be okay. We will get MRI scan of the lower extremity and consult Orthopedics in a.m. Continue home pain medication and iv Dilaudid p.r.n. When stable PT, OT and may need placement. Social service to help with discharge planning. 2. Lower extremity edema and history of chronic systolic congestive heart failure, not taking any diuretics at home. Also, we will follow venous Doppler to tule out dvt.. 3. History of coronary artery disease , status post stent, on aspirin, Coreg and Plavix; stable. 4. History of severe aortic stenosis, status post TAVR, 5. history of chronic systolic congestive heart failure. Echo done in 12/2019 showed an EF of 45-50%, on Coreg, not on any diuretics. Has ower extremity edema and if required we will give him diuretics. 5. History of systemic lupus erythematosus and ankylosing spondylitis; currently on prednisone. He used to be on methotrexate in the past, also follows with Rheumatology. 6. Ambulatory dysfunction, possibly secondary to back issues.Patient does have a plan to follow up with Neurology. If needed, we will consult Neurology. 7. History of sinus pause last admission, on Coreg. We will monitor in the tele floor for any recurrence. 8. Chronic kidney disease stage III. Creatinine was 1.3. We will follow the labs. 9. Hypertension. Continue his Coreg. We will monitor. 10. Deep venous thrombosis prophylaxis, We will place him on heparin subcu. CODE STATUS: Level 1 full code as per discussion with the inpatient. DISPOSITION: Monitor in the med tele. PT/OT prior to discharge. Social service to help with discharge planning. Job ID: [id number] [facility]
[2021-05-04] MEDS: TOCOPHERYL, DL-ALPHA 100 UNITS CAP PO SCH (09:53)
[2021-05-04] MEDS: ASPIRIN 81 MG ECTAB PO SCH (09:53)
[2021-05-04] MEDS: TOCOPHERYL, DL-ALPHA 400 UNITS 180 MG CAP PO SCH (09:54)
[2021-05-04] MEDS: VITAMIN B COMPLEX TAB PO SCH (09:55)
[2021-05-04] MEDS: CEROVITE ADV FORMULA TAB PO SCH (09:55)
[2021-05-04] MEDS: MULTIVITAMIN TAB PO SCH (09:56)
[2021-05-04] MEDS: CYANOCOBALAMIN 500 MCG TABLET (VITAMIN B-12) PO SCH (09:56)
[2021-05-04] MEDS: predniSONE 5 MG TAB PO SCH (09:56)
[2021-05-04] MEDS: CLOPIDOGREL BISULFATE 75 MG TAB PO SCH (09:57)
[2021-05-04] MEDS: carvediloL 3.125 MG TAB PO SCH ×2 (09:57→22:37)
--- NOTE | 2021-05-04 10:25 | Hospitalist Progress Note ---
Date of Service May 04, 2021 Assessment & Plan (1) Bilateral leg weakness: (2) Ambulatory dysfunction: (3) Edema of both lower extremities: (4) Idiopathic polyneuropathy: Patient has history of ankylosing spondylitis on chronic steroid. Reports she has had surgeries in the back for spinal issues. Follow-up MRI of the lumbar spine ordered. Follow-up orthopedic consult ordered. We will get neurology consult in view of patient's neuropathy and EMG findings from 01/28/2021 which reported polyneuropathy involving sensory and motor fibers of mixed pathology and no myopathy or lumbosacral radiculopathy bilaterally Get PT/OT evaluation after Ortho evaluation Pain control Flexeril as needed muscle spasms Dopplers negative for DVT Leg edema may be from neuropathy w/sympathetic affectation. Per last outpatient cardiology note, he did not have leg edema then. I discussed with Dr Love. Ok to start low dose diuretic Start lasix 20mg po (5) Cardiomyopathy: (6) Aortic stenosis, severe: History of CAD status post stent Continue aspirin, Coreg and Plavix Past echo from 11/2020 showed EF of 30-34% Does have Leg edema as above. No other signs of overload (7) CKD (chronic kidney disease), stage III: Creatinine at baseline Avoid nephrotoxins (8) DVT prophylaxis: Lovenox subcu for DVT prophylaxis Admission and Anticipated Discharge Date Admission Date: May 03, 2021 Subjective 85-year-old male with past medical history significant for chronic systolic CHF with EF of 30-35% on echo in 2019, CAD status post stent, history of aortic stenosis, status post aortic valve replacement currently on steroids, chronic kidney disease baseline creatinine 1.4, chronic anemia baseline hemoglobin 12.3, history of anaplasmosis, history of ankylosing spondylitis, multiple sites, history of displacement of cervical intervertebral disk, history of chronic back pain and patient is on pain medication at home will presents with bilateral lower extremity weakness and back pain for the past month Patient seen and examined this morning. Reports bilateral leg weakness, bilateral numbness in the legs, leg spasms especially in the right leg with paresthesias. Reports chronic occasional urinary incontinence. Denies bowel incontinence Reports chronic back pain. Denies any nausea, vomiting, abdominal pain, constipation or diarrhea Denies any fevers, chills Denies any chest pain, cough, shortness of breath Review of Systems Review of Systems: All systems reviewed & are unremarkable except as noted in Subjective Physical Exam Constitutional: + ill appearing (Chronically ill looking) and + well hydrated; no acute distress Eyes: PERRL, conjunctivae normal, anicteric sclerae ENMT: external ear and nose normal, oropharynx normal Respiratory: normal respiratory effort, lungs clear to auscultation Cardiovascular: Rate/Rhythm: regular rate and regular rhythm S1 S2 Gastrointestinal (Abdomen): normal bowel sounds, soft, nontender, no hepatosplenomegaly Musculoskeletal: +pitting pedal edema No focal spinal tenderness Neurologic: PERRL, EOMI, accommodation nl, no face palsy, no dysarthria Power is 2/5 in RLE and 1/5 in LLE Limited abduction of Rt UE above shoulder (patient attributed this to rotator cuff injuries and stated it is chronic) Psychiatric: A+Ox3, euthymic affect Results & Data Results & Data ([facility]) Vital Signs (Past 12 Hours) Vital Signs Temp Pulse Pulse Resp BP BP Pulse Ox 05/04/21 07:20 83 05/04/21 07:00 36.8 C 82 18 125/68 91 05/04/21 04:00 36.7 C 86 18 137/70 93 05/04/21 01:00 36.4 C L 85 18 159/74 H 93 05/04/21 00:49 89 22 149/86 H 98 05/04/21 00:01 82 29 H 149/68 H 94 05/03/21 23:00 80 21 152/60 H 96 05/03/21 22:39 94 H 17 Laboratory Results Abnormal lab results 05/03/21 05/03/21 05/04/21 Range/Units 19:56 19:56 05:17 RBC 3.86 L 3.55 L (4.7-6.1) M/uL Hgb 13.2 L 11.8 L (14.0-18.0) g/dL Hct 40.2 L 36.3 L (42-52) % MCV 104.1 H 102.3 H (80-100) fL MCH 34.2 H (25-34) pg RDW Std Deviation 53.7 H 52.9 H (36.4-46.3) fL Morrill # (Auto) 1.43 H 1.40 H (0.11-0.59) K/uL Eos # (Auto) 0.75 H 0.63 H (0-0.5) K/uL BUN 25 H (7-18) mg/dl Glucose 102 H (70-99) mg/dl Globulin 4.5 H (2.5-4.0) gm/dl Albumin/Globulin Ratio 0.8 L (0.9-2) 05/04/21 Range/Units 05:17 RBC (4.7-6.1) M/uL Hgb (14.0-18.0) g/dL Hct (42-52) % MCV (80-100) fL MCH (25-34) pg RDW Std Deviation (36.4-46.3) fL Morrill # (Auto) (0.11-0.59) K/uL Eos # (Auto) (0-0.5) K/uL BUN 24 H (7-18) mg/dl Glucose (70-99) mg/dl Globulin (2.5-4.0) gm/dl Albumin/Globulin Ratio (0.9-2)
--- NOTE | 2021-05-04 11:35 | Magnetic Resonance Report ---
MR lumbar spine wo con CLINICAL HISTORY: 85 years-old Male with back pain and leg weakness. Acute severe low back pain with lower extremity weakness. No recent injury. COMPARISON: CT abdomen and pelvis 05/03/2021, 08/29/2020. TECHNIQUE: Multiplanar, multi sequence MRI of the lumbar spine was performed without intravenous cont rast. FINDINGS: No acute abnormality of the imaged extraspinal tissues. Mild mid lumbar dextroscoliosis. Extensive th oracolumbar spinal fusion hardware with discectomy changes. Artifact from the hardware limits the florence dy. There is transitional lumbosacral anatomy. For the purposes of this study, 5 lumbar type vertebra l segments would be described. There is lumbarization of S1 with a small S1-S2 intervertebral disc sp luana. 9 mm anterolisthesis L5 on S1 is unchanged from comparison. Interbody saman and screw fusion hardw are is noted extending from T11 through L5. Discectomy changes at L2-L3, L3-L4 and L5-S1. There is ev idence of prior hardware removal at T10. Fluid collection within the operative bed include a partiall y imaged 3.6 x 1.2 x 8.0 cm collection of the subcutaneous tissues of the lower thoracic spine and a deep posterior fluid collection abutting the posterior epidural tissues measuring 2.5 x 1.9 x 5.9 cm at the level of L1-L2. No acute fracture, subluxation or bone marrow edema identified. Suboptimal evaluation of the central canal and neural foramina. Multilevel spondylitic spurring with facet arthrosis. T12-L1: The central canal and left neural foramen are patent. Mild to moderate right neural foramina l narrowing secondary to spondylitic spurring and facet arthrosis. L1-L2: Mild spondylitic spurring with small posterior annular disc bulge and facet arthrosis. The vi sualized central canal and left neuroforamen are patent. There is suggestion of mild right neural for aminal narrowing. L2-L3: Discectomy changes. Mild spondylitic spurring with facet arthrosis. Mild to moderate right rama ral foraminal narrowing. The central canal and left neuroforamen are patent. L3-L4: Discectomy changes. Residual disc material within the right foraminal and extraforaminal dist ribution results in mild to moderate right neuroforaminal narrowing. Central canal and left neurofora men appear generally patent. L4-L5: Small posterior annular disc bulge with facet arthrosis. The central canal is patent. Mild to moderate right with mild left neuroforaminal narrowing. L5-S1: Discectomy changes. Chronic grade 1 anterolisthesis. The central canal is patent. The neural foramina are not well visualized. There is suggestion of a least mild to moderate left with a least m ild right neuroforaminal narrowing. IMPRESSION: 1. Extensive thoracolumbar postoperative changes as above with artifact from the hardware limiting th e study. 2. Fluid collections within the operative bed as above are suggestive of probable seromas. 3. No high-grade central canal or neural foraminal narrowing. 4. Discectomy changes at L3-L4. There is suggestion of residual disc material within the right forami nal/extraforaminal distribution resulting in [id number] right neural foraminal narrowing. ACT 112: Negative or not required by law. The above report was generated using voice recognition software. It may contain grammatical, syntax o r spelling errors. Electronically signed by: Dane Askew M.D. 05/04/2021 11:33 AM
[2021-05-04] MEDS: FUROSEMIDE 20 MG TAB PO SCH (14:15)
[2021-05-04] MEDS: CYCLOBENZAPRINE HCL 5 MG TAB PO PRN (14:16)
--- NOTE | 2021-05-04 14:56 | Consultation Report ---
DATE OF CONSULT: 05/04/2021. REASON FOR CONSULTATION: Paraparesis. HISTORY OF PRESENT ILLNESS: The patient is an 85-year-old male with chronic systolic heart failure, coronary artery disease, aortic stenosis, status post aortic valve replacement. The patient indicate s that he has RA and lupus and takes low dose prednisone 5 mg daily, also anaplasmosis, ankylosing sp ondylitis and chronic back pain, for which he is on narcotics. The patient came today because he is noticing increased spasms in his legs. By way of history, the patient has had 3 lumbar surgeries, la st several years ago. The patient began having ambulatory difficulty at least 3 years ago when he be earnest using Samoan crutches. He has difficulty describing the difficulty that he had, i.e., was it w eakness or numbness and I have the sense that it may have been some imbalance. He indicated that he was able to ambulate outside with two Samoan crutches and inside with one. Several months ago, he n oted that if he was standing without holding on to anything, he could not lift up his right leg, but that if he put his hand down, he could lift the right leg up. While seated, the patient could lift t he right leg up, but he denies that any of this was related to any imbalance. The patient has had numbness in his legs for several years' duration, which he believes is ascended t o the level of the thighs. About 2-3 months ago, he went to bed and awakened and could not really move his legs well. Noted new weakness, new numbness, but no incontinence. He has chronic thoracolumbar back pain which was uncha nged. There has been no change in cranial nerves such as double vision, vertigo, dysarthria, dysphag ia. No upper extremity weakness, query some hand numbness. No ongoing neck pain. No Lhermitte's ph enomenon. 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 It was a study of the lowers and no myopathic process o r radicular process was noted. He has no history of diabetes, alcohol use, does not smoke and is nondiabetic. He has no family hist ory of significant gait dysfunction. PAST MEDICAL HISTORY: As above. SURGICAL HISTORY: Right knee arthroplasty, coronary angiogram, stent placement, aortic valve replace ment, left total knee, appendectomy. HOME MEDICATIONS: Aspirin, Coreg, Plavix, B12, duloxetine, hydrocodone, omega fish oil, prednisone 5 mg, PreserVision, B complex, vitamin E. REVIEW OF SYSTEMS: Notable for recent severe flexor spasms right leg greater than left leg. Weight has been stable. FAMILY HISTORY: Mother, CHF. Brother, alcoholic. 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 LABORATORY DATA: On admission, white count 8, H and H 13 and 40, platelet count 236. PT, PTT normal . Chemistry notable for a BUN of 25, blood sugar of 102. Normal transaminases. CK of 69, globulin 4.5. Urinalysis negative. MRI of the lumbar spine, which I reviewed. I have reviewed both the repo rt and the images shows extensive thoracolumbar postop changes with artifact from hardware limiting s tudy, fluid collections within the operative bed are suggestive of probable seromas. No high-grade c entral canal stenosis or foraminal narrowing. Diskectomy changes at L3-L4 suggestion of residual dis k material within the right foramina, extraforaminal region resulting in mild to moderate right neura l foraminal narrowing. PHYSICAL EXAMINATION: VITAL SIGNS: Blood pressure 127/70, pulse 79, respiration 18, 36.8, 94%. NEUROLOGIC: The patient is awake and alert. Speech and language are normal. He is an excellent his qing. He appears his stated age. There is no spinal tenderness. Pupils are equal. I could not r eliably visualize the optic nerves. There is normal ramires, motility, facial sensation and facial sy mmetry. No head, voice or jaw tremor are noted. Tongue is midline without atrophy. Gross inspectio n of the musculature reveals some mild diffuse atrophy, but not focal atrophy. No fasciculations are noted. There is decreased range of motion in the right shoulder. There is pretibial edema with ltaonia e redness of his feet in the distribution of the edema. His strengths in the uppers are grossly norm al. He is limited at the right shoulder secondary to the right shoulder pathology. Tone appears to be normal in the lowers. Flexor spasms were elicited in the right lower extremity with movement of t he leg. The left leg iliopsoas is zero. The quad is 2+, hamstring 0, TA 0, gastroc trace. Right il iopsoas is 3-, the quad 2+ to 3-, hamstring about 2+, TA at best 3, gastroc 2+. Upper extremity refl exes are diminished. The superficial and deep abdominal reflexes are present. The knee jerks are ab sent. The left ankle jerk is brisk. The right ankle jerk is trace. There is no clonus in the right lower extremity. There is sustained clonus in the left lower extremity. Toes are bilaterally downg oing. The patient appears to have a sensory level somewhere between T5 and T10 to temperature, and l ight touch. Vibration is appreciated in the ankles and in the fingertips. Temperature as noted is d iminished below the aforementioned spinal level. Temperature may be modestly reduced in the upper ex tremities as well. Light touch is intact. There is a moderate tremor with intention, right greater than left. ASSESSMENT: Clinically, this patient has a thoracic myelopathy. The patients with rheumatoid arthri tis often get difficulty at the atlantoaxial joint. The spinal level could be falsely localizing. PLAN: MRI cervical and thoracic spine urgently. Further evaluation for noncompressive etiologies of myelopathy will be performed if the imaging is noncontributory. The hospitalist has started the patient on Flexeril, other options might include gabapentin 100 mg tw ice a day, the use of baclofen, or the use of tizanidine. The patient does have a peripheral neuropathy. At the moment, I think the myelopathy is the more pre ssing issue, we can look into etiology in the future. He has no obvious risks. Job ID: [id number]
--- NOTE | 2021-05-04 17:11 | Magnetic Resonance Report ---
MR cervical spine wo con HISTORY: 85 years-old Male ra, paraparesis, t5 level do t spine first chronic neck pain COMPARISON: None TECHNIQUE: Multiplanar multiecho sequence MRI of the cervical spine was obtained without the use of I V contrast. FINDINGS: Superintendent Drilling localizer images demonstrate no gross extraspinal abnormality. Motion degraded exam, notably li miting evaluation of the neural foramina. Grade 1 retrolisthesis C3 on C4, grade 1 anterolisthesis C5 on C6 and C7 on T1, likely on a degenerative basis. The posterior fossa structures are unremarkable. Signal within the cervical and imaged thoracic spinal cord are within normal limits. No acute fractu re, subluxation, bony erosion or significant bone marrow edema. Multilevel discogenic degeneration wi th moderate to severe facet arthrosis and moderate spondylitic spurring. Degenerative partial bony fu randolph of the C3-C4 and C6-C7 levels. C2-C3: Mild uncovertebral spurring with moderate facet arthrosis. The central canal is patent. There is at least mild bilateral neural foraminal narrowing. C3-C4: Degenerative partial bony fusion of the vertebral bodies. Grade 1 retrolisthesis. Moderate fac et arthrosis. AP dimension of the thecal sac measures 8 mm. Mild central canal stenosis. Moderate to severe right with moderate left neural foraminal narrowing. C4-C5: Severe intervertebral disc space narrowing with spondylitic spurring and posterior disc osteop hyte complex with severe facet arthrosis. Mild central canal stenosis, AP dimension of the thecal sac measuring 9 mm. Severe bilateral neural foraminal narrowing. C5-C6: Severe intervertebral disc space narrowing. Spondylitic spurring with posterior disc osteophyt e complex and severe facet arthrosis. AP dimension of the thecal sac measures 7 mm. Mild central nette l stenosis. Moderate right with severe left neuroforaminal narrowing. C6-C7: Degenerative partial bony fusion of the vertebral bodies. Moderate facet arthrosis. Uncoverteb ral spurring. Mild central canal stenosis, AP dimension of the thecal sac measuring 7 mm. Moderate bi lateral neural foraminal narrowing. C7-T1: Degenerative related grade 1 anterolisthesis. Moderate intervertebral disc space narrowing. Sp ondylitic spurring with posterior annular disc bulge/disc space uncovering and moderate facet arthros is. Mild central canal stenosis, AP dimension of the thecal sac measuring 8 mm. There is mild to mode rate bilateral neural foraminal narrowing. IMPRESSION: 1. Motion degraded exam. 2. No acute fracture or bone marrow edema. 3. Advanced multilevel intervertebral disc space narrowing with associated spondylitic spurring and f acet arthrosis. 4. Mild multilevel central canal stenosis. 5. Moderate to severe multilevel neural foraminal stenosis. ACT 112: Negative or not required by law. The above report was generated using voice recognition software. It may contain grammatical, syntax o r spelling errors. Electronically signed by: Dane Askew M.D. 05/04/2021 5:10 PM
--- NOTE | 2021-05-04 18:29 | Magnetic Resonance Report ---
MR thoracic spine wo con HISTORY: 85 years-old Male RA, paraparesis, T5 level chronic mid back pain with prior surgery COMPARISON: MR lumbar spine of same day, CTA chest 08/29/2020 TECHNIQUE: Multiplanar multisequence MRI of the thoracic spine was obtained without the use of IV con trast. FINDINGS: Motion degraded exam. Degenerative changes of the cervical and lumbar spine. Posterior saman and screw fusion of the thoracolumbar spine redemonstrated with hardware extending from T11-T12 through the lum bar segments. Artifact from the hardware limits the study. No acute fracture, subluxation or osseous erosion identified. There is severe intervertebral disc space narrowing at T9-T10 with trace fluid wi thin the disc space, likely on a degenerative basis. Small associated facet effusions. No definite en dplate erosions identified. Vacuum disc phenomenon was noted at this interspace along with severe narrowing on the comparison felix st CT. Spondylitic spurring with posterior annular disc bulge and advanced facet arthrosis at this in terspace narrows the AP dimension of the thecal sac to 4 mm slightly deforming the thoracic spinal co rd. There is moderate to severe central canal stenosis. There is likely normal signal of the thoracic spinal cord. There is at least moderate narrowing of the bilateral neural foramina at this level. De generative bony fusion of the T8-T9 vertebral bodies. Mild multilevel intervertebral disc space narro wing with spondylitic spurring and moderate facet arthrosis. Mild central canal narrowing at T7-T8 an d T8-T9. IMPRESSION: 1. Limited exam secondary to motion and hardware artifact. 2. Thoracolumbar spinal fusion redemonstrated. 3. Severe intervertebral disc space narrowing with spondylitic spurring and posterior disc osteophyte complex with facet arthrosis and ligamentum flavum thickening at T9-T10 results in moderate to sever e central canal stenosis with moderate bilateral neural foraminal narrowing. 4. Mild central canal narrowing at T7-T8 and T8-T9. ACT 112: Negative or not required by law. The above report was generated using voice recognition software. It may contain grammatical, syntax o r spelling errors. Electronically signed by: Dane Askew M.D. 05/04/2021 6:27 PM
[2021-05-04] MEDS: DULoxetine HCL 30 MG CAP PO SCH (22:38)
[2021-05-05] MEDS: HYDROmorphone INJ 0.5 MG/0.5 ML SYR IV PRN ×2 (03:38→12:46)
[2021-05-05] MEDS: HYDROCODONE/ACETAMINOPHEN 7.5/325MG TAB PO PRN (04:57)
[2021-05-05] MEDS ORDERED: HYDROmorphone INJ 0.5 MG/0.5 ML SYR IV STA (05:46)
[2021-05-05] MEDS ORDERED: diphenhydrAMINE Capsule 25 MG CAP PO ONE (05:54)
[2021-05-05] MEDS: HEPARIN SOD 5,000 UNIT/0.5 ML VIAL SQ SCH (06:01)
[2021-05-05 07:39] LABS: Hematocrit (blood only) 36.2 % (42-52); Hemoglobin 11.7 g/dL (14.0-18.0); Mean Corpuscular Hemoglobin 33.6 pg (25-34); Mean Corpuscular Hgb Conc 32.3 g/dL (32-36); Mean Platelet Volume 10.3 fL (7.4-10.4); Platelet Count 223 K/uL (130-400); RDW Coefficient of Variation 13.8 % (11.5-14.5); RDW Standard Deviation 52.6 fL (36.4-46.3); Red Blood Count 3.48 M/uL (4.7-6.1); White Blood Count 9.43 K/uL (4.8-10.8)
[2021-05-05 08:11] LABS: BUN Creatinine Ratio 19.2 (10-20); Calcium 8.9 mg/dl (8.5-10.1); Creatinine Clr Calc Pharmacy 36.7 ml/min; Est GFR (African American) 49.6 ml/min; Est GFR (Non-African American) 42.8 ml/min; Magnesium 2.2 mg/dl (1.8-2.4); Potassium 3.8 mmol/L (3.5-5.1)
[2021-05-05] MEDS: CYCLOBENZAPRINE HCL 5 MG TAB PO PRN (08:11)
[2021-05-05] MEDS: TOCOPHERYL, DL-ALPHA 400 UNITS 180 MG CAP PO SCH (08:11)
[2021-05-05] MEDS: CYANOCOBALAMIN 500 MCG TABLET (VITAMIN B-12) PO SCH (08:11)
[2021-05-05] MEDS: MULTIVITAMIN TAB PO SCH (08:11)
[2021-05-05] MEDS: predniSONE 5 MG TAB PO SCH (08:11)
[2021-05-05 08:12] LABS: Phosphorus 3.3 mg/dl (2.5-4.9)
[2021-05-05] MEDS: CLOPIDOGREL BISULFATE 75 MG TAB PO SCH (08:12)
[2021-05-05] MEDS: FUROSEMIDE 20 MG TAB PO SCH (08:12)
[2021-05-05] MEDS: CEROVITE ADV FORMULA TAB PO SCH (08:12)
[2021-05-05] MEDS: VITAMIN B COMPLEX TAB PO SCH (08:12)
[2021-05-05] MEDS: TOCOPHERYL, DL-ALPHA 100 UNITS CAP PO SCH (08:12)
[2021-05-05] MEDS: ASPIRIN 81 MG ECTAB PO SCH (08:12)
[2021-05-05] MEDS: carvediloL 3.125 MG TAB PO SCH ×2 (08:12→19:59)
--- NOTE | 2021-05-05 09:43 | Orthopedic Consultation ---
Date of Consultation May 05, 2021 Assessment & Plan (1) Myelopathy concurrent with and due to spinal stenosis of thoracic region: His cervical and thoracic MRIs available for review do demonstrate evidence of spondylosis throughout the cervical spine but no gross cord compression or myelomalacia. His thoracic MRI however demonstrates significant stenosis at T9-T10 with evidence of instability with facet hypertrophy and fluid within the joint. Undoubtedly this is the etiology of his leg weakness and symptom complex. I have outlined this with the patient. My concern is his medical condition and whether he be able to withstand a surgical procedure. He would require lumbar decompression and extension of the fusion to at least T8- T9. Will discuss with medicine and approach cautiously. Present on Admission?: Yes History of Present Illness Reason for Consultation: Leg weakness Attending Physician: Faith Cano MD History of Present Illness This is a an 85-year-old male well-known to me that had a progressive decline over the past several months with ability to ambulate. He has multiple medical issues including his heart and lungs as well as autoimmune disease. He denies any recent trauma fall or event. Denies any pain in his legs. States that this time his left leg is markedly limited compared to the right. Allergies Allergy/AdvReac Type Severity Reaction Status Date / Time oxycodone Allergy Unknown ITCHY, Per Verified 05/03/21 20:22 pt-can take Vicodin piroxicam AdvReac Intermediate CAUSED Verified 05/03/21 20:22 ULCER Home Medications Medication Instructions Recorded Confirmed Type PreserVision AREDS 1 tab PO BID 08/01/19 05/03/21 History cyanocobalamin (vitamin B-12) 500 mcg PO DAILY 08/01/19 05/03/21 History multivitamin 1 tab PO DAILY 08/01/19 05/03/21 History vitamin B complex 1 tab PO DAILY 08/01/19 05/03/21 History hydrocodone-acetaminophen 1 tab PO BID PRN 02/02/20 05/03/21 History aspirin 81 mg PO DAILY 08/28/20 05/03/21 History carvedilol 3.125 mg PO BID 01/17/21 05/03/21 History clopidogrel 75 mg PO DAILY 01/17/21 05/03/21 History prednisone 5 mg PO DAILY 01/17/21 05/03/21 History duloxetine 30 mg PO QPM 05/03/21 05/03/21 History omega 8-rqe-xum-fish oil [Fish Oil] 1 cap PO DAILY 05/03/21 05/03/21 History vitamin E 1,000 tab PO DAILY 05/03/21 05/03/21 History Patient History Medical History (Updated 05/05/21 @ 09:42 by Hao Soriano DO) Acute hypoxemic respiratory failure Aortic stenosis CKD (chronic kidney disease), stage III History of steroid therapy HTN (hypertension) Hyperlipidemia Hypertension Lumbar stenosis with neurogenic claudication Pericarditis Systemic lupus erythematosus Surgical History History of back surgery S/P appendectomy S/p total knee replacement, bilateral Family History Unknown No problems noted. Other Family history non-contributory Social History Smoking Status: Former smoker Second Hand Exposure: No; Do You Dip or Chew Tobacco: No; Hx Alcohol Use: No Hx Substance Use: Yes Preferred Language: Telugu Communication Ability: Effective Brand Sales Consultant Required: No Beliefs That Will Affect Care: None marital status: Single Current Living Situation: Significant Other Other Information That Helps Us Care for You: No Feels Safe at Home: Yes Safety Concerns: Feels Safe At This Time Assistive Devices: Glasses Physical Exam Physical Exam: On exam he is alert and oriented. He exhibits deficits with dorsiflexion plantarflexion on the left compared to the right. He has difficulty raising his legs off of the bed. He exhibits impressive bilateral peripheral edema to the lower extremities. Sensory is diminished. Deep tendon reflexes are blunted. Results & Data ([facility]) Vital Signs (Past 12 Hours) Vital Signs Temp Pulse Pulse Resp BP Pulse Ox 05/05/21 07:00 36.4 C L 75 77 20 126/69 91 05/05/21 03:30 77 05/04/21 23:00 36.4 C L 81 18 122/80 94
--- NOTE | 2021-05-05 10:57 | Hospitalist Progress Note ---
Date of Service May 05, 2021 Assessment & Plan (1) Bilateral leg weakness: (2) Ambulatory dysfunction: (3) Edema of both lower extremities: (4) Idiopathic polyneuropathy: Admitted with bilateral lower extremity profound weakness and severe spasm, currently nonambulatory and bedbound Patient has history of ankylosing spondylitis on chronic steroid. MRI of cervical/lumbar/thoracic spine ordered. MRI of thoracic spine: Severe intervertebral disc space narrowing with spondylitic spurring and posterior disc osteophyte complex with facet arthrosis and ligamentum flavum thickening at T9-T10 results in moderate to severe central canal stenosis with moderate bilateral neural foraminal narrowing. MRI of brain ordered as well. Possible reason of lower extremity paraplegia and symptoms. Neurology consult requested, appreciate input, Patient will need surgery of his thoracic spine, given medical complexity will benefit with transfer to tertiary care center/[facility], MRI scans is transmitted to [facility] system, Neurology will speak with/updated neuro spine team Patient evaluated by Dr. Soriano orthopedics, appreciate input Bilateral lower extremity edema: Dopplers negative for DVT Leg edema may be from neuropathy w/sympathetic affectation. hx cardiomyopathy last echo shows EF 45-50% Patient was started on low-dose Lasix 20 mg daily Acute renal failure on chronic CKD stage III: Possible due to diuretic/Lasix Ordered to hold Lasix for today Follow BMP, patient will benefit to transfer to tertiary care for complex thoracic spinal procedure (5) Cardiomyopathy: (6) Aortic stenosis, severe: Status post bioprosthetic valve placement. Echo on 01/11/2021: Showed normal gradient prosthetic aortic valve History of CAD status post stent Continue aspirin, Coreg and Plavix Patient is a high surgical risk for spinal procedure (7) CKD (chronic kidney disease), stage III: Creatinine at baseline Avoid nephrotoxins (8) DVT prophylaxis: Hold Lovenox for now as patient will need a spinal decompression surgery at tertiary care Disposition: To be determined Needs thoracic spine decompression surgery to improved severe lower extremity neurologic symptoms, paraplegia Will reach out to [facility] transfer center today discussed the case and possible transfer to neuro spine orthopedics service Admission and Anticipated Discharge Date Admission Date: May 03, 2021 Subjective Follow-up visit for bilateral lower extremity paraplegia, spasm. Patient reports severe spasm on bilateral legs, severe pain with minimal movement or change of position, Had intense itching on his back, and buttock area last night, Benadryl was ordered, was not given as patient was sleeping and from the pain medications Today he feels frustrated with his ongoing symptoms, does not have any complaint of cough, no shortness of breath, no chest heaviness, No fever or chills No nausea vomiting or abdominal pain Review of Systems Review of Systems: All systems reviewed & are unremarkable except as noted in HPI & below Physical Exam Constitutional: WD/WN, vitals as above + ill appearing Eyes: + eyelid abnormality (Eyelid drooping noted on left side) and + anicteric sclerae ENMT: external ear and nose normal, oropharynx normal Neck: normal visual inspection Respiratory: normal respiratory effort, lungs clear to auscultation Cardiovascular: Rate/Rhythm: regular rate and regular rhythm Extremities: + pedal edema and + edema (+2 bilateral pitting edema) Gastrointestinal (Abdomen): Percussion/Palpation: abdomen soft; abdomen nontender Musculoskeletal: Profound weakness on bilateral lower extremity, unable to lift left foot from the bed, gets severe spasm from sole of the foot all the way up to the thigh, Skin: no rashes, warm and dry Neurologic: awake Paraplegia on bilateral lower extremity, with ongoing muscle spasms Psychiatric: Orientation: alert and oriented x 3 Affect: + flat affect Results & Data Results & Data ([facility]) Vital Signs (Past 12 Hours) Vital Signs Temp Pulse Pulse Resp BP Pulse Ox 05/05/21 07:00 36.4 C L 75 77 20 126/69 91 05/05/21 03:30 77 05/04/21 23:00 36.4 C L 81 18 122/80 94
--- NOTE | 2021-05-05 14:40 | Magnetic Resonance Report ---
MRI OF THE BRAIN WITHOUT AND WITH IV CONTRAST CLINICAL HISTORY: paraplegia COMPARISON STUDY: Head CT May 03, 2021. TECHNIQUE: Utilizing a 1.5 Maria Isabel magnet and dedicated coil, multiplanar, multiecho imaging of the br ain was performed pre and postcontrast administration. IV administration of 8 mL of Gadavist contras t was uneventful. FINDINGS: This exam is mildly compromised by motion artifact. No acute intracranial hemorrhage, midli ne shift or mass effect is present. There are no foci of restricted diffusion to suggest acute infarc t. Ventricular dilatation is unchanged since head CT February 26, 2021. This is likely due to atrophy. Basi lar cisterns are patent. There are no extra-axial collections. There is no intracranial mass or patho logic enhancement. White matter T2 hyperintense foci suggest moderate small vessel disease. Note is m paul of an old lacunar infarct within the left cerebellar hemisphere. There are old lacunar infarcts w ithin the brainstem. Moderate mucosal thickening of the right maxillary sinus is noted. There is mild ethmoid sinus mucosal thickening. Small mucous retention cyst within the left maxillary sinus is inc identally noted. IMPRESSION: 1. No acute intracranial findings. 2. No intracranial mass or pathologic enhancement. 3. Stable ventricular dilatation, likely due to atrophy. 4. White matter T2 hyperintense foci suggestive of moderate small vessel disease. 5. 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 ACT 112: Negative or not required by law. Electronically signed by: Basilio Garay M.D. 05/05/2021 2:38 PM
--- NOTE | 2021-05-05 15:18 | Discharge Summary ---
Date of Service May 05, 2021 Admission HPI Per Admitting Provider DICTATED BY: Sung Espinoza MD DATE OF ADMISSION: 05/03/2021. CHIEF COMPLAINT: Bilateral lower extremity weakness and back pain. HISTORY OF PRESENT ILLNESS: This is an 85-year-old male with past medical his tory significant for chronic systolic CHF with EF of around 30-35% on echo in 2019, CAD status post stent, history of aortic stenosis, status post aortic valve replacement hx of sle,, chronic kidney disease baseline creatinine 1.4, chronic anemia baseline hemoglobin 12.3, history of anaplasmosis, history of ankylosing spondylitis, multiple sites, history of displacement of cervical intervertebral disk, history of chronic back pain and patient is on pain medication at home, he lives alone. The interior design project manager is good friend of his and she helps him and daughter lives close by. Eats regular food. The patient says about a month ago he was able to walk with crutches, but since last 1 month one night he went to sleep and next day morning he was not able to walk. He is bedbound now and he is able to get to the wheelchair and his caregiver helps him go to the bathroom. He says he has control over his bowels, but bladder sometimes incontinence and uses diapers. He is having increasing lower e xtremity swelling and numbness in lower extremity, not able to ambulate and for the last 1 month he is also having spasms in the lower extremity, right more than left. He also made an appointment with Neurology.But because of his ongoing problems and nonambulatory status he came to the ER today. Currently, resting comfortably, hemodynamically stable, otherwise denies any chest pain or shortness of breath, no cough, no fevers, no headache, no blurred visions, no earache, no runny nose, no sore throat. Appetite is good. He is able to eat and swallow okay. No nausea, no abdominal pain. Denies any blood in stool or black stools. Principal Diagnosis Severe compressive thoracic myelopathy with paraparesis Renal failure on CKD stage III Acute on chronic CHF with systolic dysfunction ischemic cardiomyopathy Status post bioprosthetic AVR Discharge Exam Constitutional WD/WN, vitals as above + ill appearing Eyes + eyelid abnormality (Eyelid drooping noted on left side) and + anicteric sclerae ENMT external ear and nose normal, oropharynx normal Neck normal visual inspection Respiratory normal respiratory effort, lungs clear to auscultation Cardiovascular Rate/Rhythm: regular rate and regular rhythm Extremities: + pedal edema and + edema (+2 bilateral pitting edema) Gastrointestinal (Abdomen) Percussion/Palpation: abdomen soft; abdomen nontender Skin no rashes, warm and dry Neurologic awake Psychiatric Orientation: alert and oriented x 3 Affect: + flat affect Discharge Data Allergies Allergy/AdvReac Type Severity Reaction Status Date / Time oxycodone Allergy Unknown ITCHY, Per Verified 05/03/21 20:22 pt-can take Vicodin piroxicam AdvReac Intermediate CAUSED Verified 05/03/21 20:22 [facility]LCER Consultations 05/03/21 22:02 ED Decision to Admit Stat 05/04/21 08:00 Consult Orthopedic Surgery Routine 05/04/21 11:16 Consult Neurology Routine Ordered Studies 05/03/21 20:03 CT abd pelvis wo con Urgent 05/03/21 20:09 CT head/brain wo con Urgent 05/03/21 20:11 US venous doppler LE BI Stat 05/04/21 01:34 MR lumbar spine wo con Urgent 05/04/21 12:47 MR thoracic spine wo con Urgent 05/04/21 12:49 MR cervical spine wo con Urgent 05/05/21 09:34 MR brain wo/w con Routine Hospital Course (1) Bilateral leg weakness: (2) Ambulatory dysfunction: (3) Edema of both lower extremities: (4) Idiopathic polyneuropathy: Admitted with bilateral lower extremity profound weakness and severe spasm, currently nonambulatory and bedbound Patient has history of ankylosing spondylitis on chronic steroid. MRI of cervical/lumbar/thoracic spine ordered. MRI of thoracic spine: Severe intervertebral disc space narrowing with spondylitic spurring and posterior disc osteophyte complex with facet arthrosis and ligamentum flavum thickening at T9-T10 results in moderate to severe central canal stenosis with moderate bilateral neural foraminal narrowing. Severe thoracic spine compressive deformity causing bilateral lower extremity paraparesis Neurology consult requested, appreciate input, Patient will need surgery of his thoracic spine, given medical complexity will benefit with transfer to tertiary care center/[facility], MRI scans is transmitted to [facility] system, Patient evaluated by Dr. Soriano orthopedics, appreciate input-underlying medical complexity, acute on chronic CHF with ischemic cardiomyopathy, acute renal failure,-patient will need multidisciplinary management, to have complex thoracic spine surgery In agreement for transfer to higher level of care Case discussed with orthospine/ointment mill tender in [facility] patient is accepted for transfer Accepting physician Dr. Ramos Acute on chronic decompensated CHF with systolic dysfunction. History of ischemic cardiomyopathy recent echo on 01/19/2021: EF 40-45%, minimal periprosthetic leak around the aortic valve, gradient is normal for prosthetic aortic valve. Please see bilateral lower extremity edema with volume overload noted Patient given 20 mg of Lasix, Developed acute renal failure, Will need cardiology evaluation and preop cardiac optimization before any surgical procedure Bilateral lower extremity edema: Dopplers negative for DVT Leg edema may be from neuropathy w/sympathetic affectation. Worsen with decompensated CHF, Acute renal failure on chronic CKD stage III: Possible due to diuretic/Lasix Ordered to hold Lasix for today Follow BMP, patient will benefit to transfer to tertiary care for complex thoracic spinal procedure History of SLE. on chronic prednisone treatment Follows with air quality manager as outpatient (5) Cardiomyopathy: (6) Aortic stenosis, severe: Status post bioprosthetic valve placement. Echo on 01/11/2021: Showed normal gradient prosthetic aortic valve History of CAD status post stent Patient is on aspirin Plavix and Coreg Patient is a high surgical risk for spinal procedure (7) CKD (chronic kidney disease), stage III: Creatinine at baseline Avoid nephrotoxins (8) DVT prophylaxis: Disposition: Patient is being transferred to [facility] Accepting physician: Dr. Ramos Total Time Total Time Spent Total Time Spent (In Minutes): Approximately 40 minutes Total Time Includes: Examination of the Patient, Discharge Planning, Medication Reconciliation and Communication With Other Providers Discharge Plan Discharge Items Patient Disposition: Transfer Acute Care Hospital Reason For Visit: BILAT LEG WEAKNESS Discharge Diagnosis: Severe compressive thoracic myelopathy with paraparesis Renal failure on CKD stage III Acute on chronic CHF with systolic dysfunction ischemic cardiomyopathy Status post bioprosthetic AVR Activity: As commented below Activity Comment: bed rest Non-emergency contact: Primary Care Provider Call non-emergency contact if: you have any medication questions Follow-up/Referrals: Kamryn Petersen PA-C [Primary Care Provider] - Diet: Heart Healthy Addtl Attending Provider Instructions: Patient is being transferred to [facility], will require multidisciplinary service including cardiology, and spine Ortho Excepting physician at [facility]: Dr. Ramos Pending Studies at Discharge: No Stand-Alone Forms: [facility] Skilled Items Patient informed of condition?: Yes DNR: No Discharge Level of Care: Other Communicable Disease: No Discharge Prognosis: Stable Lines: None Urinary Catheter: No Medications and DC Order Prescriptions: Continued multivitamin Tablet 1 tab PO DAILY RF: 0 cyanocobalamin (vitamin B-12) 500 mcg Tablet 500 mcg PO DAILY RF: 0 vitamin B complex Tablet 1 tab PO DAILY RF: 0 PreserVision AREDS [id number] [id number] Tablet 1 tab PO BID RF: 0 hydrocodone-acetaminophen 7.5-325 mg tablet 1 tab PO BID PRN (Reason: Pain) RF: 0 aspirin 81 mg Tablet,Delayed Release (Dr/Ec) 81 mg PO DAILY RF: 0 prednisone 5 mg tablet 5 mg PO DAILY RF: 0 clopidogrel 75 mg tablet 75 mg PO DAILY RF: 0 carvedilol 3.125 mg tablet 3.125 mg PO BID RF: 0 duloxetine 30 mg capsule,delayed release(DR/EC) 30 mg PO QPM RF: 0 vitamin E 1,000 unit Tablet 1,000 tab PO DAILY RF: 0 omega 7-tab-wlp-fish oil [Fish Oil] 1,200 (144-216) mg Capsule 1 cap PO DAILY RF: 0 Discharge Orders: Discharge Order (Routine); Ordered 05/05/21 Ordered By: Faith Cano Admission Data Admit Date/Time: 05/03/21 23:13 Attending Provider: Faith Cano Admit Provider: Sung Espinoza Primary Care Provider: Kamryn Petersen Other Providers: Sung Espinoza ; Hao Soriano Kathleen ; Aarti Padron I. ; [facility]
[2021-05-05] MEDS: DULoxetine HCL 30 MG CAP PO SCH (19:59)
[2021-05-06] MEDS: HYDROmorphone INJ 0.5 MG/0.5 ML SYR IV PRN (07:29)
[2021-05-06] MEDS: CEROVITE ADV FORMULA TAB PO SCH (09:02)
[2021-05-06] MEDS: TOCOPHERYL, DL-ALPHA 400 UNITS 180 MG CAP PO SCH (09:02)
[2021-05-06] MEDS: VITAMIN B COMPLEX TAB PO SCH (09:02)
[2021-05-06] MEDS: carvediloL 3.125 MG TAB PO SCH (09:02)
[2021-05-06] MEDS: predniSONE 5 MG TAB PO SCH (09:02)
[2021-05-06] MEDS: MULTIVITAMIN TAB PO SCH (09:02)
[2021-05-06] MEDS: TOCOPHERYL, DL-ALPHA 100 UNITS CAP PO SCH (09:02)
[2021-05-06] MEDS: CYANOCOBALAMIN 500 MCG TABLET (VITAMIN B-12) PO SCH (09:02)
[2021-05-06] MEDS: CYCLOBENZAPRINE HCL 5 MG TAB PO PRN (09:03)
[2021-05-06] MEDS: HYDROCODONE/ACETAMINOPHEN 7.5/325MG TAB PO PRN (09:10)
--- NOTE | 2021-05-06 09:13 | Hospitalist Progress Note ---
Date of Service May 06, 2021 Assessment & Plan (1) Bilateral leg weakness: (2) Ambulatory dysfunction: (3) Edema of both lower extremities: (4) Idiopathic polyneuropathy: Admitted with bilateral lower extremity profound weakness and severe spasm, currently nonambulatory and bedbound Patient has history of ankylosing spondylitis on chronic steroid. History of SLE MRI of cervical/lumbar/thoracic spine MRI of thoracic spine: Severe intervertebral disc space narrowing with spondylitic spurring and posterior disc osteophyte complex with facet arthrosis and ligamentum flavum thickening at T9-T10 results in moderate to severe central canal stenosis with moderate bilateral neural foraminal narrowing. Severe thoracic spine compressive deformity causing bilateral lower extremity paraparesis Neurology consult requested, appreciate input, Patient will need surgery of his thoracic spine, given medical complexity will benefit with transfer to tertiary care center/[facility], MRI scans is transmitted to [facility] system, Patient evaluated by Dr. Soriano orthopedics, appreciate input-underlying medical complexity, acute on chronic CHF with ischemic cardiomyopathy, acute renal failure,-patient will need multidisciplinary management, to have complex thoracic spine surgery In agreement for transfer to higher level of care Case discussed with orthospine/stamping press operator in [facility] patient is accepted for transfer Accepting physician Dr. Ramos No bed available at [facility], patient stayed overnight Acute on chronic decompensated CHF with systolic dysfunction. History of ischemic cardiomyopathy recent echo on 01/19/2021: EF 40-45%, minimal periprosthetic leak around the aortic valve, gradient is normal for prosthetic aortic valve. Diuretics was kept on hold secondary to acute renal failure Bilateral lower extremity edema: Dopplers negative for DVT Leg edema may be from neuropathy w/sympathetic affectation. Worsen with decompensated CHF, Acute renal failure on chronic CKD stage III: Possible due to diuretic/Lasix Creatinine was elevated from 1.3-1.49 Lasix kept on hold yesterday, repeat BMP today Patient will need cardiology evaluation and optimization of cardiac function/adequate diuresis to correct volume status prior to any surgical procedure History of SLE. on chronic prednisone treatment Patient complains of worsening of bilateral wrist pain, possible flare of arthritis NSAID is avoided secondary to acute renal failure, continue pain medication patient is already on chronic prednisone which is continued Follows with thread dresser as outpatient (5) Cardiomyopathy: (6) Aortic stenosis, severe: Status post bioprosthetic valve placement. Echo on 01/11/2021: Showed normal gradient prosthetic aortic valve History of CAD status post stent Patient is on aspirin Plavix and Coreg Will defer to cardiology at [facility] timing to hold aspirin and Plavix depending on spinal procedure Patient is a high surgical risk for spinal procedure (7) CKD (chronic kidney disease), stage III: Creatinine at baseline Avoid nephrotoxins (8) DVT prophylaxis: Disposition: Patient is waiting to be transferred to [facility] Accepting physician: Dr. Ramos Admission and Anticipated Discharge Date Admission Date: May 03, 2021 Subjective Follow-up visit for bilateral lower extremity paraplegia, spasm. Patient patient is accepted to [facility] Seen at bedside, had an uneventful night, Did not had any complaint of itching or burning sensation on back. 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 No fever or chills no cough, Unchanged weakness paraparesis of bilateral lower extremity, spasm is well controlled with the medications Waiting to be transferred to [place] No nausea vomiting or abdominal pain Review of Systems Review of Systems: All systems reviewed & are unremarkable except as noted in HPI & below Physical Exam Constitutional: WD/WN, vitals as above + ill appearing Eyes: + eyelid abnormality (Eyelid drooping noted on left side) and + anicteric sclerae ENMT: external ear and nose normal, oropharynx normal Neck: normal visual inspection Respiratory: normal respiratory effort, lungs clear to auscultation Cardiovascular: Rate/Rhythm: regular rate and regular rhythm Extremities: + pedal edema and + edema (+2 bilateral pitting edema) Gastrointestinal (Abdomen): Percussion/Palpation: abdomen soft; abdomen nontender Skin: no rashes, warm and dry Neurologic: awake Psychiatric: Orientation: alert and oriented x 3 Affect: + flat affect Results & Data Results & Data ([facility]) Vital Signs (Past 12 Hours) Vital Signs Temp Pulse Pulse Resp BP Pulse Ox 05/06/21 08:02 36.8 C 73 22 158/74 H 96 05/06/21 07:00 67 05/06/21 03:58 36.8 C 69 20 144/70 H 93 05/05/21 23:33 77 05/05/21 23:14 36.7 C 67 20 126/68 93
[2021-05-06 09:44] LABS: Hemoglobin 11.3 g/dL (14.0-18.0); Mean Corpuscular Hemoglobin 33.9 pg (25-34); Mean Corpuscular Hgb Conc 33.2 g/dL (32-36); Mean Corpuscular Volume 102.1 fL (80-100); Mean Platelet Volume 9.7 fL (7.4-10.4); Platelet Count 201 K/uL (130-400); RDW Coefficient of Variation 13.7 % (11.5-14.5); RDW Standard Deviation 51.2 fL (36.4-46.3); Red Blood Count 3.33 M/uL (4.7-6.1); White Blood Count 8.66 K/uL (4.8-10.8)
[2021-05-06 10:08] LABS: BUN Creatinine Ratio 20.3 (10-20); Calcium 8.6 mg/dl (8.5-10.1); Creatinine Clr Calc Pharmacy 37.4 ml/min; Est GFR (African American) 50.8 ml/min; Est GFR (Non-African American) 43.9 ml/min; Potassium 3.7 mmol/L (3.5-5.1)
[2021-05-06] MEDS ORDERED: HYDROmorphone INJ 1 MG/ML SYRINGE IV STA (12:27)
== END 2021-05-06 13:30 | disposition short-term general hospital (02) | DRG 551 ==
LOC: ED 18:04 → SUATTDRO 23:13 → 2N 23:13